=== PATIENT | male | born 1940 | race Caucasian/White ===

== ENCOUNTER 2021-01-23 11:41 | Inpatient (IN) | payer MEDICARE, SELFPAY ==
[2021-01-23] VITALS (13 sets, daily range): BP systolic 177–231; BP diastolic 77–121; PULSE 54–70; RESP 14–20; TEMP 36.6–37; O2SAT 95–98; BMI 26.2
--- NOTE | ~2021-01-23 | XR_ITS ---
EXAMINATION: RIGHT ELBOW AND CHEST X-RAY CLINICAL INFORMATION: Pain and swelling. COMPARISON: None TECHNIQUE: 3 views right elbow and 2 views chest. FINDINGS: Right elbow: There is no visible acute fracture, dislocation or subluxation. There is degenerative periarticular spurring. No abnormal joint effusion noted. CHEST: The lungs are well-expanded and clear. The heart size and pulmonary vascularity is normal. No gross bony abnormality seen. XR/XR chest 2V IMPRESSION: Degenerative arthritic changes right elbow. No acute fracture or dislocation. There are no loose bodies. Unremarkable chest exam.
--- NOTE | ~2021-01-23 | XR_ITS ---
EXAMINATION: RIGHT ELBOW AND CHEST X-RAY CLINICAL INFORMATION: Pain and swelling. COMPARISON: None TECHNIQUE: 3 views right elbow and 2 views chest. FINDINGS: Right elbow: There is no visible acute fracture, dislocation or subluxation. There is degenerative periarticular spurring. No abnormal joint effusion noted. CHEST: The lungs are well-expanded and clear. The heart size and pulmonary vascularity is normal. No gross bony abnormality seen. XR/XR elbow RT 2V IMPRESSION: Degenerative arthritic changes right elbow. No acute fracture or dislocation. There are no loose bodies. Unremarkable chest exam.
--- NOTE | ~2021-01-23 | CT_ITS ---
EXAMINATION: CT HEAD WITHOUT CONTRAST CLINICAL INFORMATION: Dizziness. Expressive aphasia. COMPARISON: None TECHNIQUE: Contiguous axial imaging was performed from the skull base to vertex without intravenous administration of contrast. This CT examination was performed using dose optimization techniques as appropriate, variously including the following: *Automated exposure control *Adjustment of mA and/or kV according to patient size (this includes techniques or standardized protocols for targeted exams where dose is matched to indication/reason for exam; i.e. extremities or head) *Use of iterative reconstruction technique DLP: 689 mGy-cm FINDINGS: No acute findings. No intracranial hemorrhage, extra-axial fluid collection, focal mass effect or midline shift. The man-white matter differentiation is maintained. No evidence of an acute major vascular territory infarction. Patchy hypoattenuation within subcortical and periventricular white matter is compatible with sequela of chronic microangiopathy. Chronic cerebral volume loss is associated with commensurate prominence of ventricles and sulci; no hydrocephalus. The brainstem and cerebellum are intact. The cerebellar hemispheres are normal position. The calvarium is normal. The visualized paranasal sinuses, mastoid air cells and middle ear cavities are well aerated. Prior ocular lens replacements. Temporomandibular joints are normal. CT/CT head/brain wo con IMPRESSION: * No hemorrhage or other acute intracranial pathology. * There is mild-moderate cerebral volume loss with commensurate prominence of ventricles and sulci. No hydrocephalus. * Patchy hypoattenuation within supratentorial white matter is compatible with sequela of chronic microangiopathy.
--- NOTE | ~2021-01-23 | CT_ITS ---
EXAMINATION: CT ANGIOGRAM OF THE HEAD CT ANGIOGRAM OF THE NECK CLINICAL INFORMATION: Aphasia and dizziness. COMPARISON: CT scan of the head obtained earlier 01/23/2021. TECHNIQUE: Test bolus series followed by intravenous administration 70 mL of Omnipaque 350. Helical imaging was performed in the axial plane from the mediastinum to the skull vertex. A delayed post contrast CT scan of the head was obtained. The degree of stenosis is based off NASCET criteria. The data was processed at the computer engineering technologist workstation for generation of MIP images. Three-dimensional volume rendered reformatted images were also generated at an offline 3-D workstation. This CT examination was performed using dose optimization techniques as appropriate, variously including the following: *Automated exposure control *Adjustment of mA and/or kV according to patient size (this includes techniques or standardized protocols for targeted exams where dose is matched to indication/reason for exam; i.e. extremities or head) *Use of iterative reconstruction technique DLP: 1550 mGy-cm. FINDINGS: CT Head: There is no evidence of acute intracranial hemorrhage or territorial infarction. No abnormal mass-effect or midline shift is seen. Allison to white matter differentiation is well preserved. No extra-axial fluid collections are identified. There is no abnormal enhancement. The ventricles and sulci are commensurately prominent consistent with moderate diffuse volume loss. There are extensive areas of low-attenuation in the periventricular and subcortical white matter, most consistent with chronic microvascular ischemic changes. There have been bilateral lens extractions. The osseous structures and soft tissues are normal. The mastoid air cells and visualized portions of the paranasal sinuses are well-aerated. CTA Neck: There is moderate patient motion artifact at the level of the oral cavity, distorting evaluation of the structures. There is a classic configuration of the arch of the aorta. There are mild atheromatous calcifications of the aortic arch. There are moderate atherosclerotic calcifications at the origin of the left subclavian artery without significant stenosis. Mild atheromatous calcifications are noted at the origins of the other great vessels of the neck and the right subclavian artery. The common carotid arteries are patent bilaterally. There is atheromatous calcification of the distal left common carotid artery without significant stenosis; the left common carotid artery is tortuous and extends almost to the midline in the mid cervical region. Mild atheromatous calcifications are seen on the right. There are atherosclerotic changes at the left carotid bifurcation with less than 50% stenosis. There are mild atheromatous calcifications at the right carotid bifurcation without significant stenosis. The cervical internal carotid arteries are patent bilaterally; the left common carotid artery is tortuous and extends almost in the midline at the level of C3-C3. There are atheromatous calcifications at the origins of the vertebral arteries. The right vertebral artery is moderately thinner compared to the left, but the vertebral arteries are patent with uniform caliber throughout their cervical course extending intradurally. Nonvascular: The visualized upper lung mesa are well-aerated. There are small lymph nodes in the right paratracheal region and in the superior mediastinum. The thyroid gland is normal in size. There is no cervical lymphadenopathy. 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 There is multilevel narrowing of intervertebral disc height and there are facet arthropathic changes particularly on the left. There are no acute fractures. The patient is edentulous in the mandible and the maxilla. CTA Head: Evaluation intracranially is limited by patient motion artifact at the level of the orbits. There are atheromatous calcifications of the cavernous internal carotid arteries bilaterally. The internal carotid arteries are difficult to assess due to the motion artifact, but appear to be patent. The supraclinoid internal carotid arteries are patent bilaterally. The A1 segment of the left anterior cerebral artery has thinner but uniform caliber compared to the right. The A2 segment is azygous. The middle cerebral arteries bilaterally demonstrate normal caliber with no evidence of focal stenosis, aneurysm or vascular malformation. There is normal arborization of the middle cerebral artery branches. In the posterior circulation the left vertebral artery is dominant. There are coarse calcifications at the proximal left intradural vertebral artery approximately 50% stenosis. The nondominant right vertebral artery ends primarily in the PICA. The basilar artery is patent. The posterior cerebral arteries appear normal bilaterally. The venous sinuses opacify normally. CT/CT angio head neck IMPRESSION: CT head and neck: 1. There are no acute bleeds or territorial infarcts. There are no masses or areas of abnormal enhancement. 2. There is diffuse volume loss and there are chronic microvascular ischemic changes. 3. 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 CTA head and neck: Evaluation is degraded by patient motion artifact as described above. 1. There are relatively extensive atheromatous calcifications of the aortic arch, at the origins of the great vessels of the neck and at the carotid bifurcations. There are no flow-limiting stenoses. 2. The left vertebral artery is dominant. The right vertebral artery is thinner but has uniform caliber. There are atheromatous calcifications with moderate stenosis in the proximal intradural left vertebral artery, but the vessel is patent. 3. Intracranially there are no focal stenoses or aneurysms. 4. There is an azygous A2 segment of anterior cerebral arteries which is a normal variant.
--- NOTE | 2021-01-23 11:51 | PC.NURSE ---
This RN to triage for assessment per and pt, pt feeling confused x 2 weeks worsening confusion, no blood thinners. Oriented x4, neuros are intact on exam, no unilateral weakness. with pt in WR.
--- NOTE | 2021-01-23 12:27 | ECG_ITS ---
Test Reason : DIZZINESS Blood Pressure : / mmHG Vent. Rate : 067 BPM Atrial Rate : 067 BPM P-R Int : 236 ms QRS Dur : 088 ms QT Int : 412 ms P-R-T Axes : 093 037 001 degrees QTc Int : 435 ms Sinus rhythm with 1st degree A-V block with Premature atrial complexes Otherwise normal ECG No previous ECGs available Referred By: Florence Quintero Electronically Signed By:ALEXANDRA LAYTON
--- NOTE | 2021-01-23 12:29 | ED_ITS ---
HPI - Altered Mental Status General Chief Complaint: Altered Mental Status Stated Complaint: ?stroke, HBP, confused Time Seen by Provider: 01/23/21 12:13 Source: patient and family Mode of arrival: wheelchair Limitations: no limitations History of Present Illness HPI narrative: 80-year-old male with a past medical history of hypertension, hyperlipidemia, gout here with complaints of confusion, unsteady gait, speech problem. Patient tells me that he had been taking medications for his medical diagnosis is but discontinued them about 1.5 years ago. He has not seen a primary care doctor since then. He tells me for the last few weeks he has been feeling confused. He tells me he has been having dizziness which is worsened with position changes and he has had several instances where he has fallen outside w/ +LOC. Since Monday he has had difficulty expressing certain words. Refused to come to the emergency department then. He is here with his who convinced him to come in today. He denies any vision changes, nausea, vomiting, weakness, chest pain, shortness of breath, abdominal pain. He drinks alcohol daily. 4-5 beers. Last drink yesterday. Denies history of withdrawal. No additional substance use. Also complaining some right elbow pain. No injury or trauma. History of gout and feels similar Related Data Home Medications Medication Instructions Recorded Confirmed No Known Home Meds 01/23/21 01/23/21 Allergies Allergy/AdvReac Type Severity Reaction Status Date / Time No Known Allergies Allergy Verified 01/23/21 12:12 Review of Systems Review of Systems: Yes all other systems are reviewed and are negative Constitutional: Constitutional: Reports no additional constitutional complaints, Denies body ache(s), Denies chills, Denies fever(s), Reports headache(s) and Denies weakness Eyes: Eyes: Reports no additional eye complaints and Denies change in vision ENT: Reports system reviewed and no additional complaints, except as documented, Reports dizziness, Reports headache(s), Denies nasal congestion, Denies nasal discharge and Denies neck pain Cardiovascular: Cardiovascular: Reports no additional cardiovascular complaints, Denies chest pain, Denies leg edema and Denies dyspnea Respiratory: Respiratory: Reports no additional respiratory complaints, Denies cough and Denies dyspnea Gastrointestinal: Gastrointestinal: Reports no additional gastrointestinal complaints, Denies abdominal pain, Denies diarrhea, Denies nausea and Denies vomiting Genitourinary: Genitourinary: Denies urinary incontinence Musculoskeletal: Musculoskeletal: Reports no additional musculoskeletal complaints, Reports abnormal gait, Denies back pain, Denies arthralgias, Denies joint swelling, Denies neck pain, Denies numbness and Denies tingling Integumentary/Breasts: Skin/Breast: Reports system reviewed and no additional complaints, except as docu and Denies rash Neurologic: Reports system reviewed and no additional complaints, except as documented, Reports Abnormal speech present, Reports abnormal gait, Reports dizziness, Reports headache(s), Denies numbness, Denies tingling and Denies weakness [facility] Past Medical History Attestation statement: The following information was validated with the patient. Source: old records reviewed and nursing notes reviewed Medical History High cholesterol HTN (hypertension) Social History Social History Advance Directives: No Physical Exam Vital Signs: Vital Signs: Last Vital Signs Temp 98.2 F 01/23/21 18:19 Pulse 56 01/23/21 18:19 Resp 14 01/23/21 18:19 BP 205/87 H 01/23/21 18:19 Pulse Ox 95 01/23/21 18:19 Body Mass Index 26.2 Const: Orientation/consciousness: patient oriented x3 Limitations: no li mitations HENMT: Head: Yes normal to inspection Ears: hearing grossly normal bilaterally General nose exam: Normal external nose present Face and sinus: Yes normal facial exam Mouth: Normal oral and palatal mucosa present Throat: Yes posterior oropharynx normal Eyes: General: appearance normal, both eyes and all related structures Pupils: Equal, round and reactive pupils present Neck: Neck: Yes normal visual inspection Chest: Chest palpation & inspection: normal inspection of the chest Resp: Effort & Inspection: normal respiratory effort Auscultation: clear to auscultation bilaterally Cardio: Rate: regular rate Rhythm: regular rhythm Peripheral pulses: Peripheral pulses 2+ throughout GI: Inspection: Yes normal to inspection Palpation (GI): Soft to palpation and nontender Auscultation: normal bowel sounds Back/Spine/Pelvis: Thoracic/Lumbar Spine: thoracic and lumbar spine normal to inspection Skin: General skin exam: no rashes or lesions noted Neuro: General: patient oriented x3 and moves all extremities Cranial nerves: Yes CN's II-XII intact bilaterally, Yes Equal, round and reactive pupils present, Yes Bilaterally intact EOM present, Yes Nystagmus not present, Yes Normal facial strength present and Yes Midline tongue present Cognition (Neuro): normal cognition Speech: Abnormal speech present Gait exam (Neuro): Normal gait present Motor exam (neuro): 5/5 motor strength present throughout Sensory Exam: Normal double simultaneous stimulation for sensation Coordination: [id number] test normal and [id number] test normal Extrem: Other: Mild swelling tenderness noted to the lateral right elbow. No abnormality in full range of motion General: Yes normal to inspection NIH Stroke Scale Internal: Initial- Upon Arrival Level of Consciousness: Alert Level of Consciousness Questions: Answers both questions correctly Level of Consciousness Commands: Performs both tasks correctly Best Gaze: Normal Visual: No visual loss Facial Palsy: Normal Motor Arm (Right): No drift Motor Arm (Left): No drift Motor Leg (Right): No drift Motor Leg (Left): No drift Limb Ataxia: Absent Sensory: Normal Best Language: Mild to moderate aphasia Dysarthia: Mild to moderate dysarthria Extinction and Inattention: No abnormality Score: 2 Course Course Course Narrative: 80-year-old male with a history of high blood pressure and high cholesterol noncompliant for almost 2 years here with multiple complaints. Per patient he has had 2 weeks of unsteady gait with falls, confusion, now since Monday expressive aphasia. Feels like he can't get the right words out. On exam the patient does have some expressive aphasia and mild dysarthria noted. NIH is 2. The patient is not a tPA candidate due to the length of his symptoms. Will need labs, EKG, CT head. Will give p.o. antihypertensive. 1600-labs unremarkable with the exception of a mildly elevated troponin. Plan for repeat 3 hour troponin. Less likely ACS with no chest pain or EKG changes. All other imaging is unremarkable. Blood pressure now 199/90. Goal blood pressure is 180 systolic. Plan for 5 mg of Norvasc and rate assessed. Discussed with Medicine who will admit patient once blood pressure is more controlled 1750-blood pressure 177/77. Patient is a bathroom with steady gait. Feels like dizziness and headache is better. Still having some difficulty with word f inding. Medicine will admit 194-spoke to Dr. Renteria from medicine. Agreed to admit. Requesting CTA head and neck MDM - Altered Mental Status MDM Narrative Medical decision making narrative: CVA-less likely with symptoms greater than [address] days and a normal CT scan Less likely metabolic with normal labs Less likely ACS with note reports of chest pain. The patient did have a slight increase in his troponin but this is likely secondary to uncontrolled hypertension and not from ACS Hypertensive urgency Differential Diagnosis Differential diagnosis: Likely alcoholic intoxication, delirium, dementia, encephalopathy, hypoglycemia, hyponatremia, renal failure, subarachnoid hemorrhage and sepsis Medical Records Attestation: I reviewed the patient's medical records. Lab Data Attestation: I reviewed the patient's lab results. Result diagrams: 01/23/21 13:09 01/23/21 13:09 Labs: Lab Results 01/23/21 01/23/21 01/23/21 Range/Units 12:55 13:09 13:09 WBC (4.8-10.8) X10*3/uL RBC (4.60-5.80) X10*6/uL Hgb (14.0-18.0) g/dl Hct (42-52) % MCV (80-98) fL MCH (27.0-33.0) pg MCHC (31.0-36.0) g/dl RDW (11.0-16.0) % Plt Count (160-400) X10*3/uL MPV (9.4-12.4) fL Immature Gran % (Auto) (0.0-0.4) % Neut % (Auto) (45-73) % Lymph % (Auto) (20-40) % [place] % (Auto) (2-11) % Eos % (Auto) (0-4) % Baso % (Auto) (0-2) % Lymph # (Auto) (1.2-4.9) X10*3/uL [place] # (Auto) (0.1-1.2) X10*3/uL Eos # (Auto) (0.0-0.4) X10*3/uL Baso # (Auto) (0.0-0.2) X10*3/uL Abs Immat Gran (auto) (0.00-0.03) X10*3/uL Absolute Neuts (auto) (2.0-8.3) X10*3/uL Absolute Nucleated RBC (0.0-0.012) X10*3/uL Nucleated RBC % (auto) (0.0-0.2) /100WBC PT (9.9-13.0) SEC INR (0.9-1.1) APTT (24.1-38.0) SEC Sodium (135-145) mmol/L Potassium (3.3-5.1) mmol/L Chloride (96-108) mmol/L Carbon Dioxide (22-29) mmol/L Anion Gap (12-20) BUN (9-16) mg/dL Creatinine (0.5-1.4) mg/dL Estim Creat Clear Calc Estimated GFR POC Glucose 128 H (60-115) mg/dL Random Glucose (60-115) mg/dL Calcium 9.4 (8.4-10.2) mg/dL Phosphorus 2.4 L (2.7-4.5) mg/dL Magnesium 2.6 (1.6-2.6) mg/dL Total Bilirubin 0.7 (0.0-1.0) mg/dL Direct Bilirubin 0.4 (0.0-0.5) mg/dL AST 14 (5-37) U/L ALT 10 (0-40) U/L Alkaline Phosphatase 81 (39-117) U/L Total Creatine Kinase (38-174) U/L Troponin I High Sens (<3.5-35.0) ng/L Total Protein 6.3 L (6.5-8.0) g/dL Albumin 3.9 (3.5-5.0) g/dL Urine Color Urine Appearance Urine pH (5.0-8.0) Ur Specific [place] (1.005-1.025) Urine Protein (NEG-TRACE) MG/DL Urine Glucose (UA) (NEG) MG/DL Urine Ketones (NEG) MG/DL Urine Blood (NEG) Urine Nitrite (NEG) Ur Leukocyte Esterase (NEG) Ethyl Alcohol < 10 mg/dL COVID-19 (DORA) (Negative) COVID-19 Clin Com 01/23/21 01/23/21 01/23/21 Range/Units 13:09 13:09 13:09 WBC 6.2 (4.8-10.8) X10*3/uL RBC 5.06 (4.60-5.80) X10*6/uL Hgb 15.5 (14.0-18.0) g/dl Hct 42.9 (42-52) % MCV 84.8 (80-98) fL MCH 30.6 (27.0-33.0) pg MCHC 36.1 H (31.0-36.0) g/dl RDW 12.5 (11.0-16.0) % Plt Count 216 (160-400) X10*3/uL MPV 9.4 (9.4-12.4) fL Immature Gran % (Auto) 0.2 (0.0-0.4) % Neut % (Auto) 78.5 H (45-73) % Lymph % (Auto) 12.2 L (20-40) % [place] % (Auto) 8.0 (2-11) % Eos % (Auto) 0.8 (0-4) % Baso % (Auto) 0.3 (0-2) % Lymph # (Auto) 0.8 L (1.2-4.9) X10*3/uL [place] # (Auto) 0.5 (0.1-1.2) X10*3/uL Eos # (Auto) 0.1 (0.0-0.4) X10*3/uL Baso # (Auto) 0.0 (0.0-0.2) X10*3/uL Abs Immat Gran (auto) 0.01 (0.00-0.03) X10*3/uL Absolute Neuts (auto) 4.9 (2.0-8.3) X10*3/uL Absolute Nucleated RBC 0.000 (0.0-0.012) X10*3/uL Nucleated RBC % (auto) 0.0 (0.0-0.2) /100WBC PT 11.3 (9.9-13.0) SEC INR 1.0 (0.9-1.1) APTT 32.4 (24.1-38.0) SEC Sodium 140 (135-145) mmol/L Potassium 3.2 L (3.3-5.1) mmol/L Chloride 100 (96-108) mmol/L Carbon Dioxide 30 H (22-29) mmol/L Anion Gap 13 (12-20) BUN 12 (9-16) mg/dL Creatinine 1.26 (0.5-1.4) mg/dL Estim Creat Clear Calc 45.2 Estimated GFR 55 POC Glucose (60-115) mg/dL Random Glucose 113 (60-115) mg/dL Calcium 9.4 (8.4-10.2) mg/dL Phosphorus (2.7-4.5) mg/dL Magnesium (1.6-2.6) mg/dL Total Bilirubin (0.0-1.0) mg/dL Direct Bilirubin (0.0-0.5) mg/dL AST (5-37) U/L ALT (0-40) U/L Alkaline Phosphatase (39-117) U/L Total Creatine Kinase 58 (38-174) U/L Troponin I High Sens (<3.5-35.0) ng/L Total Protein (6.5-8.0) g/dL Albumin (3.5-5.0) g/dL Urine Color Urine Appearance Urine pH (5.0-8.0) Ur Specific [place] (1.005-1.025) Urine Protein (NEG-TRACE) MG/DL Urine Glucose (UA) (NEG) MG/DL Urine Ketones (NEG) MG/DL Urine Blood (NEG) Urine Nitrite (NEG) Ur Leukocyte Esterase (NEG) Ethyl Alcohol mg/dL COVID-19 (DORA) (Negative) COVID-19 Clin Com 01/23/21 01/23/21 01/23/21 Range/Units 13:09 13:09 13:09 WBC (4.8-10.8) X10*3/uL RBC (4.60-5.80) X10*6/uL Hgb (14.0-18.0) g/dl Hct (42-52) % MCV (80-98) fL MCH (27.0-33.0) pg MCHC (31.0-36.0) g/dl RDW (11.0-16.0) % Plt Count (160-400) X10*3/uL MPV (9.4-12.4) fL Immature Gran % (Auto) (0.0-0.4) % Neut % (Auto) (45-73) % Lymph % (Auto) (20-40) % [place] % (Auto) (2-11) % Eos % (Auto) (0-4) % Baso % (Auto) (0-2) % Lymph # (Auto) (1.2-4.9) X10*3/uL [place] # (Auto) (0.1-1.2) X10*3/uL Eos # (Auto) (0.0-0.4) X10*3/uL Baso # (Auto) (0.0-0.2) X10*3/uL Abs Immat Gran (auto) (0.00-0.03) X10*3/uL Absolute Neuts (auto) (2.0-8.3) X10*3/uL Absolute Nucleated RBC (0.0-0.012) X10*3/uL Nucleated RBC % (auto) (0.0-0.2) /100WBC PT (9.9-13.0) SEC INR (0.9-1.1) APTT (24.1-38.0) SEC Sodium (135-145) mmol/L Potassium (3.3-5.1) mmol/L Chloride (96-108) mmol/L Carbon Dioxide (22-29) mmol/L Anion Gap (12-20) BUN (9-16) mg/dL Creatinine (0.5-1.4) mg/dL Estim Creat Clear Calc Estimated GFR POC Glucose (60-115) mg/dL Random Glucose (60-115) mg/dL Calcium (8.4-10.2) mg/dL Phosphorus (2.7-4.5) mg/dL Magnesium (1.6-2.6) mg/dL Total Bilirubin (0.0-1.0) mg/dL Direct Bilirubin (0.0-0.5) mg/dL AST (5-37) U/L ALT (0-40) U/L Alkaline Phosphatase (39-117) U/L Total Creatine Kinase (38-174) U/L Troponin I High Sens 14.6 (<3.5-35.0) ng/L Total Protein (6.5-8.0) g/dL Albumin (3.5-5.0) g/dL Urine Color YELLOW Urine Appearance CLEAR Urine pH 6.0 (5.0-8.0) Ur Specific [place] 1.015 (1.005-1.025) Urine Protein TRACE (NEG-TRACE) MG/DL Urine Glucose (UA) NEG (NEG) MG/DL Urine Ketones NEG (NEG) MG/DL Urine Blood NEG (NEG) Urine Nitrite NEG (NEG) Ur Leukocyte Esterase NEG (NEG) Ethyl Alcohol mg/dL COVID-19 (DOAR) Negative (Negative) COVID-19 Clin Com See Note 01/23/21 Range/Units 18:26 WBC (4.8-10.8) X10*3/uL RBC (4.60-5.80) X10*6/uL Hgb (14.0-18.0) g/dl Hct (42-52) % MCV (80-98) fL MCH (27.0-33.0) pg MCHC (31.0-36.0) g/dl RDW (11.0-16.0) % Plt Count (160-400) X10*3/uL MPV (9.4-12.4) fL Immature Gran % (Auto) (0.0-0.4) % Neut % (Auto) (45-73) % Lymph % (Auto) (20-40) % [place] % (Auto) (2-11) % Eos % (Auto) (0-4) % Baso % (Auto) (0-2) % Lymph # (Auto) (1.2-4.9) X10*3/uL [place] # (Auto) (0.1-1.2) X10*3/uL Eos # (Auto) (0.0-0.4) X10*3/uL Baso # (Auto) (0.0-0.2) X10*3/uL Abs Immat Gran (auto) (0.00-0.03) X10*3/uL Absolute Neuts (auto) (2.0-8.3) X10*3/uL Absolute Nucleated RBC (0.0-0.012) X10*3/uL Nucleated RBC % (auto) (0.0-0.2) /100WBC PT (9.9-13.0) SEC INR (0.9-1.1) APTT (24.1-38.0) SEC Sodium (135-145) mmol/L Potassium (3.3-5.1) mmol/L Chloride (96-108) mmol/L Carbon Dioxide (22-29) mmol/L Anion Gap (12-20) BUN (9-16) mg/dL Creatinine (0.5-1.4) mg/dL Estim Creat Clear Calc Estimated GFR POC Glucose (60-115) mg/dL Random Glucose (60-115) mg/dL Calcium (8.4-10.2) mg/dL Phosphorus (2.7-4.5) mg/dL Magnesium (1.6-2.6) mg/dL Total Bilirubin (0.0-1.0) mg/dL Direct Bilirubin (0.0-0.5) mg/dL AST (5-37) U/L ALT (0-40) U/L Alkaline Phosphatase (39-117) U/L Total Creatine Kinase (38-174) U/L Troponin I High Sens 22.1 D (<3.5-35.0) ng/L Total Protein (6.5-8.0) g/dL Albumin (3.5-5.0) g/dL Urine Color Urine Appearance Urine pH (5.0-8.0) Ur Specific [place] (1.005-1.025) Urine Protein (NEG-TRACE) MG/DL Urine Glucose (UA) (NEG) MG/DL Urine Ketones (NEG) MG/DL Urine Blood (NEG) Urine Nitrite (NEG) Ur Leukocyte Esterase (NEG) Ethyl Alcohol mg/dL COVID-19 (DORA) (Negative) COVID-19 Clin Com Imaging Data Chest x-ray: Attestation: I personally reviewed and interpreted this imaging study as follows: Radiologist's impression: [address] [id number] XRay Report Signed Patient: Dutch De Souza MR#: [id number] : 1940 Acct:[id number] Age/Sex: 80 / M ADM Date: 01/23/21 Loc: .ED Attending Dr: Ordering Physician: Florence Quintero NP Date of Service: 01/23/21 Procedure(s): XR chest 2V Accession Number(s): [id number] cc: Florence Quintero NP~ EXAMINATION: RIGHT ELBOW AND CHEST X-RAY CLINICAL INFORMATION: Pain and swelling.? COMPARISON: None? TECHNIQUE: 3 views right elbow and 2 views chest.? FINDINGS: Right elbow: There is no visible acute fracture, dislocation or subluxation. There is degenerative periarticular spurring. No abnormal joint effusion noted. CHEST: The lungs are well-expanded and clear. The heart size and pulmonary vascularity is normal. No gross bony abnormality seen.? XR/XR chest 2V IMPRESSION: Degenerative arthritic changes right elbow. No acute fracture or dislocation. There are no loose bodies. ? Unremarkable chest exam. elbow xray right: Attestation: I personally reviewed and interpreted this imaging study as follows: Radiologist's impression: [address] [address] XRay Report Signed Patient: Dutch De Souza MR#: [id number] : 1940 Acct:[id number] Age/Sex: 80 / M ADM Date: 01/23/21 Loc: .ED Attending Dr: Ordering Physician: Florence Quintero NP Date of Service: 01/23/21 Procedure(s): XR elbow RT 2V Accession Number(s): [id number] cc: Florence Quintero NP~ EXAMINATION: RIGHT ELBOW AND CHEST X-RAY CLINICAL INFORMATION: Pain and swelling.? COMPARISON: None? TECHNIQUE: 3 views right elbow and 2 views chest.? FINDINGS: Right elbow: There is no visible acute fracture, dislocation or subluxation. There is degenerative periarticular spurring. No abnormal joint effusion noted. CHEST: The lungs are well-expanded and clear. The heart size and pulmonary vascularity is normal. No gross bony abnormality seen.? XR/XR elbow RT 2V IMPRESSION: Degenerative arthritic changes right elbow. No acute fracture or dislocation. There are no loose bodies. ? Unremarkable chest exam. CT scan - head: Attestation: I personally reviewed and interpreted this imaging study as follows: Radiologist's impression: [address] [address] [address] Scan Report Signed Patient: Dutch De Souza MR#: [id number] : 1940 Acct:[id number] Age/Sex: 80 / M ADM Date: 01/23/21 Loc: HO.ED Attending Dr: Ordering Physician: Florence Quintero NP Date of Service: 01/23/21 Procedure(s): CT head/brain wo con Accession Number(s): [id number] cc: Florence Quintero NP~ EXAMINATION: CT HEAD WITHOUT CONTRAST CLINICAL INFORMATION: Dizziness. Expressive aphasia.? COMPARISON: None TECHNIQUE: Contiguous axial imaging was performed from the skull base to vertex without intravenous administration of contrast. This CT examination was performed using dose optimization techniques as appropriate, variously including the following: *Automated exposure control *Adjustment of mA and/or kV according to patient size (this includes techniques or standardized protocols for targeted exams where dose is matched to indication/reason for exam; i.e. extremities or head) *Use of iterative reconstruction technique DLP: 689 mGy-cm FINDINGS: No acute findings. No intracranial hemorrhage, extra-axial fluid collection, focal mass effect or midline shift. The man-white matter differentiation is maintained. No evidence of an acute major vascular territory infarction. Patchy hypoattenuation within subcortical and periventricular white matter is compatible with sequela of chronic microangiopathy. Chronic cerebral volume loss is associated with commensurate prominence of ventricles and sulci; no hydrocephalus. The brainstem and cerebellum are intact. The cerebellar hemispheres are normal position. The calvarium is normal. The visualized paranasal sinuses, mastoid air cells and middle ear cavities are well aerated. Prior ocular lens replacements. Temporomandibular joints are normal. CT/CT head/brain wo con IMPRESSION: *? No hemorrhage or other acute intracranial pathology. *? There is mild-moderate cerebral volume loss with commensurate prominence of ventricles and sulci. No hydrocephalus. *? Patchy hypoattenuation within supratentorial white matter is compatible with sequela of chronic microangiopathy. ECG Data ECG #1: Attestation: I personally reviewed and interpreted this ECG as follows: ECG interpretation date: 01/23/21 ECG interpretation time: 12:47 Interpretation: Sinus rhythm with a first-degree AV block with a rate of 67, normal QRS, normal QT Discharge Plan Discharge Clinical Impression: Hypertensive urgency Patient Disposition: Admitted As Inpatient
[2021-01-23] MEDS: Labetalol HCL 100 MG TABLET PO ×2 (12:52→14:33)
[2021-01-23 13:01] LABS: Glucose, Whole Blood 128 mg/dL (60-115)
[2021-01-23 13:17] LABS: Basophils Percent Auto 0.3 % (0-2); Eosinophils Absolute Auto 0.1 X10*3/uL (0.0-0.4); Eosinophils Percent Auto 0.8 % (0-4); Hematocrit 42.9 % (42-52); Hemoglobin 15.5 g/dl (14.0-18.0); Imm Gran Abs Auto 0.01 X10*3/uL (0.00-0.03); Imm Gran Pct Auto 0.2 % (0.0-0.4); Lymphocytes Absolute Auto 0.8 X10*3/uL (1.2-4.9); Lymphocytes Percent Auto 12.2 % (20-40); MANUAL DIFF FLAG NO; Mean Corpuscular HGB Conc 36.1 g/dl (31.0-36.0); Mean Corpuscular Hemoglobin 30.6 pg (27.0-33.0); Mean Corpuscular Volume 84.8 fL (80-98); Mean Platelet Volume 9.4 fL (9.4-12.4); Monocytes Absolute Auto 0.5 X10*3/uL (0.1-1.2); Neutrophils Absolute Auto 4.9 X10*3/uL (2.0-8.3); Neutrophils Percent Auto 78.5 % (45-73); Platelet Count 216 X10*3/uL (160-400); Red Blood Count 5.06 X10*6/uL (4.60-5.80); Red Cell Distribution Width 12.5 % (11.0-16.0); White Blood Count 6.2 X10*3/uL (4.8-10.8)
[2021-01-23 13:19] LABS: Appearance Urine CLEAR; Color Urine YELLOW; Glucose Urine UA NEG (NEG); Leukocyte Esterase Urine NEG (NEG); Nitrite Urine NEG (NEG); Specific Gravity - Urine 1.015 (1.005-1.025); Urine Blood NEG (NEG); Urine Ketones NEG (NEG); Urine Protein TRACE MG/DL (NEG-TRACE)
[2021-01-23 13:23] LABS: Prothrombin Time 11.3 SEC (9.9-13.0)
[2021-01-23 13:26] LABS: Partial Thromboplastin Time 32.4 SEC (24.1-38.0)
[2021-01-23 13:31] LABS: COVID-19 Test Negative (Negative)
[2021-01-23 13:32] LABS: Ethanol < 10 mg/dL
[2021-01-23 13:37] LABS: Anion Gap 13 (12-20); Blood Urea Nitrogen 12 mg/dL (9-16); Calcium 9.4 mg/dL (8.4-10.2); Carbon Dioxide 30 mmol/L (22-29); Chloride 100 mmol/L (96-108); Creatinine Clr Calc Pharmacy 45.2; Estimated Glomerular Filt Rate 55; Glucose Random 113 mg/dL (60-115); Potassium 3.2 mmol/L (3.3-5.1); Sodium 140 mmol/L (135-145)
[2021-01-23 13:40] LABS: Troponin-I High Sensitivity 14.6 ng/L (<3.5-35.0)
[2021-01-23 13:58] LABS: Alanine Aminotransferase 10 U/L (0-40); Albumin Level 3.9 g/dL (3.5-5.0); Alkaline Phosphatase 81 U/L (39-117); Aspartate Amino Transferase 14 U/L (5-37); Bilirubin Direct 0.4 mg/dL (0.0-0.5); Bilirubin Total 0.7 mg/dL (0.0-1.0); Calcium 9.4 mg/dL (8.4-10.2); Magnesium 2.6 mg/dL (1.6-2.6); Phosphorus 2.4 mg/dL (2.7-4.5); Total Protein 6.3 g/dL (6.5-8.0)
[2021-01-23] MEDS: amLODIPine Besylate 5 MG TABLET PO ×2 (16:32→17:50)
[2021-01-23 18:58] LABS: Troponin-I High Sensitivity 22.1 ng/L (<3.5-35.0)
--- NOTE | 2021-01-23 22:04 | PC.NURSE ---
report given to JAKE Henriquez on IMC. IV #20 placed to [facility] for CT angio, after which patient will go upstairs to room
[2021-01-23] MEDS: iohexoL 350 MG/ML 100 ML INFUS..BTL IV (22:27)
[2021-01-23] MEDS: Labetalol HCL 100 MG/20 ML VIAL 10 MG IVPUSH (23:09)
[2021-01-24] VITALS (9 sets, daily range): BP systolic 131–202; BP diastolic 62–100; PULSE 59–80; RESP 17–20; TEMP 36.6–37.1; O2SAT 93–95; BMI 26.4
[2021-01-24] MEDS: Labetalol HCL 100 MG/20 ML VIAL 10 MG IVPUSH (04:25)
[2021-01-24] MEDS: amLODIPine Besylate 10 MG TABLET PO ×2 (04:25→07:58)
--- NOTE | 2021-01-24 06:04 | PC.NURSE ---
P: Pt up from ER at 23:00. BP found to be 202/110 manually. Pt denies headache, vision changes, or any other symptoms. I:MD notified. MD ordered a one time dose of 10mg PO Norvasc, second dose of Norvasc to be given at 9am this morning. MD also ordered a one time dose of 10mg IV push Labetalol. Administered medications at 04:25. E: BP rechecked at 05:40, found to be 200/92. MD notified again. Ordered one time dose of 5mg IV Hydralazine. Will administer and recheck BP in one hour.
[2021-01-24] MEDS: hydrALAZINE HCl 20 MG/ML VIAL 5 MG IVPUSH (06:27)
[2021-01-24 06:34] LABS: MANUAL DIFF FLAG NO
--- NOTE | 2021-01-24 06:37 | PM.IMHP ---
History of Present Illness Date of Service: 01/23/21 Chief Complaint: Dizziness This is an 80-year-old male with past medical history of hypertension, HLD who presents to the hospital with complaints dizziness, headache, unsteady gait, and multiple syncopal episodes while walking. Patient reports that for the past 1 year and a half he stop taking his antihypertensives because he just stopped following up with his primary care physician. He has over the past few weeks developed these symptoms including the syncopal episodes that have occurred about 7-8 times. He also reports that for the past 5 days he has had difficulty with speech where he can not find the right words, his speech appears to be slurred and difficult for him to verbalize what he means. He also tells me that he is finding difficulty with the task that he used to do like working on his computer. Has now become difficult because he does not understand what he is doing. In vision, no blurry vision, no double vision, no chest pain, no shortness of breath, no abdominal pain nausea or vomiting, no diarrhea constipation, no urinary symptoms, and no lower extremity edema. No numbness tingling or weakness in his arms or legs, All other review of system negative Patient does not remember his antihypertensive medications On arrival to the ED patient was found to have a blood pressure of 231/121, heart rate of 70, respiratory rate 15, satting 97% on room air Labs are significant for potassium 3.2 but otherwise unremarkable Patient received multiple p.o. doses of labetalol as well amlodipine p.o. with blood pressure improving to the 170s, blood pressure is now back up to the [address] angiogram showed no significant acute abnormality. Patient will be admitted for further management Review of Systems Review of Systems: Yes all other systems are reviewed and are negative [facility] Medical History High cholesterol HTN (hypertension) Family History (Updated 01/24/21 @ 06:50 by Micheal Renteria MD) Mother Hypertension Father Alcoholic Social History Patient Tobacco Use Status: Former Tobacco user Tobacco use type: Cigarette Advance Directives: No Meds Allergies Allergy/AdvReac Type Severity Reaction Status Date / Time No Known Allergies Allergy Verified 01/23/21 12:12 Active Medications: Current Medications Generic Name Dose Route Start Last Admin Trade Name Raegan PRN Reason Stop Dose Admin Acetaminophen 650 mg 01/23/21 22:15 Acetaminophen 325 Mg Tablet PO Q6H PRN Pain, Mild (Pain Scale 1-3) Amlodipine Besylate 10 mg 01/24/21 04:10 01/24/21 04:25 Amlodipine Besylate 10 Mg Tablet PO 10 mg DAILY [facility] Administration Protocol Docusate Sodium 100 mg 01/23/21 22:15 Docusate Sodium 100 Mg Capsule PO DAILY PRN Constipation Ondansetron HCl 4 mg 01/23/21 22:15 Ondansetron Hcl 4 Mg/2 Ml Vial IVPUSH Q8H PRN Nausea and Vomiting Sodium Chloride 3 ml 01/24/21 00:00 01/24/21 00:52 0.9 % Sodium Chloride Flush 3 Ml Syringe IVFLUSH Not Given QSHIFT [facility] Home Medications Medication Instructions Recorded Confirmed Last Taken Type No Known Home Meds 01/23/21 01/23/21 Unknown History Physical Exam Vital Signs and Narrative: Vital Signs: Last Vital Signs Temp 98.8 F 01/24/21 03:46 Pulse 62 01/24/21 06:27 Resp 20 01/24/21 03:46 BP 200/92 H 01/24/21 06:27 Pulse Ox 98 01/23/21 23:16 Body Mass Index 26.4 Const: General: cooperative and no acute distress Orientation/consciousness: patient oriented x3 Eyes: General: appearance normal, both eyes and all related structures Resp: Effort & Inspection: normal respiratory effort Auscultation: clear to auscultation bilaterally Cardio: Rate: regular rate Rhythm: regular rhythm GI: Palpation (GI): Soft to palpation Auscultation: normal bowel sounds Skin: General skin exam: no rashes or lesions noted Neuro: Other: No neurological deficits, cranial 2-12 intact General: patient oriented x3 Cognition (Neuro): normal cognition Extrem: General: Yes normal to inspection and Yes no pedal edema Results Labs CBC and Chem 7: 01/23/21 13:09 01/23/21 13:09 Labs: Laboratory Results - last 24 hr 01/23/21 01/23/21 01/23/21 12:55 13:09 13:09 MCV MCH MCHC RDW Plt Count MPV Immature Gran % (Auto) Neut % (Auto) Lymph % (Auto) [place]ven % (Auto) Eos % (Auto) Baso % (Auto) Lymph # (Auto) Craven # (Auto) Eos # (Auto) Baso # (Auto) Abs Immat Gran (auto) Absolute Neuts (auto) Absolute Nucleated RBC Nucleated RBC % (auto) PT INR APTT Anion Gap Estim Creat Clear Calc Estimated GFR POC Glucose 128 H Random Glucose Calcium 9.4 Phosphorus 2.4 L Magnesium 2.6 Total Bilirubin 0.7 Direct Bilirubin 0.4 AST 14 ALT 10 Alkaline Phosphatase 81 Total Creatine Kinase Troponin I High Sens Total Protein 6.3 L Albumin 3.9 Urine Color Urine Appearance Urine pH Ur Specific [place] Urine Protein Urine Glucose (UA) Urine Ketones Urine Blood Urine Nitrite Ur Leukocyte Esterase Ethyl Alcohol < 10 COVID-19 ([facility]) COVID-19 Analyze Re Com 01/23/21 01/23/21 01/23/21 13:09 13:09 13:09 MCV 84.8 MCH 30.6 MCHC 36.1 H RDW 12.5 Plt Count 216 MPV 9.4 Immature Gran % (Auto) 0.2 Neut % (Auto) 78.5 H Lymph % (Auto) 12.2 L [place]ven % (Auto) 8.0 Eos % (Auto) 0.8 Baso % (Auto) 0.3 Lymph # (Auto) 0.8 L [place] # (Auto) 0.5 Eos # (Auto) 0.1 Baso # (Auto) 0.0 Abs Immat Gran (auto) 0.01 Absolute Neuts (auto) 4.9 Absolute Nucleated RBC 0.000 Nucleated RBC % (auto) 0.0 PT 11.3 INR 1.0 APTT 32.4 Anion Gap 13 Estim Creat Clear Calc 45.2 Estimated GFR 55 POC Glucose Random Glucose 113 Calcium 9.4 Phosphorus Magnesium Total Bilirubin Direct Bilirubin AST ALT Alkaline Phosphatase Total Creatine Kinase 58 Troponin I High Sens Total Protein Albumin Urine Color Urine Appearance Urine pH Ur Specific [place] Urine Protein Urine Glucose (UA) Urine Ketones Urine Blood Urine Nitrite Ur Leukocyte Esterase Ethyl Alcohol COVID-19 ([facility]) COVID-19 Analyze Re Com 01/23/21 01/23/21 01/23/21 13:09 13:09 13:09 MCV MCH MCHC RDW Plt Count MPV Immature Gran % (Auto) Neut % (Auto) Lymph % (Auto) [place] % (Auto) Eos % (Auto) Baso % (Auto) Lymph # (Auto) [place] # (Auto) Eos # (Auto) Baso # (Auto) Abs Immat Gran (auto) Absolute Neuts (auto) Absolute Nucleated RBC Nucleated RBC % (auto) PT INR APTT Anion Gap Estim Creat Clear Calc Estimated GFR POC Glucose Random Glucose Calcium Phosphorus Magnesium Total Bilirubin Direct Bilirubin AST ALT Alkaline Phosphatase Total Creatine Kinase Troponin I High Sens 14.6 Total Protein Albumin Urine Color YELLOW Urine Appearance CLEAR Urine pH 6.0 Ur Specific [place] 1.015 Urine Protein TRACE Urine Glucose (UA) NEG Urine Ketones NEG Urine Blood NEG Urine Nitrite NEG Ur Leukocyte Esterase NEG Ethyl Alcohol COVID-19 ([facility]) Negative COVID-19 Clin Com See Note 01/23/21 01/23/21 18:26 Unknown MCV MCH MCHC RDW Plt Count MPV Immature Gran % (Auto) Neut % (Auto) Lymph % (Auto) [place] % (Auto) Eos % (Auto) Baso % (Auto) Lymph # (Auto) [place] # (Auto) Eos # (Auto) Baso # (Auto) Abs Immat Gran (auto) Absolute Neuts (auto) Absolute Nucleated RBC Nucleated RBC % (auto) PT INR APTT Anion Gap Estim Creat Clear Calc Estimated GFR POC Glucose Random Glucose Calcium Phosphorus Magnesium Total Bilirubin Direct Bilirubin AST ALT Alkaline Phosphatase Total Creatine Kinase Troponin I High Sens 22.1 D Cancelled Total Protein Albumin Urine Color Urine Appearance Urine pH Ur Specific [place] Urine Protein Urine Glucose (UA) Urine Ketones Urine Blood Urine Nitrite Ur Leukocyte Esterase Ethyl Alcohol COVID-19 ([facility]) COVID-19 Clin Com ECG Interpretation: Stat EKG reviewed shows sinus rhythm with first-degree AV block no other abnormality Imaging Radiologist's Impressions: Impressions Chest X-Ray 01/23/21 12:26 IMPRESSION: Degenerative arthritic changes right elbow. No acute fracture or dislocation. There are no loose bodies. Unremarkable chest exam. Elbow X-Ray 01/23/21 12:26 IMPRESSION: Degenerative arthritic changes right elbow. No acute fracture or dislocation. There are no loose bodies. Unremarkable chest exam. Head CT 01/23/21 12:28 IMPRESSION: * No hemorrhage or other acute intracranial pathology. * There is mild-moderate cerebral volume loss with commensurate prominence of ventricles and sulci. No hydrocephalus. * Patchy hypoattenuation within supratentorial white matter is compatible with sequela of chronic microangiopathy. Head/Neck CTA 01/23/21 19:37 IMPRESSION: CT head and neck: 1. There are no acute bleeds or territorial infarcts. There are no masses or areas of abnormal enhancement. 2. There is diffuse volume loss and there are chronic microvascular ischemic changes. 3. 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 CTA head and neck: Evaluation is degraded by patient motion artifact as described above. 1. There are relatively extensive atheromatous calcifications of the aortic arch, at the origins of the great vessels of the neck and at the carotid bifurcations. There are no flow-limiting stenoses. 2. The left vertebral artery is dominant. The right vertebral artery is thinner but has uniform caliber. There are atheromatous calcifications with moderate stenosis in the proximal intradural left vertebral artery, but the vessel is patent. 3. Intracranially there are no focal stenoses or aneurysms. 4. There is an azygous A2 segment of anterior cerebral arteries which is a normal variant. Assessment and Plan (1) Hypertensive urgency: Status: Acute (2) Dysarthria: Status: Acute (3) Syncope: Status: Acute This is an 80-year-old male with past medical history of hypertension noncompliant with medications presents to the hospital with dizziness, headache, and syncopal episodes # hypertensive urgency - most likely secondary to noncompliance with his medication - received multiple doses of labetalol as well as p.o. amlodipine in the ED - at this time patient does not remember his medications therefore will start him on amlodipine 10 mg of lisinopril 40 mg - p.r.n. labetalol and hydralazine for any blood pressure above 200 systolic - admit to telemetry # syncope - possibly secondary to hypertensive encephalopathy - EKG shows sinus rhythm with first-degree AV block - no elevated troponin - will admit to telemetry and control blood pressure # dysarthria - most likely secondary to above - CT head and CT angiogram head and neck negative - will consult neurology and hold off ordering MRI until evaluated by Neurology team DVT prophylaxis: Lovenox Quality Stroke Does the patient have a stroke diagnosis?: No VTE Prior VTE?: No VTE Risk Level:: Medical - moderate - high VTE Device Contraindication: N/A - Device Ordered VTE Drug Contraindication: Treatment Not Indicated
[2021-01-24 06:51] LABS: Basophils Percent Auto 0.6 % (0-2); Eosinophils Absolute Auto 0.1 X10*3/uL (0.0-0.4); Eosinophils Percent Auto 1.8 % (0-4); Hematocrit 39.9 % (42-52); Hemoglobin 13.9 g/dl (14.0-18.0); Imm Gran Abs Auto 0.01 X10*3/uL (0.00-0.03); Imm Gran Pct Auto 0.2 % (0.0-0.4); Lymphocytes Absolute Auto 0.8 X10*3/uL (1.2-4.9); Lymphocytes Percent Auto 15.2 % (20-40); Mean Corpuscular HGB Conc 34.8 g/dl (31.0-36.0); Mean Corpuscular Hemoglobin 29.7 pg (27.0-33.0); Mean Corpuscular Volume 85.3 fL (80-98); Mean Platelet Volume 9.5 fL (9.4-12.4); Monocytes Absolute Auto 0.6 X10*3/uL (0.1-1.2); Monocytes Percent Auto 11.1 % (2-11); Neutrophils Absolute Auto 3.9 X10*3/uL (2.0-8.3); Neutrophils Percent Auto 71.1 % (45-73); Platelet Count 228 X10*3/uL (160-400); Red Blood Count 4.68 X10*6/uL (4.60-5.80); Red Cell Distribution Width 12.5 % (11.0-16.0); White Blood Count 5.4 X10*3/uL (4.8-10.8)
[2021-01-24 07:03] LABS: Anion Gap 12 (12-20); Blood Urea Nitrogen 11 mg/dL (9-16); Carbon Dioxide 31 mmol/L (22-29); Chloride 101 mmol/L (96-108); Creatinine Clr Calc Pharmacy 47.5; Estimated Glomerular Filt Rate 58; Glucose Random 113 mg/dL (60-115); Potassium 3.1 mmol/L (3.3-5.1); Sodium 141 mmol/L (135-145)
[2021-01-24] MEDS: Enoxaparin Sodium 40 MG/0.4 ML SYRINGE SUBCUT (07:54)
[2021-01-24] MEDS: lisinopriL 40 MG TABLET PO (07:54)
[2021-01-24] MEDS: Potassium Chloride Packet 20 MEQ PACKET 40 MEQ PO ×2 (07:54→11:23)
[2021-01-24] MEDS: 0.9 % Sodium Chloride Flush 3 ML SYRINGE IVFLUSH (07:54)
[2021-01-24 10:05] LABS: Glucose, Whole Blood 113 mg/dL (60-115)
--- NOTE | 2021-01-24 10:08 | P.PNIM_ITS ---
Subjective Subjective Date of Service: 01/24/21 Interval History: Patient being followed for confusion and hypertensive urgency He denies headache, no dizziness, awake alert to place and person, but admits that he is confused, symptoms going on for several months. Review of Systems General no headache, no dizziness, no fever chills. CVS no chest pain, no palpitation. Respiratory no cough, no sob. Gastrointestinal no nausea, no vomiting, no abdominal pain Review of Systems: Yes all other systems are reviewed and are negative Physical Exam Vital Signs: Vital Signs: Last Vital Signs Temp 97.8 F 01/24/21 08:00 Pulse 63 01/24/21 08:00 Resp 18 01/24/21 08:00 BP 135/64 01/24/21 08:00 Pulse Ox 93 01/24/21 08:00 Body Mass Index 26.4 General patient resting comfortably no acute distress. Neck supple no JVD. CVS regular rate rhythm, Respiratory lungs clear to auscultation, no respiratory distress, no wheeze, no rhonchi. Gastrointestinal abdomen soft, nontender, bowel sounds audible, no no guarding , no rigidity. Extremities no clubbing, cyanosis or edema. Neuro nonfocal, normal strength both upper and lower extremity, fluctuating slurred speech, alert to place and person, limited comprehension Skin no rash Objective Data Active Medications Acetaminophen (Acetaminophen 325 Mg Tablet) 650 mg PO Q6H PRN PRN Reason: Pain, Mild (Pain Scale 1-3) Amlodipine Besylate (Amlodipine Besylate 10 Mg Tablet) 10 mg PO DAILY [facility]; Protocol Last Admin: 01/24/21 07:58 Dose: 10 mg Documented by: MANUEL Docusate Sodium (Docusate Sodium 100 Mg Capsule) 100 mg PO DAILY PRN PRN Reason: Constipation Enoxaparin Sodium (Enoxaparin Sodium 40 Mg/0.4 Ml Syringe) 40 mg SUBCUT Q24H TOSHIA Last Admin: 01/24/21 07:54 Dose: 40 mg Documented by: MANUEL Lisinopril (Lisinopril 40 Mg Tablet) 40 mg PO DAILY [facility]; Protocol Last Admin: 01/24/21 07:54 Dose: 40 mg Documented by: MANUEL Ondansetron HCl (Ondansetron Hcl 4 Mg/2 Ml Vial) 4 mg IVPUSH Q8H PRN PRN Reason: Nausea and Vomiting Potassium Chloride (Potassium Chloride Packet 20 Meq Packet) 40 meq PO Q4H TOSHIA Stop: 01/24/21 11:01 Last Admin: 01/24/21 07:54 Dose: 40 meq Documented by: MANUEL Sodium Chloride (0.9 % Sodium Chloride Flush 3 Ml Syringe) 3 ml IVFLUSH QSHIFT TOSHIA Last Admin: 01/24/21 07:54 Dose: 3 ml Documented by: MANUEL Labs CBC & Chem 7: 01/24/21 06:07 01/24/21 06:07 Labs: Laboratory Results - last 24 hr 01/23/21 01/23/21 01/23/21 12:55 13:09 13:09 MCV MCH MCHC RDW Plt Count MPV Immature Gran % (Auto) Neut % (Auto) Lymph % (Auto) [place] % (Auto) Eos % (Auto) Baso % (Auto) Lymph # (Auto) [place] # (Auto) Eos # (Auto) Baso # (Auto) Abs Immat Gran (auto) Absolute Neuts (auto) Absolute Nucleated RBC Nucleated RBC % (auto) PT INR APTT Anion Gap Estim Creat Clear Calc Estimated GFR POC Glucose 128 H Random Glucose Calcium 9.4 Phosphorus 2.4 L Magnesium 2.6 Total Bilirubin 0.7 Direct Bilirubin 0.4 AST 14 ALT 10 Alkaline Phosphatase 81 Total Creatine Kinase Troponin I High Sens Total Protein 6.3 L Albumin 3.9 Urine Color Urine Appearance Urine pH Ur Specific [place] Urine Protein Urine Glucose (UA) Urine Ketones Urine Blood Urine Nitrite Ur Leukocyte Esterase Ethyl Alcohol < 10 COVID-19 ([facility]) COVID-19 Clin Com 01/23/21 01/23/21 01/23/21 13:09 13:09 13:09 MCV 84.8 MCH 30.6 MCHC 36.1 H RDW 12.5 Plt Count 216 MPV 9.4 Immature Gran % (Auto) 0.2 Neut % (Auto) 78.5 H Lymph % (Auto) 12.2 L [place] % (Auto) 8.0 Eos % (Auto) 0.8 Baso % (Auto) 0.3 Lymph # (Auto) 0.8 L [place] # (Auto) 0.5 Eos # (Auto) 0.1 Baso # (Auto) 0.0 Abs Immat Gran (auto) 0.01 Absolute Neuts (auto) 4.9 Absolute Nucleated RBC 0.000 Nucleated RBC % (auto) 0.0 PT 11.3 INR 1.0 APTT 32.4 Anion Gap 13 Estim Creat Clear Calc 45.2 Estimated GFR 55 POC Glucose Random Glucose 113 Calcium 9.4 Phosphorus Magnesium Total Bilirubin Direct Bilirubin AST ALT Alkaline Phosphatase Total Creatine Kinase 58 Troponin I High Sens Total Protein Albumin Urine Color Urine Appearance Urine pH Ur Specific [place] Urine Protein Urine Glucose (UA) Urine Ketones Urine Blood Urine Nitrite Ur Leukocyte Esterase Ethyl Alcohol COVID-19 ([facility]) COVID-19 Clin Com 01/23/21 01/23/21 01/23/21 13:09 13:09 13:09 MCV MCH MCHC RDW Plt Count MPV Immature Gran % (Auto) Neut % (Auto) Lymph % (Auto) [place] % (Auto) Eos % (Auto) Baso % (Auto) Lymph # (Auto) [place] # (Auto) Eos # (Auto) Baso # (Auto) Abs Immat Gran (auto) Absolute Neuts (auto) Absolute Nucleated RBC Nucleated RBC % (auto) PT INR APTT Anion Gap Estim Creat Clear Calc Estimated GFR POC Glucose Random Glucose Calcium Phosphorus Magnesium Total Bilirubin Direct Bilirubin AST ALT Alkaline Phosphatase Total Creatine Kinase Troponin I High Sens 14.6 Total Protein Albumin Urine Color YELLOW Urine Appearance CLEAR Urine pH 6.0 Ur Specific [place] 1.015 Urine Protein TRACE Urine Glucose (UA) NEG Urine Ketones NEG Urine Blood NEG Urine Nitrite NEG Ur Leukocyte Esterase NEG Ethyl Alcohol COVID-19 ([facility]) Negative COVID-19 Clin Com See Note 01/23/21 01/23/21 01/24/21 18:26 Unknown 06:07 MCV 85.3 MCH 29.7 MCHC 34.8 RDW 12.5 Plt Count 228 MPV 9.5 Immature Gran % (Auto) 0.2 Neut % (Auto) 71.1 Lymph % (Auto) 15.2 L [place] % (Auto) 11.1 H Eos % (Auto) 1.8 Baso % (Auto) 0.6 Lymph # (Auto) 0.8 L [place] # (Auto) 0.6 Eos # (Auto) 0.1 Baso # (Auto) 0.0 Abs Immat Gran (auto) 0.01 Absolute Neuts (auto) 3.9 Absolute Nucleated RBC 0.000 Nucleated RBC % (auto) 0.0 PT INR APTT Anion Gap Estim Creat Clear Calc Estimated GFR POC Glucose Random Glucose Calcium Phosphorus Magnesium Total Bilirubin Direct Bilirubin AST ALT Alkaline Phosphatase Total Creatine Kinase Troponin I High Sens 22.1 D Cancelled Total Protein Albumin Urine Color Urine Appearance Urine pH Ur Specific [place] Urine Protein Urine Glucose (UA) Urine Ketones Urine Blood Urine Nitrite Ur Leukocyte Esterase Ethyl Alcohol COVID-19 ([facility]) COVID-19 Clin Com 01/24/21 01/24/21 06:07 10:01 MCV MCH MCHC RDW Plt Count MPV Immature Gran % (Auto) Neut % (Auto) Lymph % (Auto) [place] % (Auto) Eos % (Auto) Baso % (Auto) Lymph # (Auto) [place] # (Auto) Eos # (Auto) Baso # (Auto) Abs Immat Gran (auto) Absolute Neuts (auto) Absolute Nucleated RBC Nucleated RBC % (auto) PT INR APTT Anion Gap 12 Estim Creat Clear Calc 47.5 Estimated GFR 58 POC Glucose 113 Random Glucose 113 Calcium 9.0 Phosphorus Magnesium Total Bilirubin Direct Bilirubin AST ALT Alkaline Phosphatase Total Creatine Kinase Troponin I High Sens Total Protein Albumin Urine Color Urine Appearance Urine pH Ur Specific [place] Urine Protein Urine Glucose (UA) Urine Ketones Urine Blood Urine Nitrite Ur Leukocyte Esterase Ethyl Alcohol COVID-19 ([facility]) COVID-19 Clin Com Assessment and Plan (1) Syncope: Status: Acute (2) Hypertensive urgency: Status: Acute (3) Dysarthria: Status: Acute Assessment and Plan: 80-year-old male with past medical history of hypertension noncompliant with medications presents to the hospital with dizziness, headache, and syncopal episodes # hypertensive urgency - most likely secondary to noncompliance with his medication - received multiple doses of labetalol , amlodipine and hydralazine in the ED - started on amlodipine 10 mg and lisinopril 40 mg, repeat blood pressure is stable # syncope - multiple episodes of syncope, possibly secondary to hypertension, intermittent dizziness, EKG shows sinus rhythm with first-degree AV block - no elevated troponin, normal orthostatic blood pressure - continue tele monitor, check echocardiogram # hypertensive encephalopathy Fluctuating slurred speech, CT head and CT angiogram head and neck consistent with moderate atrophy 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 # hypokalemia Question etiology will replace and follow labs DVT prophylaxis:? Lovenox Quality Stroke Does the patient have a stroke diagnosis?: No VTE Prior VTE?: No VTE Risk Level:: Medical - moderate - high VTE Device Contraindication: N/A - Device Ordered VTE Drug Contraindication: Treatment Not Indicated
--- NOTE | 2021-01-24 10:12 | P.CNNE_ITS ---
History of Present Illness Data of Consult Service Date: 01/24/21 Primary Care Provider: Flako Hernández MD HPI Reason for consult: Dysarthria 80 years old man with underlying history of hypertension who for some reason has stopped taking his medicines and stopped following his primary care physician, as per history documented, came to hospital with few days history of dizziness, ?syncopal episodes?, and difficulty speaking. He complained that he could not say or find the right words. There was no witnessing of any recent seizure or trauma. His blood pressure in emergency room was quite high and he was admitted for further management. This morning he had been walking around in the hallway when nursing brought him back to his room. He seemed confused. Review of Systems Review of Systems: As reported in HPI. No recent cold or fever or flu-like illness or trauma or seizure. No complaint of headache nausea or vomiting or any change in his vision. [facility] Past Medical History Medical History High cholesterol HTN (hypertension) Family History Family History (Updated 01/24/21 @ 06:50 by Micheal Renteria MD) Mother Hypertension Father Alcoholic Social History Social History Patient Tobacco Use Status: Former Tobacco user Tobacco use type: Cigarette Advance Directives: No Meds Allergies Allergy/AdvReac Type Severity Reaction Status Date / Time No Known Allergies Allergy Verified 01/23/21 12:12 Active Medications: Current Medications Generic Name Dose Route Start Last Admin Trade Name Freq PRN Reason Stop Dose Admin Acetaminophen 650 mg 01/23/21 22:15 Acetaminophen 325 Mg Tablet PO Q6H PRN Pain, Mild (Pain Scale 1-3) Amlodipine Besylate 10 mg 01/24/21 04:10 01/24/21 07:58 Amlodipine Besylate 10 Mg Tablet PO 10 mg DAILY TOSHIA Administration Protocol Docusate Sodium 100 mg 01/23/21 22:15 Docusate Sodium 100 Mg Capsule PO DAILY PRN Constipation Enoxaparin Sodium 40 mg 01/24/21 07:00 01/24/21 07:54 Enoxaparin Sodium 40 Mg/0.4 Ml Syringe SUBCUT 40 mg Q24H TOSHIA Administration Lisinopril 40 mg 01/24/21 09:00 01/24/21 07:54 Lisinopril 40 Mg Tablet PO 40 mg DAILY TOSHIA Administration Protocol Ondansetron HCl 4 mg 01/23/21 22:15 Ondansetron Hcl 4 Mg/2 Ml Vial IVPUSH Q8H PRN Nausea and Vomiting Potassium Chloride 40 meq 01/24/21 07:00 01/24/21 07:54 Potassium Chloride Packet 20 Meq Packet PO 01/24/21 11:01 40 meq Q4H TOSHIA Administration Sodium Chloride 3 ml 01/24/21 00:00 01/24/21 07:54 0.9 % Sodium Chloride Flush 3 Ml Syringe IVFLUSH 3 ml QSHIFT TOSHIA Administration Home Medications Medication Instructions Recorded Confirmed Last Taken Type No Known Home Meds 01/23/21 01/23/21 Unknown History Physical Exam Vital Signs: Vital Signs: Last Vital Signs Temp 97.8 F 01/24/21 08:00 Pulse 63 01/24/21 08:00 Resp 18 01/24/21 08:00 BP 135/64 01/24/21 08:00 Pulse Ox 93 01/24/21 08:00 Body Mass Index 26.4 Neuro: Other: He was alert and awake with decreased spontaneity and fluency of speech. He has difficulty repeating and naming. Comprehension was also limited. He was anxious. There was no obvious facial asymmetry. Visual mesa seem to be full. There was no obvious focal arm or leg weakness. Deep tendon reflexes were 1+ with equivocal plantars. Results Labs CBC & Chem 7: 01/24/21 06:07 01/24/21 06:07 Labs: Short CBC 01/23/21 01/24/21 Range/Units 13:09 06:07 WBC 6.2 5.4 (4.8-10.8) X10*3/uL Hgb 15.5 13.9 L (14.0-18.0) g/dl Hct 42.9 39.9 L (42-52) % Plt Count 216 228 (160-400) X10*3/uL BMP 01/23/21 01/23/21 01/24/21 13:09 13:09 06:07 Sodium 140 141 Potassium 3.2 L 3.1 L Chloride 100 101 Carbon Dioxide 30 H 31 H BUN 12 11 Creatinine 1.26 1.20 Calcium 9.4 9.4 9.0 Cardiac Enzymes 01/23/21 Range/Units 13:09 Total Creatine Kinase 58 (38-174) U/L Liver Function 01/23/21 Range/Units 13:09 Total Bilirubin 0.7 (0.0-1.0) mg/dL Direct Bilirubin 0.4 (0.0-0.5) mg/dL AST 14 (5-37) U/L ALT 10 (0-40) U/L Alkaline Phosphatase 81 (39-117) U/L Albumin 3.9 (3.5-5.0) g/dL Urine 01/23/21 Range/Units 13:09 Urine Color YELLOW Urine Appearance CLEAR Urine pH 6.0 (5.0-8.0) Ur Specific [place] 1.015 (1.005-1.025) Urine Protein TRACE (NEG-TRACE) MG/DL Urine Glucose (UA) NEG (NEG) MG/DL His noncontrast head CT did not reveal any acute abnormality. Moderate diffuse central and cortical cerebral and cerebellar atrophy was noted. Moderate chronic microvascular ischemic changes were noted. CTA of brain and neck similarly did not reveal any acute pathology. Atherosclerotic changes were noted in vasculature but no significant stenosis. Assessment and Plan (1) Aphasia: Status: Acute 80 years old man with underlying history of uncontrolled hypertension who probably has stopped taking his blood pressure medicines came to hospital with mainly difficulty speaking and was noted to have severe hypertension. At this time he was moderately aphasic with findings of mixed motor and sensory aphasia. Likely etiology ischemia of brain either from hypertensive encephalopathy or per minute infarction. He also had significant cerebral atrophy suggesting and underlying degenerative dementing process. At this time following is recommended: 1. Blood pressure control but avoid hypotension. 2. Baby aspirin daily 3. MRI brain without contrast 4. Echocardiogram 5. Speech and swallowing eval 6. Fasting lipid profile and likely treatment with statin 7. 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 No driving. Procedures Date of Service Date of Service: 01/24/21
[2021-01-24 11:47] LABS: Thyroid Stimulating Hormone 2.02 uIU/mL (0.32-4.0)
--- NOTE | 2021-01-24 14:16 | MHC.CM.PN ---
CM MET WITH PT WHO REPORTS HE LIVES AT HOME WITH HIS AND IS INDEPENDENT WITH ALL CARE AT BASELINE. PT DENIES USING DME OR HAVING HOME SERVICES. PT REPORTS HE DOES NOT HAVE A HCP AND IS NOT INTERESTED IN COMPLETING ONE. PT CONFIRMS HIS PCP IS FELISHA MONSON. IMM DELIVERED CURRENT DC PLAN IS HOME PT HOPING TO GO TODAY TO TRANSPORT
[2021-01-24] MEDS: Aspirin Enteric Coated 81 MG TABLET.DR PO (15:13)
--- NOTE | 2021-01-24 15:58 | PM.DS ---
DS: Providers Provider Date of Service: 01/24/21 Date of admission: 01/23/21 19:58 Primary care physician: Flako Hernández MD Consults: 01/23/21 22:15 Consult to Neurology Routine Consulting Provider: [facility] Reason for consultation: dysarthria Has provider been notified: No DS: Diagnosis Discharge Diagnosis (1) Syncope: Status: Acute (2) Hypertensive urgency: Status: Acute (3) Dysarthria: Status: Acute DS: Summary Hospital Course Hospital Course: Chief Complaint: Dizziness This is an 80-year-old male with past medical history of hypertension, HLD who presents to the hospital with complaints dizziness, headache, unsteady gait, and multiple syncopal episodes while walking.? Patient reports that for the past 1 year and a half he stop taking his antihypertensives because he just stopped following up with his primary care physician.? He has over the past few weeks developed these symptoms including the syncopal episodes that have occurred about 7-8 times.? He also reports that for the past 5 days he has had difficulty with speech where he can not find the right words, his speech appears to be slurred and difficult for him to verbalize what he means.? He also tells me that he is finding difficulty with the task that he used to do like working on his computer.? Has now become difficult because he does not understand what he is doing. In vision, no blurry vision, no double vision, no chest pain, no shortness of breath, no abdominal pain nausea or vomiting, no diarrhea constipation, no urinary symptoms, and no lower extremity edema.? No numbness tingling or weakness in his arms or legs, All other review of system negative Patient does not remember his antihypertensive medications On arrival to the ED patient was found to have a blood pressure of 231/121, heart rate of 70, respiratory rate 15, satting 97% on room air Labs are significant for potassium 3.2 but otherwise unremarkable Patient received multiple p.o. doses of labetalol as well amlodipine p.o. with blood pressure improving to the 170s, blood pressure is now back up to the [address] CT angiogram showed no significant acute abnormality. Hospital course 80-year-old male with past medical history of hypertension noncompliant with medications presents to the hospital with dizziness, headache, and syncopal episodes, patient noted to have elevated bp 231/121 on arrival Was treated aggressively in the emergency room with labetalol, amlodipine and hydralazine blood pressure improved patient subsequently admitted to intermediate care unit, his blood pressure improved patient continued to be vague and confused, case discussed with patient's who informed that patient has been noticed to be confused for a while, mostly work outside in the yard,and sit long hours in the garage,climb ladders she has never seen syncopal episode but patient told her that he has been falling, he has been having slurred speech for last 1 week, he refuses to be seen by physician, CT head is concerning for mild to moderate atrophy, patient seen by neurologist Dr. Harrell he feels patient has likely hypertensive encephalopathy or brain ischemia,he recommended good blood pressure control, check echocardiogram, MRI study, and not to drive, patient was placed on aspirin amlodipine and hydralazine, all labs were ordered however later in the afternoon patient decided to leave the hospital, took off his monitor IV line, informed the patient drinks 8-10 beers on a daily basis, offered phenobarb protocol or Ativan but patient adamant to leave Hospitals Case discussed with patient at bedside and discussed to obtain competency eval and if not competent will keep him in-house against his will if is willing to do so But did not agree, and wants to take him home as per his wishes therefore strongly recommend outpatient follow-up with Dr. Hernández, for alcohol of counseling, and further workup including MRI echo, lipid profile Strongly recommend not to allow him to drive when to take aspirin and antihypertensive medications. # hypertensive urgency recommended amlodipine 10 mg and Zestril 20 mg daily # syncope unwitnessed syncope, a normal orthostatic blood pressures tele monitor showed no arrhythmia need outpatient workup including echocardiogram and good blood pressure control likely false related to alcohol use # hypertensive encephalopathy /brain ischemia/dementia ?? 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 B12, folate,and TSH pending recommend outpatient MRI study and close neurological follow ?? # hypokalemia potassium replaced needs follow-up labs ?? Time Spent with Patient Time attestation: Total time spent providing and/or coordinating discharge services: Discharge coordination time: Greater than 30 minutes Quality: Stroke Does the patient have a stroke diagnosis?: No Physical Exam Vital Signs: Vital Signs: Last Vital Signs Temp 97.8 F 01/24/21 15:06 Pulse 80 01/24/21 15:06 Resp 20 01/24/21 15:06 BP 144/72 H 01/24/21 15:06 Pulse Ox 93 01/24/21 15:06 Body Mass Index 26.4 General patient resting comfortably no acute distress.? Neck supple no JVD. CVS? regular rate rhythm, Respiratory lungs clear to auscultation, no respiratory distress, no wheeze, no rhonchi. Gastrointestinal abdomen soft, nontender, bowel sounds audible, no no guarding , no rigidity. Extremities no clubbing, cyanosis or edema. Neuro nonfocal, normal strength both upper and lower extremity, fluctuating slurred speech, alert to place and person, limited comprehension Skin no rash DS: Data Data Completed and Pending Labs on day of discharge: Laboratory Results - last 24 hr 01/23/21 01/23/21 01/24/21 18:26 Unknown 06:07 WBC 5.4 RBC 4.68 Hgb 13.9 L Hct 39.9 L MCV 85.3 MCH 29.7 MCHC 34.8 RDW 12.5 Plt Count 228 MPV 9.5 Immature Gran % (Auto) 0.2 Neut % (Auto) 71.1 Lymph % (Auto) 15.2 L [place] % (Auto) 11.1 H Eos % (Auto) 1.8 Baso % (Auto) 0.6 Lymph # (Auto) 0.8 L [place] # (Auto) 0.6 Eos # (Auto) 0.1 Baso # (Auto) 0.0 Abs Immat Gran (auto) 0.01 Absolute Neuts (auto) 3.9 Absolute Nucleated RBC 0.000 Nucleated RBC % (auto) 0.0 Sodium Potassium Chloride Carbon Dioxide Anion Gap BUN Creatinine Estim Creat Clear Calc Estimated GFR POC Glucose Random Glucose Calcium Troponin I High Sens 22.1 D Cancelled TSH 01/24/21 01/24/21 06:07 10:01 WBC RBC Hgb Hct MCV MCH MCHC RDW Plt Count MPV Immature Gran % (Auto) Neut % (Auto) Lymph % (Auto) [place] % (Auto) Eos % (Auto) Baso % (Auto) Lymph # (Auto) [place] # (Auto) Eos # (Auto) Baso # (Auto) Abs Immat Gran (auto) Absolute Neuts (auto) Absolute Nucleated RBC Nucleated RBC % (auto) Sodium 141 Potassium 3.1 L Chloride 101 Carbon Dioxide 31 H Anion Gap 12 BUN 11 Creatinine 1.20 Estim Creat Clear Calc 47.5 Estimated GFR 58 POC Glucose 113 Random Glucose 113 Calcium 9.0 Troponin I High Sens TSH 2.02 Discharge Plan Discharge Patient Disposition: Left Against Medical Advice Discharge Diagnosis: Hypertensive urgency Dysarthria Syncope Alcohol use disorder Hypertensive Encephalopathy Referrals: Flako Hernández MD [Primary Care Provider] - 1 Week Discharge Medications: New amlodipine 10 mg Tablet 10 mg PO DAILY Qty: 30 RF: 0 aspirin 81 mg Tablet,Delayed Release (Dr/Ec) 81 mg PO DAILY Qty: 30 RF: 0 lisinopril 20 mg tablet 20 mg PO DAILY Qty: 30 RF: 0 No Action No Known Home Meds RF: 0 Discharge Orders: Discharge Order (Routine); Ordered 01/24/21 Ordered By: Conner Garland Diet: low fat, low cholesterol Care Plan Goals: Confusion likely underlying dementia/due to alcoholism/hypertensive encephalopathy strongly recommended to abstain from alcohol and not to drive a car patient is going to drive him home also recommended to take medications as prescribed Health Concerns: Hypertensive urgency/confusion/aphasia need MRI study, lipid profile, echocardiogram need close outpatient follow-up with Neurology and PCP. Plan of Treatment: Outpatient follow-up with primary care physician Dr. HERNÁNDEZ next week Assessment: As above
--- NOTE | 2021-01-24 17:10 | PC.NURSE ---
Pt saying he wants to leave, had neuro status change earlier in day- disoriented that MD and Neurology was aware of. Pt ripped out IV and monitor, several attempts at redirection were made, pt began to get agitated and agressive towards this RN and other RN, MD aware. Pt continues to say he wanted to leave, Nursing repair supervisor in room, pt continues saying he wanted to leave. MD to bedside to talk with pt and . Wif decided to sign pt out AMA. Nursing repair supervisor and this RN witnessed, signed AMA form for pt.
[2021-01-25 09:48] LABS: Folate 10.4 ng/mL (> or = 4.0); Vitamin B12 331 pg/mL (200-900)
== END 2021-01-24 15:50 | disposition left against medical advice (07) | DRG 305 ==
LOC: HO.ED 12:14 → HO.EDOVER 20:30 → HO.IMC 20:56
PROVIDERS: Nurse Practitioner Family; Admitting Provider Internal Medicine; Emergency Provider Emergency Medicine; PCP Internal Medicine; Visit Provider Hospitalist
DX: I16.0 Hypertensive urgency (principal); I67.4 Hypertensive encephalopathy; I10 Essential (primary) hypertension; E78.5 Hyperlipidemia, unspecified; F10.97 Alcohol use, unspecified with alcohol-induced persisting dementia; E87.6 Hypokalemia; M10.9 Gout, unspecified; R55 Syncope and collapse; R47.1 Dysarthria and anarthria; R29.6 Repeated falls; Z91.81 History of falling; Z87.891 Personal history of nicotine dependence; Z91.14 Patient's other noncompliance with medication regimen; Z79.82 Long term (current) use of aspirin; Z79.899 Other long term (current) drug therapy
CPT/HCPCS: 36415; 70450; 70496; 70498; 71046; 73070; 80048; 80076; 81003; 82077; 82310; 82550; 82607; 82746; 82947; 83735; 84100; 84443; 84484; 85025; 85610; 85730; 87635; 93005; 99285; J1650; Q9967

== ENCOUNTER 2021-02-04 07:55 | Outpatient (REF) | payer MEDICARE, SELFPAY ==
--- NOTE | ~2021-02-04 | MR_ITS ---
EXAMINATION: MRI BRAIN WITHOUT CONTRAST. CLINICAL INFORMATION: Altered mental status, severe confusion with falls COMPARISON: CTA head and neck and CT brain 01/23/2021. TECHNIQUE: Routine MRI imaging of brain was performed without contrast. FINDINGS: There are small foci of restricted diffusion and the hypoechoic intensity on ADC map in left frontal lobe and left posterior parietal lobe deep white matter suggestive of small areas of acute ischemic changes. There are bilateral periventricular T2 hyperintense signal changes in the deep white matter of both cerebral hemispheres on FLAIR and T2 sequences consistent with chronic small vessel disease. There is no acute edema, acute intra-axial or extra-axial hemorrhage or mass visualized. The lateral ventricles are symmetrical in size and configuration with moderate enlargement enlargement. There is normal flow void signal seen in the major cerebral cyst vasculature. There is normal aeration of bilateral paranasal sinuses and mastoid air cells. MR/MR head/brain wo con IMPRESSION: Small focal areas of restricted diffusion in the left frontal and parietal lobe suggestive of acute ischemic changes. There is no associated edema or mass effect. No acute intracranial flow void signal seen to suspect any acute hemorrhage. Moderate cerebral volume loss with diffuse periventricular hyperintensities suggestive of chronic small vessel ischemic changes. Immediate results were called to Dr. Hernández by phone at 9:19 AM.
== END 2021-02-04 07:56 | disposition home or self-care (01) ==
LOC: HO.MRI 07:55
PROVIDERS: Visit Provider Internal Medicine
DX: R41.0 Disorientation, unspecified (principal); Z91.81 History of falling
CPT/HCPCS: 70551

== ENCOUNTER 2021-02-17 07:49 | Outpatient (REF) | payer MEDICARE, SELFPAY ==
[2021-02-17 09:07] LABS: Cholesterol 240 mg/dL; HDL Cholesterol 48 mg/dL; LDL Cholesterol Calculated 154 mg/dl; Triglycerides 190 mg/dL
== END 2021-02-17 07:50 | disposition home or self-care (01) ==
LOC: HO.LAB 07:49
PROVIDERS: PCP Internal Medicine; Visit Provider Psychiatry & Neurology Neurology
DX: I63.50 Cerebral infarction due to unspecified occlusion or stenosis of unspecified cerebral artery (principal)
CPT/HCPCS: 36415; 80061

== ENCOUNTER → 2021-04-27 11:34 | Outpatient (BNVA) | payer MEDICARE, SELFPAY | PROVIDERS: PCP Internal Medicine; Visit Provider Urology | DX: Z13.89 Encounter for screening for other disorder (principal) | CPT/HCPCS: Q3014 ==

== ENCOUNTER 2021-06-01 11:47 | Outpatient (REF) | payer MEDICARE, OTHER, SELFPAY ==
[2021-06-01 12:07] VITALS: BMI 27.3
[2021-06-01 12:08] VITALS: BP 186/55; PULSE 64; RESP 16; TEMP 36.2; O2SAT 96
--- NOTE | 2021-06-01 12:44 | W.PM.OPN ---
Operative Note Operative Note Date of Service: 06/01/21 Narrative: Preoperative diagnosis: Elevated PSA Postoperative diagnosis: Elevated PSA Procedure: 1. transrectal ultrasound measurement of prostate 2. transrectal ultrasound-guided pudendal nerve block 3. transrectal ultrasound-guided prostate biopsy 12 core Surgeon: Dr. Sergey Roberts Anesthetic: Local Indications for procedure: Elevated PSA Procedure: After informed consent was verified, the patient was brought into the procedure area and lay left-hand side down on the table. Patient identity confirmed. Perioperative antibiotics confirmed. Iodine 10cc with Gel was placed per rectum Ultrasound probe was placed per rectum The prostate was measured in 3 dimensions Total volume equals 160 gm There were no cystic structures, and calcifications are noted in the posterior base region and the prostate was homogeneous in nature A ultrasound-guided pudendal nerve block was performed using 10 cc of 1% lidocaine. 8 cc was placed at the base and 2 cc of the apex. A 12 core biopsy was performed with 6 cores each side. Two cores were taken at the apex, mid and base. Cores were spaced between lateral and medial. He tolerated the procedure well. Was able to ambulate to bathroom after 5 minutes. Printed instructions regarding antibiotic use and common side effects such as low-grade temperature and bleeding were given Pathology: 12 core prostate biopsy.
[2021-06-01 12:47] VITALS: BP 136/52; PULSE 60; RESP 16; O2SAT 96
== END 2021-06-01 11:48 | disposition home or self-care (01) ==
LOC: HO.MS 11:47
PROVIDERS: PCP Internal Medicine; Visit Provider Urology
PROC: (CPT 55700; principal; 2021-06-01 12:30)
DX: R97.20 Elevated prostate specific antigen [PSA] (principal)
CPT/HCPCS: 55700; 76942; 88305; 88341; 88342; 88344

== ENCOUNTER → 2021-06-08 11:42 | Outpatient (BNVA) | payer MEDICARE, OTHER, SELFPAY | PROVIDERS: PCP Internal Medicine; Visit Provider Urology | DX: R97.20 Elevated prostate specific antigen [PSA] (principal) | CPT/HCPCS: Q3014 ==

== ENCOUNTER → 2021-07-16 08:41 | Outpatient (BNVA) | payer MEDICARE, OTHER, SELFPAY | PROVIDERS: PCP Internal Medicine; Visit Provider Urology | DX: Z13.89 Encounter for screening for other disorder (principal) | CPT/HCPCS: Q3014 ==

== ENCOUNTER 2021-08-04 11:51 | Outpatient (REF) | payer MEDICARE, OTHER, SELFPAY ==
--- NOTE | ~2021-08-04 | XR_ITS ---
EXAMINATION: XR HIPS, BILATERAL XR KNEE, RIGHT XR KNEE, LEFT CLINICAL INFORMATION: Bilateral hip pain. Right and left knee pain. COMPARISON: Multiple priors, most recent pelvic MRI dated 06/17/2021 and left hip MRI dated 04/12/2018. TECHNIQUE: AP and frog-leg lateral views of the right and left hip. AP and lateral views of the right and left knee. FINDINGS: Right Hip: Mild right hip joint space narrowing with small marginal osteophytes. Mild lateral acetabular subchondral cystic change. No acute fracture or dislocation. Redemonstration of probable bladder stones. Atherosclerotic calcifications. Left Hip: No acute fracture or dislocation. Mild joint space narrowing with small marginal osteophytes. No osseous erosion. No fracture or dislocation. Redemonstration of bladder stones. Right Knee: No acute fracture or dislocation. Tiny tricompartmental marginal osteophytes. No osseous erosion. Superior patellar enthesophytes. Prominent atherosclerotic calcifications. Left Knee: Mild medial compartment joint space narrowing. Tiny tricompartmental marginal osteophytes. No osseous erosion. Superior patellar enthesophytes. Atherosclerotic calcifications. XR/XR knee RT 2V IMPRESSION: RIGHT HIP: Mild osteoarthritis, unchanged. Redemonstration of probable urinary bladder stones. LEFT HIP: Mild osteoarthritis, unchanged. RIGHT KNEE: Mild tricompartmental osteoarthritis. LEFT KNEE: Mild tricompartmental osteoarthritis.
--- NOTE | ~2021-08-04 | XR_ITS ---
EXAMINATION: XR HIPS, BILATERAL XR KNEE, RIGHT XR KNEE, LEFT CLINICAL INFORMATION: Bilateral hip pain. Right and left knee pain. COMPARISON: Multiple priors, most recent pelvic MRI dated 06/17/2021 and left hip MRI dated 04/12/2018. TECHNIQUE: AP and frog-leg lateral views of the right and left hip. AP and lateral views of the right and left knee. FINDINGS: Right Hip: Mild right hip joint space narrowing with small marginal osteophytes. Mild lateral acetabular subchondral cystic change. No acute fracture or dislocation. Redemonstration of probable bladder stones. Atherosclerotic calcifications. Left Hip: No acute fracture or dislocation. Mild joint space narrowing with small marginal osteophytes. No osseous erosion. No fracture or dislocation. Redemonstration of bladder stones. Right Knee: No acute fracture or dislocation. Tiny tricompartmental marginal osteophytes. No osseous erosion. Superior patellar enthesophytes. Prominent atherosclerotic calcifications. Left Knee: Mild medial compartment joint space narrowing. Tiny tricompartmental marginal osteophytes. No osseous erosion. Superior patellar enthesophytes. Atherosclerotic calcifications. XR/XR knee LT 2V IMPRESSION: RIGHT HIP: Mild osteoarthritis, unchanged. Redemonstration of probable urinary bladder stones. LEFT HIP: Mild osteoarthritis, unchanged. RIGHT KNEE: Mild tricompartmental osteoarthritis. LEFT KNEE: Mild tricompartmental osteoarthritis.
--- NOTE | ~2021-08-04 | XR_ITS ---
EXAMINATION: XR HIPS, BILATERAL XR KNEE, RIGHT XR KNEE, LEFT CLINICAL INFORMATION: Bilateral hip pain. Right and left knee pain. COMPARISON: Multiple priors, most recent pelvic MRI dated 06/17/2021 and left hip MRI dated 04/12/2018. TECHNIQUE: AP and frog-leg lateral views of the right and left hip. AP and lateral views of the right and left knee. FINDINGS: Right Hip: Mild right hip joint space narrowing with small marginal osteophytes. Mild lateral acetabular subchondral cystic change. No acute fracture or dislocation. Redemonstration of probable bladder stones. Atherosclerotic calcifications. Left Hip: No acute fracture or dislocation. Mild joint space narrowing with small marginal osteophytes. No osseous erosion. No fracture or dislocation. Redemonstration of bladder stones. Right Knee: No acute fracture or dislocation. Tiny tricompartmental marginal osteophytes. No osseous erosion. Superior patellar enthesophytes. Prominent atherosclerotic calcifications. Left Knee: Mild medial compartment joint space narrowing. Tiny tricompartmental marginal osteophytes. No osseous erosion. Superior patellar enthesophytes. Atherosclerotic calcifications. XR/XR hips DICK min 3V IMPRESSION: RIGHT HIP: Mild osteoarthritis, unchanged. Redemonstration of probable urinary bladder stones. LEFT HIP: Mild osteoarthritis, unchanged. RIGHT KNEE: Mild tricompartmental osteoarthritis. LEFT KNEE: Mild tricompartmental osteoarthritis.
== END 2021-08-04 11:52 | disposition home or self-care (01) ==
LOC: HO.HMGCX 11:51
PROVIDERS: PCP Internal Medicine; Visit Provider Internal Medicine
DX: M25.552 Pain in left hip (principal); M25.551 Pain in right hip; M25.562 Pain in left knee; M25.561 Pain in right knee
CPT/HCPCS: 73522; 73560

== ENCOUNTER 2022-01-14 09:22 | Outpatient (REF) | payer MEDICARE, OTHER, SELFPAY ==
[2022-01-14 11:14] LABS: Blood Urea Nitrogen 15 mg/dL (9-16); Estimated Glomerular Filt Rate 35
[2022-01-14 11:33] LABS: PSA,Total (Free>4and<10) 14.67 ng/mL (0.00-4.00)
== END 2022-01-14 09:23 | disposition home or self-care (01) ==
LOC: HO.LAB 09:22
PROVIDERS: PCP Internal Medicine; Visit Provider Urology
DX: Z12.5 Encounter for screening for malignant neoplasm of prostate (principal); R97.20 Elevated prostate specific antigen [PSA]; N13.8 Other obstructive and reflux uropathy; N40.1 Benign prostatic hyperplasia with lower urinary tract symptoms; R39.15 Urgency of urination
CPT/HCPCS: 36415; 82565; 84153; 84520

== ENCOUNTER → 2022-01-21 10:45 | Outpatient (BNVA) | payer MEDICARE, OTHER, SELFPAY | PROVIDERS: PCP Internal Medicine; Visit Provider Urology | DX: N40.1 Benign prostatic hyperplasia with lower urinary tract symptoms (principal); N13.8 Other obstructive and reflux uropathy; R97.20 Elevated prostate specific antigen [PSA] | CPT/HCPCS: Q3014 ==

== ENCOUNTER → 2022-01-26 14:15 | Outpatient (BNVA) | payer MEDICARE, OTHER, SELFPAY | PROVIDERS: PCP Internal Medicine; Referring Provider Internal Medicine; Visit Provider Surgery | DX: C44.529 Squamous cell carcinoma of skin of other part of trunk (principal) | CPT/HCPCS: 99202 ==

== ENCOUNTER 2022-03-01 09:34 | Outpatient (REF) | payer MEDICARE, OTHER, SELFPAY ==
[2022-03-01 09:57] VITALS: BP 195/82; PULSE 54; RESP 18; TEMP 36.4; O2SAT 98; BMI 27.3
--- NOTE | 2022-03-01 10:38 | P.OP_ITS ---
Operative Note Operative Note Date of Service: 03/01/22 Narrative: Preoperative diagnosis: Skin neoplasm upper mid back Postoperative diagnosis: Same Procedure: Excision of skin neoplasm upper mid back Surgeon: Damian Ward MD Delivery Clerk: No physician Anesthesia: Local lidocaine 2% with epinephrine Indications for procedure: 82-year-old male patient presenting with a 2 cm raised crusty lesion in the upper mid back suggestive of a squamous cell carcinoma Operative findings: 2 cm raised crusty lesion in the upper mid back Specimen: Skin neoplasm upper mid back Estimated blood loss: 10 mL Complications: None Procedure details: Patient was brought to the minor surgery suite and placed in a left lateral decubitus position. The site of surgery was confirmed by the patient in the upper mid back. After assuring informed consent the skin was prepped with Betadine and draped in a sterile fashion. Local anesthesia was then infiltrated around the lesion. A longitudinal elliptical incision was then created with margins of approximately 5 mm. This was carried out through subcutaneous tissue and around the lesion. Hemostasis was assured using 3-0 Polysorb sutures. Dermis was then reapproximated using interrupted 3-0 Polysorb sutures. Skin was closed using interrupted 3-0 nylon sutures. Sterile dressings consisting of 2 x 2 gauze and Tegaderm were then applied. The patient tolerated the procedure well. He was discharged to home in stable condition.
== END 2022-03-01 09:35 | disposition home or self-care (01) ==
LOC: HO.MS 09:34
PROVIDERS: PCP Internal Medicine; Visit Provider Surgery
PROC: (CPT 11602; principal; 2022-03-01 10:10)
DX: C44.519 Basal cell carcinoma of skin of other part of trunk (principal)
CPT/HCPCS: 11602; 12031; 88304; 88305

== ENCOUNTER → 2022-03-10 09:17 | Outpatient (BNVA) | payer MEDICARE, OTHER, SELFPAY | PROVIDERS: PCP Internal Medicine; Referring Provider Internal Medicine; Visit Provider Surgery | DX: C44.519 Basal cell carcinoma of skin of other part of trunk (principal) | CPT/HCPCS: 99212 ==

== ENCOUNTER 2022-07-18 09:49 | Outpatient (REF) | payer MEDICARE, OTHER, SELFPAY ==
[2022-07-19 09:48] LABS: Free Prostate Spec Ag 2.1 ng/mL; Percent Free Prostate Spec Ag 25 % (calc) (>25); Prostate Specific Ag Total 8.4 ng/mL (< OR = 4.0)
== END 2022-07-18 09:50 | disposition home or self-care (01) ==
LOC: HO.LAB 09:49
PROVIDERS: PCP Internal Medicine; Visit Provider Urology
DX: Z12.5 Encounter for screening for malignant neoplasm of prostate (principal); N13.8 Other obstructive and reflux uropathy; N40.1 Benign prostatic hyperplasia with lower urinary tract symptoms
CPT/HCPCS: 36415; 84153; 84154

== ENCOUNTER → 2022-07-27 13:16 | Outpatient (BNVA) | payer MEDICARE, OTHER, SELFPAY | PROVIDERS: PCP Internal Medicine; Visit Provider Urology | DX: N40.1 Benign prostatic hyperplasia with lower urinary tract symptoms (principal); N13.8 Other obstructive and reflux uropathy; R97.20 Elevated prostate specific antigen [PSA]; Z79.82 Long term (current) use of aspirin; Z76.0 Encounter for issue of repeat prescription | CPT/HCPCS: 51798; 99212 ==

== ENCOUNTER 2022-08-01 10:10 | Outpatient (REF) | payer MEDICARE, OTHER, SELFPAY ==
[2022-08-01 12:41] LABS: Alanine Aminotransferase 10 U/L (0-40); Albumin Level 4.1 g/dL (3.5-5.0); Alkaline Phosphatase 94 U/L (39-117); Anion Gap 13 (12-20); Aspartate Amino Transferase 12 U/L (5-37); Bilirubin Direct 0.2 mg/dL (0.0-0.5); Bilirubin Total 0.6 mg/dL (0.0-1.0); Blood Urea Nitrogen 15 mg/dL (9-16); Carbon Dioxide 25 mmol/L (22-29); Chloride 107 mmol/L (96-108); Cholesterol 167 mg/dL; Estimated Glomerular Filt Rate 36; Glucose Fasting 100 mg/dL (60-99); HDL Cholesterol 42 mg/dL; LDL Cholesterol Calculated 91 mg/dl; Sodium 140 mmol/L (135-145); Total Protein 6.5 g/dL (6.5-8.0); Triglycerides 171 mg/dL
== END 2022-08-01 10:11 | disposition home or self-care (01) ==
LOC: HO.HMGCLDS 10:10
PROVIDERS: PCP Internal Medicine; Visit Provider Internal Medicine
DX: R53.83 Other fatigue (principal); E78.00 Pure hypercholesterolemia, unspecified
CPT/HCPCS: 36415; 80051; 80061; 80076; 82565; 82947; 84520

== ENCOUNTER 2022-08-03 08:57 | Outpatient (REF) | payer MEDICARE, OTHER, SELFPAY ==
[2022-08-03 12:07] LABS: Basophils Percent Auto 0.7 % (0-2); Eosinophils Absolute Auto 0.1 X10*3/uL (0.0-0.4); Eosinophils Percent Auto 2.3 % (0-4); Hematocrit 48.8 % (42.0-52.0); Hemoglobin 15.8 g/dl (14.0-18.0); Imm Gran Abs Auto 0.02 X10*3/uL (0.00-0.03); Imm Gran Pct Auto 0.3 % (0.0-0.4); Lymphocytes Absolute Auto 1.2 X10*3/uL (1.2-4.9); Lymphocytes Percent Auto 19.9 % (20-40); MANUAL DIFF FLAG SCAN; Mean Corpuscular HGB Conc 32.4 g/dl (31.0-36.0); Mean Corpuscular Hemoglobin 27.6 pg (27.0-33.0); Mean Corpuscular Volume 85.2 fL (80.0-98.0); Monocytes Absolute Auto 0.4 X10*3/uL (0.1-1.2); Neutrophils Absolute Auto 4.2 x10*3/uL (2.0-8.3); Neutrophils Percent Auto 69.8 % (45-73); PLT CLUMP 1; Red Blood Count 5.73 X10*6/uL (4.60-5.80); Red Cell Distribution Width 13.5 % (11.0-16.0); SCAN SMEAR FLAG 1
[2022-08-03 12:53] LABS: Platelet Count 236 X10*3/uL (160-400); SLIDE REVIEW VERIFIED
== END 2022-08-03 08:58 | disposition home or self-care (01) ==
LOC: HO.HMGCLDS 08:57
PROVIDERS: PCP Internal Medicine; Visit Provider Internal Medicine
DX: R53.83 Other fatigue (principal)
CPT/HCPCS: 36415; 85025

== ENCOUNTER 2022-12-08 08:21 | Outpatient (REF) | payer MEDICARE, OTHER, SELFPAY ==
[2022-12-08 08:50] LABS: Hematocrit 42.4 % (42.0-52.0); Hemoglobin 13.7 g/dl (14.0-18.0); Mean Corpuscular HGB Conc 32.3 g/dl (31.0-36.0); Mean Corpuscular Hemoglobin 27.7 pg (27.0-33.0); Mean Corpuscular Volume 85.8 fL (80.0-98.0); Mean Platelet Volume 9.4 fL (9.4-12.4); Platelet Count 191 X10*3/uL (160-400); Red Blood Count 4.94 X10*6/uL (4.60-5.80); Red Cell Distribution Width 13.4 % (11.0-16.0); White Blood Count 5.6 X10*3/uL (4.8-10.8)
[2022-12-08 09:18] LABS: Anion Gap 14 (12-20); Blood Urea Nitrogen 16 mg/dL (9-16); Calcium 8.9 mg/dL (8.4-10.2); Carbon Dioxide 20 mmol/L (22-29); Chloride 110 mmol/L (96-108); Estimated Glomerular Filt Rate 36; Glucose Random 132 mg/dL (60-115); Potassium 4.3 mmol/L (3.3-5.1); Sodium 140 mmol/L (135-145)
[2022-12-08 11:31] LABS: Creatinine Urine 87.53 mg/dL; Protein/Creatinine Ratio, Ur 0.09 (<0.2); Total Protein Urine Random 8 mg/dL (<12)
[2022-12-12 13:22] LABS: Calcium (PTHI) 8.9 mg/dL (8.6-10.3); PTHI 77 pg/mL (16-77)
== END 2022-12-08 08:22 | disposition home or self-care (01) ==
LOC: HO.LAB 08:21
PROVIDERS: PCP Internal Medicine; Visit Provider Internal Medicine Hypertension Specialist
DX: N18.32 Chronic kidney disease, stage 3b (principal)
CPT/HCPCS: 36415; 80048; 83970; 84156; 85027

== ENCOUNTER 2023-01-23 09:14 | Outpatient (REF) | payer MEDICARE, OTHER, SELFPAY ==
[2023-01-23 10:53] LABS: Prostate Specific Antigen 6.67 ng/mL (<0.05-4.0)
== END 2023-01-23 09:15 | disposition home or self-care (01) ==
LOC: HO.LAB 09:14
PROVIDERS: PCP Internal Medicine; Visit Provider Urology
DX: Z12.5 Encounter for screening for malignant neoplasm of prostate (principal); R97.20 Elevated prostate specific antigen [PSA]
CPT/HCPCS: 36415; 84153

== ENCOUNTER 2023-02-03 09:11 | Outpatient (AMB) | payer MEDICARE, OTHER, SELFPAY ==
--- NOTE | 2023-02-03 09:11 | A.OFFVIS_ITS ---
Intake Intake Visit Reasons: 6m/PSA(set) Intake Note: Call Home Economics Expert Required: No Allergies No Known Allergies Allergy (Verified 02/03/23 09:12) Medication List - Last Reconciled 02/03/23 by Sergey Roberts MD amlodipine 10 mg See Protocol PO DAILY aspirin 81 mg PO DAILY atorvastatin 20 mg PO DAILY finasteride 5 mg PO DAILY 90 days lisinopril 20 mg PO DAILY losartan 50 mg PO DAILY metoprolol tartrate 50 mg PO BID omeprazole 20 mg PO DAILY sulfamethoxazole-trimethoprim 800-160 mg (Bactrim DS) 1 tab PO BID 3 days HPI HPI Comments History of Present Illness Details Dutch is a pleasant male. He is a patient of Dr. Hernández. 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 Prostate biopsy - 06/05 negative Imaging - 07/06 prostate MRI 150 g prostate equiv ocal for low risk prostate cancer Continue follow PSA [facility] Medical History High cholesterol HTN (hypertension) Surgical History H/O removal of cyst (03/01/22) Family History Mother Hypertension Breast cancer Father Alcoholic Lung cancer Sister Breast cancer Sister Breast cancer Sister Breast cancer Sister Breast cancer Social History Patient Tobacco Use Status: Former Tobacco user Tobacco use type: Cigarette Current occupational status: retired Assessment & Plan Assessment & Plan (1) Elevated PSA: Code(s): R97.20 - Elevated prostate specific antigen [PSA] (2) BPH w urinary obs/LUTS: Code(s): N40.1 - Benign prostatic hyperplasia with lower urinary tract symptoms; N13.8 - Other obstructive and reflux uropathy Plan Six month follow-up PSA Medications: Refilled finasteride 5 mg PO DAILY 90 days 90 tabs 1RF N13.8 - Other obstructive and reflux uropathy, N40.1 - Benign prostatic hyperplasia with lower urinary tract symptoms, R33.9 - Retention of urine, unspecified Patient Instructions: Imaging studies, laboratory and physical exam results were discussed and reviewed in detail. No major barriers to patient understanding were identified. An opportunity to ask questions regarding the treatment plan was provided. All questions were answered. The patient expressed understanding and agreement with the above treatment plan. The patient is aware they should contact our office by phone for worsening of their current condition or the appearance of new urologic symptoms. Compliance is encouraged with any medications and followup testing that is ordered. It is a privilege to participate in the urologic care of your patient. If you have any questions or concerns regarding treatment for the above conditions, or other urologic issues, please do not hesitate to contact me. The office telephone contact is [phone]. This note is constructed using voice recognition software. While every effort has been made to ensure accuracy associate store leader errors may have been included. Yours sincerely, Dr Sergey Roberts MD, [facility] - Urology Providers of Expert, Compassionate Care for the Genitourinary System Telehealth Telehealth Location of provider rendering services: practice address Location of patient: address on file Patient Identification confirmed using: Name, : Yes Telehealth method: video Patient verbally consented to treatment: Yes Patient verbally consented to billing insurance company: Yes Patient informed of any privacy concerns related to visit: Yes Coding Level of Care Code Est Pt Level 3 (03417) Diagnoses Elevated PSA R97.20 BPH w urinary obs/LUTS N40.1; N13.8
== END 2023-02-03 09:23 | disposition home or self-care (01) ==
LOC: HO.HUSH 09:11
PROVIDERS: PCP Internal Medicine; Visit Provider Urology
DX: R97.20 Elevated prostate specific antigen [PSA] (principal); N40.1 Benign prostatic hyperplasia with lower urinary tract symptoms; N13.8 Other obstructive and reflux uropathy
CPT/HCPCS: 99213

== ENCOUNTER → 2023-02-03 09:11 | Outpatient (BNVA) | payer MEDICARE, OTHER, SELFPAY | PROVIDERS: PCP Internal Medicine; Visit Provider Urology | DX: R97.20 Elevated prostate specific antigen [PSA] (principal); N40.1 Benign prostatic hyperplasia with lower urinary tract symptoms; N13.8 Other obstructive and reflux uropathy | CPT/HCPCS: 99212 ==

== ENCOUNTER 2023-06-12 10:46 | Outpatient (AMB) | payer MEDICARE, OTHER, SELFPAY ==
[2023-06-12 10:48] VITALS: BP 162/90; PULSE 87; O2SAT 98; BMI 29.8
--- NOTE | 2023-06-12 10:48 | HO.NEPHOV ---
HPI HPI Comments History of Present Illness Details Elderly man with long standing HTN with CKD Here for follow up No new issues PFSH Medical History (Updated 06/12/23 @ 11:00 by Dillon Olivo MD) High cholesterol HTN (hypertension) Surgical History H/O removal of cyst (03/01/22) Family History Mother Hypertension Breast cancer Father Alcoholic Lung cancer Sister Breast cancer Sister Breast cancer Sister Breast cancer Sister Breast cancer Social History Patient Tobacco Use Status: Former Tobacco user Tobacco use type: Cigarette Current occupational status: retired Vital Signs 06/12/23 10:48 Height 5 ft 7 in Weight 190 lb 6 oz BMI 29.8 BP 162/90 H Blood Pressure Location Lt brachial Position Sitting Pulse 87 Pulse Source Pulse Oximeter Pulse Oximetry (%) 98 Oxygen Delivery Method Room Air Physical Exam Vital Signs: Last Vital Signs Pulse 87 06/12/23 10:48 BP 162/90 H 06/12/23 10:48 Pulse Ox 98 06/12/23 10:48 Oxygen Delivery Method Room Air 06/12/23 10:48 BMI result Body Mass Index 29.8 Const General: comfortable Nutritional Appearance: well nourished Orientation/consciousness: patient oriented x3 HEENT Head: No normal to inspection Mouth: moist mucous membranes Neck Neck: Yes supple and Yes no JVD Resp Auscultation: clear to auscultation bilaterally, no rales and rub present Cardio Jugular venous distension: no JVD Palpation: no palpable S3 and no palpable S4 Heart sounds: no rubs GI Palpation (GI): Soft to palpation and nontender Percussion: No Fluid wave present General: Yes no CVA tenderness Back/Spine/Pelvis Back: no CVA tenderness Skin General skin exam: no rashes or lesions noted Neuro General: patient oriented x3 Extrem General: Yes no pedal edema and No clubbing Assessment & Plan Assessment & Plan (1) CKD (chronic kidney disease) stage 3, GFR 30-59 ml/min: Code(s): N18.30 - Chronic kidney disease, stage 3 unspecified Plan: Due to hypertensinve nephrosclerosis Cr has been stable Will recheck today Avoid nephrotoxins including NSAIDS (2) HTN (hypertension): Code(s): I10 - Essential (primary) hypertension Plan: Low salt diet Add Amlodipine 2.5 mg QD (3) BPH w urinary obs/LUTS: Code(s): N40.1 - Benign prostatic hyperplasia with lower urinary tract symptoms; N13.8 - Other obstructive and reflux uropathy Plan: Continue follow up with Urology Orders: Orders Comprehensive Met. Panel Today N18.30 - Chronic kidney disease, stage 3 unspecified Parathyroid Hormone Intact Today N18.30 - Chronic kidney disease, stage 3 unspecified Complete Blood Count no Diff Today N18.30 - Chronic kidney disease, stage 3 unspecified Medications: New amlodipine 2.5 mg PO DAILY 30 tabs 3RF Coding Level of Care Code Est Pt Level 4 (88145) Diagnoses CKD (chronic kidney disease) stage 3, GFR 30-59 ml/min N18.30 HTN (hypertension) I10 BPH w urinary obs/LUTS N40.1; N13.8 Results Reviewed Nephrology Results: Hgb 13.7 g/dl (14.0-18.0) L 12/08/22 WBC 5.6 X10*3/uL (4.8-10.8) 12/08/22 Plt Count 191 X10*3/uL (160-400) 12/08/22 Sodium 140 mmol/L (135-145) 12/08/22 Potassium 4.3 mmol/L (3.3-5.1) 12/08/22 Chloride 110 mmol/L (96-108) H 12/08/22 Carbon Dioxide 20 mmol/L (22-29) L 12/08/22 BUN 16 mg/dL (9-16) 12/08/22 Creatinine 1.82 mg/dL (0.5-1.4) H 12/08/22 Calcium 8.9 mg/dL (8.4-10.2) 12/08/22 PTH Intact 77 pg/mL (16-77) 12/08/22 Urine Creatinine 87.53 mg/dL 12/08/22 Protein/Creatinin Ratio 0.09 (<0.2) 12/08/22
== END 2023-06-12 11:09 | disposition home or self-care (01) ==
PROVIDERS: PCP Internal Medicine; Visit Provider Internal Medicine Hypertension Specialist
DX: N18.30 Chronic kidney disease, stage 3 unspecified (principal); I10 Essential (primary) hypertension; N40.1 Benign prostatic hyperplasia with lower urinary tract symptoms; N13.8 Other obstructive and reflux uropathy
CPT/HCPCS: 99214

== ENCOUNTER → 2023-06-12 10:46 | Outpatient (BNVA) | payer MEDICARE, SELFPAY | PROVIDERS: PCP Internal Medicine; Visit Provider Internal Medicine Hypertension Specialist | DX: I12.9 Hypertensive chronic kidney disease with stage 1 through stage 4 chronic kidney disease, or unspecified chronic kidney disease (principal); N18.30 Chronic kidney disease, stage 3 unspecified; N40.1 Benign prostatic hyperplasia with lower urinary tract symptoms; N13.8 Other obstructive and reflux uropathy | CPT/HCPCS: 99212 ==

== ENCOUNTER 2023-06-12 11:19 | Outpatient (REF) | payer MEDICARE, OTHER, SELFPAY ==
[2023-06-12 13:19] LABS: Hematocrit 41.8 % (42.0-52.0); Hemoglobin 13.9 g/dl (14.0-18.0); Mean Corpuscular HGB Conc 33.3 g/dl (31.0-36.0); Mean Corpuscular Hemoglobin 27.5 pg (27.0-33.0); Mean Corpuscular Volume 82.8 fL (80.0-98.0); Mean Platelet Volume 9.8 fL (9.4-12.4); Platelet Count 239 X10*3/uL (160-400); Red Blood Count 5.05 X10*6/uL (4.60-5.80); White Blood Count 6.6 X10*3/uL (4.8-10.8)
[2023-06-12 14:01] LABS: Alanine Aminotransferase 9 U/L (0-40); Albumin Level 4.1 g/dL (3.5-5.0); Alkaline Phosphatase 80 U/L (39-117); Anion Gap 13 (12-20); Aspartate Amino Transferase 13 U/L (5-37); Bilirubin Total 0.5 mg/dL (0.0-1.0); Blood Urea Nitrogen 20 mg/dL (9-16); Carbon Dioxide 20 mmol/L (22-29); Chloride 109 mmol/L (96-108); Estimated Glomerular Filt Rate 41; Glucose Random 97 mg/dL (60-115); Parathyroid Hormone Intact 135.4 pg/mL (8.7-77.1); Potassium 4.1 mmol/L (3.3-5.1); Sodium 138 mmol/L (135-145)
== END 2023-06-12 11:20 | disposition home or self-care (01) ==
LOC: HO.10HDL 11:19
PROVIDERS: Visit Provider Internal Medicine Hypertension Specialist
DX: N18.30 Chronic kidney disease, stage 3 unspecified (principal)
CPT/HCPCS: 36415; 80053; 83970; 85027

== ENCOUNTER 2023-08-02 12:33 | Outpatient (REF) | payer MEDICARE, OTHER, SELFPAY ==
[2023-08-02 13:53] LABS: Prostate Specific Antigen 6.35 ng/mL (<0.05-4.0)
== END 2023-08-02 12:34 | disposition home or self-care (01) ==
LOC: HO.LAB 12:33
PROVIDERS: PCP Internal Medicine; Visit Provider Urology
DX: Z12.5 Encounter for screening for malignant neoplasm of prostate (principal); R97.20 Elevated prostate specific antigen [PSA]
CPT/HCPCS: 36415; 84153

== ENCOUNTER 2023-08-08 11:40 | Outpatient (AMB) | payer MEDICARE, OTHER, SELFPAY ==
[2023-08-08 11:43] VITALS: BP 156/58; PULSE 72; O2SAT 97; BMI 29.9
--- NOTE | 2023-08-08 11:43 | HO.NEPHOV ---
HPI HPI Comments History of Present Illness Details Elderly man with long standing HTN with CKD Here for follow up No new issues BP was elevated last visit Amlodipine 2.5 mg was added HOme BP has been good SBP 125- 135 Today he forgot to take his meds!! ON LICENSE OF [facility] Medical History (Updated 06/12/23 @ 11:00 by Dillon Olivo MD) High cholesterol HTN (hypertension) Surgical History H/O removal of cyst (03/01/22) Family History Mother Hypertension Breast cancer Father Alcoholic Lung cancer Sister Breast cancer Sister Breast cancer Sister Breast cancer Sister Breast cancer Social History Patient Tobacco Use Status: Former Tobacco user Tobacco use type: Cigarette Current occupational status: retired Vital Signs 08/08/23 11:43 Height 5 ft 7 in Weight 191 lb BMI 29.9 BP 156/58 H Blood Pressure Location Rt brachial Position Sitting Pulse 72 Pulse Source Pulse Oximeter Pulse Oximetry (%) 97 Oxygen Delivery Method Room Air Physical Exam Vital Signs: Last Vital Signs Pulse 72 08/08/23 11:43 BP 156/58 H 08/08/23 11:43 Pulse Ox 97 08/08/23 11:43 Oxygen Delivery Method Room Air 08/08/23 11:43 BMI result Body Mass Index 29.9 Const General: comfortable Nutritional Appearance: well nourished Orientation/consciousness: patient oriented x3 HEENT Head: No normal to inspection Mouth: moist mucous membranes Neck Neck: Yes supple and Yes no JVD Resp Auscultation: clear to auscultation bilaterally, no rales and rub present Cardio Jugular venous distension: no JVD Palpation: no palpable S3 and no palpable S4 Heart sounds: no rubs GI Palpation (GI): Soft to palpation and nontender Percussion: No Fluid wave present General: Yes no CVA tenderness Back/Spine/Pelvis Back: no CVA tenderness Skin General skin exam: no rashes or lesions noted Neuro General: patient oriented x3 Extrem General: Yes no pedal edema and No clubbing Assessment & Plan Assessment & Plan (1) CKD (chronic kidney disease) stage 3, GFR 30-59 ml/min: Code(s): N18.30 - Chronic kidney disease, stage 3 unspecified Plan: Due to hypertensinve nephrosclerosis Cr has been stable Avoid nephrotoxins including NSAIDS (2) HTN (hypertension): Code(s): I10 - Essential (primary) hypertension Plan: Low salt diet Keep Amlodipine 2.5 mg QD Can increase to 5 mg QD if needed Did not change today since he forgot to take his meds (3) BPH w urinary obs/LUTS: Code(s): N40.1 - Benign prostatic hyperplasia with lower urinary tract symptoms; N13.8 - Other obstructive and reflux uropathy Plan: Continue follow up with Urology Coding Level of Care Code Est Pt Level 4 (18908) Diagnoses CKD (chronic kidney disease) stage 3, GFR 30-59 ml/min N18.30 HTN (hypertension) I10 BPH w urinary obs/LUTS N40.1; N13.8 Results Reviewed Nephrology Results: Hgb 13.9 g/dl (14.0-18.0) L 06/12/23 WBC 6.6 X10*3/uL (4.8-10.8) 06/12/23 Plt Count 239 X10*3/uL (160-400) 06/12/23 Sodium 138 mmol/L (135-145) 06/12/23 Potassium 4.1 mmol/L (3.3-5.1) 06/12/23 Chloride 109 mmol/L (96-108) H 06/12/23 Carbon Dioxide 20 mmol/L (22-29) L 06/12/23 BUN 20 mg/dL (9-16) H 06/12/23 Creatinine 1.63 mg/dL (0.5-1.4) H 06/12/23 Calcium 9.0 mg/dL (8.4-10.2) 06/12/23 PTH Intact 135.4 pg/mL (8.7-77.1) H 06/12/23 Urine Creatinine 87.53 mg/dL 12/08/22 Protein/Creatinin Ratio 0.09 (<0.2) 12/08/22
== END 2023-08-08 11:55 | disposition home or self-care (01) ==
PROVIDERS: PCP Internal Medicine; Visit Provider Internal Medicine Hypertension Specialist
DX: N18.30 Chronic kidney disease, stage 3 unspecified (principal); I10 Essential (primary) hypertension; N40.1 Benign prostatic hyperplasia with lower urinary tract symptoms; N13.8 Other obstructive and reflux uropathy
CPT/HCPCS: 99214

== ENCOUNTER → 2023-08-08 11:40 | Outpatient (BNVA) | payer MEDICARE, OTHER, SELFPAY | PROVIDERS: PCP Internal Medicine; Visit Provider Internal Medicine Hypertension Specialist | DX: R97.20 Elevated prostate specific antigen [PSA] (principal); N40.1 Benign prostatic hyperplasia with lower urinary tract symptoms; N13.8 Other obstructive and reflux uropathy; R35.1 Nocturia; R39.12 Poor urinary stream; I12.9 Hypertensive chronic kidney disease with stage 1 through stage 4 chronic kidney disease, or unspecified chronic kidney disease; N18.30 Chronic kidney disease, stage 3 unspecified; Z79.899 Other long term (current) drug therapy | CPT/HCPCS: 51798; 99212 ==

== ENCOUNTER 2023-08-08 13:08 | Outpatient (AMB) | payer MEDICARE, OTHER, SELFPAY ==
--- NOTE | 2023-08-08 13:15 | A.OFFVIS_ITS ---
Intake Intake Visit Reasons: 6M PSA/PVR(set)Confirmed Intake Note: Patient is Present for Follow Up Urology Medication: Finasteride Antibiotic Allergies: None Blood Thinners: Aspirin Confirmed Pharmacy:[facility] PVR: 14 Allergies No Known Allergies Allergy (Verified 08/08/23 13:18) HPI HPI Comments History of Present Illness Details Dutch is a pleasant male. He is a patient of Dr. Hernández. He seen for following urologic conditions - elevated PSA - lower urinary tract symptoms Continue good response to finasteride PSA remains stable at 6.4 PVR 0 cc Continue six-month follow-up Discussed family history of elevated prostate and elevated PSA Recommend he discuss with sons his history of prostate issues Lower urinary tract symptoms Slow stream, nocturia Good response to finasteride Elevated PSA PSA 02/02 150, 02/03 15, 08/04 7.6/8.4 25%, 02/04 6.7, 08/05 6.4 - Discussed risk prostate cancer Prior biopsy performed a number of years ago x2 Reported as high-grade PIN Prostate biopsy - 06/05 negative Imaging - 07/06 prostate MRI 150 g prostate equiv ocal for low risk prostate cancer Continue follow PSA PFSH Medical History High cholesterol HTN (hypertension) Surgical History H/O removal of cyst (03/01/22) Family History Mother Hypertension Breast cancer Father Alcoholic Lung cancer Sister Breast cancer Sister Breast cancer Sister Breast cancer Sister Breast cancer Social History Patient Tobacco Use Status: Former Tobacco user Tobacco use type: Cigarette Current occupational status: retired Review of Systems Const Denies chills and Denies fever(s) Card Reports no additional complaints and Denies syncope Resp Denies cough GI Denies abdominal pain and Denies heartburn Reports as per HPI and Denies change in libido Neuro Denies syncope Psych Denies change in libido Endo Denies change in libido Physical Exam Const General: cooperative, healthy appearing, comfortable and no acute distress Orientation/consciousness: patient oriented x3 HEENT Face and sinus: Yes normal facial exam Mouth: moist mucous membranes Neck Neck: Yes normal visual inspection, Yes full ROM and Yes trachea midline Chest Chest palpation & inspection: normal inspection of the chest Resp Effort & Inspection: normal respiratory effort, able to speak in complete sentences and no respiratory distress GI Inspection: Yes normal to inspection Back/Spine/Pelvis Cervical Spine: normal cervical lordosis Thoracic/Lumbar Spine: thoracic and lumbar spine normal to inspection Skin General skin exam: no rashes or lesions noted Neuro General: patient oriented x3, gait normal, tone normal and moves all extremities Extrem General: Yes normal to inspection and Yes capillary refill normal Office Procedures Post Void Residual Post Residual Void Post Void Residual (PVR): 14 16389-Heil Void Residual by ultrasound Assessment & Plan Assessment & Plan (1) Elevated PSA: Code(s): R97.20 - Elevated prostate specific antigen [PSA] (2) BPH w urinary obs/LUTS: Code(s): N40.1 - Benign prostatic hyperplasia with lower urinary tract symptoms; N13.8 - Other obstructive and reflux uropathy Plan Six-month follow-up PSA Orders: Orders AMB Post Void Residual by ultrasound Today N13.8 - Other obstructive and reflux uropathy, N40.1 - Benign prostatic hyperplasia with lower urinary tract symptoms PSA,Total (Free>4and<10) 6 Months R97.20 - Elevated prostate specific antigen [PSA] Patient Instructions: Imaging studies, laboratory and physical exam results were discussed and reviewed in detail. No major barriers to patient understanding were identified. An opportunity to ask questions regarding the treatment plan was provided. All questions were answered. The patient expressed understanding and agreement with the above treatment plan. The patient is aware they should contact our office by phone for worsening of their current condition or the appearance of new urologic symptoms. Compliance is encouraged with any medications and followup testing that is ordered. It is a privilege to participate in the urologic care of your patient. If you have any questions or concerns regarding treatment for the above conditions, or other urologic issues, please do not hesitate to contact me. The office telephone contact is [phone]. This note is constructed using voice recognition software. While every effort h as been made to ensure accuracy sports book writer errors may have been included. Yours sincerely, Dr Sergey Roberts MD, [facility] - Urology Providers of Expert, Compassionate Care for the Genitourinary System Coding Level of Care Code Est Pt Level 3 (97512) Diagnoses Elevated PSA R97.20 BPH w urinary obs/LUTS N40.1; N13.8 CPT Codes Post Residual Void - PVR CPT Code: 33067-Cntp Void Residual by ultrasound ([id number])
== END 2023-08-08 13:40 | disposition home or self-care (01) ==
PROVIDERS: PCP Internal Medicine; Visit Provider Urology
DX: R97.20 Elevated prostate specific antigen [PSA] (principal); N40.1 Benign prostatic hyperplasia with lower urinary tract symptoms; N13.8 Other obstructive and reflux uropathy
CPT/HCPCS: 99213

== ENCOUNTER 2024-01-08 09:25 | Outpatient (AMB) | payer MEDICARE, OTHER, SELFPAY ==
[2024-01-08 09:27] VITALS: BP 114/64; PULSE 77; O2SAT 97; BMI 29.3
--- NOTE | 2024-01-08 09:27 | HO.NEPHOV ---
Vital Signs 01/08/24 09:27 Height 5 ft 7 in Weight 187 lb BMI 29.3 BP 114/64 Blood Pressure Location Lt brachial Position Sitting Pulse 77 Pulse Source Pulse Oximeter Pulse Oximetry (%) 97 Oxygen Delivery Method Room Air Intake Visit Reasons: / December/ Conf Underwriting Intern Required: No Accompanied by: Self / Same As Patient Allergies No Known Allergies Allergy (Verified 01/08/24 09:28) Medication List - Last Reconciled 01/08/24 by Dillon Olivo MD amlodipine 2.5 mg PO DAILY aspirin 81 mg PO DAILY atorvastatin 20 mg PO DAILY finasteride 5 mg PO DAILY 90 days losartan 50 mg PO DAILY metoprolol tartrate 50 mg PO BID omeprazole 20 mg PO DAILY HPI Comments Details: Elderly man with long standing HTN with CKD Here for follow up BP was elevated last visit Amlodipine 2.5 mg was added HOme BP has been good [facility] Medical History High cholesterol HTN (hypertension) Surgical History H/O removal of cyst (03/01/22) Family History Mother Hypertension Breast cancer Father Alcoholic Lung cancer Sister Breast cancer Sister Breast cancer Sister Breast cancer Sister Breast cancer Social History Patient Tobacco Use Status: Former Tobacco user Tobacco use type: Cigarette Current occupational status: retired Physical Exam Vital Signs: Last Vital Signs Pulse 77 01/08/24 09:27 BP 114/64 01/08/24 09:27 Pulse Ox 97 01/08/24 09:27 Oxygen Delivery Method Room Air 01/08/24 09:27 BMI result Body Mass Index 29.3 Results Reviewed Nephrology Results: Hgb 13.9 g/dl (14.0-18.0) L 06/12/23 WBC 6.6 X10*3/uL (4.8-10.8) 06/12/23 Plt Count 239 X10*3/uL (160-400) 06/12/23 Sodium 138 mmol/L (135-145) 06/12/23 Potassium 4.1 mmol/L (3.3-5.1) 06/12/23 Chloride 109 mmol/L (96-108) H 06/12/23 Carbon Dioxide 20 mmol/L (22-29) L 06/12/23 BUN 20 mg/dL (9-16) H 06/12/23 Creatinine 1.63 mg/dL (0.5-1.4) H 06/12/23 Calcium 9.0 mg/dL (8.4-10.2) 06/12/23 PTH Intact 135.4 pg/mL (8.7-77.1) H 06/12/23 Urine Creatinine 87.53 mg/dL 12/08/22 Protein/Creatinin Ratio 0.09 (<0.2) 12/08/22 Assessment & Plan Assessment & Plan (1) CKD (chronic kidney disease) stage 3, GFR 30-59 ml/min: Code(s): N18.30 - Chronic kidney disease, stage 3 unspecified Category: Medical Plan: Due to hypertensinve nephrosclerosis Cr has been stable Avoid nephrotoxins including NSAIDS (2) HTN (hypertension): Code(s): I10 - Essential (primary) hypertension Category: Medical Plan: Low salt diet Keep Amlodipine 2.5 mg QD Can increase to 5 mg QD if needed (3) BPH w urinary obs/LUTS: Code(s): N40.1 - Benign prostatic hyperplasia with lower urinary tract symptoms; N13.8 - Other obstructive and reflux uropathy Category: Medical Plan: Continue follow up with Urology Orders: Orders Basic Metabolic Panel Today N18.30 - Chronic kidney disease, stage 3 unspecified Complete Blood Count Auto Diff Today N18.30 - Chronic kidney disease, stage 3 unspecified Coding Level of Care Code Est Pt Level 4 (93657) Diagnoses CKD (chronic kidney disease) stage 3, GFR 30-59 ml/min N18.30 HTN (hypertension) I10 BPH w urinary obs/LUTS N40.1; N13.8
== END 2024-01-08 09:39 | disposition home or self-care (01) ==
PROVIDERS: PCP Internal Medicine; Visit Provider Internal Medicine Hypertension Specialist
DX: N18.30 Chronic kidney disease, stage 3 unspecified (principal); I10 Essential (primary) hypertension; N40.1 Benign prostatic hyperplasia with lower urinary tract symptoms; N13.8 Other obstructive and reflux uropathy
CPT/HCPCS: 99214

== ENCOUNTER → 2024-01-08 09:25 | Outpatient (BNVA) | payer MEDICARE, OTHER, SELFPAY | PROVIDERS: PCP Internal Medicine; Visit Provider Internal Medicine Hypertension Specialist | DX: I12.9 Hypertensive chronic kidney disease with stage 1 through stage 4 chronic kidney disease, or unspecified chronic kidney disease (principal); N18.30 Chronic kidney disease, stage 3 unspecified; N40.1 Benign prostatic hyperplasia with lower urinary tract symptoms; N13.8 Other obstructive and reflux uropathy | CPT/HCPCS: 99212 ==

== ENCOUNTER 2024-02-09 09:15 | Outpatient (REF) | payer MEDICARE, OTHER, SELFPAY ==
[2024-02-09 09:49] LABS: MANUAL DIFF FLAG NO
[2024-02-09 10:20] LABS: Basophils Percent Auto 0.7 % (0-2); Eosinophils Absolute Auto 0.2 X10*3/uL (0.0-0.4); Hematocrit 39.7 % (42.0-52.0); Hemoglobin 13.1 g/dl (14.0-18.0); Imm Gran Abs Auto 0.02 X10*3/uL (0.00-0.03); Imm Gran Pct Auto 0.4 % (0.0-0.4); Lymphocytes Absolute Auto 1.1 X10*3/uL (1.2-4.9); Lymphocytes Percent Auto 19.4 % (20-40); Mean Corpuscular Hemoglobin 27.9 pg (27.0-33.0); Mean Corpuscular Volume 84.5 fL (80.0-98.0); Mean Platelet Volume 9.5 fL (9.4-12.4); Monocytes Absolute Auto 0.5 X10*3/uL (0.1-1.2); Monocytes Percent Auto 8.4 % (2-11); Neutrophils Absolute Auto 3.8 x10*3/uL (2.0-8.3); Neutrophils Percent Auto 68.1 % (45-73); Platelet Count 231 X10*3/uL (160-400); Red Cell Distribution Width 13.8 % (11.0-16.0); White Blood Count 5.6 X10*3/uL (4.8-10.8)
[2024-02-09 11:24] LABS: Anion Gap 11 (12-20); Blood Urea Nitrogen 16 mg/dL (9-16); Calcium 9.2 mg/dL (8.4-10.2); Carbon Dioxide 26 mmol/L (22-29); Chloride 107 mmol/L (96-108); Estimated Glomerular Filt Rate 37; Glucose Random 100 mg/dL (60-115); Potassium 4.6 mmol/L (3.3-5.1); Sodium 139 mmol/L (135-145)
[2024-02-09 11:46] LABS: PSA,Total (Free>4and<10) 5.29 ng/mL (0.00-4.00)
[2024-02-12 12:19] LABS: Free Prostate Spec Ag 1.6 ng/mL; Percent Free Prostate Spec Ag 31 % (calc) (>25); Prostate Specific Ag Total 5.1 ng/mL (< OR = 4.0)
== END 2024-02-09 09:16 | disposition home or self-care (01) ==
LOC: HO.LAB 09:15
PROVIDERS: Internal Medicine Hypertension Specialist; PCP Internal Medicine; Visit Provider Urology
DX: N18.30 Chronic kidney disease, stage 3 unspecified (principal); R97.20 Elevated prostate specific antigen [PSA]; Z12.5 Encounter for screening for malignant neoplasm of prostate
CPT/HCPCS: 36415; 80048; 84153; 84154; 85025

== ENCOUNTER 2024-03-19 09:34 | Outpatient (AMB) | payer MEDICARE, OTHER, SELFPAY ==
--- NOTE | 2024-03-19 09:35 | A.OFFVIS_ITS ---
Intake Visit Reasons: 8M PSA Free/Total(set) Intake Note: Patient is present for Telephone PSA Follow up Urology Med: Finasteride Antibiotic Allergy: None Blood Thinner: Aspirin 02/09/2024- TOTAL PSA: 5.1 %FREE PSA: 31 FREE PSA: 1.6 Hydro Plant Site Manager Required: No Accompanied by: Self / Same As Patient Allergies No Known Allergies Allergy (Verified 01/08/24 09:28) HPI Comments Details: Dutch is a pleasant male. He is a patient of Dr. Hernández. He seen for following urologic conditions - elevated PSA - lower urinary tract symptoms Telemedicine Evaluation 15 min Consultation MLW Squared Lilibeth Video Continue good response to finasteride PSA 5.1 which is slight decrease Continue six-month follow-up Discussed family history of elevated prostate and elevated PSA Recommend he discuss with sons his history of prostate issues Lower urinary tract symptoms Slow stream, nocturia Good response to finasteride Elevated PSA PSA 02/02 150, 02/03 15, 08/04 7.6/8.4 25%, 02/04 6.7, 08/05 6.4, 02/05 5.1 31% - Discussed risk prostate cancer Prior biopsy performed a number of years ago x2 Reported as high-grade PIN Prostate biopsy - 06/05 negative Imaging - 07/06 prostate MRI 150 g prostate equivocal for low risk prostate cancer Continue follow PSA PFSH Medical History High cholesterol HTN (hypertension) Surgical History H/O removal of cyst (03/01/22) Family History Mother Hypertension Breast cancer Father Alcoholic Lung cancer Sister Breast cancer Sister Breast cancer Sister Breast cancer Sister Breast cancer Social History Patient Tobacco Use Status: Former Tobacco user Tobacco use type: Cigarette Current occupational status: retired Review of Systems Const All systems reviewed & are unremarkable except as noted in HPI and below Reports no additional complaints Resp Reports no additional complaints GI Reports no additional complaints Reports as per HPI Musc Reports no additional complaints Physical Exam Telemedicine evaluation Appropriate responses Regular breathing rate and rhythm HEENT Head: Yes normal to inspection Ears: hearing grossly normal bilaterally Eyes General: appearance normal, both eyes and all related structures Neck Neck: Yes normal visual inspection Chest Chest palpation & inspection: normal inspection of the chest Resp Effort & Inspection: normal respiratory effort and able to speak in complete sentences Telehealth Telehealth Telehealth Platform: [employer] Location of provider rendering services: practice address Location of patient: address on file Patient Identification confirmed using: Name, : Yes Telehealth method: video Patient verbally consented to treatment: Yes Patient verbally consented to billing insurance company: Yes Patient informed of any privacy concerns related to visit: Yes Minutes spent on Phone/Video with Pt.: 15 Assessment & Plan Assessment & Plan (1) Elevated PSA: Code(s): R97.20 - Elevated prostate specific antigen [PSA] Category: Medical Plan Six-month follow-up PSA Patient Instructions: Imaging studies, laboratory and physical exam results were discussed and reviewed in detail. No major barriers to patient understanding were identified. An opportunity to ask questions regarding the treatment plan was provided. All questions were answered. The patient expressed understanding and agreement with the above treatment plan. The patient is aware they should contact our office by phone for worsening of their current condition or the appearance of new urologic symptoms. Compliance is encouraged with any medications and followup testing that is ordered. It is a privilege to participate in the urologic care of your patient. If you have any questions or concerns regarding treatment for the above conditions, or other urologic issues, please do not hesitate to contact me. The office telephone contact is [phone]. This note is constructed using voice recognition software. While every effort has been made to ensure accuracy algebra tutor errors may have been included. Yours sincerely, Dr Sergey Roberts MD, [facility] - Urology Providers of Expert, Compassionate Care for the Genitourinary System Coding Level of Care Code Tele Est Pt Level 3 (86191) Diagnoses Elevated PSA R97.20
== END 2024-03-19 10:45 | disposition home or self-care (01) ==
LOC: HO.HUSH 09:34
PROVIDERS: PCP Internal Medicine; Visit Provider Urology
DX: R97.20 Elevated prostate specific antigen [PSA] (principal)
CPT/HCPCS: 99213

== ENCOUNTER 2024-07-08 09:37 | Outpatient (REF) | payer MEDICARE, OTHER, SELFPAY ==
--- OUTSIDE RECORDS SUMMARY | 2024-07-08 10:30 | XMS_ITS | Clinical Summary ---
Author Organization [facility] Facility Address [address] [place] [address] Care Team Providers Care Briquetting Machine Operator Name Role Phone Flako Hernández MD Primary Care Provider [phone] Allergies No known active allergies Medications atorvastatin (LIPITOR) 20 MG tablet Take 20 mg by mouth 1 (one) time each day 04/18/2022 Active finasteride (PROSCAR) 5 MG tablet Take 1 tablet by mouth 1 (one) time each day Active losartan (COZAAR) 50 MG tablet Take 1 tablet by mouth 1 (one) time each day Active metoprolol tartrate (LOPRESSOR) 50 MG tablet Take 1 tablet by mouth in the morning and 1 tablet in the evening. Active omeprazole (PriLOSEC) [address] capsule Take by mouth 1 (one) time each day 04/18/2022 Active Active Problems Problem Noted Date Diagnosed Date Essential hypertension 12/15/2022 3 Chronic kidney disease stage 2 12/15/2022 0 12/15/2022 Family History Medical History Relation Comments Cancer Father Hypertension Father Cancer Mother Hypertension Mother Cancer Sibling Relation Status Comments Father Unknown Mother Unknown Sibling Social History Tobacco Use Types Packs/Day Years Used Date Smoking Tobacco: Former Cigarettes Smokeless Tobacco: Never Tobacco Cessation:Counseling Given: Not Answered Comments:Smoking History Info:Every day Alcohol Use Standard Drinks/Week Comments Yes 0 (1 standard drink = 0.6 oz pure alcohol) Alcoholic Drinks/day: 3 or more drinks per day Sex and Gender Information Value Date Recorded Sex Assigned at Not on file Legal Sex Male 5:09 PM EST Gender Identity Not on file Sexual Orientation Not on file Last Filed Vital Signs Vital Sign Reading Time Taken Comments Blood Pressure 139/66 12/15/2022 3:38 PM EDT Pulse 61 12/15/2022 3:38 PM EDT Temperature - - Respiratory Rate - - Oxygen Saturation 97% 12/15/2022 3:38 PM EDT Inhaled Oxygen Concentration - - Weight 85.4 kg (188 lb 3.2 oz) 12/15/2022 3:38 P M EDT Height 172.7 cm (5' 8 ) 04/19/2019 12:00 PM EST Body Mass Index 28.62 04/19/2019 12:00 PM EST Plan of Treatment Health Maintenance Due Date Last Done Comments Pneumococcal Vaccine: 65+ Ye ars (1 of 2 - PCV) 01/30/1946 Influenza Vaccine (#1) 2024 Hepatitis B Vaccine Aged Out No longe r eligible based on patient's age to complete this topic Insurance MEDICARE [facility] MEDICARE [facility] Care Teams Briquetting Machine Operator Relationship Specialty Start Date End Date Flako Hernández MD [address] [place] [address] PCP - General 05/25/20
[2024-07-08 11:00] LABS: Anion Gap 12 (12-20); Blood Urea Nitrogen 17 mg/dL (9-16); Calcium 8.9 mg/dL (8.4-10.2); Carbon Dioxide 24 mmol/L (22-29); Chloride 111 mmol/L (96-108); Estimated Glomerular Filt Rate 39; Glucose Random 92 mg/dL (60-115); Potassium 3.9 mmol/L (3.3-5.1); Sodium 143 mmol/L (135-145)
== END 2024-07-08 09:38 | disposition home or self-care (01) ==
LOC: HO.LAB 09:37
PROVIDERS: PCP Internal Medicine; Visit Provider Internal Medicine Hypertension Specialist
DX: N18.30 Chronic kidney disease, stage 3 unspecified (principal)
CPT/HCPCS: 36415; 80048

== ENCOUNTER 2024-07-11 09:32 | Outpatient (AMB) | payer MEDICARE, OTHER, SELFPAY ==
[2024-07-11 09:33] VITALS: BP 128/60; PULSE 62; O2SAT 97; BMI 27.2
--- NOTE | 2024-07-11 09:33 | HO.NEPHOV_ITS ---
Vital Signs 07/11/24 09:33 Height 5 ft 7 in Weight 174 lb BMI 27.2 BP 128/60 Blood Pressure Location Rt brachial Position Sitting Pulse 62 Pulse Source Pulse Oximeter Pulse Oximetry (%) 97 Oxygen Delivery Method Room Air Intake Visit Reasons: CKD/ LVM Supervisor Prop Making Required: No Accompanied by: Self / Same As Patient Allergies No Known Allergies Allergy (Verified 07/11/24 09:36) Medication List - Last Reconciled 07/11/24 by Dillon Olivo MD amlodipine 2.5 mg PO DAILY aspirin 81 mg PO DAILY atorvastatin 20 mg PO DAILY finasteride 5 mg PO DAILY 90 days losartan 50 mg PO DAILY metoprolol tartrate 50 mg PO BID omeprazole 20 mg PO DAILY tizanidine 4 mg PO BEDTIME HPI Comments Details: Elderly man with long standing HTN with CKD Here for follow up BP was elevated last visit Amlodipine 2.5 mg was added Home BP has been good No new issues today PFSH Medical History High cholesterol HTN (hypertension) Surgical History H/O removal of cyst (03/01/22) Family History Mother Hypertension Breast cancer Father Alcoholic Lung cancer Sister Breast cancer Sister Breast cancer Sister Breast cancer Sister Breast cancer Social History Patient Tobacco Use Status: Former Tobacco user Tobacco use type: Cigarette Current occupational status: retired Physical Exam Vital Signs: Last Vital Signs Pulse 62 07/11/24 09:33 BP 128/60 07/11/24 09:33 Pulse Ox 97 07/11/24 09:33 Oxygen Delivery Method Room Air 07/11/24 09:33 BMI result Body Mass Index 27.2 Const General: comfortable Nutritional Appearance: well nourished Orientation/consciousness: patient oriented x3 HEENT Head: No normal to inspection Mouth: moist mucous membranes Neck Neck: Yes supple and Yes no JVD Resp Auscultation: clear to auscultation bilaterally, no rales and rub present Cardio Jugular venous distension: no JVD Palpation: no palpable S3 and no palpable S4 Heart sounds: no rubs GI Palpation (GI): Soft to palpation and nontender Percussion: No Fluid wave present General: Yes no CVA tenderness Back/Spine/Pelvis Back: no CVA tenderness Skin General skin exam: no rashes or lesions noted Neuro General: patient oriented x3 Extrem General: Yes no pedal edema and No clubbing Results Reviewed Nephrology Results: Hgb 13.1 g/dl (14.0-18.0) L 02/09/24 WBC 5.6 X10*3/uL (4.8-10.8) 02/09/24 Plt Count 231 X10*3/uL (160-400) 02/09/24 Sodium 143 mmol/L (135-145) 07/08/24 Potassium 3.9 mmol/L (3.3-5.1) 07/08/24 Chloride 111 mmol/L (96-108) H 07/08/24 Carbon Dioxide 24 mmol/L (22-29) 07/08/24 BUN 17 mg/dL (9-16) H 07/08/24 Creatinine 1.68 mg/dL (0.5-1.4) H 07/08/24 Calcium 8.9 mg/dL (8.4-10.2) 07/08/24 PTH Intact 135.4 pg/mL (8.7-77.1) H 06/12/23 Assessment & Plan Assessment & Plan (1) CKD (chronic kidney disease) stage 3, GFR 30-59 ml/min: Code(s): N18.30 - Chronic kidney disease, stage 3 unspecified Category: Medical Plan: Due to hypertensive nephrosclerosis Cr has been stable Avoid nephrotoxins including NSAIDS (2) HTN (hypertension): Code(s): I10 - Essential (primary) hypertension Category: Medical Plan: Bp well controlled Low salt diet Keep Amlodipine 2.5 mg QD (3) BPH w urinary obs/LUTS: Code(s): N40.1 - Benign prostatic hyperplasia with lower urinary tract symptoms; N13.8 - Other obstructive and reflux uropathy Category: Medical Plan: Continue follow up with Urology Orders: Orders Basic Metabolic Panel 6 Months I10 - Essential (primary) hypertension, N18.30 - Chronic kidney disease, stage 3 unspecified Complete Blood Count no Diff 6 Months I10 - Essential (primary) hypertension, N18.30 - Chronic kidney disease, stage 3 unspecified Parathyroid Hormone Intact 6 Months I10 - Essential (primary) hypertension, N18.30 - Chronic kidney disease, stage 3 unspecified Coding Level of Care Code Est Pt Level 4 (30162) Diagnoses CKD (chronic kidney disease) stage 3, GFR 30-59 ml/min N18.30 HTN (hypertension) I10 BPH w urinary obs/LUTS N40.1; N13.8
--- OUTSIDE RECORDS SUMMARY | 2024-07-11 10:46 | XMS_ITS | Clinical Summary ---
Author Organization [facility] Facility Address [address] [address] Care Team Providers Care Professional Housing Consultant Name Role Phone Flako Hernández MD Primary Care Provider [phone] Allergies No known active allergies Medications atorvastatin [...] age to complete this topic Insurance MEDICARE [facility] MEDICARE [facility] Care Teams Professional Housing Consultant Relationship Specialty Start Date End Date Flako Hernández MD [address] [place] [address] PCP - General 05/25/20
== END 2024-07-11 09:46 | disposition home or self-care (01) ==
PROVIDERS: PCP Internal Medicine; Visit Provider Internal Medicine Hypertension Specialist
DX: N18.30 Chronic kidney disease, stage 3 unspecified (principal); I10 Essential (primary) hypertension; N40.1 Benign prostatic hyperplasia with lower urinary tract symptoms; N13.8 Other obstructive and reflux uropathy
CPT/HCPCS: 99214

== ENCOUNTER → 2024-07-11 09:32 | Outpatient (BNVA) | payer MEDICARE, OTHER, SELFPAY | PROVIDERS: PCP Internal Medicine; Visit Provider Internal Medicine Hypertension Specialist | DX: N18.30 Chronic kidney disease, stage 3 unspecified (principal); I10 Essential (primary) hypertension; N40.1 Benign prostatic hyperplasia with lower urinary tract symptoms; N13.8 Other obstructive and reflux uropathy | CPT/HCPCS: 99212 ==

== ENCOUNTER 2024-09-16 08:52 | Outpatient (REF) | payer MEDICARE, OTHER, SELFPAY ==
--- OUTSIDE RECORDS SUMMARY | 2024-09-16 09:21 | XMS_ITS | Clinical Summary ---
Author Organization [facility] Facility Address [address] [address] Care Team Providers Care Quality Assurance Associate Name Role Phone Flako Hernández MD Primary Care Provider [phone] Allergies No known active allergies Medications atorvastatin [...] Due Date Last Done Comments Pneumococcal Vaccine: 50+ Ye ars (1 of 2 - PCV) 01/30/1959 Influenza Vaccine (Season Ended) 2025 Hepatitis B Vaccine Aged Out No longe r eligible based on patient's age to complete this topic Insurance Medicare [facility] Medicare [facility] Care Teams Quality Assurance Associate Relationship Specialty Start Date End Date Flako Hernández MD [address] [place] [address] PCP - General 05/25/20
[2024-09-16 11:16] LABS: Prostate Specific Antigen 6.81 ng/mL (<0.05-4.0)
== END 2024-09-16 08:53 | disposition home or self-care (01) ==
LOC: HO.LAB 08:52
PROVIDERS: PCP Internal Medicine; Visit Provider Urology
DX: R97.20 Elevated prostate specific antigen [PSA] (principal); Z12.5 Encounter for screening for malignant neoplasm of prostate
CPT/HCPCS: 36415; 84153

== ENCOUNTER 2024-09-17 11:36 | Outpatient (AMB) | payer MEDICARE, OTHER, SELFPAY ==
--- NOTE | 2024-09-17 11:39 | A.OFFVIS_ITS ---
Intake Visit Reasons: 6m/PSA(PSA?) Intake Note: Patient is present for 6M/PSA Urology Medication:FINASTERIDE Antibiotic Allergy:NONE Blood Thinner:ASPIRIN Commercial Food Instructor Required: No Allergies No Known Allergies Allergy (Verified 09/17/24 11:40) HPI Comments Details: Dutch is a pleasant male. He is a patient of Dr. Hernández. He seen for following urologic conditions - elevated PSA - lower urinary tract symptoms Continue good response to finasteride symptomatically PSA bouncing around Continue six-month follow-up Discussed family history of elevated prostate and elevated PSA Recommend he discuss with sons his history of prostate issues Consistent numbers for past 18 months. Plan on repeat PSA in 12 months Lower urinary tract symptoms Slow stream, nocturia Good response to finasteride Elevated PSA PSA 02/02 15, 02/03 15, 08/04 7.6/8.4 25%, 02/04 6.7, 08/05 6.4, 02/05 5.1 31%, 10/06 6.8 - Discussed risk prostate cancer Prior biopsy performed a number of years ago x2 Reported as high-grade PIN Prostate biopsy - 06/05 negative Imaging - 07/06 prostate MRI 150 g prostate equivocal for low risk prostate cancer Continue follow PSA PFSH Medical History High cholesterol HTN (hypertension) Surgical History H/O removal of cyst (03/01/22) Family History Mother Hypertension Breast cancer Father Alcoholic Lung cancer Sister Breast cancer Sister Breast cancer Sister Breast cancer Sister Breast cancer Social History Patient Tobacco Use Status: Former Tobacco user Tobacco use type: Cigarette Current occupational status: retired Assessment & Plan Assessment & Plan (1) Elevated PSA: Code(s): R97.20 - Elevated prostate specific antigen [PSA] Category: Medical (2) BPH w urinary obs/LUTS: Code(s): N40.1 - Benign prostatic hyperplasia with lower urinary tract symptoms; N13.8 - Other obstructive and reflux uropathy Category: Medical Plan Twelve month follow-up PSA Orders: Orders PSA,Total (Free>4and<10) 12 Months N13.8 - Other obstructive and reflux uropathy, N40.1 - Benign prostatic hyperplasia with lower urinary tract symptoms Prostate Specific Antigen 09/16/24 R97.20 - Elevated prostate specific antigen [PSA] Patient Instructions: This note is constructed using voice recognition software. While every effort has been made to ensure accuracy dental appliance repairer errors may have been included. Imaging studies, laboratory and physical exam results were discussed and reviewed in detail. No major barriers to patient understanding were identified. An opportunity to ask questions regarding the treatment plan was provided. All questions were answered. The patient expressed understanding and agreement with the above treatment plan. The patient is aware they should contact our office by phone for worsening of their current condition or the appearance of new urologic symptoms. Compliance i s encouraged with any medications and followup testing that is ordered. It is a privilege to participate in the urologic care of your patient. If you have any questions or concerns regarding treatment for the above conditions, or other urologic issues, please do not hesitate to contact me. The office telephone contact is [phone]. Sincerely, Dr Sergey Roberts MD, [facility] - Urology Compassionate Specialist Care for the Genitourinary System Coding Level of Care Code Est Pt Level 3 (54883) Complex EM visit Add On G2211 Diagnoses Elevated PSA R97.20 BPH w urinary obs/LUTS N40.1; N13.8
--- OUTSIDE RECORDS SUMMARY | 2024-09-17 13:18 | XMS_ITS | Clinical Summary ---
Author Organization [facility] Facility Address [address] [address] Care Team Providers Care Certified Surgical Technician Name Role Phone Flako Hernández MD Primary Care Provider [phone] Allergies No known active allergies Medications atorvastatin [...] age to complete this topic Insurance Medicare [facility] Medicare [facility] Care Teams Certified Surgical Technician Relationship Specialty Start Date End Date Flako Hernández MD [address] [place] [address] PCP - General 05/25/20
== END 2024-09-17 11:57 | disposition home or self-care (01) ==
LOC: HO.HUSH 11:37
PROVIDERS: PCP Internal Medicine; Visit Provider Urology
DX: R97.20 Elevated prostate specific antigen [PSA] (principal); N40.1 Benign prostatic hyperplasia with lower urinary tract symptoms; N13.8 Other obstructive and reflux uropathy
CPT/HCPCS: 99213; G2211

== ENCOUNTER → 2024-09-17 11:36 | Outpatient (BNVA) | payer MEDICARE, OTHER, SELFPAY | PROVIDERS: PCP Internal Medicine; Visit Provider Urology | DX: R97.20 Elevated prostate specific antigen [PSA] (principal); N40.1 Benign prostatic hyperplasia with lower urinary tract symptoms; N13.8 Other obstructive and reflux uropathy | CPT/HCPCS: 99212 ==

== ENCOUNTER 2024-10-01 07:16 | Day surgery (SDC) | payer MEDICARE, OTHER, SELFPAY ==
--- OUTSIDE RECORDS SUMMARY | 2024-09-19 14:50 | XMS_ITS | Clinical Summary ---
Author Organization [facility] Facility Address [address] [address] Care Team Providers Care Regrind Mill Operator Name Role Phone Flako Hernández MD Primary Care Provider [phone] Allergies No known active allergies Medications atorvastatin [...] age to complete this topic Insurance Medicare [facility] Medicare [facility] Care Teams Regrind Mill Operator Relationship Specialty Start Date End Date Flako Hernández MD [address] [place] [address] PCP - General 05/25/20
[2024-09-27 13:38] VITALS: BMI 25.7
[2024-10-01 07:53] VITALS: BMI 25.3
[2024-10-01 08:07] VITALS: BP 140/89; PULSE 146; RESP 16; TEMP 36.2; O2SAT 98
--- NOTE | 2024-10-01 08:14 | ECG_ITS ---
Test Reason : rapid afib Blood Pressure : */* mmHG Vent. Rate : 137 BPM Atrial Rate : * BPM P-R Int : * ms QRS Dur : 76 ms QT Int : 274 ms P-R-T Axes : * 38 -30 degrees QTcB Int : 413 ms Atrial fibrillation with rapid ventricular response Nonspecific ST abnormality Abnormal QRS-T angle, consider primary T wave abnormality Abnormal ECG When compared with ECG of 23-Jan-2021 12:47, Atrial fibrillation has replaced Sinus rhythm Vent. rate has increased by [address] now depressed in Anterior leads Referred By: Marta Simons Electronically Signed By: Adolfo Buckner
--- NOTE | 2024-10-01 08:16 | PC.NURSE ---
patient stated once he started his oral prep he started to have dizziness. no cp. ekg ordered.
[2024-10-01] MEDS: Lactated Ringers 1,000 ML 100 ML IVCONT (08:35)
--- NOTE | 2024-10-01 08:40 | PC.NURSE ---
md sim and md trinidad by bedside evaluating patient. patient to be transferred to er. aware of plan of care.
--- NOTE | 2024-10-01 08:43 | PC.NURSE ---
applied 2l n/c .
--- NOTE | 2024-10-01 09:18 | PC.NURSE ---
patient transferred to ed and bedside report given. no changes.
--- NOTE | 2024-10-01 12:40 | PC.NURSE ---
patient back from emergency department. no complaints. remained npo and was told her was in PAF.
[2024-10-01 12:48] VITALS: BP 162/69; PULSE 88; RESP 16; TEMP 36.5; O2SAT 97
--- NOTE | 2024-10-01 12:56 | PC.NURSE ---
called patients and aware of plan of care.
[2024-10-01] MEDS: Lactated Ringers 1,000 ML 80 ML IVCONT (13:02)
--- NOTE | 2024-10-01 13:23 | HO.ANESPROP2 ---
Documented by User: Yael Adams NP 09/30/24 12:10 HPI - Anesthesia Eval Consult details Narrative: 84yo M for Colonoscopy PMFSH Active Problems Active Problems: All Active Problems CKD (chronic kidney disease) stage 3, GFR 30-59 ml/min (Acute) Basal cell carcinoma of skin of trunk (Acute) BPH w urinary obs/LUTS (Acute) Elevated PSA (Acute) Aphasia (Acute) Syncope (Acute) Dysarthria (Acute) Hypertensive urgency (Acute) HTN (hypertension) (Acute) Past Medical History Medical History (Updated 10/01/24 @ 13:18 by Adolfo Buckner MD) Atrial fibrillation Chronic kidney disease GERD (gastroesophageal reflux disease) High cholesterol HTN (hypertension) Family History Family History Mother Hypertension Breast cancer Father Alcoholic Lung cancer Sister Breast cancer Sister Breast cancer Sister Breast cancer Sister Breast cancer Surgical History Surgical History Hx of cataract extraction History of dental surgery H/O removal of cyst (03/01/22) Social History Social History Patient Tobacco Use Status: Former Tobacco user Tobacco use type: Cigarette Smoked in Last 30 Days: No Use of substances other than those prescribed or required for medical reasons: No Advance Directives: Yes Advance Directives Information Provided: Yes Advance Directives on File: No Do you have a plan to hurt others: No Plan Current occupational status: retired Meds Allergies Allergy/AdvReac Type Severity Reaction Status Date / Time No Known Allergies Allergy Verified 10/01/24 09:36 Home Medications ?Medication ?Instructions ?Recorded ?Confirmed ?Last Taken ?Type losartan 50 mg tablet 50 mg PO DAILY 04/27/21 09/27/24 Unknown History metoprolol tartrate 50 mg tablet 50 mg PO BID 04/27/21 09/27/24 Unknown History omeprazole 20 mg capsule,delayed 20 mg PO DAILY 04/27/21 09/27/24 Unknown History release atorvastatin 20 mg tablet 20 mg PO DAILY 06/08/21 09/27/24 Unknown History tizanidine 4 mg tablet 4 mg PO BEDTIME PRN Muscle Spasm 07/11/24 09/27/24 Unknown History Exam Height,Weight and Vital Signs: Height 5 ft 8 in Weight 76.657 kg Pertinent Lab Results Pertinent Lab Results: Laboratory Tests 07/08/24 09:50 Sodium 143 Potassium 3.9 Chloride 111 H Carbon Dioxide 24 BUN 17 H Creatinine 1.68 H Assessment and Plan Assessment Anesthesia Assessment: Chart Reviewed Documented by User: Ashley Kirk DO 10/01/24 13:28 HPI - Anesthesia Eval Consult details Narrative: 84yo M for Colonoscopy. This morning in pre-op, he was found to be in rapid afib and was sent to the ED. He was given metoprolol 2.5 mg and 1 liter of LR then converted to NSR. Cardiology was consulted and diagnosed him with paroxysmal afib. FORMERLY [facility] Past Medical History Medical History (Updated 10/01/24 @ 13:18 by Adolfo Buckner MD) Atrial fibrillation Chronic kidney disease GERD (gastroesophageal reflux disease) High cholesterol HTN (hypertension) Family History Family History Mother Hypertension Breast cancer Father Alcoholic Lung cancer Sister Breast cancer Sister Breast cancer Sister Breast cancer Sister Breast cancer Family history of problems with anesthesia: No Surgical History Surgical History Hx of cataract extraction History of dental surgery H/O removal of cyst (03/01/22) History of Problems with Anesthesia: No Social History Social History Patient Tobacco Use Status: Former Tobacco user Tobacco use type: Cigarette Smoked in Last 30 Days: No Use of substances other than those prescribed or required for medical reasons: No Advance Directives: Yes Advance Directives Information Provided: Yes Advance Directives on File: No Do you have a plan to hurt others: No Plan Current occupational status: retired Meds Allergies Allergy/AdvReac Type Severity Reaction Status Date / Time No Known Allergies Allergy Verified 10/01/24 09:36 Home Medications ?Medication ?Instructions ?Recorded ?Confirmed ?Last Taken ?Type losartan 50 mg tablet 50 mg PO DAILY 04/27/21 09/27/24 Unknown History metoprolol tartrate 50 mg tablet 50 mg PO BID 04/27/21 09/27/24 Unknown History omeprazole 20 mg capsule,delayed 20 mg PO DAILY 04/27/21 09/27/24 Unknown History release atorvastatin 20 mg tablet 20 mg PO DAILY 06/08/21 09/27/24 Unknown History tizanidine 4 mg tablet 4 mg PO BEDTIME PRN Muscle Spasm 07/11/24 09/27/24 Unknown History Exam Exam Date and Time: 10/01/24 1310 Airway Mallampati Class: II TM Dist: >3cm Neck ROM: Full Denture: Upper and Lower Heart: S1S2 Lungs: CTAB Assessment and Plan Assessment Anesthesia Assessment: Anesthesia Plan Discussed and Chart Reviewed Final Anesthetic Review Family History of Problems with Anesthesia: No History of Problems with Anesthesia: No NPO: Yes ASA Class: III Final Preanesthetic Review: No Changes in Pt Med Stat, Meds/Allgs Chart Reviewed, Consent Obtained/Reviewed and Anes Risks/Benef Reviewed Patient Risk: Low Procedure Risk: Low Anesthetic Plan Anesthetic Plan: MAC: and Agree w/ Assess. and Plan Disposition: Standard PACU
--- NOTE | 2024-10-01 13:49 | MHC.SHP ---
Pre-Procedural Eval Section A - 24 Hr Update-Section A only Date of Service: 10/01/24 The patient is an INPATIENT: No Changes since office visit: No Cold of Flu in the past 2 weeks, No New Medical Problems, No Changes in Medication and No Patient answered all questions The patient has been examined within 24 hours of the surgical procedure. The History & Physical has been completed within 30 days and I have reviewed it.: Yes Section B - Complete if H&P > 30 days Chief Complaint: Other fecal abnormalities Allergies: Allergies Allergy/AdvReac Type Severity Reaction Status Date / Time No Known Allergies Allergy Verified 10/01/24 09:36 Plan I have reviewed the history and physical and performed a pertinent physical examination on my patient. No changes have occurred unless specified. Time Spent With Patient Time: Total time managing care of this patient today ____ minutes.
[2024-10-01 14:55] VITALS: BP 168/82; PULSE 96; RESP 18; TEMP 36.1; O2SAT 97
[2024-10-01 15:11] VITALS: BP 140/57; PULSE 80; RESP 18; TEMP 36.8; O2SAT 96
--- NOTE | 2024-10-01 15:19 | PM.OP ---
Brief Operative Note Date of Service: 10/01/24 Pre-op diagnosis: positive stool DNA test Post-op diagnosis: same Procedure: colonoscopy Surgeon: Ishaan Beck MD Anesthesia: MAC Was an Spinning Room Worker used for this Procedure?: No Estimated blood loss (mL): 10 Pathology: other Condition: stable Disposition: PACU
--- NOTE | 2024-10-02 01:59 | OP_ITS ---
DATE OF SERVICE: 10/01/2024 SURGEON: Ishaan Beck MD INDICATIONS: Positive Cologuard test. PREOPERATIVE DIAGNOSIS: POSTOPERATIVE DIAGNOSIS: PROCEDURE PERFORMED: Colonoscopy to the terminal ilium with snare polypectomy, biopsy, and Soraya ink marking. ESTIMATED BLOOD LOSS: COMPLICATIONS: ANESTHESIA: Monitored anesthesia care. ASSISTANTS: SPECIMENS: DESCRIPTION OF PROCEDURE: A history and physical was performed. The risks and benefits of the procedure were explained to the patient. Informed consent was obtained. The patient was placed in the left lateral decubitus position. A digital rectal exam was performed and was found to be normal. The Olympus pediatric video colonoscope was introduced into the rectum and advanced to the cecum. The cecum was identified by transillumination, palpation, and identification of ileocecal valve. Examination was performed. The scope was removed. He tolerated the procedure well and was returned to recovery area in stable condition. FINDINGS: The terminal ileum was examined and appeared normal. The visualized colonic mucosa was normal without evidence of colitis. Multiple polyps and mass lesion were identified as follows. In the cecum were 2 cecal polyps measuring approximately 10 mm and 8 mm. These were removed with a hot snare. At the ileocecal valve was a serpiginous polyp measuring approximately 5 cm x 1 cm, which seemed to involve the very distal aspect of the ileocecal valve of the distal ileum. This was snared but resection seemed incomplete. There were multiple polyps in the right colon, which all had the same appearance as the ileocecal valve polyp. They were serpiginous, measuring approximately 4 to 5 cm, and difficult to completely resect. Multiple pieces were obtained from the 3 of these polyps for histopathology. At 70 cm were 2 less than 10 mm polyps which were removed with a snare. At 40 cm were 2 less than 10 mm polyps, which were also removed with a snare. At 45cm was a 5 cm polypoid mass with ulceration and rolled edges consistent with a carcinoma. Multiple biopsies were obtained from the lesion. This was not resectable. This appeared to be located at 45 cm on withdrawal of colonoscope and by palpation of the abdomen was likely in the descending colon. Next, four 1 mL injections of Soraya ink were used to jigar the area. There was mild sigmoid diverticulosis. Retroflexed examination showed moderate-sized internal hemorrhoids. IMPRESSION: 1. Multiple colonic polyps, which could not be completely endoscopically resected. 2. Mass at 45 cm, rule out carcinoma. 3. Diverticulosis. RECOMMENDATION: Follow up the biopsy results. MD CAS Townsend/ARNOL / [id number] MTDD
== END 2024-10-01 15:49 | disposition home or self-care (01) ==
PROVIDERS: PCP Internal Medicine; Visit Provider Internal Medicine Gastroenterology
PROC: 0DJD8ZZ Inspection of Lower Intestinal Tract, Via Natural or Artificial Opening Endoscopic (ICD-10-PCS; CPT 45378; principal; 2024-10-01 11:50)
DX: R19.5 Other fecal abnormalities (principal); D01.0 Carcinoma in situ of colon; D12.0 Benign neoplasm of cecum; D12.2 Benign neoplasm of ascending colon; D12.5 Benign neoplasm of sigmoid colon; D37.4 Neoplasm of uncertain behavior of colon; K57.30 Diverticulosis of large intestine without perforation or abscess without bleeding; K64.8 Other hemorrhoids; I44.0 Atrioventricular block, first degree; R00.2 Palpitations; I48.0 Paroxysmal atrial fibrillation; I12.9 Hypertensive chronic kidney disease with stage 1 through stage 4 chronic kidney disease, or unspecified chronic kidney disease; N18.30 Chronic kidney disease, stage 3 unspecified; E78.5 Hyperlipidemia, unspecified; K21.9 Gastro-esophageal reflux disease without esophagitis; Z79.82 Long term (current) use of aspirin; Z79.02 Long term (current) use of antithrombotics/antiplatelets; Z79.899 Other long term (current) drug therapy; Z03.818 Encounter for observation for suspected exposure to other biological agents ruled out
CPT/HCPCS: 45381; 45385; 0241U; 36415; 80053; 82550; 83735; 84484; 85025; 85610; 88305; 88341; 88342; 93005; 96374; 99285; J2003; J2704

== ENCOUNTER 2024-10-01 09:16 | Emergency (ER) | payer MEDICARE, OTHER, SELFPAY ==
[2024-10-01 09:35] VITALS: BP 104/72; PULSE 108; RESP 19; TEMP 36.8; O2SAT 97; BMI 25.1
--- NOTE | 2024-10-01 09:38 | ECG_ITS ---
Test Reason : afib Blood Pressure : */* mmHG Vent. Rate : 85 BPM Atrial Rate : 85 BPM P-R Int : 252 ms QRS Dur : 72 ms QT Int : 352 ms P-R-T Axes : 9 12 21 degrees QTcB Int : 418 ms Sinus rhythm with 1st degree A-V block Otherwise normal ECG When compared with ECG of 01-Oct-2024 08:21, Sinus rhythm has replaced Atrial fibrillation Vent. rate has decreased by [address] no longer depressed in Anterolateral leads Referred By: Denise Mora Electronically Signed By: Adolfo Buckner
--- NOTE | 2024-10-01 09:49 | ED_ITS ---
HPI - General Adult General Chief complaint: Arrhythmia/Palpitations Stated complaint: Nuance of Afib Time Seen by Provider: 10/01/24 09:38 Source: patient Mode of arrival: other (stretcher) Limitations: no limitations History of Present Illness ED Provider: Denise Mora PA-C HPI narrative: Patient is an 84 year old assigned male at with a history of CKD, basal cell carcinoma of the trunk, HTN, and aphasia presenting to the emergency department today after being in atrial fibrillation at short stay surgery. Patient states that he was here for a colonoscopy when they told him his heart rate was too high and his rhythm was irregular so they brought him down to the ER. Patient denies any history of atrial fibrillation, any anti-coagulation use, dizziness, lightheadedness, abdominal pain, nausea, vomiting, fever, chills, blurry vision, double vision, loss of vision, chest pain, difficulty breathing, shortness of breath, back pain, night sweats, pain with urination, increased urinary frequency, increased urinary urgency, blood in his urine or stool, syncope or a near syncopal episode, recent trauma or falls, bowel incontinence, bladder incontinence, or any other complaints at this time. Related Data Home Medications ?Medication ?Instructions ?Recorded ?Confirmed losartan 50 mg tablet 50 mg PO DAILY 04/27/21 09/27/24 metoprolol tartrate 50 mg tablet 50 mg PO BID 04/27/21 09/27/24 omeprazole 20 mg capsule,delayed 20 mg PO DAILY 04/27/21 09/27/24 release atorvastatin 20 mg tablet 20 mg PO DAILY 06/08/21 09/27/24 tizanidine 4 mg tablet 4 mg PO BEDTIME PRN Muscle Spasm 07/11/24 09/27/24 Previous Rx's ?Medication ?Instructions ?Recorded aspirin 81 mg tablet,delayed 81 mg PO DAILY #30 tabs 01/24/21 release finasteride 5 mg tablet 5 mg PO DAILY 90 days #90 tabs 09/17/24 Allergies Allergy/AdvReac Type Severity Reaction Status Date / Time No Known Allergies Allergy Verified 10/01/24 09:36 Review of Systems 2 Constitutional: Constitutional: Reports no additional constitutional complaints, Denies chills, Denies fever(s) and Denies night sweats Eyes: Eyes: Reports no additional eye complaints, Denies blurry vision, Denies change in vision, Denies diplopia, Denies eye discharge, Denies loss of vision and Denies eye pain ENT: Denies dizziness Cardiovascular: Cardiovascular: Reports no additional cardiovascular complaints, Denies chest pain, Denies lightheadedness, Denies Loss of Consciousness, Reports palpitations and Denies dyspnea Respiratory: Respiratory: Reports no additional respiratory complaints and Denies dyspnea Gastrointestinal: Gastrointestinal: Reports no additional gastrointestinal complaints, Denies abdominal pain, Denies melena, Denies hematochezia, Denies change in bowel habits and Denies change in stool character Genitourinary: Genitourinary: Reports no additional male genitourinary complaints, Denies hematuria, Denies oliguria, Denies difficulty urinating, Denies dysuria, Denies urinary frequency, Denies urinary hesitancy, Denies urinary incontinence and Denies urinary urgency Musculoskeletal: Musculoskeletal: Reports no additional musculoskeletal complaints, Denies numbness and Denies tingling Neurologic: Denies dizziness, Denies loss of vision, Denies numbness and Denies tingling Psychiatric: Psychiatric: Reports no additional psychiatric complaints Endocrine: Endocrine: Reports no additional endocrine complaints and Reports palpitations Hematologic/Lymphatic: Hematologic/Lymphatic: Reports no additional hematologic/lymphatic complaints Allergic/Immunologic: Allergic/Immunologic: Reports no additional allergic/immunologic complaints PMF Past Medical History Attestation statement: The following information was validated with the patient. Source: old records reviewed and nursing notes reviewed Medical History Chronic kidney disease GERD (gastroesophageal reflux disease) High cholesterol HTN (hypertension) Surgical History Hx of cataract extraction History of dental surgery H/O removal of cyst (03/01/22) Family History Family History Mother Hypertension Breast cancer Father Alcoholic Lung cancer Sister Breast cancer Sister Breast cancer Sister Breast cancer Sister Breast cancer Social History Social History Patient Tobacco Use Status: Former Tobacco user Tobacco use type: Cigarette Smoked in Last 30 Days: No Use of substances other than those prescribed or required for medical reasons: No Advance Directives: Yes Advance Directives Information Provided: Yes Advance Directives on File: No Do you have a plan to hurt others: No Plan Current occupational status: retired Physical Exam ED Vital Signs: Vital Signs - 24 hr 10/01/24 09:35 10/01/24 11:32 10/01/24 12:32 Temperature 98.3 F Pulse Rate 108 H 90 90 Respiratory Rate 19 18 18 Blood Pressure 104/72 119/66 148/72 H Pulse Oximetry 97 95 Oxygen Delivery Method Room Air Room Air BMI result Body Mass Index 25.1 Const General: cooperative, no acute distress, alert and awake Nutritional Appearance: well nourished Orientation/consciousness: patient oriented x3 HENMT Head: Yes normal to inspection and Yes atraumatic Ears: hearing grossly normal bilaterally and external ears normal General nose exam: Normal external nose present, no nasal discharge noted and no epistaxis Face and sinus: Yes normal facial exam, No abrasion and No laceration Mouth: Normal oral and palatal mucosa present, no drooling and no muffled voice Eyes General: appearance normal, both eyes and all related structures Periorbital: periorbital findings normal Eyelids: Yes eyelids normal Conjunctivae: conjunctivae normal Pupils: Equal, round and reactive pupils present EOM: EOMs intact bilaterally Neck Neck: Yes normal visual inspection, Yes full ROM and Yes no lymphadenopathy Resp Effort & Inspection: normal respiratory effort and able to speak in complete sentences Cardio Rate: tachycardic Rhythm: abnormal rhythm irregularly irregular Neuro General: patient oriented x3, moves all extremities and CN's II-XI intact bilaterally Cranial nerves: Yes Equal, round and reactive pupils present Cognition (Neuro): normal cognition Extrem General: Yes normal to inspection, Yes full ROM and Yes capillary refill normal Psych Appearance: grossly normal Mental Status: mental status grossly normal Affect: normal affect Attitude: cooperative Thought process: Normal thought process present Thought content: Normal thought content present Insight: Good insight present (Psych) Medications Administered Discontinued Medications Generic Name Dose Route Start Last Admin Trade Name Freq PRN Reason Stop Dose Admin Sodium Chloride 1,000 mls @ 999 mls/hr 10/01/24 11:00 10/01/24 11:29 Ns IV 10/01/24 12:00 999 mls/hr .Q1H1M TOSHIA Administration Metoprolol Tartrate 2.5 mg 10/01/24 12:03 10/01/24 12:33 Metoprolol Tartrate 5 Mg/5 Ml Vial IVPUSH 10/01/24 12:04 2.5 mg ONCE ONE Administration Protocol Medical Decision Making Medical Decision Making [facility] Narrative: Patient is an 84 year old assigned male at with a history of CKD, basal cell carcinoma of the trunk, HTN, and aphasia presenting to the emergency department today after being in atrial fibrillation at short stay surgery. Patient's physical exam initially showed atrial fibrillation with RVR. Patient's blood work was unremarkable and consistent with his CKD baseline. Patient's EKG showed rapid atrial fib. Patient self-converted to normal sinus rhythm while in the department. Patient likely went into atrial fib secondary to dehydration after colonoscopy prep. I spoke with the fryer operator, Dr. Buckner, who recommended the patient complete his colonoscopy and only be given 2.5mg of IV lopressor. Anesthesia agreed to proceeding with the patient's colonoscopy. I explained my physical exam findings as well as all test results to the patient. I answered all questions asked by the patient. Patient transferred back to short stay surgery for colonoscopy with Dr. Beck. Differential Diagnosis Differential Diagnoses: The differential diagnosis associated with the presentation includes Atrial fib Admission/Observation Consideration of admission/observation: Escalation of care including admission/observation considered Patient to OR with Dr. Beck for colonoscopy. Consult Healthcare Provider Management of the patient was discussed with: Integrated Marketing Specialist (spoke with the cardiology team as noted in the MDM Rationale portion) Lab Data [facility] Lab Attestation statement: I reviewed the patient's lab results. My interpretation of these results are in the MDM Rationale portion of this note. 10/01/24 10:08 10/01/24 10:07 Labs: Lab Results 10/01/24 10/01/24 Range/Units 10:07 10:08 WBC 6.2 (4.8-10.8) X10*3/uL RBC 4.78 (4.60-5.80) X10*6/uL Hgb 12.2 L (14.0-18.0) g/dl Hct 36.6 L (42.0-52.0) % MCV 76.6 L (80.0-98.0) fL MCH 25.5 L (27.0-33.0) pg MCHC 33.3 (31.0-36.0) g/dl RDW 13.2 (11.0-16.0) % Plt Count 249 (160-400) X10*3/uL MPV 9.4 (9.4-12.4) fL Immature Gran % (Auto) 0.3 (0.0-0.4) % Neut % (Auto) 77.6 H (45-73) % Lymph % (Auto) 13.3 L (20-40) % [place] % (Auto) 7.5 (2-11) % Eos % (Auto) 1.0 (0-4) % Baso % (Auto) 0.3 (0-2) % Lymph # (Auto) 0.8 L (1.2-4.9) X10*3/uL [place] # (Auto) 0.5 (0.1-1.2) X10*3/uL Eos # (Auto) 0.1 (0.0-0.4) X10*3/uL Baso # (Auto) 0.0 (0.0-0.2) X10*3/uL Abs Immat Gran (auto) 0.02 (0.00-0.03) X10*3/uL Absolute Neuts (auto) 4.8 (2.0-8.3) x10*3/uL Absolute Nucleated RBC 0.000 (0.0-0.012) X10*3/uL Nucleated RBC % (auto) 0.0 (0.0-0.2) /100WBC PT 12.0 (10.9-12.4) SEC INR 1.0 (0.9-1.1) Sodium 140 (135-145) mmol/L Potassium 4.1 (3.3-5.1) mmol/L Chloride 112 H (96-108) mmol/L Carbon Dioxide 21 L (22-29) mmol/L Anion Gap 11 L (12-20) BUN 16 (9-16) mg/dL Creatinine 1.57 H (0.5-1.4) mg/dL Estim Creat Clear Calc 33.8 Estimated GFR 42 Random Glucose 102 (60-115) mg/dL Calcium 8.9 (8.4-10.2) mg/dL Magnesium 2.1 (1.6-2.6) mg/dL Total Bilirubin 0.6 (0.0-1.0) mg/dL AST 20 (5-37) U/L ALT 6 (0-40) U/L Alkaline Phosphatase 111 (39-117) U/L Total Creatine Kinase 39 (38-174) U/L Troponin I High Sens < 2.7 (<3.5-35.0) ng/L Total Protein 6.4 L (6.5-8.0) g/dL Albumin 3.8 (3.5-5.0) g/dL Influenza Type A (PCR) NEGATIVE (Negative) Influenza Type B (PCR) NEGATIVE (Negative) RSV RNA Qual (PCR) NEGATIVE (Negative) SARS-CoV-2 RNA (RT-PCR) NEGATIVE (Negative) Independent Interpretation I performed an independent interpretation of an: EKG Interpretation: I independently interpreted this EKG and am in agreement with the below findings: Vent. Rate: 84 BPM Atrial Rate: 84 BPM P-R Int: 264 ms QRS Dur: 74 ms QT Int: 368 ms P-R-T Axes: 61 14 18 degrees QTcB Int: 434 ms Sinus rhythm with 1st degree A-V block When compared with ECG of 01-Oct-2024 09:48, No significant change was found DD/ [id number] I independently interpreted this EKG and am in agreement with the below findings: Vent. Rate: 137 BPM Atrial Rate: * BPM P-R Int: * ms QRS Dur: 76 ms QT Int: 274 ms P-R-T Axes: * 38 -30 degrees QTcB Int: 413 ms Atrial fibrillation with rapid ventricular response Nonspecific ST abnormality Abnormal QRS-T angle, consider primary T wave abnormality Abnormal ECG When compared with ECG of 23-Jan-2021 12:47, Atrial fibrillation has replaced Sinus rhythm Vent. rate has increased by [address] now depressed in Anterior leads DD/ [id number] Critical Care Time Critical Care Time Critical Care Time: Yes Total Critical Care Time: 36 Attestation: I spent 36 minutes of Critical Care Time with this patient. This does not include time spent on separately reported billable procedures. Discharge Plan Discharge Clinical Impression: First degree atrioventricular block by electrocardiogram, Paroxysmal A-fib Patient Disposition: Xfer Other Transfer Details: BACK TO THE OR WITH DR BECK FOR ORIGINALLY SCHEDULE PROCEDURE/COLONOSCOPY Prescriptions: No Action finasteride 5 mg tablet 5 mg PO DAILY 90 Days Qty: 90 3RF aspirin 81 mg Tablet,Delayed Release (Dr/Ec) 81 mg PO DAILY Qty: 30 0RF metoprolol tartrate 50 mg tablet 50 mg PO BID losartan 50 mg tablet 50 mg PO DAILY omeprazole 20 mg capsule,delayed release(DR/EC) 20 mg PO DAILY atorvastatin 20 mg tablet 20 mg PO DAILY tizanidine 4 mg tablet 4 mg PO BEDTIME PRN (Reason: Muscle Spasm) Print Language: Syrian
[2024-10-01 10:14] LABS: MANUAL DIFF FLAG NO
[2024-10-01 10:16] LABS: Basophils Percent Auto 0.3 % (0-2); Eosinophils Absolute Auto 0.1 X10*3/uL (0.0-0.4); Hematocrit 36.6 % (42.0-52.0); Hemoglobin 12.2 g/dl (14.0-18.0); Imm Gran Abs Auto 0.02 X10*3/uL (0.00-0.03); Imm Gran Pct Auto 0.3 % (0.0-0.4); Lymphocytes Absolute Auto 0.8 X10*3/uL (1.2-4.9); Lymphocytes Percent Auto 13.3 % (20-40); Mean Corpuscular HGB Conc 33.3 g/dl (31.0-36.0); Mean Corpuscular Hemoglobin 25.5 pg (27.0-33.0); Mean Corpuscular Volume 76.6 fL (80.0-98.0); Mean Platelet Volume 9.4 fL (9.4-12.4); Monocytes Absolute Auto 0.5 X10*3/uL (0.1-1.2); Monocytes Percent Auto 7.5 % (2-11); Neutrophils Absolute Auto 4.8 x10*3/uL (2.0-8.3); Neutrophils Percent Auto 77.6 % (45-73); Platelet Count 249 X10*3/uL (160-400); Red Blood Count 4.78 X10*6/uL (4.60-5.80); Red Cell Distribution Width 13.2 % (11.0-16.0); White Blood Count 6.2 X10*3/uL (4.8-10.8)
--- NOTE | 2024-10-01 10:25 | ECG_ITS ---
Test Reason : re-eaval Blood Pressure : */* mmHG Vent. Rate : 84 BPM Atrial Rate : 84 BPM P-R Int : 264 ms QRS Dur : 74 ms QT Int : 368 ms P-R-T Axes : 61 14 18 degrees QTcB Int : 434 ms Sinus rhythm with 1st degree A-V block Otherwise normal ECG When compared with ECG of 01-Oct-2024 09:48, No significant change was found Referred By: Denise Mora Electronically Signed By: Adolfo Buckner
[2024-10-01 10:31] LABS: Alanine Aminotransferase 6 U/L (0-40); Albumin Level 3.8 g/dL (3.5-5.0); Alkaline Phosphatase 111 U/L (39-117); Anion Gap 11 (12-20); Aspartate Amino Transferase 20 U/L (5-37); Bilirubin Total 0.6 mg/dL (0.0-1.0); Blood Urea Nitrogen 16 mg/dL (9-16); Calcium 8.9 mg/dL (8.4-10.2); Carbon Dioxide 21 mmol/L (22-29); Chloride 112 mmol/L (96-108); Creatinine Clr Calc Pharmacy 33.8; Estimated Glomerular Filt Rate 42; Glucose Random 102 mg/dL (60-115); Magnesium 2.1 mg/dL (1.6-2.6); Potassium 4.1 mmol/L (3.3-5.1); Sodium 140 mmol/L (135-145); Total Protein 6.4 g/dL (6.5-8.0)
[2024-10-01 10:41] LABS: Troponin-I High Sensitivity < 2.7 ng/L (<3.5-35.0)
--- OUTSIDE RECORDS SUMMARY | 2024-10-01 10:44 | XMS_ITS | Clinical Summary ---
Author Organization [facility] Facility Address [address] [address] Care Team Providers Care Educational/Development Assistant Name Role Phone Flako Hernández MD Primary Care Provider [phone] Allergies No known active allergies Medications atorvastatin [...] age to complete this topic Insurance Medicare [facility] Medicare [facility] Care Teams Educational/Development Assistant Relationship Specialty Start Date End Date Flako Hernández MD [address] [place] [address] PCP - General 05/25/20
[2024-10-01 10:53] LABS: Influenza A PCR NEGATIVE (Negative); Influenza B PCR NEGATIVE (Negative); Resp Syncy Virus RNA Qual PCR NEGATIVE (Negative); SARS COV2 PCR INHOUSE NEGATIVE (Negative)
--- NOTE | 2024-10-01 11:13 | PC.NURSE ---
Report received. Taken over care at this time.
--- NOTE | 2024-10-01 11:14 | PC.NURSE ---
Report received. Taken over care at this time.
[2024-10-01] MEDS: 0.9 % Sodium Chloride 1,000 ML 999 ML IV (11:29)
[2024-10-01 11:32] VITALS: BP 119/66; PULSE 90; RESP 18
[2024-10-01 12:32] VITALS: BP 148/72; PULSE 90; RESP 18; O2SAT 95
[2024-10-01] MEDS: Metoprolol Tartrate 5 MG/5 ML VIAL 2.5 MG IVPUSH (12:33)
--- NOTE | 2024-10-01 12:39 | PC.NURSE ---
Report given to JAKE Walter. at short stay. Transport at bedside.
--- NOTE | 2024-10-01 13:09 | PM.CNCAR ---
History of Present Illness History of Present Illness Date of Service: 10/01/24 Requesting physician: Denise Mora Chief complaint: New onset Afib Narrative: [age] year gentleman with background history of CKD, previous TIA, syncope, hypertension, BPH and positive Cologuard test for which he came for elective colonoscopy. In the PACU he was noticed to be in atrial fibrillation and sent to the emergency department. In the ER he has converted back to sinus rhythm. He is saying he had no symptoms whatsoever when he had atrial fibrillation. In particular no shortness of breath or palpitations. He is denying any chest discomfort. No bleeding previously. He is taking baby aspirin. No GI bleed or abdominal discomfort or weight loss. [facility] Past Medical History Medical History (Updated 10/01/24 @ 13:18 by Adolfo Buckner MD) Atrial fibrillation Chronic kidney disease GERD (gastroesophageal reflux disease) High cholesterol HTN (hypertension) Family History Family History Mother Hypertension Breast cancer Father Alcoholic Lung cancer Sister Breast cancer Sister Breast cancer Sister Breast cancer Sister Breast cancer Surgical History Surgical History Hx of cataract extraction History of dental surgery H/O removal of cyst (03/01/22) Social History Social History Patient Tobacco Use Status: Former Tobacco user Tobacco use type: Cigarette Smoked in Last 30 Days: No Use of substances other than those prescribed or required for medical reasons: No Advance Directives: Yes Advance Directives Information Provided: Yes Advance Directives on File: No Do you have a plan to hurt others: No Plan Current occupational status: retired [employer] Allergies Allergy/AdvReac Type Severity Reaction Status Date / Time No Known Allergies Allergy Verified 10/01/24 09:36 Home Medications ?Medication ?Instructions ?Recorded ?Confirmed ?Last Taken ?Type losartan 50 mg tablet 50 mg PO DAILY 04/27/21 09/27/24 Unknown History metoprolol tartrate 50 mg tablet 50 mg PO BID 04/27/21 09/27/24 Unknown History omeprazole 20 mg capsule,delayed 20 mg PO DAILY 04/27/21 09/27/24 Unknown History release atorvastatin 20 mg tablet 20 mg PO DAILY 06/08/21 09/27/24 Unknown History tizanidine 4 mg tablet 4 mg PO BEDTIME PRN Muscle Spasm 07/11/24 09/27/24 Unknown History Physical Exam Vital Signs: Vital Signs: Last Vital Signs Temp 98.3 F 10/01/24 09:35 Pulse 90 10/01/24 12:32 Resp 18 10/01/24 12:32 BP 148/72 H 10/01/24 12:32 Pulse Ox 95 10/01/24 12:32 O2 Del Method Room Air 10/01/24 12:32 BMI result Body Mass Index 25.1 GENERAL APPEARANCE: in no acute distress, pleasant. NECK: no carotid bruit, no jugular venous distention. SKIN: no suspicious lesions, warm and dry. HEART: no murmurs, regular rate and rhythm. LUNGS: clear to auscultation bilaterally. ABDOMEN: soft, nontender. EXTREMITIES: no edema. PERIPHERAL PULSES: equal. NEUROLOGIC: No gross deficits, AAO X 3 Objective Labs and Meds 10/01/24 10:08 10/01/24 10:07 Lab results: Laboratory Results - last 24 hr 10/01/24 10/01/24 10:07 10:08 WBC 6.2 RBC 4.78 Hgb 12.2 L Hct 36.6 L MCV 76.6 L MCH 25.5 L MCHC 33.3 RDW 13.2 Plt Count 249 MPV 9.4 Immature Gran % (Auto) 0.3 Neut % (Auto) 77.6 H Lymph % (Auto) 13.3 L [place] % (Auto) 7.5 Eos % (Auto) 1.0 Baso % (Auto) 0.3 Lymph # (Auto) 0.8 L [place] # (Auto) 0.5 Eos # (Auto) 0.1 Baso # (Auto) 0.0 Abs Immat Gran (auto) 0.02 Absolute Neuts (auto) 4.8 Absolute Nucleated RBC 0.000 Nucleated RBC % (auto) 0.0 PT 12.0 INR 1.0 Sodium 140 Potassium 4.1 Chloride 112 H Carbon Dioxide 21 L Anion Gap 11 L BUN 16 Creatinine 1.57 H Estim Creat Clear Calc 33.8 Estimated GFR 42 Random Glucose 102 Calcium 8.9 Magnesium 2.1 Total Bilirubin 0.6 AST 20 ALT 6 Alkaline Phosphatase 111 Total Creatine Kinase 39 Troponin I High Sens < 2.7 Total Protein 6.4 L Albumin 3.8 Influenza Type A (PCR) NEGATIVE Influenza Type B (PCR) NEGATIVE RSV RNA Qual (PCR) NEGATIVE SARS-CoV-2 RNA (RT-PCR) NEGATIVE Assessment and Plan (1) Paroxysmal A-fib: Status: Acute (2) Preop cardiovascular exam: Status: Acute Plan 84-year-old gentleman presenting for elective colonoscopy, he developed atrial fibrillation while he was in the PACU and was sent to the emergency department. He is back in sinus rhythm at this point. He has high CHADS-VASc score and will benefit from anticoagulation and given his age being more than 80 and creatinine more than 1.5 I think he will benefit from Eliquis 2.5 mg twice a day. He had a positive Cologuard test and we will need colonoscopy. I have discussed with anesthesia that he is back in sinus rhythm at this point and is clinically stable and can proceed with colonoscopy today with intermediate risk for perioperative complications. He has been NPO and has not eaten anything. Continue with gentle IV fluids. Give him 2.5 mg IV metoprolol. As he gets colonoscopy done then we can discuss about anticoagulation depending on findings. If he is found to have a friable mass with high bleeding risk I would favor not starting him on any anticoagulation. Otherwise we should consider starting him on Eliquis with his history of previous TIA, hypertension and age. Thank you for allowing me to participate in the care of your patient. Please feel free to contact me if you have any questions. Procedures Date of Service Date of Service: 10/01/24
== END 2024-10-01 12:49 | disposition still patient (30) ==
LOC: HO.ED 12:43 → HO.SSS 12:53 → HO.ED 10-02 15:01
PROVIDERS: Physician Assistant Medical; Emergency Provider Emergency Medicine; PCP Internal Medicine
DX: I44.0 Atrioventricular block, first degree (principal); I48.0 Paroxysmal atrial fibrillation; I49.9 Cardiac arrhythmia, unspecified; Z01.810 Encounter for preprocedural cardiovascular examination; Z79.899 Other long term (current) drug therapy; Z87.891 Personal history of nicotine dependence
CPT/HCPCS: 0241U; 36415; 80053; 82550; 83735; 84484; 85025; 85610; 93005

== ENCOUNTER → 2024-10-01 12:49 | Outpatient (BNV) | payer MEDICARE, OTHER, SELFPAY | PROVIDERS: Emergency Provider Emergency Medicine; PCP Internal Medicine; Visit Provider Internal Medicine Cardiovascular Disease | DX: I48.0 Paroxysmal atrial fibrillation (principal); Z01.810 Encounter for preprocedural cardiovascular examination | CPT/HCPCS: 93010; 99223 ==

== ENCOUNTER 2024-10-18 08:53 | Outpatient (AMB) | payer MEDICARE, OTHER, SELFPAY ==
--- OUTSIDE RECORDS SUMMARY | 2024-10-18 09:10 | XMS_ITS | Clinical Summary ---
Author Organization [facility] Facility Address [address] [place] [address] Care Team Providers Care Direct Marketing Coordinator Name Role Phone Flako Hernández MD Primary Care Provider [phone] Allergies No known active allergies Medications atorvastatin [...] age to complete this topic Insurance Medicare [facility] Medicare [facility] Care Teams Direct Marketing Coordinator Relationship Specialty Start Date End Date Flako Hernández MD [address] [place] [address] PCP - General 05/25/20
[2024-10-18 09:11] VITALS: BP 122/68; PULSE 48; BMI 26.2
--- NOTE | 2024-10-18 09:11 | A.OFFVIS_ITS ---
Vital Signs 10/18/24 09:11 Height 5 ft 7 in Weight 167 lb 8.821 oz BMI 26.2 BP 122/68 Blood Pressure Location Lt brachial Position Sitting Pulse 48 L Pulse Source Monitor Intake Visit Reasons: [facility] f/up-New onset Afib Allergies No Known Allergies Allergy (Verified 10/01/24 09:36) Medication List - Last Reconciled 10/18/24 by Dana Villeda, ESTHETICIAN SPA-C aspirin 81 mg PO DAILY atorvastatin 20 mg PO DAILY finasteride 5 mg PO DAILY 90 days losartan 50 mg PO DAILY metoprolol tartrate 50 mg PO BID omeprazole 20 mg PO DAILY tizanidine 4 mg PO BEDTIME PRN HPI HPI [facility] f/up-New onset Afib: Details: Dutch is an 84-year-old male with past medical history of hypertension, CKD, TIA, who recently underwent colonoscopy and was found to have atrial fibrillation. He was given IV Lopressor and converted to sinus rhythm. His colonoscopy was completed it does show evidence of colon mass. He was already on metoprolol which was continued for rate control. He was not started on anticoagulation due to concerns for friability of colon mass. He now presents for follow-up. Today he reports he has been doing well since his hospital discharge. He has not had any known recurrent atrial fibrillation. He does not recall feeling heart palpitations on that day. He has no chest discomfort at rest or with activity. No shortness of breath, PND, orthopnea or edema. No lightheadedness, presyncope, syncope. No signs of bleeding. Taking meds as directed. [facility] Medical History Atrial fibrillation Chronic kidney disease GERD (gastroesophageal reflux disease) High cholesterol HTN (hypertension) Surgical History H/O prostate biopsy Hx of cataract extraction History of dental surgery H/O removal of cyst (03/01/22) Family History Mother Hypertension Breast cancer Father Alcoholic Lung cancer Sister Breast cancer Sister Breast cancer Sister Breast cancer Sister Breast cancer Social History Patient Tobacco Use Status: Former Tobacco user Tobacco use type: Cigarette Current occupational status: retired Review of Systems Const Details: Mostly sedentary All systems reviewed & are unremarkable except as noted in HPI and below Denies weakness ENT Denies dizziness Card Denies chest pain, Denies chest pain with activity, Denies syncope, Denies rapid heart rate, Denies pedal edema, Denies edema, Denies leg edema, Denies lig htheadedness, Denies palpitations, Denies dyspnea, Denies dyspnea on exertion and Denies orthopnea Resp Denies cough, Denies dyspnea and Denies dyspnea on exertion GI Denies hematochezia and Denies change in stool character Musc Details: Neuropathy and lower extremity Denies abnormal gait, Denies muscle cramps, Denies muscle weakness and Denies tingling Neuro Denies abnormal gait, Denies dizziness, Denies syncope, Denies tingling and Denies weakness Endo Denies palpitations Physical Exam Vital Signs: Last Vital Signs Pulse 48 L 10/18/24 09:11 BP 122/68 10/18/24 09:11 BMI result Body Mass Index 26.2 Const General: cooperative, healthy appearing, comfortable and no acute distress Orientation/consciousness: patient oriented x3 Neck Neck: Yes normal visual inspection and Yes no JVD Resp Effort & Inspection: normal respiratory effort Auscultation: clear to auscultation bilaterally, no rales, no rhonchi and no wheezes Cardio Rate: bradycardic Rhythm: regular rhythm Heart sounds: S1 normal heart sound present, S2 normal heart sound present, no gallops, no murmurs and no rubs Neuro General: patient oriented x3 Extrem General: Yes normal to inspection and No no pedal edema Psych Appearance: grossly normal Mental Status: mental status grossly normal Speech and movement: Normal speech and movement present Office Procedures EKG Details: Today, read by me, sinus bradycardia, first-degree AV block, rate 48 [id number], Complete Assessment & Plan Assessment & Plan (1) Paroxysmal A-fib: Code(s): I48.0 - Paroxysmal atrial fibrillation Category: Medical Plan: New finding of atrial fibrillation at time of colonoscopy. He was treated with IV Lopressor and converted to sinus rhythm. No known reoccurrence since that time however patient does not recall feeling palpitations when he was told he had AFib. EKG done today is showing sinus bradycardia with first-degree AV block, rate 48, asymptomatic. He tells me he has been on metoprolol 50 mg b.i.d. long-term. I ambulated him in the summers with a sat monitor in his heart rate easily wilson to 60. Will check Holter monitor to assess for PAF and average rates. Will check echocardiogram to assess for structural heart disease. Continue aspirin. Will check with GI regarding plan for colon mass and eventual anticoagulation use. Chads Vasc score 3 (5 with reported history of TIA). Cardiology follow-up 2 months, sooner if needed (2) HTN (hypertension): Code(s): I10 - Essential (primary) hypertension Category: Medical Plan: Blood pressure goal less than 130/80, well controlled at this time. No med changes made. Continue metoprolol and losartan. (3) First degree atrioventricular block by electrocardiogram: Code(s): I44.0 - Atrioventricular block, first degree Category: Medical Plan: First-degree AV block noted on EKGs as far back as 2020. Not a new finding for him. (4) Hospital discharge follow-up: Code(s): Z09 - Encounter for follow-up examination after completed treatment for conditions other than malignant neoplasm Category: Medical Plan: Reviewed Plan I discussed the diagnosis of atrial fibrillation with the patient and the various strategies for managing the condition, includinghis pharmacological conversion to sinus rhythm with IV Lopressor. We evaluated the risks and bene fits of initiating Eliquis for stroke prevention, considering his prior TIA and chronic kidney disease, and recent findings of his colonoscopy. Will hold off on anticoagulation until clear by GI to start. I informed the patient of the possibility of reducing metoprolol dosage to manage bradycardia if holter shows that heart rate average is concerning. Follow-up care and emergent signs were reviewed in detail. Orders: Orders ECG 3 day holter monitor Today I48.0 - Paroxysmal atrial fibrillation CA echo transthoracic complete Today I48.0 - Paroxysmal atrial fibrillation Patient Instructions: - If blood thinner is started, monitor for signs of bleeding, like unusual bruising or black stools. - Monitor heart rate and report any palpitations, dizziness, or chest pain. - Attend follow-up appointments and tests as instructed: echocardiogram and holter. - Avoid activities that may result in injury or bruising. - Seek immediate care for symptoms like unusual bruising or signs of internal bleeding. Patient was informed and verbally consented to the use of an ambient scribe for clinic note documentation during this visit. Visit time spent on chart review, interview, assessment, orders, documentation. Coding Level of Care Code Est Pt Level 4 (10130) Complex EM visit Add On G2211 Diagnoses Paroxysmal A-fib I48.0 HTN (hypertension) I10 First degree atrioventricular block by electrocardiogram I44.0 Hospital discharge follow-up Z09 CPT Codes EKG - CPT: 68838-[id number], Complete ([id number]) Time Spent (min) 28
== END 2024-10-18 09:40 | disposition home or self-care (01) ==
LOC: HO.HCS 08:53
PROVIDERS: PCP Internal Medicine; Visit Provider Nurse Practitioner Family
DX: I48.0 Paroxysmal atrial fibrillation (principal); I10 Essential (primary) hypertension; I44.0 Atrioventricular block, first degree; Z09 Encounter for follow-up examination after completed treatment for conditions other than malignant neoplasm
CPT/HCPCS: 93010; 99214; G2211

== ENCOUNTER → 2024-10-18 08:53 | Outpatient (BNVA) | payer MEDICARE, OTHER, SELFPAY | PROVIDERS: PCP Internal Medicine; Visit Provider Nurse Practitioner Family | DX: Z09 Encounter for follow-up examination after completed treatment for conditions other than malignant neoplasm (principal); I48.0 Paroxysmal atrial fibrillation; I44.0 Atrioventricular block, first degree; I10 Essential (primary) hypertension | CPT/HCPCS: 93005; 99212 ==

== ENCOUNTER 2024-11-12 13:28 | Outpatient (AMB) | payer MEDICARE, OTHER, SELFPAY ==
--- NOTE | 2024-11-12 13:45 | A.OFFVIS_ITS ---
Vital Signs 11/12/24 13:51 Height 5 ft 7 in Weight 165 lb 12.602 oz BMI 26.0 BP 120/70 Blood Pressure Location Lt brachial Position Sitting Intake Visit Reasons: colon CA referred by vivi Intake Note: Patient is seen in office for colon cancer. Pt c/o: denies any symptoms, but was told he has colon cancer after having a colonoscopy done colonoscopy Dr Beck:03/10/25 Beam Sealer Required: No Accompanied by: Self / Same As Patient Allergies No Known Allergies Allergy (Verified 11/12/24 13:52) Medication List - Last Reconciled 11/12/24 by Damian Ward MD aspirin 81 mg PO DAILY atorvastatin 20 mg PO DAILY finasteride 5 mg PO DAILY 90 days losartan 50 mg PO DAILY metoprolol tartrate 50 mg PO BID omeprazole 20 mg PO DAILY tizanidine 4 mg PO BEDTIME PRN HPI Comments Details: 84-year-old male patient presenting for evaluation of a adenocarcinoma of the left colon. He reports no ongoing intestinal symptoms including abdominal pain, nausea, vomiting, bloody stools, constipation or diarrhea. He underwent a Cologuard test which was positive and subsequently underwent colonoscopy by Dr. Beck. Several polyps were identified bleeding cecal polyp, ileocecal valve polyp, right colon polyp all of which were tubulovillous adenoma with focal serrated features, negative for high-grade dysplasia or carcinoma. A larger mass located at 45 cm, proximally in the left colon was more ulcerated with rolled edges more consistent with a colon cancer. Subsequent biopsies revealed adenocarcinoma in-situ/high-grade dysplasia, at least, arising in a tubulovillous adenoma. No submucosal tissue was present for evaluation. Immunohistochemical studies were negative for mismatch repair defect/Rodrigues syndrome related tumor. He denies a previous history of abdominal surgeries and generally feels well. His family history is significant for breast cancer in his mother and sister, lung cancer in his father. There was no family history of colon cancer. [facility] Medical History Colon adenocarcinoma Atrial fibrillation Chronic kidney disease GERD (gastroesophageal reflux disease) High cholesterol HTN (hypertension) Surgical History H/O prostate biopsy Hx of cataract extraction History of dental surgery H/O removal of cyst (03/01/22) Family History Mother Hypertension Breast cancer Father Alcoholic Lung cancer Sister Breast cancer Sister Breast cancer Sister Breast cancer Sister Breast cancer Social History Patient Tobacco Use Status: Former Tobacco user Tobacco use type: Cigarette Current occupational status: retired Review of Systems Const All systems reviewed & are unremarkable except as noted in HPI and below Denies chills, Denies fever(s), Denies headache(s), Denies poor appetite and Denies weakness ENT Denies headache(s) Card Denies chest pain and Denies dyspnea Resp Denies cough, Denies excessive phlegm production and Denies dyspnea GI Denies abdominal pain, Denies bloating, Denies change in bowel habits, Denies constipation, Denies heartburn, Denies diarrhea, Denies nausea and Denies vomiting Denies difficulty urinating and Denies urinary frequency Musc Denies back pain, Denies muscle weakness and Denies numbness Skin/Breast Denies changing lesions and Denies unusual bruising Neuro Denies headache(s), Denies numbness, Denies paresthesias and Denies weakness Psych Denies anxiety and Denies depression Jaya/Lymph Denies lymphadenopathy Physical Exam Vital Signs: BMI result Body Mass Index 26.0 Const General: cooperative and no acute distress Nutritional Appearance: well nourished Orientation/consciousness: patient oriented x3 Limitations: no limitations HEENT Head: Yes normocephalic and Yes atraumatic Ears: hearing grossly normal bilaterally Resp Effort & Inspection: normal respiratory effort, no audible wheezes, no cough and no respiratory distress Cardio Jugular venous distension: no JVD GI Inspection: Yes normal to inspection Palpation (GI): Soft to palpation, nontender, no guarding, not rigid and No hepatosplenomegaly present Percussion: Yes normal to percussion Rectal Exam - Male: Yes deferred Skin Other: Warm, dry, no rash Neuro General: patient oriented x3 Extrem General: Yes no clubbing, cyanosis or edema Assessment & Plan Assessment & Plan (1) Colon adenocarcinoma: Code(s): C18.9 - Malignant neoplasm of colon, unspecified Category: Medical Plan 84-year-old male patient presenting with a recently diagnosed adenocarcinoma of the left colon. He denies any current abdominal symptoms and generally feels well. Family history is negative for colon cancer. We discussed surgical options in detail. I reviewed the procedure for hand assisted laparoscopic left colectomy and after discussion of the procedure, risks, and alternatives, gives his consent for the surgery. He will be scheduled as a short-stay admit and will require a bowel prep the day prior to surgery. The prescriptions for the bowel prep have been sent to his pharmacy. He is welcome to call for any new problems or questions. Medications: New erythromycin administer at 1 PM, 2 PM, and 11 PM the day prior to surgery 1 g (2 x 500 mg) PO TID 6 tabs 0RF Bowel preparation C18.9 - Malignant neoplasm of colon, unspecified polyethylene glycol 3350 (Miralax) Mixed entire bottle polyethylene glycol with 2 bottles of Gatorade (not red colored). Drink 1 cup every 15 minutes starting at 9:00 AM day prior to surgery until either completed or when bowels are clear. 17 grams PO DAILY 238 grams 0RF C18.9 - Malignant neoplasm of colon, unspecified neomycin administer at 1 PM, 2 PM, and 11 PM the day prior to surgery 1 g (2 x 500 mg) PO TID 6 tabs 0RF 3 doses C18.9 - Malignant neoplasm of colon, unspecified Coding Level of Care Code New Pt Level 4 (81591) Diagnoses Colon adenocarcinoma C18.9
[2024-11-12 13:51] VITALS: BP 120/70; BMI 26.0
--- OUTSIDE RECORDS SUMMARY | 2024-11-12 14:38 | XMS_ITS | Clinical Summary ---
Author Organization [facility] Facility Address [address] [place] [id number] Care Team Providers Care Slate Mixer Name Role Phone Flako Hernández MD Primary Care Provider Allergies No known active allergies Medications atorvastatin [...] age to complete this topic Insurance Medicare [facility] Medicare [facility] Care Teams Slate Mixer Relationship Specialty Start Date End Date Flako Hernández MD [address] [place] [address] PCP - General 05/25/20
== END 2024-11-12 14:43 | disposition home or self-care (01) ==
LOC: HO.HGS 13:28
PROVIDERS: PCP Internal Medicine; Visit Provider Surgery
DX: C18.9 Malignant neoplasm of colon, unspecified (principal)
CPT/HCPCS: 99214

== ENCOUNTER → 2024-11-12 13:28 | Outpatient (BNVA) | payer MEDICARE, OTHER, SELFPAY | PROVIDERS: PCP Internal Medicine; Visit Provider Surgery | DX: C18.6 Malignant neoplasm of descending colon (principal) | CPT/HCPCS: 99212 ==

== ENCOUNTER → 2024-11-19 07:50 | Outpatient (REF) | payer MEDICARE, OTHER, SELFPAY ==
--- NOTE | 2024-11-19 07:53 | CA_ITS ---
Transthoracic Echocardiogram Patient (Last, First, Middle): Dutch De Souza J Gender: Male Date of : 1940 Age: 84 Procedure Date: 11/19/2024 Procedure Type: Transthoracic Echocardiogram Location: OP Height: 170.18 cm Weight: 74.84 kg BSA: 1.86 m2 Heart Rate: bpm BP: 120 / 70 mmHg Fitness Floor Attendant: YUAN Referring MD: Dana Villeda TATTOOER-C Supervisor Toy Assembly: Crow Vázquez MD Symptoms: I48.0 - Paroxysmal atrial fibrillation Study Quality: Adequate with contrast ECG Rhythm: Sinus Conclusions: - 1. Hyperdynamic LV ejection fraction greater than 70% with pseudonormal filling pattern 2. Cardiac valvular Dopplers within normal limits 3. Normal RV systolic pressure 4. Mildly dilated ascending aorta 3.7 cm 5. No gross pericardial effusion Findings Procedure Information Contrast agent, definity, is being given per protocol without apparent complications. Left Ventricle Normal left ventricular cavity size. There is normal left ventricular wall thickness. The left ventricular systolic function is hyperdynamic. The visually estimated ejection fraction is >70%. Spectral Doppler is indicative of a pseudonormal filling pattern. E/E prime ratio is between 8 and 15 consistent with indeterminate filling pressures. Right Ventricle Normal right ventricular cavity size and systolic function. Atria The left atrium is likely dilated. There is no evidence of interatrial shunt. The right atrium is likely dilated. Aortic Valve Normal aortic valve structure and function. There is no aortic valve stenosis. There is no aortic valve regurgitation. Mitral Valve There is mild anterior and posterior mitral leaflet thickening. There is trace mitral valve regurgitation. There is no mitral valve stenosis. Pulmonic Valve The pulmonic valve is likely normal. There is trace pulmonic valve regurgitation. Tricuspid Valve Normal tricuspid valve structure. There is trace tricuspid valve regurgitation. The right ventricular systolic pressure is normal. The right ventricular systolic pressure is 16 mmHg. Normal right atrial pressure. There is no evidence of pulmonary hypertension. Great Vessels The pulmonary artery was not well visualized. There is mild dilatation of the ascending aorta measuring 3.70 cm. Venous The inferior vena cava is normal in size and collapses greater than 50% with inspiration. Pericardium/Pleural There is no evidence of pericardial effusion. Prior Study Comparison No prior study available for comparison. Measurements 2D Linear Measurements IVSd: 0.95 0.6-0.9/0.6-1.0 cm LVIDd: 4.23 3.9-5.3/4.2-5.9 cm LVIDd Index: 2.27 2.4-3.2/2.2-3.1 cm/m2 LVIDs: 2.76 2.0-3.6 cm LVPWd: 0.87 0.7-1.1 cm LA Diam: 3.50 2.7-3.8/3.0-4.0 cm LAIDs Index: 1.88 1.5-2.3 cm/m2 LV Mass: 151.47 67-162/88-224 g LV Mass Index: 81.44 43-95/49-115 g/m2 LVOT Diam: 1.90 3.0+(-)1.3 cm 2D Systolic Function EF 4C: 72.50 >55% EF 2C: 75.60 >55% EF BiP: 73.80 >55% Mitral Valve MV Pk E: 1.09 MV PK A: 0.94 MV Decel Time: 196.00 E/A: 1.20 E'Lateral: 9.03 E'Medial: 8.49 E/E' Med: 12.80 E/E' Lat: 12.10 PHT: 57.00 MVA PHT: 3.86 Decel [place]: 5.58 Aortic Valve AoV Pk Nehemiah: 1.50 AoV Mn Nehemiah: 1.05 AoV VTI: 0.38 AoV Pk Grad: 9.00 Aov Mn Grad: 5.00 DAMON Cont.VTI: 2.11 LVOT LVOT Pk Nehemiah: 1.27 LVOT Mn Nehemiah: 0.83 LVOT VTI: 0.28 LVOT Pk Grad: 6.00 LVOT Mn Grad: 3.00 LVOT Diam: 1.90 LVOT Area: 2.84 Diastolic Function MV Pk E: 1.09 MV Pk A: 0.94 E/A: 1.20 E'Medial: 8.49 E/E' Med: 12.80 E' Laterial: 9.03 E/E' Lat: 12.10 Right Ventricle TAPSE (mm): 22.30 TVS' Nehemiah: 12.00 Tricuspid Valve TR Pk Nehemiah: 1.79 TR Pk Grad: 13.00 RA Press: 3.00 RVSP: 16.00 Great Vessels Aorta Sinus of Valsalva: 3.35 2.0-3.[address] [place]: 2.85 1.7-3.4 cm Ao Asc: 3.70 2.1-3.4 cm Updated in Other Vendor System with Status of Final Crow Vázquez MD electronically signed on 11/19/2024 12:45:06 PM with status of Final
--- NOTE | 2024-11-19 07:53 | HM_ITS ---
* Total monitoring time 3 days. * Underlying rhythm is sinus with an average rate of 65/Min. * Atrial fibrillation rapid ventricular response noted. Overall burden 27%. Longest episode 19 hours. Fastest 153/Min. * Supraventricular ectopy noted with a burden of 1%. * Rare ventricular ectopy. * No significant pauses or high-grade AV blocks. * Patient marker used with sinus bradycardia and supraventricular ectopy. MTDD
--- OUTSIDE RECORDS SUMMARY | 2024-11-19 07:53 | XMS_ITS | Clinical Summary ---
Author Organization [facility] Facility Address [address] [address] Care Team Providers Care Readers' Advisory Service Librarian Name Role Phone Flako Hernández MD Primary [...] of 2 - PCV) 01/30/1959 Influenza Vaccine (#1) 2025 Hepatitis B Vaccine Aged Out No longe r eligible based on patient's age to complete this topic Insurance Medicare [facility] Medicare [facility] Care Teams Readers' Advisory Service Librarian Relationship Specialty Start Date End Date Flako Hernández MD [address] [place] [address] PCP - General 05/25/20
== END ==
LOC: HO.CARD 07:50
PROVIDERS: PCP Internal Medicine; Visit Provider Nurse Practitioner Family
DX: I48.0 Paroxysmal atrial fibrillation (principal)
CPT/HCPCS: 93242; 93306; Q9957

== ENCOUNTER → 2024-11-19 07:53 | Outpatient (BNV) | payer MEDICARE, OTHER, SELFPAY | PROVIDERS: PCP Internal Medicine; Visit Provider Internal Medicine Cardiovascular Disease | DX: I48.0 Paroxysmal atrial fibrillation (principal); I51.89 Other ill-defined heart diseases | CPT/HCPCS: 93306 ==

== ENCOUNTER 2024-11-29 | Outpatient (REF) | payer MEDICARE, OTHER, SELFPAY ==
[2024-11-29 10:03] VITALS: BP 158/72; PULSE 55; RESP 16; O2SAT 99; BMI 26.2
--- NOTE | 2024-11-29 10:35 | HO.ANESPROP2 ---
Documented by User: Nilsa Lipscomb NP 11/29/24 11:30 HPI - Anesthesia Eval Consult details Narrative: 84 yr old male for left Assist Laparoscopic Colectomy No recent illness; no CP/SOB with minimal activity. New onset Afib prior to colonoscopy 09/2024, thought to be 2/2 dehydration from prep;seen by cardiology, cleared for surgery 11/26/24. Asymptomatic. CKD stage 3: follows with renal, creat stable. Syncope in 2020 in setting of painting house in heat, had neuro consult in hospital, no neuro f/u since, no recurrent episodes. [facility] Active Problems Active Problems: All Active Problems Hospital discharge follow-up (Acute) Preop cardiovascular exam (Acute) Paroxysmal A-fib (Acute) First degree atrioventricular block by electrocardiogram (Acute) CKD (chronic kidney disease) stage 3, GFR 30-59 ml/min (Acute) Basal cell carcinoma of skin of trunk (Acute) BPH w urinary obs/LUTS (Acute) Elevated PSA (Acute) Aphasia (Acute) Syncope (Acute) Dysarthria (Acute) Hypertensive urgency (Acute) Colon adenocarcinoma (Acute) HTN (hypertension) (Acute) Past Medical History Medical History Arthritis BPH (benign prostatic hyperplasia) Numbness and tingling of both feet Dizziness Syncope (~2020) Colon adenocarcinoma Atrial fibrillation Chronic kidney disease GERD (gastroesophageal reflux disease) High cholesterol HTN (hypertension) Functional capacity: independent ambulation Family History Family History Mother Hypertension Breast cancer Father Alcoholic Lung cancer Sister Breast cancer Sister Breast cancer Sister Breast cancer Sister Breast cancer Family history of problems with anesthesia: No Surgical History Surgical History Hx of colonoscopy (10/01/24) H/O prostate biopsy Hx of cataract extraction History of dental surgery H/O removal of cyst (03/01/22) History of Problems with Anesthesia: No Social History Social History (Updated 11/29/24 @ 10:29 by Laure Lemons RN) Household Members: Spouse Housing: House Are you a primary special needs caregiver to a significant other at home: No Do you presently have visiting nurse or other home services: No Patient Tobacco Use Status: Former Tobacco user Tobacco use type: Cigarette Current occupational status: retired [employer] Allergies Allergy/AdvReac Type Severity Reaction Status Date / Time No Known Allergies Allergy Verified 12/09/24 16:34 Home Medications ?Medication ?Instructions ?Recorded ?Confirmed ?Last Taken ?Type losartan 50 mg tablet 50 mg PO DAILY 04/27/21 12/09/24 12/08/24 History omeprazole 20 mg capsule,delayed 20 mg PO DAILY@0630 04/27/21 12/09/24 12/09/24 History release atorvastatin 20 mg tablet 20 mg PO BEDTIME 06/08/21 12/09/24 12/08/24 History tizanidine 4 mg tablet 4 mg PO BEDTIME PRN Muscle Spasm 07/11/24 12/09/24 Unknown History amlodipine 2.5 mg tablet 2.5 mg PO DAILY 12/09/24 12/09/24 12/08/24 History finasteride 5 mg tablet 5 mg PO BEDTIME 12/09/24 12/09/24 12/08/24 History Exam Height,Weight and Vital Signs: Height 5 ft 7 in Weight 75.75 kg Last Vital Signs Pulse 55 11/29/24 10:03 Resp 16 11/29/24 10:03 BP 158/72 H 11/29/24 10:03 Pulse Ox 99 11/29/24 10:03 O2 Del Method Room Air 11/29/24 10:03 Narrative Narrative: EKG 10/2024: sinus henry, first degree AV block, rate 48; no ST-T wave changes. Echo 11/2024: Conclusions: - 1. Hyperdynamic LV ejection fraction greater than 70% with pseudonormal filling pattern 2. Cardiac valvular Dopplers within normal limits 3. Normal RV systolic pressure 4. Mildly dilated ascending aorta 3.7 cm 5. No gross pericardial effusion Holter: 3 day patch pending Airway Mallampati Class: III TM Dist: >3cm Neck ROM: Full Denture: Upper and Lower Loose/Missing/Broken Teeth: Yes (has dentures U/L) Heart: RRR Lungs: CTAB Assessment and Plan Final Anesthetic Review Family History of Problems with Anesthesia: No History of Problems with Anesthesia: No Documented by User: Yael Adams NP 12/09/24 13:18 HPI - Anesthesia Eval Consult details Narrative: 84 yr old male for left Assist Laparoscopic Colectomy [place] [facility] [place] repeat EKG in office 12/09/24 not available for review. Workload by Dana Villeda NP Cardiology Please tell him to stop Amiodarone and take Metoprolol 25 mg twice a day. - Have him check his Meteoprolol pills - may have 50mg tabs then will take 1/2 tab bid. If 25mg tabs - then take one twice a day today. Take one in am. Surgery planned. If heart still fast - then intermodal owner operator truck driver will see him in the am. No recent illness; no CP/SOB with minimal activity. New onset Afib prior to colonoscopy 09/2024, thought to be 2/2 dehydration from prep;seen by cardiology, cleared for surgery 11/26/24. Asymptomatic. CKD stage 3: follows with renal, creat stable. Syncope in 2020 in setting of painting house in heat, had neuro consult in hospital, no neuro f/u since, no recurrent episodes. [facility] Past Medical History Medical History Arthritis BPH (benign prostatic hyperplasia) Numbness and tingling of both feet Dizziness Syncope (~2020) Colon adenocarcinoma Atrial fibrillation Chronic kidney disease GERD (gastroesophageal reflux disease) High cholesterol HTN (hypertension) Family History Family History Mother Hypertension Breast cancer Father Alcoholic Lung cancer Sister Breast cancer Sister Breast cancer Sister Breast cancer Sister Breast cancer Surgical History Surgical History Hx of colonoscopy (10/01/24) H/O prostate biopsy Hx of cataract extraction History of dental surgery H/O removal of cyst (03/01/22) Social History Social History (Updated 11/29/24 @ 10:29 by Laure Lemons RN) Household Members: Spouse Housing: House Are you a primary special needs caregiver to a significant other at home: No Do you presently have visiting nurse or other home services: No Patient Tobacco Use Status: Former Tobacco user Tobacco use type: Cigarette Current occupational status: retired Meds Allergies Allergy/AdvReac Type Severity Reaction Status Date / Time No Known Allergies Allergy Verified 12/09/24 16:34 Home Medications ?Medication ?Instructions ?Recorded ?Confirmed ?Last Taken ?Type losartan 50 mg tablet 50 mg PO DAILY 04/27/21 12/09/24 12/08/24 History omeprazole 20 mg capsule,delayed 20 mg PO DAILY@0630 04/27/21 12/09/24 12/09/24 History release atorvastatin 20 mg tablet 20 mg PO BEDTIME 06/08/21 12/09/24 12/08/24 History tizanidine 4 mg tablet 4 mg PO BEDTIME PRN Muscle Spasm 07/11/24 12/09/24 Unknown History amlodipine 2.5 mg tablet 2.5 mg PO DAILY 12/09/24 12/09/24 12/08/24 History finasteride 5 mg tablet 5 mg PO BEDTIME 12/09/24 12/09/24 12/08/24 History Exam Pertinent Lab Results Pertinent Lab Results: Lab Results 11/29/24 11/29/24 Range/Units 11:15 11:25 WBC 7.4 (4.8-10.8) X10*3/uL RBC 4.90 (4.60-5.80) X10*6/uL Hgb 11.9 L (14.0-18.0) g/dl Hct 37.7 L (42.0-52.0) % MCV 76.9 L (80.0-98.0) fL MCH 24.3 L (27.0-33.0) pg MCHC 31.6 (31.0-36.0) g/dl RDW 14.2 (11.0-16.0) % Plt Count 296 (160-400) X10*3/uL MPV 9.2 L (9.4-12.4) fL Absolute Nucleated RBC 0.000 (0.0-0.012) X10*3/uL Nucleated RBC % (auto) 0.0 (0.0-0.2) /100WBC Sodium 143 (135-145) mmol/L Potassium 4.9 (3.3-5.1) mmol/L Chloride 111 H (96-108) mmol/L Carbon Dioxide 26 (22-29) mmol/L Anion Gap 11 L (12-20) BUN 15 (9-16) mg/dL Creatinine 1.72 H (0.5-1.4) mg/dL Estim Creat Clear Calc 29.8 Estimated GFR 38 Random Glucose 104 (60-115) mg/dL Calcium 9.0 (8.4-10.2) mg/dL Blood Type B Positive Antibody Screen NEGATIVE Narrative Narrative: EKG 10/2024: sinus henry, first degree AV block, rate 48; no ST-T wave changes. Echo 11/2024: Conclusions: - 1. Hyperdynamic LV ejection fraction greater than 70% with pseudonormal filling pattern 2. Cardiac valvular Dopplers within normal limits 3. Normal RV systolic pressure 4. Mildly dilated ascending aorta 3.7 cm 5. No gross pericardial effusion Holter: 3 day patch 11/2024 Total monitoring time 3 days. Underlying rhythm is sinus with an average rate of 65/Min. Atrial fibrillation rapid ventricular response noted. Overall burden 27%. Longest episode 19 hours. Fastest 153/Min. Supraventricular ectopy noted with a burden of 1%. Rare ventricular ectopy. No significant pauses or high-grade AV blocks. Patient marker used with sinus bradycardia and supraventricular ectopy. Documented by User: Shahriar Pan MD 12/10/24 07:46 [facility] Past Medical History Medical History Arthritis BPH (benign prostatic hyperplasia) Numbness and tingling of both feet Dizziness Syncope (~2020) Colon adenocarcinoma Atrial fibrillation Chronic kidney disease GERD (gastroesophageal reflux disease) High cholesterol HTN (hypertension) Family History Family History Mother Hypertension Breast cancer Father Alcoholic Lung cancer Sister Breast cancer Sister Breast cancer Sister Breast cancer Sister Breast cancer Surgical History Surgical History Hx of colonoscopy (10/01/24) H/O prostate biopsy Hx of cataract extraction History of dental surgery H/O removal of cyst (03/01/22) Social History Social History (Updated 11/29/24 @ 10:29 by Laure Lemons RN) Household Members: Spouse Housing: House Are you a primary special needs caregiver to a significant other at home: No Do you presently have visiting nurse or other home services: No Patient Tobacco Use Status: Former Tobacco user Tobacco use type: Cigarette Current occupational status: retired Meds Allergies Allergy/AdvReac Type Severity Reaction Status Date / Time No Known Allergies Allergy Verified 12/09/24 16:34 Home Medications ?Medication ?Instructions ?Recorded ?Confirmed ?Last Taken ?Type losartan 50 mg tablet 50 mg PO DAILY 04/27/21 12/09/24 12/08/24 History omeprazole 20 mg capsule,delayed 20 mg PO DAILY@0630 04/27/21 12/09/24 12/09/24 History release atorvastatin 20 mg tablet 20 mg PO BEDTIME 06/08/21 12/09/24 12/08/24 History tizanidine 4 mg tablet 4 mg PO BEDTIME PRN Muscle Spasm 07/11/24 12/09/24 Unknown History amlodipine 2.5 mg tablet 2.5 mg PO DAILY 12/09/24 12/09/24 12/08/24 History finasteride 5 mg tablet 5 mg PO BEDTIME 12/09/24 12/09/24 12/08/24 History Assessment and Plan Assessment Anesthesia Assessment: Anesthesia Plan Discussed and Chart Reviewed Final Anesthetic Review NPO: Yes ASA Class: III Final Preanesthetic Review: No Changes in Pt Med Stat, Meds/Allgs Chart Reviewed, Consent Obtained/Reviewed and Anes Risks/Benef Reviewed Patient Risk: Intermediate Procedure Risk: Low Assessment/Block/Sedation in SS: Assess/Block/Sedation-SS Anesthetic Plan Anesthetic Plan: GA and Regional Block Disposition: Standard PACU
[2024-11-29 11:38] LABS: Hematocrit 37.7 % (42.0-52.0); Hemoglobin 11.9 g/dl (14.0-18.0); Mean Corpuscular HGB Conc 31.6 g/dl (31.0-36.0); Mean Corpuscular Hemoglobin 24.3 pg (27.0-33.0); Mean Corpuscular Volume 76.9 fL (80.0-98.0); NRBC Abs Auto 0.000 X10*3/uL (0.0-0.012); NRBC Pct Auto 0.0 /100WBC (0.0-0.2); Platelet Count 296 X10*3/uL (160-400); Red Blood Count 4.90 X10*6/uL (4.60-5.80); White Blood Count 7.4 X10*3/uL (4.8-10.8)
[2024-11-29 12:27] LABS: Anion Gap 11 (12-20); Blood Urea Nitrogen 15 mg/dL (9-16); Calcium 9.0 mg/dL (8.4-10.2); Carbon Dioxide 26 mmol/L (22-29); Chloride 111 mmol/L (96-108); Creatinine Clr Calc Pharmacy 29.8; Estimated Glomerular Filt Rate 38; Potassium 4.9 mmol/L (3.3-5.1); Sodium 143 mmol/L (135-145)
[2024-12-10 07:30] VITALS: BP 159/66; PULSE 65; RESP 16; TEMP 37.2; O2SAT 97
[2024-12-10] MEDS: Lactated Ringers 1,000 ML 100 ML IVCONT (07:35)
--- OUTSIDE RECORDS SUMMARY | 2025-01-15 12:34 | XMS_ITS | Clinical Summary ---
Author Organization [facility] Facility Address [address] [place] [address] Care Team Providers Care Detail Drafter Name Role Phone Flako Hernández MD Primary Care Provider [phone] Allergies No known active allergies Medications atorvastatin [...] age to complete this topic Insurance Medicare [facility] Medicare [facility] Care Teams Detail Drafter Relationship Specialty Start Date End Date Flako Hernández MD [address] [place] [address] PCP - General 05/25/20
== END 2024-11-29 00:01 | disposition home or self-care (01) ==
LOC: HO.PAT
PROVIDERS: Nurse Practitioner; PCP Internal Medicine; Visit Provider Surgery
DX: Z01.812 Encounter for preprocedural laboratory examination (principal); C18.9 Malignant neoplasm of colon, unspecified
CPT/HCPCS: 36415; 80048; 85027; 86850; 86900; 86901

== ENCOUNTER 2024-12-09 08:12 | Outpatient (AMB) | payer MEDICARE, OTHER, SELFPAY ==
--- OUTSIDE RECORDS SUMMARY | 2024-12-09 08:20 | XMS_ITS | Clinical Summary ---
Author Organization [facility] Facility Address [address] [place] [id number] Care Team Providers Care Film Sound Engineer Name Role Phone Flako Hernández MD Primary Care Provider [phone] Allergies No known active allergies Medications atorvastatin [...] age to complete this topic Insurance Medicare [facility] Medicare [facility] Care Teams Film Sound Engineer Relationship Specialty Start Date End Date Flako Hernández MD [address] [place] [address] PCP - General 05/25/20
--- NOTE | 2024-12-09 08:26 | AM.OFFVISNUR ---
Intake Visit Reasons: EKG per DC Amio Allergies No Known Allergies Allergy (Verified 11/29/24 10:00) Nursing Note PT in today for EKG on Amiodarone 200mg daily, EKG show Sinus tachycardia, right axis deviation , nonspecific st abnormality 127 BPM ,abnormal ECG Per DC patient should stop amiodarone and take metoprolol 25mg BID. Coding
== END 2024-12-09 08:43 | disposition home or self-care (01) ==
LOC: HO.HCS 08:12
PROVIDERS: PCP Internal Medicine; Visit Provider Nurse Practitioner Family
DX: I44.0 Atrioventricular block, first degree (principal); R00.1 Bradycardia, unspecified
CPT/HCPCS: 93010

== ENCOUNTER 2024-12-09 15:56 | Inpatient (IN) | payer MEDICARE, OTHER, SELFPAY ==
[2024-12-09 16:29] VITALS: BP 160/67; PULSE 62; RESP 18; TEMP 36.5; O2SAT 99; BMI 24.8
--- NOTE | 2024-12-09 16:31 | ED.GENADULT ---
HPI - General Adult General Chief complaint: Arrhythmia/Palpitations Stated complaint: V+D abd surgery 12/10 Time Seen by Provider: 12/09/24 18:59 Source: patient Mode of arrival: ambulatory Limitations: no limitations History of Present Illness ED Provider: HPI narrative: 84-year-old male is scheduled to have rectal mass surgery tomorrow he has history of paroxysmal AFib currently off blood thinners, went to see a director of financial planning today was in atrial flutter he is on amiodarone and he was sent to the ER for admission with recommendations from Dr. Vázquez to start patient on Cardizem drip in few who was in rapid rate and discontinue amiodarone and he feels and sinus rhythm to start him on amiodarone drip. Patient is otherwise asymptomatic. Related Data Home Medications ?Medication ?Instructions ?Recorded ?Confirmed losartan 50 mg tablet 50 mg PO DAILY 04/27/21 11/29/24 omeprazole 20 mg capsule,delayed 20 mg PO DAILY 04/27/21 11/29/24 release atorvastatin 20 mg tablet 20 mg PO DAILY 06/08/21 11/29/24 tizanidine 4 mg tablet 4 mg PO BEDTIME PRN Muscle Spasm 07/11/24 11/29/24 Previous Rx's ?Medication ?Instructions ?Recorded aspirin 81 mg tablet,delayed 81 mg PO DAILY #30 tabs 01/24/21 release finasteride 5 mg tablet 5 mg PO DAILY 90 days #90 tabs 09/17/24 erythromycin 500 mg tablet 1 g (2 x 500 mg) PO TID Bowel 11/12/24 preparation #6 tabs neomycin 500 mg tablet 1 g (2 x 500 mg) PO TID 3 doses #6 11/12/24 tabs polyethylene glycol 3350 17 17 g PO DAILY #238 grams 11/12/24 gram/dose oral powder (Miralax) amiodarone 200 mg tablet 200 mg PO DAILY 30 days #45 tabs 12/03/24 Allergies Allergy/AdvReac Type Severity Reaction Status Date / Time No Known Allergies Allergy Verified 12/09/24 16:34 Review of Systems Constitutional: Constitutional: Reports as per [facility] Past Medical History Medical History Arthritis BPH (benign prostatic hyperplasia) Numbness and tingling of both feet Dizziness Syncope (~2020) Colon adenocarcinoma Atrial fibrillation Chronic kidney disease GERD (gastroesophageal reflux disease) High cholesterol HTN (hypertension) Surgical History Hx of colonoscopy (10/01/24) H/O prostate biopsy Hx of cataract extraction History of dental surgery H/O removal of cyst (03/01/22) Family History Family History Mother Hypertension Breast cancer Father Alcoholic Lung cancer Sister Breast cancer Sister Breast cancer Sister Breast cancer Sister Breast cancer Social History Social History (Updated 11/29/24 @ 10:29 by Laure Lemons RN) Household Members: Spouse Housing: House Are you a primary director day care center to a significant other at home: No Do you presently have visiting nurse or other home services: No Patient Tobacco Use Status: Former Tobacco user Tobacco use type: Cigarette Advance Directives: No Advance Directives Information Provided: No Current occupational status: retired Physical Exam ED Vital Signs: Vital Signs - 24 hr 12/09/24 16:29 Temperature 97.7 F Pulse Rate 62 Respiratory Rate 18 Blood Pressure 160/67 H Pulse Oximetry 99 Oxygen Delivery Method Room Air BMI result Body Mass Index 24.8 Course Course Course Narrative: This is a rapid medical exam performed by Vianney Cruz NP: Additional HPI, ROS, PE not included below will be deferred to primary provider. Patient is an 84-year-old male presenting to the ED with complaint of nausea, vomiting and diarrhea as well as irregular heartrate. Scheduled for surgery for colon CA tomorrow, was doing a bowel prep and also taking antibiotics. Plan: EKG, labs Medical Decision Making Medical Decision Making [facility] Narrative: 19:30 patient presenting as a referral from his director of financial planning Dr. Vázquez for admission, instructions where to start amiodarone drip if patient is in sinus rhythm and put him on Cardizem drip if he has an RVR, patient is in sinus rhythm, blood pressure is stable, I confirmed this with director of financial planning Dr. Vázquez and we will start him on amiodarone drip and admit. Recommends 1 mg/min for 6 hours and then 0.5 mg/hour Differential Diagnosis Differential Diagnoses: The differential diagnosis associated with the presentation includes (AFib, a flutter, electrolyte derangements) Consult Healthcare Provider Management of the patient was discussed with: Munitions Handler (Dr. Vázquez) Lab Data MDM Lab Attestation statement: I reviewed the patient's lab results. 12/09/24 16:53 12/09/24 16:53 Labs: Lab Results 12/09/24 Range/Units 16:53 WBC 10.2 (4.8-10.8) X10*3/uL RBC 5.24 (4.60-5.80) X10*6/uL Hgb 12.4 L (14.0-18.0) g/dl Hct 39.4 L (42.0-52.0) % MCV 75.2 L (80.0-98.0) fL MCH 23.7 L (27.0-33.0) pg MCHC 31.5 (31.0-36.0) g/dl RDW 14.6 (11.0-16.0) % Plt Count 356 (160-400) X10*3/uL MPV 9.5 (9.4-12.4) fL Immature Gran % (Auto) 0.3 (0.0-0.4) % Neut % (Auto) 89.0 H (45-73) % Lymph % (Auto) 6.3 L (20-40) % [place] % (Auto) 3.6 (2-11) % Eos % (Auto) 0.5 (0-4) % Baso % (Auto) 0.3 (0-2) % Lymph # (Auto) 0.6 L (1.2-4.9) X10*3/uL [place] # (Auto) 0.4 (0.1-1.2) X10*3/uL Eos # (Auto) 0.1 (0.0-0.4) X10*3/uL Baso # (Auto) 0.0 (0.0-0.2) X10*3/uL Abs Immat Gran (auto) 0.03 (0.00-0.03) X10*3/uL Absolute Neuts (auto) 9.1 H (2.0-8.3) x10*3/uL Absolute Nucleated RBC 0.000 (0.0-0.012) X10*3/uL Nucleated RBC % (auto) 0.0 (0.0-0.2) /100WBC PT 10.4 L (10.9-12.4) SEC INR 0.9 (0.9-1.1) Sodium 142 (135-145) mmol/L Potassium 4.1 (3.3-5.1) mmol/L Chloride 109 H (96-108) mmol/L Carbon Dioxide 23 (22-29) mmol/L Anion Gap 14 (12-20) BUN 16 (9-16) mg/dL Creatinine 1.94 H (0.5-1.4) mg/dL Estim Creat Clear Calc 27.4 Estimated GFR 33 Random Glucose 108 (60-115) mg/dL Calcium 9.1 (8.4-10.2) mg/dL Magnesium 2.3 (1.6-2.6) mg/dL Total Bilirubin 0.7 (0.0-1.0) mg/dL AST 17 (5-37) U/L ALT 9 (0-40) U/L Alkaline Phosphatase 102 (39-117) U/L Troponin I High Sens 5.6 D (<3.5-35.0) ng/L Total Protein 6.9 (6.5-8.0) g/dL Albumin 4.4 (3.5-5.0) g/dL Independent Interpretation I performed an independent interpretation of an: EKG (58 beats per minute otherwise normal ECG without dysrhythmia, AV ankur blocks or ST-T changes to suspect underlying ACS, my independent interpretation) Discharge Plan Discharge Clinical Impression: Paroxysmal A-fib Patient Disposition: Admitted As Inpatient Print Language: Greenlandic
--- NOTE | 2024-12-09 16:34 | ECG_ITS ---
Test Reason : ABD PAIN Blood Pressure : */* mmHG Vent. Rate : 58 BPM Atrial Rate : 58 BPM P-R Int : 292 ms QRS Dur : 78 ms QT Int : 458 ms P-R-T Axes : 37 31 28 degrees QTcB Int : 449 ms Sinus bradycardia with 1st degree A-V block Otherwise normal ECG When compared with ECG of 01-Oct-2024 11:22, No significant change was found Referred By: Eliana Cruz Electronically Signed By: JULISSA GUERRERO MD
[2024-12-09 16:57] LABS: MANUAL DIFF FLAG NO
[2024-12-09 17:01] LABS: Hematocrit 39.4 % (42.0-52.0); Hemoglobin 12.4 g/dl (14.0-18.0); Imm Gran Abs Auto 0.03 X10*3/uL (0.00-0.03); Imm Gran Pct Auto 0.3 % (0.0-0.4); Lymphocytes Absolute Auto 0.6 X10*3/uL (1.2-4.9); Mean Corpuscular HGB Conc 31.5 g/dl (31.0-36.0); Mean Corpuscular Hemoglobin 23.7 pg (27.0-33.0); Mean Corpuscular Volume 75.2 fL (80.0-98.0); NRBC Abs Auto 0.000 X10*3/uL (0.0-0.012); NRBC Pct Auto 0.0 /100WBC (0.0-0.2); Platelet Count 356 X10*3/uL (160-400); Red Blood Count 5.24 X10*6/uL (4.60-5.80); White Blood Count 10.2 X10*3/uL (4.8-10.8)
[2024-12-09 17:05] LABS: INTERNATIONAL NORM RATIO 0.9 (0.9-1.1); Prothrombin Time 10.4 SEC (10.9-12.4)
[2024-12-09 17:16] LABS: Alanine Aminotransferase 9 U/L (0-40); Albumin Level 4.4 g/dL (3.5-5.0); Alkaline Phosphatase 102 U/L (39-117); Anion Gap 14 (12-20); Aspartate Amino Transferase 17 U/L (5-37); Blood Urea Nitrogen 16 mg/dL (9-16); Calcium 9.1 mg/dL (8.4-10.2); Carbon Dioxide 23 mmol/L (22-29); Chloride 109 mmol/L (96-108); Creatinine Clr Calc Pharmacy 27.4; Estimated Glomerular Filt Rate 33; Magnesium 2.3 mg/dL (1.6-2.6); Potassium 4.1 mmol/L (3.3-5.1); Sodium 142 mmol/L (135-145); Total Protein 6.9 g/dL (6.5-8.0)
[2024-12-09 17:21] LABS: Troponin-I High Sensitivity 5.6 ng/L (<3.5-35.0)
[2024-12-09 19:07] VITALS: BP 122/67; PULSE 63; RESP 14; TEMP 36.5; O2SAT 98
[2024-12-09 19:27] LABS: Appearance Urine Clear; Glucose Urine UA Negative (Negative); PH 5.5 (5.0-9.0); Specific Gravity - Urine 1.020 (1.005-1.025); UMIC TRIGGER UACC YES
[2024-12-09 20:16] VITALS: BP 103/67; PULSE 62; RESP 18; O2SAT 95
[2024-12-09 20:18] VITALS: BP 145/67; PULSE 59; RESP 19; TEMP 36.7; O2SAT 98
[2024-12-09 22:10] VITALS: BP 146/62; PULSE 59; RESP 14; TEMP 36.8; O2SAT 96
--- NOTE | 2024-12-09 22:20 | PHA.MEDREC ---
Addendum entered by Jeanette Ortiz [facility] ED 12/09/24 22:37: REVIEWED BY PHARMACIST Original Note: Pharmacy Consult ? Medication Reconciliation Pharmacy has completed the medication reconciliation. Spoke with pt and he confirmed his medications. Pt confirmed he started taking Amiodarone 5 days ago and was taking 2 tabs (400mg) BID, he confirmed that changed as of today to 1 tabs (200mg) daily; pt started that dose this morning. Pt states his Dr stopped the Metoprolol when the Amiodarone started. Pt confirmed his Tizanidine 4mg tab; confirming his Dr wrote it for 1 tab q6-8h as needed but pt states he is only taking 1 tab at bedtime and states he's been doing fine taking it that way .
[2024-12-09] MEDS: Lactated Ringers 1,000 ML 75 ML IVCONT (22:38)
--- NOTE | 2024-12-09 23:11 | PM.IMHP ---
History of Present Illness Date of Service: 12/09/24 Attending physician on admission: Rainer Mota Chief Complaint: a flutter with RVR Patient is an 84-year-old male with a past medical history significant for CKD 3, paroxysmal AFib, GERD, HLD, HTN and newly diagnosed colon cancer, who reported to the ED per recommendation of Dr. Vázquez as he was found to be in atrial flutter during his office visit today with RVR. The recommendation was amiodarone drip for stabilization prior to his surgery with Dr. Ward tomorrow. The patient has already started his prep and has been off of the anticoagulation for the past month. He has been nauseous since taking the prep in antibiotics as prescribed. He denies any chest pain, shortness of breath, abdominal pain or urinary symptoms. Review of Systems Constitutional: Constitutional: Denies body ache(s), Denies chills, Denies fatigue, Denies fever(s) and Denies headache(s) Eyes: Eyes: Denies change in vision ENT: Denies headache(s) Cardiovascular: Cardiovascular: Denies chest pain, Denies leg edema, Denies lightheadedness and Denies dyspnea Respiratory: Respiratory: Denies chest congestion, Denies cough, Denies dyspnea and Denies wheezing Gastrointestinal: Gastrointestinal: Denies abdominal pain, Reports nausea and Reports vomiting Genitourinary: Genitourinary: Denies hematuria, Denies dysuria and Denies urinary urgency Musculoskeletal: Musculoskeletal: Denies myalgias Integumentary/Breasts: Skin/Breast: Denies rash Neurologic: Denies confusion and Denies headache(s) Psychiatric: Psychiatric: Denies confusion Endocrine: Endocrine: Denies fatigue Hematologic/Lymphatic: Hematologic/Lymphatic: Denies easy bleeding and Denies easy bruising Allergic/Immunologic: Allergic/Immunologic: Denies wheezing PMF Medical History Arthritis BPH (benign prostatic hyperplasia) Numbness and tingling of both feet Dizziness Syncope (~2020) Colon adenocarcinoma Atrial fibrillation Chronic kidney disease GERD (gastroesophageal reflux disease) High cholesterol HTN (hypertension) Functional capacity: independent ambulation Family History Mother Hypertension Breast cancer Father Alcoholic Lung cancer Sister Breast cancer Sister Breast cancer Sister Breast cancer Sister Breast cancer Surgical History Hx of colonoscopy (10/01/24) H/O prostate biopsy Hx of cataract extraction History of dental surgery H/O removal of cyst (03/01/22) Social History (Updated 11/29/24 @ 10:29 by Laure Lemons RN) Household Members: Spouse Housing: House Are you a primary manager critical care to a significant other at home: No Do you presently have visiting nurse or other home services: No Patient Tobacco Use Status: Former Tobacco user Tobacco use type: Cigarette Advance Directives: No Advance Directives Information Provided: No Current occupational status: retired Narrative: No smoking, alcohol or drug use Meds Allergies Allergy/AdvReac Type Severity Reaction Status Date / Time No Known Allergies Allergy Verified 12/09/24 16:34 Active Medications: Current Medications Acetaminophen (Acetaminophen 325 Mg Tablet) 650 mg PO Q6H PRN PRN Reason: Pain, Mild 1-3,fever,headache Amlodipine Besylate (Amlodipine Besylate 2.5 Mg Tablet) 2.5 mg PO DAILY [facility]; Protocol Calcium Carbonate (Calcium Carbonate 750 Mg Tab.Chew) 750 mg PO Q4H PRN PRN Reason: Heartburn Amiodarone HCl 900 mg/ Sodium (Chloride) 518 mls @ 34.533 mls/hr IVCONT .[id number] [facility]; Protocol Stop: 12/10/24 02:00 Last Admin: 12/09/24 20:05 Dose: 1 mg/min, 34.53 mls/hr Lactated Ringer's (Lr) 1,000 mls @ 75 mls/hr IVCONT .[id number] [facility] Last Admin: 12/09/24 22:38 Dose: 75 mls/hr Magnesium Hydroxide (Milk Of Magnesia 30 Ml Oral.Susp) 30 ml PO DAILY PRN PRN Reason: Constipation Melatonin (Melatonin 3 Mg Tablet) 6 mg PO BEDTIME PRN PRN Reason: Insomnia Ondansetron HCl (Ondansetron Hcl 4 Mg/2 Ml Vial) 4 mg IVPUSH Q8H PRN PRN Reason: Nausea and Vomiting Prochlorperazine Edisylate (Prochlorperazine Edisylate 10 Mg/2 Ml Vial) 5 mg IVPUSH Q6H PRN PRN Reason: Nausea and Vomiting Sodium Chloride (0.9 % Sodium Chloride Flush 3 Ml Syringe) 3 ml IVFLUSH [facility] Sodium Chloride (0.9 % Sodium Chloride Flush 3 Ml Syringe) 3 ml IVFLUSH QSHIFT [facility] Home Medications ?Medication ?Instructions ?Recorded ?Confirmed ?Last Taken ?Type losartan 50 mg tablet 50 mg PO DAILY 04/27/21 12/09/24 12/08/24 History omeprazole 20 mg capsule,delayed 20 mg PO DAILY@0630 04/27/21 12/09/24 12/09/24 History release atorvastatin 20 mg tablet 20 mg PO BEDTIME 06/08/21 12/09/24 12/08/24 History tizanidine 4 mg tablet 4 mg PO BEDTIME PRN Muscle Spasm 07/11/24 12/09/24 Unknown History amlodipine 2.5 mg tablet 2.5 mg PO DAILY 12/09/24 12/09/24 12/08/24 History finasteride 5 mg tablet 5 mg PO BEDTIME 12/09/24 12/09/24 12/08/24 History Physical Exam Vital Signs and Narrative: Vital Signs: Last Vital Signs Temp 98.2 F 12/09/24 22:10 Pulse 59 12/09/24 22:10 Resp 14 12/09/24 22:10 BP 146/62 H 12/09/24 22:10 Pulse Ox 96 12/09/24 22:10 O2 Del Method Room Air 12/09/24 22:10 BMI result Body Mass Index 24.8 General: AOx3, no acute distress Resp: CTA bilaterally CVS: S1, S2, RRR GI: +BS, NT, no distention Skin: Warm, dry Neuro: Cranial nerves II-XII grossly intact bilaterally. Motor grossly intact bilaterally Extremities: No LE edema Psych: Appropriate affect Const: General: No confusion Orientation/consciousness: No confusion Neuro: General: No confusion Results Labs 12/09/24 16:53 12/09/24 16:53 Labs: Laboratory Results - last 24 hr 12/09/24 12/09/24 16:53 19:20 MCV 75.2 L MCH 23.7 L MCHC 31.5 RDW 14.6 Plt Count 356 MPV 9.5 Immature Gran % (Auto) 0.3 Neut % (Auto) 89.0 H Lymph % (Auto) 6.3 L [place] % (Auto) 3.6 Eos % (Auto) 0.5 Baso % (Auto) 0.3 Lymph # (Auto) 0.6 L [place] # (Auto) 0.4 Eos # (Auto) 0.1 Baso # (Auto) 0.0 Abs Immat Gran (auto) 0.03 Absolute Neuts (auto) 9.1 H Absolute Nucleated RBC 0.000 Nucleated RBC % (auto) 0.0 PT 10.4 L INR 0.9 Anion Gap 14 Estim Creat Clear Calc 27.4 Estimated GFR 33 Random Glucose 108 Calcium 9.1 Magnesium 2.3 Total Bilirubin 0.7 AST 17 ALT 9 Alkaline Phosphatase 102 Total Protein 6.9 Albumin 4.4 Urine Color Yellow Urine Appearance Clear Urine pH 5.5 Ur Specific [place] 1.020 Urine Protein 30 (1+) H Urine Glucose (UA) Negative Urine Ketones Negative Urine Blood Negative Urine Nitrite Negative Ur Leukocyte Esterase Negative Urine RBC 0-2 Urine WBC 0-5 Ur Squamous Epith Cells 3-5 Urine Bacteria None Seen Hyaline Casts 3-5 Assessment and Plan (1) Atrial flutter with rapid ventricular response: Status: Acute (2) Colon adenocarcinoma: Status: Acute (3) CKD (chronic kidney disease) stage 3, GFR 30-59 ml/min: Status: Acute Plan Patient is an 84-year-old male with a past medical history significant for CKD 3, paroxysmal AFib, GERD, HLD, HTN and newly diagnosed colon cancer, who reported to the ED per recommendation of Dr. Vázquez as he was found to be in atrial flutter during his office visit today with RVR. atrial flutter with RVR - EKG at cardiology appt today with a flutter with RVR, rate 127 - EKG upon arrival to ED with sinus bradycardia with 1st degree AV block - per Dr Vázquez recommendations amiodarone drio 1mg/min x6 hrs followed by 0.5mg/min - monitor on tele - cardiology consult colon adenocarcinoma - scheduled for surgery tomorrow with Dr Ward - clear liquid diet, NPO after midnight - patient completed bowel prep at home, reports clear liquids per rectum - erythromycin and neomycin 1 g at 23:00 per prep instructions not available in pharmacy, will need surgical recommendations in AM - surgery consult CKD3 - cr at baseline GERD - PPI when appropriate HLD - statin when appropriate HTN - continue amlodipine, losartan when appropriate full code VTE prophy: pneumoboots pending surgery Patient with atrial flutter with RVR, with surgery pending tomorrow for colon adenocarcinoma, requiring admission for at least 2 midnight stay for rate control and cardiology consultation. Quality Stroke Does the patient have a stroke diagnosis?: No VTE Prior VTE?: No VTE Risk Level:: Medical - moderate - high VTE Device Contraindication: N/A - Device Ordered VTE Drug Contraindication: Treatment Not Indicated
[2024-12-09 23:48] VITALS: PULSE 59
--- NOTE | 2024-12-09 23:54 | PC.NURSE ---
PO erythromycin and Neomycin not available on any floor & pharmacy not available at this time. RO Espitia made aware and states will notify surgical team in AM. pt is resting comfortably, denies pain, warm blankets given and helped to reposition. call quintero within reach.
[2024-12-10] VITALS (15 sets, daily range): BP systolic 131–171; BP diastolic 46–72; PULSE 47–78; RESP 14–20; TEMP 36.2–37.2; O2SAT 95–99; BMI 28.2
--- NOTE | 2024-12-10 | ECG_ITS ---
Test Reason : RECHECK RHYTHM Blood Pressure : */* mmHG Vent. Rate : 54 BPM Atrial Rate : 54 BPM P-R Int : 316 ms QRS Dur : 86 ms QT Int : 478 ms P-R-T Axes : 69 40 43 degrees QTcB Int : 453 ms Sinus bradycardia with 1st degree A-V block Otherwise normal ECG When compared with ECG of 09-Dec-2024 16:42, No significant change was found Referred By: Nupur Marie Electronically Signed By: JULISSA GUERRERO MD
[2024-12-10 03:23] LABS: MANUAL DIFF FLAG NO
[2024-12-10 03:27] LABS: Hematocrit 32.7 % (42.0-52.0); Hemoglobin 10.6 g/dl (14.0-18.0); Imm Gran Abs Auto 0.02 X10*3/uL (0.00-0.03); Imm Gran Pct Auto 0.2 % (0.0-0.4); Lymphocytes Absolute Auto 1.1 X10*3/uL (1.2-4.9); Mean Corpuscular HGB Conc 32.4 g/dl (31.0-36.0); Mean Corpuscular Hemoglobin 23.9 pg (27.0-33.0); Mean Corpuscular Volume 73.8 fL (80.0-98.0); NRBC Abs Auto 0.000 X10*3/uL (0.0-0.012); NRBC Pct Auto 0.0 /100WBC (0.0-0.2); Platelet Count 273 X10*3/uL (160-400); Red Blood Count 4.43 X10*6/uL (4.60-5.80); White Blood Count 8.6 X10*3/uL (4.8-10.8)
[2024-12-10 03:45] LABS: Alanine Aminotransferase 6 U/L (0-40); Albumin Level 3.7 g/dL (3.5-5.0); Alkaline Phosphatase 88 U/L (39-117); Anion Gap 11 (12-20); Aspartate Amino Transferase 19 U/L (5-37); Blood Urea Nitrogen 15 mg/dL (9-16); Calcium 8.3 mg/dL (8.4-10.2); Carbon Dioxide 23 mmol/L (22-29); Chloride 113 mmol/L (96-108); Creatinine Clr Calc Pharmacy 28.4; Estimated Glomerular Filt Rate 35; Potassium 4.4 mmol/L (3.3-5.1); Sodium 143 mmol/L (135-145); Total Protein 6.2 g/dL (6.5-8.0)
--- NOTE | 2024-12-10 04:50 | PC.NURSE ---
Addendum entered by Evin Sampson RN 12/10/24 05:35: 0516 Vel STARR reached back out stating consulted with Dr. Mota and will wait 1 hour then page cardio about BP/HR regarding amiodarone drip, and will also repeat ekg in 1 hour. pt states i feel better and denies any sx/discomfort at this time. Original Note: vel starr made aware of HR & BP.
--- NOTE | 2024-12-10 07:10 | PC.NURSE ---
Pt A&O X4 VSS Surgeon in to see pt. Pt in NSR No ectopy. HR in 50's. Pt has no complaints. IVF and Amiodarone infusing as ordered.
--- NOTE | 2024-12-10 07:14 | P.CONGS_ITS ---
History of Present Illness Consult details Consult date: 12/10/24 Requesting physician: Nupur Marie Narrative: 84-year-old male patient well known to me recently diagnosed with a left colon carcinoma developed a flutter yesterday with a heart rates of 120-130. He reports taking his bowel prep in the morning and starting the antibiotics in the afternoon. He became nauseous and vomited after the 2nd dose at 03:00. He was seen by Cardiology and the recommendation made to be sent to the emergency department for rate control. He was placed on amlodipine drip in his heart rate is now 57. Plan is for hand assisted laparoscopic left colectomy today for the left colon carcinoma. This morning he feels improved with no chest pain or shortness of breath. Review of Systems 2 Review of Systems: Yes all other systems are reviewed and are negative Cardiovascular: Cardiovascular: Denies chest pain, Denies Epigastric Pain, Denies rapid heart rate and Denies dyspnea Respiratory: Respiratory: Denies dyspnea Gastrointestinal: Gastrointestinal: Denies abdominal pain, Denies nausea and Denies vomiting PMFSH Past Medical History Medical History Arthritis BPH (benign prostatic hyperplasia) Numbness and tingling of both feet Dizziness Syncope (~2020) Colon adenocarcinoma Atrial fibrillation Chronic kidney disease GERD (gastroesophageal reflux disease) High cholesterol HTN (hypertension) Family History Family History Mother Hypertension Breast cancer Father Alcoholic Lung cancer Sister Breast cancer Sister Breast cancer Sister Breast cancer Sister Breast cancer Surgical History Surgical History Hx of colonoscopy (10/01/24) H/O prostate biopsy Hx of cataract extraction History of dental surgery H/O removal of cyst (03/01/22) Social History Social History (Updated 11/29/24 @ 10:29 by Laure Lemons RN) Household Members: Spouse Housing: House Are you a primary home visit field care manager to a significant other at home: No Do you presently have visiting nurse or other home services: No Patient Tobacco Use Status: Former Tobacco user Tobacco use type: Cigarette Smoked in Last 30 Days: No Use of substances other than those prescribed or required for medical reasons: No Advance Directives: No Advance Directives Information Provided: No Current occupational status: retired Meds Allergies Allergy/AdvReac Type Severity Reaction Status Date / Time No Known Allergies Allergy Verified 12/09/24 16:34 Active Medications: Current Medications Acetaminophen (Acetaminophen 325 Mg Tablet) 650 mg PO Q6H PRN PRN Reason: Pain, Mild 1-3,fever,headache Amlodipine Besylate (Amlodipine Besylate 2.5 Mg Tablet) 2.5 mg PO DAILY [facility]; Protocol Calcium Carbonate (Calcium Carbonate 750 Mg Tab.Chew) 750 mg PO Q4H PRN PRN Reason: Heartburn Lactated Ringer's (Lr) 1,000 mls @ 75 mls/hr IVCONT .[id number] [facility] Last Admin: 12/09/24 22:38 Dose: 75 mls/hr Magnesium Hydroxide (Milk Of Magnesia 30 Ml Oral.Susp) 30 ml PO DAILY PRN PRN Reason: Constipation Melatonin (Melatonin 3 Mg Tablet) 6 mg PO BEDTIME PRN PRN Reason: Insomnia Ondansetron HCl (Ondansetron Hcl 4 Mg/2 Ml Vial) 4 mg IVPUSH Q8H PRN PRN Reason: Nausea and Vomiting Prochlorperazine Edisylate (Prochlorperazine Edisylate 10 Mg/2 Ml Vial) 5 mg IVPUSH Q6H PRN PRN Reason: Nausea and Vomiting Sodium Chloride (0.9 % Sodium Chloride Flush 3 Ml Syringe) 3 ml IVFLUSH [facility] Last Admin: 12/09/24 23:57 Dose: Not Given Sodium Chloride (0.9 % Sodium Chloride Flush 3 Ml Syringe) 3 ml IVFLUSH [facility] Last Admin: 12/09/24 23:57 Dose: Not Given Home Medications ?Medication ?Instructions ?Recorded ?Confirmed ?Last Taken ?Type losartan 50 mg tablet 50 mg PO DAILY 04/27/2111/1312/08/24 History omeprazole 20 mg capsule,delayed 20 mg PO DAILY@0630 1 06/28/20 12/09/24 12/09/24 History release atorvastatin 20 mg tablet 20 mg PO BEDTIME 06/08/2112/08/24 History tizanidine 4 mg tablet 4 mg PO BEDTIME PRN Muscle S pasm 07/11/24 12/09/24 Unknown History amlodipine 2.5 mg tablet 2.5 mg PO DAILY 12/09/2412/08/24 History finasteride 5 mg tablet 5 mg PO BEDTIME 12/09/2412/08/24 History Physical Exam 2 Vital Signs: Vital Signs: Last Vital Signs Temp 98.3 F 12/10/24 06:20 Pulse 57 12/10/24 06:20 Resp 14 12/10/24 06:20 BP 151/69 H 12/10/24 06:20 Pulse Ox 98 12/10/24 06:20 O2 Del Method Room Air 12/10/24 06:20 BMI result Body Mass Index 24.8 Const: General: no acute distress Nutritional Appearance: well nourished Orientation/consciousness: patient oriented x3 Limitations: no limitations Resp: Effort & Inspection: normal respiratory effort Auscultation: clear to auscultation bilaterally Cardio: Jugular venous distension: no JVD Rate: not tachycardic GI: Palpation (GI): Soft to palpation, nontender, no guarding, not rigid and No hepatosplenomegaly present Percussion: Yes normal to percussion A uscultation: normal bowel sounds Skin: Other: Warm, dry, no rash Neuro: General: patient oriented x3 Extrem: General: No edema Results Labs 12/10/24 03:16 12/10/24 03:16 Labs: Abnormal lab results 12/09/24 12/09/24 12/10/24 Range/Units 16:53 19:20 03:16 RBC 4.43 L (4.60-5.80) X10*6/uL Hgb 12.4 L 10.6 L (14.0-18.0) g/dl Hct 39.4 L 32.7 L (42.0-52.0) % MCV 75.2 L 73.8 L (80.0-98.0) fL MCH 23.7 L 23.9 L (27.0-33.0) pg Neut % (Auto) 89.0 H 79.3 H (45-73) % Lymph % (Auto) 6.3 L 13.2 L (20-40) % Lymph # (Auto) 0.6 L 1.1 L (1.2-4.9) X10*3/uL Absolute Neuts (auto) 9.1 H (2.0-8.3) x10*3/uL PT 10.4 L (10.9-12.4) SEC Chloride 109 H 113 H (96-108) mmol/L Anion Gap 11 L (12-20) Creatinine 1.94 H 1.87 H (0.5-1.4) mg/dL Calcium 8.3 L D (8.4-10.2) mg/dL Total Protein 6.2 L (6.5-8.0) g/dL Urine Protein 30 (1+) H (Neg-Trace) mg/dL Short CBC 12/09/24 12/10/24 Range/Units 16:53 03:16 WBC 10.2 8.6 (4.8-10.8) X10*3/uL Hgb 12.4 L 10.6 L (14.0-18.0) g/dl Hct 39.4 L 32.7 L (42.0-52.0) % Plt Count 356 273 (160-400) X10*3/uL BMP 12/09/24 12/10/24 16:53 03:16 Sodium 142 143 Potassium 4.1 4.4 Chloride 109 H 113 H Carbon Dioxide 23 23 BUN 16 15 Creatinine 1.94 H 1.87 H Calcium 9.1 8.3 L D Liver Function 12/09/24 12/10/24 Range/Units 16:53 03:16 Total Bilirubin 0.7 0.7 (0.0-1.0) mg/dL AST 17 19 (5-37) U/L ALT 9 6 (0-40) U/L Alkaline Phosphatase 102 88 (39-117) U/L Albumin 4.4 3.7 (3.5-5.0) g/dL Urine 12/09/24 Range/Units 19:20 Urine Color Yellow Urine Appearance Clear Urine pH 5.5 (5.0-9.0) Ur Specific [place] 1.020 (1.005-1.025) Urine Protein 30 (1+) H (Neg-Trace) mg/dL Urine Glucose (UA) Negative (Negative) mg/dL All other labs normal. Assessment and Plan (1) Atrial flutter with rapid ventricular response: Status: Acute (2) Paroxysmal A-fib: Status: Acute (3) Colon adenocarcinoma: Status: Acute Plan 84-year-old male patient with known left colon cancer developed atrial flutter with rapid ventricular response yesterday possibly due to the bowel prep/antibiotic. He feels improved this morning in his heart rate has normalized. A once again reviewed the procedure, risks and alternatives and he wishes to proceed with the hand assisted laparoscopic left colectomy and gives his consent. Procedures Date of Service Date of Service: 12/10/24
[2024-12-10] MEDS: cefoTEtan disodium 2 GM VIAL IVPUSH (08:15)
--- NOTE | 2024-12-10 10:56 | PM.EVENT ---
Event Note Date of Service: 12/10/24 Event Note: I was consulted to see Dutch in cardiology consultation today for atrial flutter, currently on amiodarone drip although patient was in the operating room all morning. I have not been able to consult on him. Would see him tomorrow unless there are any urgent concerns. Time Spent With Patient Time: Total time managing care of this patient today ____ minutes.
--- NOTE | 2024-12-10 11:48 | W.PM.OPN ---
Operative Note Operative Note Date of Service: 12/10/24 Narrative: Preoperative diagnosis: Colon adenocarcinoma, left colon Postoperative diagnosis: Colon adenocarcinoma, transverse colon Procedure: Extended right hemicolectomy, with ileo transverse colonic anastomosis Surgeon: Damian Ward MD Software Sales Consultant: Bill Vickers PA-C, Miriam Garcia, MS-3 Anesthesia: General endotracheal plus tap block Indications for procedure: 84-year-old male patient found to have a positive Cologuard test and subsequently underwent colonoscopy. Patient was found to have several serrated adenomas but also a ulcerated mass at 45 cm initially thought to be in the left colon. Biopsy revealed adenocarcinoma Operative findings: No tumor noted in the left colon however obvious transverse colon cancer with Soraya ink markings in the transverse colon to the left of midline. Specimen: Extended right colectomy including distal transverse colon Estimated blood loss: 50 mL Complications: None Procedure details: Patient was brought to the OR and placed in a supine position. After administering general anesthesia the patient was placed in a lithotomy position. A tap block was applied by the anesthesia team. Gilbert catheter was inserted. The patient's perineum was prepped with Betadine and abdomen prepped with ChloraPrep. He was then draped in a sterile fashion. A surgical time-out was called and the consent confirmed. Patient received preoperative antibiotics and Venodyne boots were in place. A periumbilical midline incision was then made with a scalpel measuring approximately 8 cm. This was carried out through subcutaneous tissue, through linea alba into the peritoneum. A hand port was then inserted. 212 mm ports were then placed 1 in the lower midline and another in the upper midline. The patient was then placed in a Trendelenburg position and rotated to the right. The sigmoid colon and left colon were then mobilized along the white line of Toldt. No obvious ink marking could be identified and no palpable mass was appreciated. Dissection was continued up around the splenic flexure up into the transverse colon. Transverse colon was further mobilized at which point a palpable mass with any ink marking was identified at approximately the midpoint between the midline and hepatic flexure. No other palpable masses were identified. No palpable liver masses were appreciated. The decision was made to proceed with an extended right hemicolectomy. The cecum and terminal ileum were then mobilized along the abdominal sidewall. This was continued up along the sidewall to the hepatic flexure. In his similar fashion the transverse colon was mobilized along the gastric colic and hepatocolic ligaments. With this was fully mobilize the hand port was removed in the colon brought up through the incision. Terminal ileum was divided using a Endo-VLADIMIR stapler at approximately 20 cm proximal to the ileocecal valve. LigaSure was then used to divide the mesentery of the small bowel up to the ileocecal artery. This was ligated just below the duodenum with a silk ties and divided. Dissection was then continued around the hepatic flexure to the transverse colon. Both the right middle and left branches of the middle colic artery were ligated with silk ties and divided. Dissection was continued along the mesentery of the transverse colon to approximately 8 cm past the transverse colon lesion. At this point a VLADIMIR stapler was used to divide the distal transverse colon and the specimen was removed. Specimen was sent to pathology for further examination. A ileocolonic anastomosis was then performed using a stapled functional end-to-end anastomosis. The 2 ends of the bowel were brought together using silk 3-0 pop-off sutures. Proximal and distal colotomy were then created and a VLADIMIR stapler inserted to create a [id number]-ct-dbyy anastomosis. The colotomy were then closed using a TA 60 stapler. The staple line was reinforced using interrupted Lembert 3-0 silk sutures. The crotch was also reinforced using 3-0 silk sutures. The distal ileum was then approximated to the transverse mesocolon to close the mesenteric defect using interrupted 3-0 silk sutures. Abdomen was then thoroughly irrigated with saline solution and suctioned dry. Wounds were checked for hemostasis. Omentum was brought down to cover the small bowel. Fascia was then closed in the midline using a running looped 0 PDS suture. All incisions were closed using skin eloy. Sterile dressings were then applied. The patient tolerated the procedure well. Sponge, instrument, and needle counts reported as correct. The patient was transferred to PACU in stable condition. Colon Resection Tumor location: Right colon, Hepatic flexure and Transverse colon Extent of lymphovascular resection Right colon (cecum and ascending colon): Ileocecal artery Transverse colon: Middle colic artery Procedure performed with curative intent?: Yes General Surg. - Synoptic Notes Colon Resection Tumor location: Right colon, Hepatic flexure and Transverse colon Extent of Lymphovascular Resection: Right colon (cecum and ascending colon): Ileocecal artery Transverse colon: Middle colic artery Procedure performed with curative intent?: Yes
--- NOTE | 2024-12-10 13:44 | P.PNIM_ITS ---
Subjective Subjective Date of Service: 12/10/24 Interval History: mild pain Physical Exam 2 Exam: Exam: General: AO X 3, no acute distress Resp: CTA bilateral, no accessory muscles used CVS: S1,S2,RRR GI: soft, non tender, non distended Neuro: motor grossly intact, alert Psych: appropriate affect, appropriate insight Vital Signs: Vital Signs: Last Vital Signs Temp 97.2 F 12/10/24 13:32 Pulse 63 12/10/24 13:32 Resp 20 12/10/24 13:32 BP 171/72 H 12/10/24 13:32 Pulse Ox 97 12/10/24 13:32 O2 Del Method Nasal Cannula wit h Capnography 12/10/24 12:58 O2 Flow Rate 2 12/10/24 12:58 BMI result Body Mass Index 28.2 Objective Data Active Medications Amlodipine Besylate (Amlodipine Besylate 2.5 Mg Tablet) 2.5 mg PO DAILY [facility]; Protocol Calcium Carbonate (Calcium Carbonate 750 Mg Tab.Chew) 750 mg PO Q4H PRN PRN Reason: Heartburn Lactated Ringer's (Lr) 1,000 mls @ 75 mls/hr IVCONT .[id number] [facility] Last Admin: 12/09/24 22:38 Dose: 75 mls/hr Documented By: ANUPAMA Amiodarone HCl 900 mg/ Sodium (Chloride) 518 mls @ 17.267 mls/hr IVCONT .Q24H [facility]; Protocol Last Admin: 12/10/24 12:58 Dose: 0.5 mg/min, 17.27 mls/hr Documented By: OK Acetaminophen (Ofirmev) 1,000 mg in 100 mls @ 400 mls/hr IV Q6H [facility] Magnesium Hydroxide (Milk Of Magnesia 30 Ml Oral.Susp) 30 ml PO DAILY PRN PRN Reason: Constipation Melatonin (Melatonin 3 Mg Tablet) 6 mg PO BEDTIME PRN PRN Reason: Insomnia Morphine Sulfate (Morphine Sulfate 4 Mg/Ml Cartridge) 4 mg IVPUSH Q4H PRN; Protocol PRN Reason: Pain, Severe (Pain Scale 7-10) Ondansetron HCl (Ondansetron Hcl 4 Mg/2 Ml Vial) 4 mg IVPUSH Q8H PRN PRN Reason: Nausea and Vomiting Oxycodone HCl (Oxycodone Hcl Immed Release 5 Mg Tablet) 5 mg PO Q4H PRN PRN Reason: Pain, Moderate(Pain Scale 4-6) Prochlorperazine Edisylate (Prochlorperazine Edisylate 10 Mg/2 Ml Vial) 5 mg IVPUSH Q6H PRN PRN Reason: Nausea and Vomiting Sodium Chloride (0.9 % Sodium Chloride Flush 3 Ml Syringe) 3 ml IVFLUSH [facility] Last Admin: 12/09/24 23:57 Dose: Not Given Documented By: TIMO Non-Admin Reason: Duplicate Order Sodium Chloride (0.9 % Sodium Chloride Flush 3 Ml Syringe) 3 ml IVFLUSH [facility] Last Admin: 12/09/24 23:57 Dose: Not Given Documented By: TIMO Non-Admin Reason: IV Running Labs 12/10/24 03:16 12/10/24 03:16 Labs: Laboratory Results - last 24 hr 12/09/24 12/09/24 12/10/24 16:53 19:20 03:16 MCV 75.2 L 73.8 L MCH 23.7 L 23.9 L MCHC 31.5 32.4 RDW 14.6 14.6 Plt Count 356 273 MPV 9.5 9.4 Immature Gran % (Auto) 0.3 0.2 Neut % (Auto) 89.0 H 79.3 H Lymph % (Auto) 6.3 L 13.2 L [place] % (Auto) 3.6 6.2 Eos % (Auto) 0.5 0.7 Baso % (Auto) 0.3 0.4 Lymph # (Auto) 0.6 L 1.1 L [place] # (Auto) 0.4 0.5 Eos # (Auto) 0.1 0.1 Baso # (Auto) 0.0 0.0 Abs Immat Gran (auto) 0.03 0.02 Absolute Neuts (auto) 9.1 H 6.8 Absolute Nucleated RBC 0.000 0.000 Nucleated RBC % (auto) 0.0 0.0 PT 10.4 L INR 0.9 Anion Gap 14 11 L Estim Creat Clear Calc 27.4 28.4 Estimated GFR 33 35 Random Glucose 108 98 Calcium 9.1 8.3 L D Magnesium 2.3 Total Bilirubin 0.7 0.7 AST 17 19 ALT 9 6 Alkaline Phosphatase 102 88 Total Protein 6.9 6.2 L Albumin 4.4 3.7 Urine Color Yellow Urine Appearance Clear Urine pH 5.5 Ur Specific [place] 1.020 Urine Protein 30 (1+) H Urine Glucose (UA) Negative Urine Ketones Negative Urine Blood Negative Urine Nitrite Negative Ur Leukocyte Esterase Negative Urine RBC 0-2 Urine WBC 0-5 Ur Squamous Epith Cells 3-5 Urine Bacteria None Seen Hyaline Casts 3-5 Assessment and Plan (1) Paroxysmal A-fib: Status: Acute Plan 84M PMH ckd3, pafib, gerd, htn, hld, new diagnosis of colon cancer admitted for aflutter with rvr in preop for partial colectomy paflutter with rvr continue amio, follow up cardiology colon cancer s/p partial colectomy today surgery following advancing to clears ckd III stable, monitor htn amlodipine dvt prophylaxis - lovenox full code reason for continued hospitalization:postop Quality Stroke Does the patient have a stroke diagnosis?: No VTE Prior VTE?: No VTE Risk Level:: Medical - moderate - high VTE Device Contraindication: N/A - Device Ordered VTE Drug Contraindication: Treatment Not Indicated
[2024-12-10] MEDS: 0.9 % Sodium Chloride Flush 3 ML SYRINGE IVFLUSH (14:07)
[2024-12-10] MEDS: Lactated Ringers 1,000 ML 75 ML IVCONT (14:08)
--- NOTE | 2024-12-10 14:19 | PC.NURSE ---
recieved pt at 1320. pt has amiodarone gtt running at 0.5mg/ min per jul. per fashion journalist, the order got dropped off between ED and OR process. MD notified and new order entered by MD. per fashion journalist, med has been running nonstop. called pharmacist regarding difference in end time of this med as med was scanned but it was still the old bag but in jul it has appeared as a new nag was hung. will change this bag shortly when it is ended.
--- NOTE | 2024-12-10 14:41 | MHC.CM.PN ---
Jonathan FLETCHER 12/10. Pt self-care, lives at home with his /HCP Alma Delia Rizzo, she will transport him home at discharge. Copy of HCP requested. PCP: Dr. Flako Hernández (MD is retired, pt will call to set up a new PCP appointment).
[2024-12-11] VITALS (7 sets, daily range): BP systolic 136–167; BP diastolic 65–84; PULSE 72–114; RESP 16–20; TEMP 36.2–37.7; O2SAT 94–98
[2024-12-11] MEDS: Lactated Ringers 1,000 ML 75 ML IVCONT (04:42)
[2024-12-11 06:59] LABS: Hematocrit 30.6 % (42.0-52.0); Hemoglobin 9.7 g/dl (14.0-18.0); Mean Corpuscular HGB Conc 31.7 g/dl (31.0-36.0); Mean Corpuscular Hemoglobin 23.6 pg (27.0-33.0); Mean Corpuscular Volume 74.5 fL (80.0-98.0); NRBC Abs Auto 0.000 X10*3/uL (0.0-0.012); NRBC Pct Auto 0.0 /100WBC (0.0-0.2); Platelet Count 278 X10*3/uL (160-400); Red Blood Count 4.11 X10*6/uL (4.60-5.80); White Blood Count 9.8 X10*3/uL (4.8-10.8)
--- NOTE | 2024-12-11 07:01 | P.PNGS_ITS ---
Subjective Subjective Date of Service: 12/11/24 <Miriam Garcia - Last Filed: 12/11/24 07:28> 12/11/24 <Bill Vickers PA-C - Last Filed: 12/11/24 08:06> Interval history: 84 yo male post op day 1 s/p extended right hemicolectomy, with ileo transverse colonic anastomosis. Pt reports pain when belching and needed tylenol overnight for it. He describes the pain as a 2-3/10 now. He does not have pain at rest. Pt denies nausea and vomiting. He has not passed flatus but states his stomach is gurgling. He has not had a BM and urine output is 110mL. Incisions are dry, clean and intact. Pt is not ambulatory but would like to start walking. <Miriam Garcia - Last Filed: 12/11/24 07:28> Physical Exam 2 Vital Signs: Vital Signs: Last Vital Signs Temp 98.8 F 12/11/24 04:00 Pulse 72 12/11/24 04:00 Resp 16 12/11/24 04:00 BP 150/82 H 12/11/24 04:00 Pulse Ox 95 12/11/24 04:00 O2 Del Method Room Air 12/11/24 04:00 O2 Flow Rate 2 12/10/24 12:58 BMI result Body Mass Index 28.2 <Miriam Garcia - Last Filed: 12/11/24 07:28> Const: General: comfortable and no acute distress <YAZMIN Cramer Last Filed: 12/11/24 08:06> Orientation/consciousness: patient oriented x3 <YAZMIN Cramer Last Filed: 12/11/24 08:06> Resp: Effort & Inspection: normal respiratory effort and able to speak in complete sentences <YAZMIN Cramer Last Filed: 12/11/24 08:06> GI: Other: LBowel sounds present in all four quadrants. Pt reports pain on palpation in LUQ, LLQ, and RLQ. <Miriam Garcia - Last Filed: 12/11/24 07:28> Inspection: Yes incision <Miriam Pearce Last Filed: 12/11/24 07:28> Inspection: Yes incision (dressings in place, no strikethrough) <Bill Vickers PA-C - Last Filed: 12/11/24 08:06> Palpation (GI): Tenderness to palpation present (GI) <Miriam Garcia - Last Filed: 12/11/24 07:28> Palpation (GI): Soft to palpation, Tenderness to palpation present (GI) (tender throughout to light palpation) and Guarding due to palpation present (GI) (voluntary) <Bill Vickers PA-C - Last Filed: 12/11/24 08:06> Neuro: General: patient oriented x3 <Bill Vickers PA-C - Last Filed: 12/11/24 08:06> Objective Data Active Medications Amlodipine Besylate (Amlodipine Besylate 2.5 Mg Tablet) 2.5 mg PO DAILY [facility]; Protocol Last Admin: 12/10/24 14:07 Dose: 2.5 mg Documented By: SARABJIT Calcium Carbonate (Calcium Carbonate 750 Mg Tab.Chew) 750 mg PO Q4H PRN PRN Reason: Heartburn Enoxaparin Sodium (Enoxaparin Sodium 30 Mg/0.3 Ml Syringe) 30 mg SUBCUT Q24H [facility] Last Admin: 12/10/24 15:30 Dose: 30 mg Documented By: SARABJIT Lactated Ringer's (Lr) 1,000 mls @ 75 mls/hr IVCONT .[id number] [facility] Last Admin: 12/11/24 04:42 Dose: 75 mls/hr Documented By: ARIEL Acetaminophen (Ofirmev) 1,000 mg in 100 mls @ 400 mls/hr IV Q6H [facility] Last Infusion: 12/11/24 06:26 Dose: Infused Documented By: ARIEL Magnesium Hydroxide (Milk Of Magnesia 30 Ml Oral.Susp) 30 ml PO DAILY PRN PRN Reason: Constipation Melatonin (Melatonin 3 Mg Tablet) 6 mg PO BEDTIME PRN PRN Reason: Insomnia Morphine Sulfate (Morphine Sulfate 4 Mg/Ml Cartridge) 4 mg IVPUSH Q4H [facility]; Protocol PRN Reason: Pain, Severe (Pain Scale 7-10) Ondansetron HCl (Ondansetron Hcl 4 Mg/2 Ml Vial) 4 mg IVPUSH Q8H PRN PRN Reason: Nausea and Vomiting Oxycodone HCl (Oxycodone Hcl Immed Release 5 Mg Tablet) 5 mg PO Q4H PRN PRN Reason: Pain, Moderate(Pain Scale 4-6) Prochlorperazine Edisylate (Prochlorperazine Edisylate 10 Mg/2 Ml Vial) 5 mg IVPUSH Q6H PRN PRN Reason: Nausea and Vomiting Sodium Chloride (0.9 % Sodium Chloride Flush 3 Ml Syringe) 3 ml IVFLUSH [facility] Last Admin: 12/11/24 01:08 Dose: Not Given Documented By: ARIEL Non-Admin Reason: IV Running Sodium Chloride (0.9 % Sodium Chloride Flush 3 Ml Syringe) 3 ml IVFLUSH [facility] Last Admin: 12/11/24 01:23 Dose: Not Given Documented By: ARIEL Non-Admin Reason: IV Running <Miriam Garcia - Last Filed: 12/11/24 07:28> Labs CBC & Chem 7: 12/11/24 06:16 12/11/24 06:16 <Miriam Garcia - Last Filed: 12/11/24 07:28> Labs: Laboratory Results - last 24 hr 12/11/24 06:16 MCV 74.5 L MCH 23.6 L MCHC 31.7 RDW 14.9 Plt Count 278 MPV 9.7 Absolute Nucleated RBC 0.000 Nucleated RBC % (auto) 0.0 <Miriam Garcia - Last Filed: 12/11/24 07:28> Procedures Date of Service Date of Service: 12/11/24 <Miriam Garcia - Last Filed: 12/11/24 07:28> 12/11/24 <Bill Vickers PA-C - Last Filed: 12/11/24 08:06> Progress Note: A&P Assessment and plan (1) S/P right colectomy: Status: Acute <Miriam Garcia - Last Filed: 12/11/24 07:28> Assessment and Plan: Continue diet as is until BM. <Miriam Garcia - Last Filed: 12/11/24 07:28> Continue diet as is until BM. 84 yo male post op day 1 s/p extended right hemicolectomy, with ileo transverse colonic anastomosis. Overall patient is doing well. He has significant pain in the abdomen, localized around the incision sites. Tolerating clears, but has been takign it slow. Denies n.v with diet. NO return of bowel function at this time. Zaman remains in place. Abdomen is tender to palpation, nondistended. Incision dressings remain in place, intact, no strikethrough. Will d/c zaman Ambulation with assistance, spirometry as tolerated 10/hr continue clear liquid diet. <Bill Vickers PA-C - Last Filed: 12/11/24 08:06> Time Spent With Patient Time: Total time managing care of this patient today ____ minutes. <Miriam Garcia - Last Filed: 12/11/24 07:28> Quality Stroke Does the patient have a stroke diagnosis?: No <Miriam Garcia - Last Filed: 12/11/24 07:28> VTE Prior VTE?: No <Miriam Garcia - Last Filed: 12/11/24 07:28> VTE Risk Level:: Medical - moderate - high <Miriam Garcia - Last Filed: 12/11/24 07:28> VTE Device Contraindication: N/A - Device Ordered <Miriam Garcia - Last Filed: 12/11/24 07:28> VTE Drug Contraindication: Treatment Not Indicated <Miriam Garcia - Last Filed: 12/11/24 07:28>
[2024-12-11 07:12] LABS: Anion Gap 10 (12-20); Blood Urea Nitrogen 16 mg/dL (9-16); Calcium 8.0 mg/dL (8.4-10.2); Carbon Dioxide 23 mmol/L (22-29); Chloride 111 mmol/L (96-108); Creatinine Clr Calc Pharmacy 33.9; Estimated Glomerular Filt Rate 38; Magnesium 2.1 mg/dL (1.6-2.6); Potassium 4.1 mmol/L (3.3-5.1); Sodium 140 mmol/L (135-145)
--- NOTE | 2024-12-11 08:09 | PC.NURSE ---
per order, zaman cath removed at 0800. pt dt void at [id number]
--- NOTE | 2024-12-11 08:53 | HO.POSTANES ---
Post Anesthesia Evaluation Post Anesthesia Evaluation Date of Service: 12/11/24 Vital Signs: Vital Signs Temp Pulse Resp BP Pulse Ox O2 Del Method 12/11/24 07:06 98.7 F 73 20 167/69 H 94 Room Air 12/11/24 04:00 98.8 F 72 16 150/82 H 95 Room Air 12/11/24 00:00 99.9 F 74 16 140/65 H 95 Room Air Anesthesia: Nerve Block and General Mental Status: Awake Pain Control: Satisfactory Nausea/Vomiting: None Hydration: Adequate Anesthesia-Related Issues: No Anes. Related Issues
--- NOTE | 2024-12-11 09:53 | P.PNIM_ITS ---
Subjective Subjective Date of Service: 12/11/24 Interval History: mild pain Physical Exam 2 Vital Signs: Vital Signs: Last Vital Signs Temp 98.7 F 12/11/24 07:06 Pulse 73 12/11/24 07:06 Resp 20 12/11/24 07:06 BP 167/69 H 12/11/24 07:06 Pulse Ox 94 12/11/24 07:06 O2 Del Method Room Air 12/11/24 07:06 O2 Flow Rate 2 12/10/24 12:58 BMI result Body Mass Index 28.2 Const: General: comfortable and no acute distress O rientation/consciousness: patient oriented x3 Resp: Effort & Inspection: normal respiratory effort and able to speak in complete sentences GI: Other: LBowel sounds present in all four quadrants. Pt reports pain on palpation in LUQ, LLQ, and RLQ. Inspection: Yes incision (dressings in place, no strikethrough) P alpation (GI): Soft to palpation, Tenderness to palpation present (GI) (tender throughout to light palpation) and Guarding due to palpation present (GI) (voluntary) Neuro: General: patient oriented x3 Objective Data Active Medications Amiodarone HCl (Amiodarone Hcl 200 Mg Tablet) 400 mg PO BID [facility] Amlodipine Besylate (Amlodipine Besylate 2.5 Mg Tablet) 2.5 mg PO DAILY [facility]; Protocol Last Admin: 12/11/24 07:59 Dose: 2.5 mg Documented By: SARABJIT Calcium Carbonate (Calcium Carbonate 750 Mg Tab.Chew) 750 mg PO Q4H PRN PRN Reason: Heartburn Enoxaparin Sodium (Enoxaparin Sodium 40 Mg/0.4 Ml Syringe) 40 mg SUBCUT Q24H [facility] Lactated Ringer's (Lr) 1,000 mls @ 75 mls/hr IVCONT .[id number] [facility] Last Admin: 12/11/24 04:42 Dose: 75 mls/hr Documented By: ARIEL Acetaminophen (Ofirmev) 1,000 mg in 100 mls @ 400 mls/hr IV Q6H [facility] Last Infusion: 12/11/24 06:26 Dose: Infused Documented By: ARIEL Magnesium Hydroxide (Milk Of Magnesia 30 Ml Oral.Susp) 30 ml PO DAILY PRN PRN Reason: Constipation Melatonin (Melatonin 3 Mg Tablet) 6 mg PO BEDTIME PRN PRN Reason: Insomnia Morphine Sulfate (Morphine Sulfate 4 Mg/Ml Cartridge) 4 mg IVPUSH Q4H [facility]; Protocol PRN Reason: Pain, Severe (Pain Scale 7-10) Ondansetron HCl (Ondansetron Hcl 4 Mg/2 Ml Vial) 4 mg IVPUSH Q8H PRN PRN Reason: Nausea and Vomiting Oxycodone HCl (Oxycodone Hcl Immed Release 5 Mg Tablet) 5 mg PO Q4H PRN PRN Reason: Pain, Moderate(Pain Scale 4-6) Prochlorperazine Edisylate (Prochlorperazine Edisylate 10 Mg/2 Ml Vial) 5 mg IVPUSH Q6H PRN PRN Reason: Nausea and Vomiting Sodium Chloride (0.9 % Sodium Chloride Flush 3 Ml Syringe) 3 ml IVFLUSH [facility] Last Admin: 12/11/24 08:00 Dose: Not Given Documented By: SARABJIT Non-Admin Reason: IV Running Sodium Chloride (0.9 % Sodium Chloride Flush 3 Ml Syringe) 3 ml IVFLUSH [facility] Last Admin: 12/11/24 08:00 Dose: Not Given Documented By: SARABJIT Non-Admin Reason: Duplicate Order Labs 12/11/24 06:16 12/11/24 06:16 Labs: Laboratory Results - last 24 hr 12/11/24 06:16 MCV 74.5 L MCH 23.6 L MCHC 31.7 RDW 14.9 Plt Count 278 MPV 9.7 Absolute Nucleated RBC 0.000 Nucleated RBC % (auto) 0.0 Anion Gap 10 L Estim Creat Clear Calc 33.9 Estimated GFR 38 Random Glucose 120 H Calcium 8.0 L Magnesium 2.1 Assessment and Plan (1) Paroxysmal A-fib: Status: Acute Plan 84M PMH ckd3, pafib, gerd, htn, hld, new diagnosis of colon cancer admitted for aflutter with rvr in preop for right hemicolectomy paflutter with rvr now in sinus continue amio load, follow up cardiology anticoagulation when okay with surgery colon cancer s/p right hemicolectomy 12/10/24 surgery following clears ckd III stable, monitor htn amlodipine dvt prophylaxis - lovenox full code reason for continued hospitalization:postop Quality Stroke Does the patient have a stroke diagnosis?: No VTE Prior VTE?: No VTE Risk Level:: Medical - moderate - high VTE Device Contraindication: N/A - Device Ordered VTE Drug Contraindication: Treatment Not Indicated
--- NOTE | 2024-12-11 10:34 | PM.CNCAR ---
History of Present Illness History of Present Illness Date of Service: 12/11/24 Requesting physician: Lizandro Saxena Consult reason: atrial fibrillation Chief complaint: afib rvr Narrative: I was consulted to see Dutch in cardiology consultation today for atrial fibrillation. Patient is 84-year-old male with recent history of paroxysmal atrial fibrillation difficult control with recurrent episodes came to the office for preoperative evaluation on Monday and was noted to be in rapid atrial flutter at that time. A decision was made to admit him at that point time for rate control and lead him through major surgery for a rectal mass. This could be done in his controlled situation in that point of time. Patient then when he presented to the ED was in sinus rhythm was started on amiodarone drip. He was continued with the amiodarone drip through the surgery maintain sinus rhythm and underwent the major surgery yesterday which included extended right hemicolectomy with ileotransverse colon anastomosis. Patient is having some pain at the site otherwise denies any complaints. Has remained in sinus rhythm. Noted to be having elevated blood pressure. No chest pain, shortness of breath. Currently feeling well. Review of Systems Constitutional: Constitutional: Reports no additional constitutional complaints Eyes: Eyes: Reports no additional eye complaints Cardiovascular: Cardiovascular: Reports no additional cardiovascular complaints Respiratory: Respiratory: Reports no additional respiratory complaints Gastrointestinal: Gastrointestinal: Reports abdominal pain (Surgical site) Genitourinary: Genitourinary: Reports no additional male genitourinary complaints Musculoskeletal: Musculoskeletal: Reports no additional musculoskeletal complaints Integumentary/Breasts: Skin/Breast: Reports system reviewed and no additional complaints, except as docu Neurologic: Reports system reviewed and no additional complaints, except as documented Psychiatric: Psychiatric: Reports no additional psychiatric complaints Endocrine: Endocrine: Reports no additional endocrine complaints Hematologic/Lymphatic: Hematologic/Lymphatic: Reports no additional hematologic/lymphatic complaints [facility] Past Medical History Medical History Arthritis BPH (benign prostatic hyperplasia) Numbness and tingling of both feet Dizziness Syncope (~2020) Colon adenocarcinoma Atrial fibrillation Chronic kidney disease GERD (gastroesophageal reflux disease) High cholesterol HTN (hypertension) Family History Family History Mother Hypertension Breast cancer Father Alcoholic Lung cancer Sister Breast cancer Sister Breast cancer Sister Breast cancer Sister Breast cancer Surgical History Surgical History Hx of colonoscopy (10/01/24) H/O prostate biopsy Hx of cataract extraction History of dental surgery H/O removal of cyst (03/01/22) Social History Social History Household Members: Spouse Housing: House Are you a primary transitional care nurse to a significant other at home: No Do you presently have visiting nurse or other home services: No Comment: counts correct Patient Tobacco Use Status: Former Tobacco user Tobacco use type: Cigarette Use of substances other than those prescribed or required for medical reasons: No Have you been hit, kicked, punched, or otherwise hurt by someone within the past year? If so, by whom?: No Are you DNR?: No Advance Directives: No Advance Directives Information Provided: Yes Advance Directives on File: No service: Yes Current occupational status: retired Meds Allergies Allergy/AdvReac Type Severity Reaction Status Date / Time No Known Allergies Allergy Verified 12/09/24 16:34 Active Medications: Current Medications Amiodarone HCl (Amiodarone Hcl 200 Mg Tablet) 400 mg PO BID [facility] Amlodipine Besylate (Amlodipine Besylate 2.5 Mg Tablet) 2.5 mg PO DAILY [facility]; Protocol Last Admin: 12/11/24 07:59 Dose: 2.5 mg Calcium Carbonate (Calcium Carbonate 750 Mg Tab.Chew) 750 mg PO Q4H PRN PRN Reason: Heartburn Enoxaparin Sodium (Enoxaparin Sodium 40 Mg/0.4 Ml Syringe) 40 mg SUBCUT Q24H [facility] Lactated Ringer's (Lr) 1,000 mls @ 75 mls/hr IVCONT .[id number] [facility] Last Admin: 12/11/24 04:42 Dose: 75 mls/hr Acetaminophen (Ofirmev) 1,000 mg in 100 mls @ 400 mls/hr IV Q6H [facility] Last Infusion: 12/11/24 06:26 Dose: Infused Magnesium Hydroxide (Milk Of Magnesia 30 Ml Oral.Susp) 30 ml PO DAILY PRN PRN Reason: Constipation Melatonin (Melatonin 3 Mg Tablet) 6 mg PO BEDTIME PRN PRN Reason: Insomnia Morphine Sulfate (Morphine Sulfate 4 Mg/Ml Cartridge) 4 mg IVPUSH Q4H [facility]; Protocol PRN Reason: Pain, Severe (Pain Scale 7-10) Ondansetron HCl (Ondansetron Hcl 4 Mg/2 Ml Vial) 4 mg IVPUSH Q8H PRN PRN Reason: Nausea and Vomiting Oxycodone HCl (Oxycodone Hcl Immed Release 5 Mg Tablet) 5 mg PO Q4H PRN PRN Reason: Pain, Moderate(Pain Scale 4-6) Prochlorperazine Edisylate (Prochlorperazine Edisylate 10 Mg/2 Ml Vial) 5 mg IVPUSH Q6H PRN PRN Reason: Nausea and Vomiting Sodium Chloride (0.9 % Sodium Chloride Flush 3 Ml Syringe) 3 ml IVFLUSH [facility] Last Admin: 12/11/24 08:00 Dose: Not Given Sodium Chloride (0.9 % Sodium Chloride Flush 3 Ml Syringe) 3 ml IVFLUSH [facility] Last Admin: 12/11/24 08:00 Dose: Not Given Home Medications ?Medication ?Instructions ?Recorded ?Confirmed ?Last Taken ?Type losartan 50 mg tablet 50 mg PO DAILY 04/27/21 12/09/24 12/08/24 History omeprazole 20 mg capsule,delayed 20 mg PO DAILY@0630 04/27/21 12/09/24 12/09/24 History release atorvastatin 20 mg tablet 20 mg PO BEDTIME 06/08/21 12/09/24 12/08/24 History tizanidine 4 mg tablet 4 mg PO BEDTIME PRN Muscle Spasm 07/11/24 12/09/24 Unknown History amlodipine 2.5 mg tablet 2.5 mg PO DAILY 12/09/24 12/09/24 12/08/24 History finasteride 5 mg tablet 5 mg PO BEDTIME 12/09/24 12/09/24 12/08/24 History Physical Exam Vital Signs: Vital Signs: Last Vital Signs Temp 98.7 F 12/11/24 07:06 Pulse 73 12/11/24 07:06 Resp 20 12/11/24 07:06 BP 167/69 H 12/11/24 07:06 Pulse Ox 94 12/11/24 07:06 O2 Del Method Room Air 12/11/24 07:06 O2 Flow Rate 2 12/10/24 12:58 BMI result Body Mass Index 28.2 Const: General: cooperative, comfortable, no acute distress, alert, awake and Physically active Nutritional Appearance: average body habitus Orientation/consciousness: patient oriented x3 Limitations: no limitations HEENT: Head: Yes normocephalic and Yes atraumatic Neck: Neck: Yes trachea midline, Yes supple and Yes no JVD Resp: Effort & Inspection: normal respiratory effort Auscultation: clear to auscultation bilaterally Cardio: Jugular venous distension: no JVD Palpation: normal PMI Rate: regular rate Rhythm: regular rhythm Heart sounds: S1 normal heart sound present, S2 normal heart sound present, no click, no gallops, no murmurs and no rubs GI: Auscultation: normal bowel sounds Skin: General skin exam: no rashes or lesions noted Neuro: General: patient oriented x3 and no focal motor deficits Extrem: General: Yes no clubbing, cyanosis or edema Objective Labs and Meds 12/11/24 06:16 12/11/24 06:16 Lab results: Laboratory Results - last 24 hr 12/11/24 06:16 WBC 9.8 RBC 4.11 L Hgb 9.7 L Hct 30.6 L MCV 74.5 L MCH 23.6 L MCHC 31.7 RDW 14.9 Plt Count 278 MPV 9.7 Absolute Nucleated RBC 0.000 Nucleated RBC % (auto) 0.0 Sodium 140 Potassium 4.1 Chloride 111 H Carbon Dioxide 23 Anion Gap 10 L BUN 16 Creatinine 1.71 H Estim Creat Clear Calc 33.9 Estimated GFR 38 Random Glucose 120 H Calcium 8.0 L Magnesium 2.1 Assessment and Plan (1) Paroxysmal A-fib: Status: Acute Paroxysmal atrial fibrillation preoperatively which was difficult control admitted for rate control/rhythm control. Has been maintained on amiodarone drip through the surgery and since then has maintain normal sinus rhythm. Doing well with normal sinus rhythm will pursue rhythm control. Switch to p.o. amiodarone 400 mg b.i.d. to complete his loading for the rest of 8-9 days. If okay from surgical perspective also consider oral anticoagulation therapy with Eliquis. Continue blood pressure control. Will follow up as outpatient in 2-4 weeks. (2) HTN (hypertension): Status: Acute Hypertension which remains uncontrolled this morning probably not getting his medications yesterday has been given amlodipine 2.5 mg daily. Monitor. Continue pain control. Can uptitrate amlodipine as tolerated. Will sign of the case. Thank you for allowing me to partake in his care Procedures Date of Service Date of Service: 12/11/24
--- NOTE | 2024-12-11 14:27 | MHC.CM.PN ---
EMR RVIEWED, PT S/P RIGHT HEMICOLECTOMY, PER CARDIO NOTE PT CONT'S TO HAVE UNSTABLE BP, PER HOSPITALIST ANTIC POSSIBLE DC HOME TOMORROW 12/12, CM WILL CONT TO FOLLOW DC NEEDS.
[2024-12-12] VITALS (7 sets, daily range): BP systolic 125–153; BP diastolic 62–84; PULSE 70–118; RESP 16–18; TEMP 36.2–37.3; O2SAT 92–96
[2024-12-12] MEDS: oxyCODONE HCl Immed Release 5 MG TABLET PO ×2 (06:17→15:21)
[2024-12-12] MEDS: 0.9 % Sodium Chloride Flush 3 ML SYRINGE IVFLUSH ×3 (08:19→20:51)
--- NOTE | 2024-12-12 10:13 | P.PNIM_ITS ---
Subjective Subjective Date of Service: 12/12/24 Interval History: no bm Physical Exam 2 Vital Signs: Vital Signs: Last Vital Signs Temp 97.2 F 12/12/24 09:35 Pulse 78 12/12/24 09:35 Resp 16 12/12/24 09:35 BP 153/74 H 12/12/24 09:35 Pulse Ox 96 12/12/24 09:35 O2 Del Method Room Air 12/12/24 09:35 O2 Flow Rate 2 12/10/24 12:58 BMI result Body Mass Index 28.2 Const: General: cooperative, comfortable, no acute distress, alert, awake and Physically active Nutritional Appearance: average body habitus O rientation/consciousness: patient oriented x3 Limitations: no limitations HEENT: Head: Yes normocephalic and Yes atraumatic Neck: Neck: Yes trachea midline, Yes supple and Yes no JVD Resp: Effort & Inspection: normal respiratory effort Auscultation: clear to auscultation bilaterally Cardio: Jugular venous distension: no JVD Palpation: normal PMI Rate: r egular rate Rhythm: regular rhythm Heart sounds: S1 normal heart sound present, S2 normal heart sound present, no click, no gallops, no murmurs and no rubs GI: Auscultation: normal bowel sounds Skin: General skin exam: no rashes or lesions noted Neuro: General: patient oriented x3 and no focal motor deficits Extrem: General: Yes no clubbing, cyanosis or edema Objective Data Active Medications Amiodarone HCl (Amiodarone Hcl 200 Mg Tablet) 400 mg PO BID [facility] Last Admin: 12/12/24 08:18 Dose: 400 mg Documented By: SARABJIT Amlodipine Besylate (Amlodipine Besylate 2.5 Mg Tablet) 2.5 mg PO DAILY [facility]; Protocol Last Admin: 12/12/24 08:18 Dose: 2.5 mg Documented By: SARABJIT Calcium Carbonate (Calcium Carbonate 750 Mg Tab.Chew) 750 mg PO Q4H PRN PRN Reason: Heartburn Enoxaparin Sodium (Enoxaparin Sodium 40 Mg/0.4 Ml Syringe) 40 mg SUBCUT Q24H [facility] Last Admin: 12/11/24 15:01 Dose: 40 mg Documented By: SARABJIT Acetaminophen (Ofirmev) 1,000 mg in 100 mls @ 400 mls/hr IV Q6H [facility] Last Infusion: 12/12/24 06:15 Dose: Infused Documented By: ARIEL Magnesium Hydroxide (Milk Of Magnesia 30 Ml Oral.Susp) 30 ml PO DAILY PRN PRN Reason: Constipation Melatonin (Melatonin 3 Mg Tablet) 6 mg PO BEDTIME PRN PRN Reason: Insomnia Last Admin: 12/11/24 20:16 Dose: 6 mg Documented By: ARIEL Morphine Sulfate (Morphine Sulfate 4 Mg/Ml Cartridge) 4 mg IVPUSH Q4H PRN; Protocol PRN Reason: Pain, Severe (Pain Scale 7-10) Ondansetron HCl (Ondansetron Hcl 4 Mg/2 Ml Vial) 4 mg IVPUSH Q8H PRN PRN Reason: Nausea and Vomiting Oxycodone HCl (Oxycodone Hcl Immed Release 5 Mg Tablet) 5 mg PO Q4H PRN PRN Reason: Pain, Moderate(Pain Scale 4-6) Last Admin: 12/12/24 06:17 Dose: 5 mg Documented By: ARIEL Prochlorperazine Edisylate (Prochlorperazine Edisylate 10 Mg/2 Ml Vial) 5 mg IVPUSH Q6H PRN PRN Reason: Nausea and Vomiting Sodium Chloride (0.9 % Sodium Chloride Flush 3 Ml Syringe) 3 ml IVFLUSH [facility] Last Admin: 12/12/24 08:19 Dose: 3 ml Documented By: SARABJIT Sodium Chloride (0.9 % Sodium Chloride Flush 3 Ml Syringe) 3 ml IVFLUSH [facility] Last Admin: 12/12/24 08:20 Dose: Not Given Documented By: SARABJIT Non-Admin Reason: Duplicate Order Labs 12/11/24 06:16 12/11/24 06:16 Assessment and Plan (1) Paroxysmal A-fib: Status: Acute Plan 84M PMH ckd3, pafib, gerd, htn, hld, new diagnosis of colon cancer admitted for aflutter with rvr in preop for right hemicolectomy pafib with rvr going in and out continue amio load 400mg bid, cardiology following restarting low dose eliquis (age, creatinine) colon cancer s/p right hemicolectomy 12/10/24 surgery following clears ckd III stable, monitor htn amlodipine dvt prophylaxis - lovenox full code reason for continued hospitalization:postop Quality Stroke Does the patient have a stroke diagnosis?: No VTE Prior VTE?: No VTE Risk Level:: Medical - moderate - high VTE Device Contraindication: N/A - Device Ordered VTE Drug Contraindication: Treatment Not Indicated
--- NOTE | 2024-12-12 10:25 | P.PNGS_ITS ---
Subjective Subjective Date of Service: 12/12/24 <Bill Vickers PA-C - Last Filed: 12/12/24 10:39> 12/12/24 <Damian Ward MD - Last Filed: 12/12/24 14:57> Interval history: Doing well today. Pain improving, located around incision, was able to get some sleep last night. Gilbert was discontinued he has been ambulating to the bathroom. He wants to walk around the floor today, just needs some assistance. Tolerating clear diet without symptoms. Denies any fevers. Has been using spirometry. Has not passed gas or bowel movement, denies nausea or vomiting < Bill Vickers PA-C - Last Filed: 12/12/24 10:39> Physical Exam 2 Vital Signs: Vital Signs: Last Vital Signs Temp 97.2 F 12/12/24 09:35 Pulse 78 12/12/24 09:35 Resp 16 12/12/24 09:35 BP 153/74 H 12/12/24 09:35 Pulse Ox 96 12/12/24 09:35 O2 Del Method Room Air 12/12/24 09:35 O2 Flow Rate 2 12/10/24 12:58 BMI result Body Mass Index 28.2 <Bill Vickers PA-C - Last Filed: 12/12/24 10:39> Const: General: comfortable and no acute distress <Bill Vickers PA-C - Last Filed: 12/12/24 10:39> Orientation/consciousness: patient oriented x3 <Bill Vickers PA-C - Last Filed: 12/12/24 10:39> GI: Inspection: No distended <YAZMIN Cramer Last Filed: 12/12/24 10:39> Palpation (GI): Soft to palpation, not firm, Tenderness to palpation present (GI) (Incisional), Guarding due to palpation present (GI) (Voluntary) and not rigid <YAZMIN Cramer Last Filed: 12/12/24 10:39> Neuro: General: patient oriented x3 <YAZMIN Cramer Last Filed: 12/12/24 10:39> Objective Data Active Medications Amiodarone HCl (Amiodarone Hcl 200 Mg Tablet) 400 mg PO BID [facility] Last Admin: 12/12/24 08:18 Dose: 400 mg Documented By: SARABJIT Amlodipine Besylate (Amlodipine Besylate 2.5 Mg Tablet) 2.5 mg PO DAILY [facility]; Protocol Last Admin: 12/12/24 08:18 Dose: 2.5 mg Documented By: SARABJIT Apixaban (Apixaban 2.5 Mg Tablet) 2.5 mg PO BID [facility] Calcium Carbonate (Calcium Carbonate 750 Mg Tab.Chew) 750 mg PO Q4H PRN PRN Reason: Heartburn Enoxaparin Sodium (Enoxaparin Sodium 40 Mg/0.4 Ml Syringe) 40 mg SUBCUT Q24H [facility] Last Admin: 12/11/24 15:01 Dose: 40 mg Documented By: SARABJIT Acetaminophen (Ofirmev) 1,000 mg in 100 mls @ 400 mls/hr IV Q6H [facility] Last Infusion: 12/12/24 06:15 Dose: Infused Documented By: ARIEL Magnesium Hydroxide (Milk Of Magnesia 30 Ml Oral.Susp) 30 ml PO DAILY PRN PRN Reason: Constipation Melatonin (Melatonin 3 Mg Tablet) 6 mg PO BEDTIME PRN PRN Reason: Insomnia Last Admin: 12/11/24 20:16 Dose: 6 mg Documented By: ARIEL Morphine Sulfate (Morphine Sulfate 4 Mg/Ml Cartridge) 4 mg IVPUSH Q4H PRN; Protocol PRN Reason: Pain, Severe (Pain Scale 7-10) Ondansetron HCl (Ondansetron Hcl 4 Mg/2 Ml Vial) 4 mg IVPUSH Q8H PRN PRN Reason: Nausea and Vomiting Oxycodone HCl (Oxycodone Hcl Immed Release 5 Mg Tablet) 5 mg PO Q4H PRN PRN Reason: Pain, Moderate(Pain Scale 4-6) Last Admin: 12/12/24 06:17 Dose: 5 mg Documented By: ARIEL Prochlorperazine Edisylate (Prochlorperazine Edisylate 10 Mg/2 Ml Vial) 5 mg IVPUSH Q6H PRN PRN Reason: Nausea and Vomiting Sodium Chloride (0.9 % Sodium Chloride Flush 3 Ml Syringe) 3 ml IVFLUSH QSHIFT [facility] Last Admin: 12/12/24 08:19 Dose: 3 ml Documented By: HO.PHANLYM Sodium Chloride (0.9 % Sodium Chloride Flush 3 Ml Syringe) 3 ml IVFLUSH QSHIFT [facility] Last Admin: 12/12/24 08:20 Dose: Not Given Documented By: SARABJIT Non-Admin Reason: Duplicate Order <Bill Vickers PA-C - Last Filed: 12/12/24 10:39> Labs CBC & Chem 7: 12/11/24 06:16 12/11/24 06:16 <Bill Vickers PA-C - Last Filed: 12/12/24 10:39> Procedures Date of Service Date of Service: 12/12/24 <Bill Vickers PA-C - Last Filed: 12/12/24 10:39> 12/12/24 <Damian Ward MD - Last Filed: 12/12/24 14:57> Progress Note: A&P Assessment and plan (1) S/P right colectomy: Status: Acute <Bill Vickers PA-C - Last Filed: 12/12/24 10:39> Assessment and Plan: 84 yo male post op day 2 s/p extended right hemicolectomy, with ileo transverse colonic anastomosis. Overall patient is doing well. He pain has improved slightly, now, more comfortable at rest and able to sleep, localized around the incision sites. Tolerating clears, but has been taking it slow. Denies n.v with diet. NO return of bowel function at this time. Gilbert removed yesterday, patient has been urinating appropriately. Abdomen is tender to palpation, nondistended. Incision dressings removed, incisions are clean and dry, eloy remain in place. Ambulation with assistance, spirometry as tolerated 10/hr continue clear liquid diet, we will see patient on afternoon rounds possibly advance diet Okay to resume anticoagulation <Bill Vickers PA-C - Last Filed: 12/12/24 10:39> 84 yo male post op day 2 s/p extended right hemicolectomy, with ileo transverse colonic anastomosis. Overall patient is doing well. He pain has improved slightly, now, more comfortable at rest and able to sleep, localized around the incision sites. Tolerating clears, but has been taking it slow. Denies n.v with diet. NO return of bowel function at this time. Gilbert removed yesterday, patient has been urinating appropriately. Abdomen is tender to palpation, nondistended. Incision dressings removed, incisions are clean and dry, eloy remain in place. Ambulation with assistance, spirometry as tolerated 10/hr continue clear liquid diet, we will see patient on afternoon rounds possibly advance diet Okay to resume anticoagulation Patient remains reasonably comfortable this morning in his tolerating some clears although he is taking very little at this time. He denies any flatus or BM at this time. Agree with the above assessment and plan. 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 Two of 24 lymph nodes positive for metastatic disease (pT3 pN1b). <Damian Ward MD - Last Filed: 12/12/24 14:57> Time Spent With Patient Time: Total time managing care of this patient today ____ minutes. <Bill Vickers PA-C - Last Filed: 12/12/24 10:39> Quality Stroke Does the patient have a stroke diagnosis?: No <Bill Vickers PA-C - Last Filed: 12/12/24 10:39> VTE Prior VTE?: No <Bill Vickers PA-C - Last Filed: 12/12/24 10:39> VTE Risk Level:: Medical - moderate - high <Bill Vickers PA-C - Last Filed: 12/12/24 10:39> VTE Device Contraindication: N/A - Device Ordered <Bill Vickers PA-C - Last Filed: 12/12/24 10:39> VTE Drug Contraindication: Treatment Not Indicated <Bill Vickers PA-C - Last Filed: 12/12/24 10:39>
[2024-12-13] VITALS (8 sets, daily range): BP systolic 115–166; BP diastolic 59–77; PULSE 58–85; RESP 16–20; TEMP 36.2–36.7; O2SAT 94–97
[2024-12-13 07:34] LABS: Hematocrit 31.1 % (42.0-52.0); Hemoglobin 9.8 g/dl (14.0-18.0); Mean Corpuscular HGB Conc 31.5 g/dl (31.0-36.0); Mean Corpuscular Hemoglobin 23.6 pg (27.0-33.0); Mean Corpuscular Volume 74.8 fL (80.0-98.0); NRBC Abs Auto 0.000 X10*3/uL (0.0-0.012); NRBC Pct Auto 0.0 /100WBC (0.0-0.2); Platelet Count 290 X10*3/uL (160-400); Red Blood Count 4.16 X10*6/uL (4.60-5.80); White Blood Count 7.0 X10*3/uL (4.8-10.8)
[2024-12-13 07:41] LABS: Anion Gap 11 (12-20); Blood Urea Nitrogen 16 mg/dL (9-16); Calcium 8.4 mg/dL (8.4-10.2); Carbon Dioxide 24 mmol/L (22-29); Chloride 110 mmol/L (96-108); Creatinine Clr Calc Pharmacy 39.5; Estimated Glomerular Filt Rate 46; Potassium 3.7 mmol/L (3.3-5.1); Sodium 141 mmol/L (135-145)
[2024-12-13] MEDS: 0.9 % Sodium Chloride Flush 3 ML SYRINGE IVFLUSH ×4 (08:25→20:43)
[2024-12-13] MEDS: Milk of Magnesia 30 ML ORAL.SUSP PO (08:25)
--- NOTE | 2024-12-13 09:03 | P.PNGS_ITS ---
Subjective Subjective Date of Service: 12/13/24 <Bill Vickers PA-C - Last Filed: 12/13/24 09:14> 12/13/24 <Damian Ward MD - Last Filed: 12/13/24 11:30> Interval history: doing well today. no actue events overnight. Continued pain in the abdomen. No gas or BM. Tolerating regular diet, denies post prandial n/v, denies at rest. Denies fever or chills. Has been ambulating. <Bill Vickers PA-C - Last Filed: 12/13/24 09:14> Physical Exam 2 Vital Signs: Vital Signs: Last Vital Signs Temp 97.9 F 12/13/24 07:20 Pulse 65 12/13/24 07:20 Resp 18 12/13/24 07:20 BP 166/70 H 12/13/24 08:24 Pulse Ox 95 12/13/24 07:20 O2 Del Method Room Air 12/13/24 07:20 O2 Flow Rate 2 12/10/24 12:58 BMI result Body Mass Index 28.2 <Bill Vickers PA-C - Last Filed: 12/13/24 09:14> Const: General: comfortable and no acute distress <YAZMIN Cramer Last Filed: 12/13/24 09:14> Orientation/consciousness: patient oriented x3 <YAZMIN Cramer Last Filed: 12/13/24 09:14> Resp: Effort & Inspection: normal respiratory effort and able to speak in complete sentences <YAZMIN Cramer Last Filed: 12/13/24 09:14> GI: Other: eloy in place, incisions are clean and dry <Bill Vickers PA-C - Last Filed: 12/13/24 09:14> Inspection: Yes distended (mild) <YAZMIN Cramer Last Filed: 12/13/24 09:14> Palpation (GI): Soft to palpation, not firm, Tenderness to palpation present (GI) (incisional), no guarding and not rigid <YAZMIN Cramer Last Filed: 12/13/24 09:14> Neuro: General: patient oriented x3 <YAZMIN Cramer Last Filed: 12/13/24 09:14> Objective Data Active Medications Amiodarone HCl (Amiodarone Hcl 200 Mg Tablet) 400 mg PO BID [facility] Last Admin: 12/13/24 08:24 Dose: 400 mg Documented By: SCOTTY Amlodipine Besylate (Amlodipine Besylate 2.5 Mg Tablet) 2.5 mg PO DAILY [facility]; Protocol Last Admin: 12/13/24 08:24 Dose: 2.5 mg Documented By: SCOTTY Apixaban (Apixaban 2.5 Mg Tablet) 2.5 mg PO BID [facility] Last Admin: 12/13/24 08:24 Dose: 2.5 mg Documented By: SCOTTY Calcium Carbonate (Calcium Carbonate 750 Mg Tab.Chew) 750 mg PO Q4H PRN PRN Reason: Heartburn Enoxaparin Sodium (Enoxaparin Sodium 40 Mg/0.4 Ml Syringe) 40 mg SUBCUT Q24H [facility] Last Admin: 12/12/24 15:21 Dose: 40 mg Documented By: SARABJIT Acetaminophen (Ofirmev) 1,000 mg in 100 mls @ 400 mls/hr IV Q6H [facility] Last Admin: 12/13/24 04:44 Dose: Not Given Documented By: ELENI Non-Admin Reason: Patient Refused Magnesium Hydroxide (Milk Of Magnesia 30 Ml Oral.Susp) 30 ml PO DAILY PRN PRN Reason: Constipation Last Admin: 12/13/24 08:25 Dose: 30 ml Documented By: SCOTTY Melatonin (Melatonin 3 Mg Tablet) 6 mg PO BEDTIME PRN PRN Reason: Insomnia Last Admin: 12/11/24 20:16 Dose: 6 mg Documented By: ARIEL Morphine Sulfate (Morphine Sulfate 4 Mg/Ml Cartridge) 4 mg IVPUSH Q4H PRN; Protocol PRN Reason: Pain, Severe (Pain Scale 7-10) Ondansetron HCl (Ondansetron Hcl 4 Mg/2 Ml Vial) 4 mg IVPUSH Q8H PRN PRN Reason: Nausea and Vomiting Oxycodone HCl (Oxycodone Hcl Immed Release 5 Mg Tablet) 5 mg PO Q4H PRN PRN Reason: Pain, Moderate(Pain Scale 4-6) Last Admin: 12/12/24 15:21 Dose: 5 mg Documented By: HO.PHANLYM Prochlorperazine Edisylate (Prochlorperazine Edisylate 10 Mg/2 Ml Vial) 5 mg IVPUSH Q6H PRN PRN Reason: Nausea and Vomiting Sodium Chloride (0.9 % Sodium Chloride Flush 3 Ml Syringe) 3 ml IVFLUSH [facility] Last Admin: 12/13/24 08:25 Dose: 3 ml Documented By: SCOTTY Sodium Chloride (0.9 % Sodium Chloride Flush 3 Ml Syringe) 3 ml IVFLUSH [facility] Last Admin: 12/13/24 08:26 Dose: 3 ml Documented By: SCOTTY <Bill Vickers PA-C - Last Filed: 12/13/24 09:14> Labs CBC & Chem 7: 12/13/24 06:35 12/13/24 06:35 <Bill Vickers PA-C - Last Filed: 12/13/24 09:14> Labs: Laboratory Results - last 24 hr 12/13/24 06:35 MCV 74.8 L MCH 23.6 L MCHC 31.5 RDW 15.0 Plt Count 290 MPV 9.4 Absolute Nucleated RBC 0.000 Nucleated RBC % (auto) 0.0 Anion Gap 11 L Estim Creat Clear Calc 39.5 Estimated GFR 46 Random Glucose 92 Calcium 8.4 <Bill Vickers PA-C - Last Filed: 12/13/24 09:14> Procedures Date of Service Date of Service: 12/13/24 <Bill Vickers PA-C - Last Filed: 12/13/24 09:14> 12/13/24 <Damian Ward MD - Last Filed: 12/13/24 11:30> Progress Note: A&P Assessment and plan (1) S/P right colectomy: Status: Acute <Bill Vickers PA-C - Last Filed: 12/13/24 09:14> Assessment and Plan: 84 yo male post op day 3 s/p extended right hemicolectomy, with ileo transverse colonic anastomosis. Overall patient is doing well. He pain has improved slightly, now, more comfortable at rest and able to sleep, localized around the incision sites. Tolerating clears, but has been taking it slow. Denies n.v with diet. NO return of bowel function at this time. Abdomen is tender to palpation, nondistended. Incision dressings removed, incisions are clean and dry, eloy remain in place. 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 Two of 24 lymph nodes positive for metastatic disease (pT3 pN1b). will require oncology follow up as outpt. <Bill Vickers PA-C - Last Filed: 12/13/24 09:14> 84 yo male post op day 3 s/p extended right hemicolectomy, with ileo transverse colonic anastomosis. Overall patient is doing well. He pain has improved slightly, now, more comfortable at rest and able to sleep, localized around the incision sites. Tolerating clears, but has been taking it slow. Denies n.v with diet. NO return of bowel function at this time. Abdomen is tender to palpation, nondistended. Incision dressings removed, incisions are clean and dry, eloy remain in place. 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 Two of 24 lymph nodes positive for metastatic disease (pT3 pN1b). will require oncology follow up as outpt. As noted above, patient is doing well. Awaiting return of bowel function. Pathology results reviewed with the patient today. He expressed understanding. <Damian Ward MD - Last Filed: 12/13/24 11:30> Time Spent With Patient Time: Total time managing care of this patient today ____ minutes. <Bill Vickers PA-C - Last Filed: 12/13/24 09:14> Quality Stroke Does the patient have a stroke diagnosis?: No <Bill Vickers PA-C - Last Filed: 12/13/24 09:14> VTE Prior VTE?: No <Bill Vickers PA-C - Last Filed: 12/13/24 09:14> VTE Risk Level:: Medical - moderate - high <Bill Vickers PA-C - Last Filed: 12/13/24 09:14> VTE Device Contraindication: N/A - Device Ordered <Bill Vickers PA-C - Last Filed: 12/13/24 09:14> VTE Drug Contraindication: Treatment Not Indicated <Bill Vickers PA-C - Last Filed: 12/13/24 09:14>
--- NOTE | 2024-12-13 09:58 | P.PNIM_ITS ---
Subjective Subjective Date of Service: 12/13/24 Interval History: no bm Physical Exam 2 Vital Signs: Vital Signs: Last Vital Signs Temp 97.9 F 12/13/24 07:20 Pulse 65 12/13/24 07:20 Resp 18 12/13/24 07:20 BP 166/70 H 12/13/24 08:24 Pulse Ox 95 12/13/24 07:20 O2 Del Method Room Air 12/13/24 07:20 O2 Flow Rate 2 12/10/24 12:58 BMI result Body Mass Index 28.2 Const: General: comfortable and no acute distress O rientation/consciousness: patient oriented x3 Resp: Effort & Inspection: normal respiratory effort and able to speak in complete sentences GI: Other: eloy in place, incisions are clean and dry Inspection: Yes distended (mild) Palpation (GI): Soft to palpation, not firm, Tenderness to palpation present (GI) (incisional), no guarding and not rigid Neuro: General: patient oriented x3 Objective Data Active Medications Amiodarone HCl (Amiodarone Hcl 200 Mg Tablet) 400 mg PO BID [facility] Last Admin: 12/13/24 08:24 Dose: 400 mg Documented By: SCOTTY Amlodipine Besylate (Amlodipine Besylate 5 Mg Tablet) 5 mg PO DAILY [facility]; Protocol Apixaban (Apixaban 2.5 Mg Tablet) 2.5 mg PO BID [facility] Last Admin: 12/13/24 08:24 Dose: 2.5 mg Documented By: SCOTTY Calcium Carbonate (Calcium Carbonate 750 Mg Tab.Chew) 750 mg PO Q4H PRN PRN Reason: Heartburn Enoxaparin Sodium (Enoxaparin Sodium 40 Mg/0.4 Ml Syringe) 40 mg SUBCUT Q24H [facility] Last Admin: 12/12/24 15:21 Dose: 40 mg Documented By: PHANLOPAL Acetaminophen (Ofirmev) 1,000 mg in 100 mls @ 400 mls/hr IV Q6H [facility] Last Admin: 12/13/24 04:44 Dose: Not Given Documented By: FOGARTB Non-Admin Reason: Patient Refused Magnesium Hydroxide (Milk Of Magnesia 30 Ml Oral.Susp) 30 ml PO DAILY PRN PRN Reason: Constipation Last Admin: 12/13/24 08:25 Dose: 30 ml Documented By: SCOTTY Melatonin (Melatonin 3 Mg Tablet) 6 mg PO BEDTIME PRN PRN Reason: Insomnia Last Admin: 12/11/24 20:16 Dose: 6 mg Documented By: ARIEL Morphine Sulfate (Morphine Sulfate 4 Mg/Ml Cartridge) 4 mg IVPUSH Q4H PRN; Protocol PRN Reason: Pain, Severe (Pain Scale 7-10) Ondansetron HCl (Ondansetron Hcl 4 Mg/2 Ml Vial) 4 mg IVPUSH Q8H PRN PRN Reason: Nausea and Vomiting Oxycodone HCl (Oxycodone Hcl Immed Release 5 Mg Tablet) 5 mg PO Q4H PRN PRN Reason: Pain, Moderate(Pain Scale 4-6) Last Admin: 12/12/24 15:21 Dose: 5 mg Documented By: SARABJIT Prochlorperazine Edisylate (Prochlorperazine Edisylate 10 Mg/2 Ml Vial) 5 mg IVPUSH Q6H PRN PRN Reason: Nausea and Vomiting Sodium Chloride (0.9 % Sodium Chloride Flush 3 Ml Syringe) 3 ml IVFLUSH [facility] Last Admin: 12/13/24 08:25 Dose: 3 ml Documented By: SCOTTY Sodium Chloride (0.9 % Sodium Chloride Flush 3 Ml Syringe) 3 ml IVFLUSH [facility] Last Admin: 12/13/24 08:26 Dose: 3 ml Documented By: SCOTTY Labs 12/13/24 06:35 12/13/24 06:35 Labs: Laboratory Results - last 24 hr 12/13/24 06:35 MCV 74.8 L MCH 23.6 L MCHC 31.5 RDW 15.0 Plt Count 290 MPV 9.4 Absolute Nucleated RBC 0.000 Nucleated RBC % (auto) 0.0 Anion Gap 11 L Estim Creat Clear Calc 39.5 Estimated GFR 46 Random Glucose 92 Calcium 8.4 Assessment and Plan (1) Paroxysmal A-fib: Status: Acute Plan 84M PMH ckd3, pafib, gerd, htn, hld, new diagnosis of colon cancer admitted for aflutter with rvr in preop for right hemicolectomy pafib with rvr going in and out continue amio load 400mg bid, cardiology following restarted low dose eliquis (age, creatinine) colon cancer s/p right hemicolectomy 12/10/24 surgery following clears ckd III stable, monitor htn amlodipine increasing to 5mg daily dvt prophylaxis - lovenox full code reason for continued hospitalization:no bm, still in afib Quality Stroke Does the patient have a stroke diagnosis?: No VTE Prior VTE?: No VTE Risk Level:: Medical - moderate - high VTE Device Contraindication: N/A - Device Ordered VTE Drug Contraindication: Treatment Not Indicated
--- NOTE | 2024-12-13 10:26 | MHC.CM.PN ---
Per ROUNDS discussion, Patient is not yet medically cleared for dc (Afib and needs to have a BM); home is the goal and CM will continue to follow.
[2024-12-14] VITALS (7 sets, daily range): BP systolic 129–162; BP diastolic 63–91; PULSE 57–93; RESP 18–20; TEMP 36.1–37.4; O2SAT 94–97
[2024-12-14] MEDS: 0.9 % Sodium Chloride Flush 3 ML SYRINGE IVFLUSH ×5 (00:04→23:14)
--- NOTE | 2024-12-14 07:27 | P.PNGS_ITS ---
Subjective Subjective Date of Service: 12/14/24 Interval history: Patient reports having difficulty swallowing his pills yesterday and ended up inducing vomiting to remove. Reports not having much of an appetite yesterday. No bowel movement or flatus yet Physical Exam 2 Vital Signs: Vital Signs: Last Vital Signs Temp 97.0 F 12/14/24 04:15 Pulse 63 12/14/24 04:15 Resp 20 12/14/24 04:15 BP 162/74 H 12/14/24 04:15 Pulse Ox 96 12/14/24 04:15 O2 Del Method Room Air 12/14/24 04:15 O2 Flow Rate 2 12/10/24 12:58 BMI result Body Mass Index 28.2 Const: General: no acute distress Nutritional Appearance: well nourished Orientation/consciousness: patient oriented x3 Resp: Effort & Inspection: normal respiratory effort GI: Palpation (GI): Soft to palpation, nontender, no guarding and not rigid Percussion: Yes normal to percussion Auscultation: normal bowel sounds Neuro: General: patient oriented x3 Extrem: General: Yes no pedal edema Objective Data Active Medications Amiodarone HCl (Amiodarone Hcl 200 Mg Tablet) 400 mg PO BID [facility] Last Admin: 12/13/24 20:42 Dose: 400 mg Documented By: MIGDALIA Amlodipine Besylate (Amlodipine Besylate 5 Mg Tablet) 5 mg PO DAILY [facility]; Protocol Apixaban (Apixaban 2.5 Mg Tablet) 2.5 mg PO BID [facility] Last Admin: 12/13/24 20:42 Dose: 2.5 mg Documented By: MIGDALIA Calcium Carbonate (Calcium Carbonate 750 Mg Tab.Chew) 750 mg PO Q4H PRN PRN Reason: Heartburn Enoxaparin Sodium (Enoxaparin Sodium 40 Mg/0.4 Ml Syringe) 40 mg SUBCUT Q24H [facility] Last Admin: 12/13/24 14:43 Dose: 40 mg Documented By: SCOTTY Acetaminophen (Ofirmev) 1,000 mg in 100 mls @ 400 mls/hr IV Q6H [facility] Last Infusion: 12/14/24 06:17 Dose: Infused Documented By: MIGDALIA Magnesium Hydroxide (Milk Of Magnesia 30 Ml Oral.Susp) 30 ml PO DAILY PRN PRN Reason: Constipation Last Admin: 12/13/24 08:25 Dose: 30 ml Documented By: SCOTTY Melatonin (Melatonin 3 Mg Tablet) 6 mg PO BEDTIME PRN PRN Reason: Insomnia Last Admin: 12/11/24 20:16 Dose: 6 mg Documented By: ARIEL Metoprolol Tartrate (Metoprolol Tartrate 25 Mg Tablet) 25 mg PO BID [facility]; Protocol Last Admin: 12/13/24 22:51 Dose: Not Given Documented By: MIGDALIA Non-Admin Reason: Decreased Heart Rate Morphine Sulfate (Morphine Sulfate 4 Mg/Ml Cartridge) 4 mg IVPUSH Q4H PRN; Protocol PRN Reason: Pain, Severe (Pain Scale 7-10) Last Admin: 12/13/24 10:47 Dose: 4 mg Documented By: SCOTTY Ondansetron HCl (Ondansetron Hcl 4 Mg/2 Ml Vial) 4 mg IVPUSH Q8H PRN PRN Reason: Nausea and Vomiting Last Admin: 12/13/24 10:47 Dose: 4 mg Documented By: SCOTTY Oxycodone HCl (Oxycodone Hcl Immed Release 5 Mg Tablet) 5 mg PO Q4H PRN PRN Reason: Pain, Moderate(Pain Scale 4-6) Last Admin: 12/12/24 15:21 Dose: 5 mg Documented By: SARABJIT Prochlorperazine Edisylate (Prochlorperazine Edisylate 10 Mg/2 Ml Vial) 5 mg IVPUSH Q6H PRN PRN Reason: Nausea and Vomiting Sodium Chloride (0.9 % Sodium Chloride Flush 3 Ml Syringe) 3 ml IVFLUSH [facility] Last Admin: 12/14/24 00:04 Dose: 3 ml Documented By: MIGDALIA Sodium Chloride (0.9 % Sodium Chloride Flush 3 Ml Syringe) 3 ml IVFLUSH [facility] Last Admin: 12/14/24 00:04 Dose: 3 ml Documented By: MIGDALIA Labs 12/13/24 06:35 12/13/24 06:35 Labs: Laboratory Results - last 24 hr 12/13/24 06:35 MCV 74.8 L MCH 23.6 L MCHC 31.5 RDW 15.0 Plt Count 290 MPV 9.4 Absolute Nucleated RBC 0.000 Nucleated RBC % (auto) 0.0 Anion Gap 11 L Estim Creat Clear Calc 39.5 Estimated GFR 46 Random Glucose 92 Calcium 8.4 Procedures Date of Service Date of Service: 12/14/24 Progress Note: A&P Assessment and plan (1) S/P right colectomy: Status: Acute (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 Awaiting return of bowel function. Patient is reporting difficulty swallowing pills. We will request nursing swallow evaluation. Encouraged ambulation and incentive spirometry. Continue diet. Time Spent With Patient Time: Total time managing care of this patient today ____ minutes. Quality Stroke Does the patient have a stroke diagnosis?: No VTE Prior VTE?: No VTE Risk Level:: Medical - moderate - high VTE Device Contraindication: N/A - Device Ordered VTE Drug Contraindication: Treatment Not Indicated
[2024-12-14 07:29] LABS: Anion Gap 14 (12-20); Blood Urea Nitrogen 24 mg/dL (9-16); Calcium 8.6 mg/dL (8.4-10.2); Carbon Dioxide 22 mmol/L (22-29); Chloride 108 mmol/L (96-108); Creatinine Clr Calc Pharmacy 36.3; Estimated Glomerular Filt Rate 41; Potassium 4.0 mmol/L (3.3-5.1); Sodium 140 mmol/L (135-145)
[2024-12-14 07:33] LABS: Hematocrit 32.7 % (42.0-52.0); Hemoglobin 10.4 g/dl (14.0-18.0); Mean Corpuscular HGB Conc 31.8 g/dl (31.0-36.0); Mean Corpuscular Hemoglobin 23.7 pg (27.0-33.0); Mean Corpuscular Volume 74.5 fL (80.0-98.0); NRBC Abs Auto 0.000 X10*3/uL (0.0-0.012); NRBC Pct Auto 0.0 /100WBC (0.0-0.2); Platelet Count 322 X10*3/uL (160-400); Red Blood Count 4.39 X10*6/uL (4.60-5.80); White Blood Count 7.3 X10*3/uL (4.8-10.8)
--- NOTE | 2024-12-14 09:45 | HO.PM.IMPN ---
Subjective Subjective Date of Service: 12/14/24 Interval History: no bm Physical Exam Vital Signs: Vital Signs: Last Vital Signs Temp 97.1 F 12/14/24 08:00 Pulse 61 12/14/24 08:00 Resp 18 12/14/24 08:00 BP 136/91 H 12/14/24 08:00 Pulse Ox 96 12/14/24 08:00 O2 Del Method Room Air 12/14/24 08:00 O2 Flow Rate 2 12/10/24 12:58 BMI result Body Mass Index 28.2 Const: General: no acute distress Nutritional Appearance: well nourished Orientation/consciousness: patient oriented x3 Resp: Effort & Inspection: normal respiratory effort GI: Palpation (GI): Soft to palpation, nontender, no guarding and not rigid Percussion: Yes normal to percussion Auscultation: normal bowel sounds Neuro: General: patient oriented x3 Extrem: General: Yes no pedal edema Objective Data Active Medications Amiodarone HCl (Amiodarone Hcl 200 Mg Tablet) 400 mg PO BID [facility] Last Admin: 12/14/24 08:47 Dose: 400 mg Documented By: JACOBO Amlodipine Besylate (Amlodipine Besylate 5 Mg Tablet) 5 mg PO DAILY [facility]; Protocol Last Admin: 12/14/24 08:47 Dose: 5 mg Documented By: JACOBO Apixaban (Apixaban 2.5 Mg Tablet) 2.5 mg PO BID [facility] Last Admin: 12/14/24 08:48 Dose: 2.5 mg Documented By: JACOBO Calcium Carbonate (Calcium Carbonate 750 Mg Tab.Chew) 750 mg PO Q4H PRN PRN Reason: Heartburn Enoxaparin Sodium (Enoxaparin Sodium 40 Mg/0.4 Ml Syringe) 40 mg SUBCUT Q24H [facility] Last Admin: 12/13/24 14:43 Dose: 40 mg Documented By: SCOTTY Acetaminophen (Ofirmev) 1,000 mg in 100 mls @ 400 mls/hr IV Q6H [facility] Last Infusion: 12/14/24 06:17 Dose: Infused Documented By: MIGDALIA Magnesium Hydroxide (Milk Of Magnesia 30 Ml Oral.Susp) 30 ml PO DAILY PRN PRN Reason: Constipation Last Admin: 12/13/24 08:25 Dose: 30 ml Documented By: SCOTTY Melatonin (Melatonin 3 Mg Tablet) 6 mg PO BEDTIME PRN PRN Reason: Insomnia Last Admin: 12/11/24 20:16 Dose: 6 mg Documented By: ARIEL Metoprolol Tartrate (Metoprolol Tartrate 25 Mg Tablet) 25 mg PO BID [facility]; Protocol Last Admin: 12/14/24 08:48 Dose: 25 mg Documented By: JACOBO Morphine Sulfate (Morphine Sulfate 4 Mg/Ml Cartridge) 4 mg IVPUSH Q4H PRN; Protocol PRN Reason: Pain, Severe (Pain Scale 7-10) Last Admin: 12/13/24 10:47 Dose: 4 mg Documented By: SCOTTY Ondansetron HCl (Ondansetron Hcl 4 Mg/2 Ml Vial) 4 mg IVPUSH Q8H PRN PRN Reason: Nausea and Vomiting Last Admin: 12/13/24 10:47 Dose: 4 mg Documented By: SCOTTY Oxycodone HCl (Oxycodone Hcl Immed Release 5 Mg Tablet) 5 mg PO Q4H PRN PRN Reason: Pain, Moderate(Pain Scale 4-6) Last Admin: 12/12/24 15:21 Dose: 5 mg Documented By: SARABJIT Prochlorperazine Edisylate (Prochlorperazine Edisylate 10 Mg/2 Ml Vial) 5 mg IVPUSH Q6H PRN PRN Reason: Nausea and Vomiting Sodium Chloride (0.9 % Sodium Chloride Flush 3 Ml Syringe) 3 ml IVFLUSH [facility] Last Admin: 12/14/24 00:04 Dose: 3 ml Sodium Chloride (0.9 % Sodium Chloride Flush 3 Ml Syringe) 3 ml IVFLUSH [facility] Last Admin: 12/14/24 08:50 Dose: 3 ml Documented By: JACOBO Labs 12/14/24 06:55 12/14/24 06:55 Labs: Laboratory Results - last 24 hr 12/14/24 06:55 MCV 74.5 L MCH 23.7 L MCHC 31.8 RDW 15.0 Plt Count 322 MPV 9.5 Absolute Nucleated RBC 0.000 Nucleated RBC % (auto) 0.0 Anion Gap 14 Estim Creat Clear Calc 36.3 Estimated GFR 41 Random Glucose 93 Calcium 8.6 Assessment and Plan (1) Paroxysmal A-fib: Status: Acute Plan 84M PMH ckd3, pafib, gerd, htn, hld, new diagnosis of colon cancer admitted for aflutter with rvr in preop for right hemicolectomy pafib with rvr now in sinus continue amio load 400mg bid, lopressor 25mg bid restarted low dose eliquis (age, creatinine) colon cancer s/p right hemicolectomy 12/10/24 surgery following clears ckd III stable, monitor htn amlodipine increased to 5mg daily dvt prophylaxis - lovenox full code reason for continued hospitalization:no bm Quality Stroke Does the patient have a stroke diagnosis?: No VTE Prior VTE?: No VTE Risk Level:: Medical - moderate - high VTE Device Contraindication: N/A - Device Ordered VTE Drug Contraindication: Treatment Not Indicated
[2024-12-15 01:00] VITALS: PULSE 60
[2024-12-15] MEDS: 0.9 % Sodium Chloride Flush 3 ML SYRINGE IVFLUSH ×2 (01:27→08:41)
[2024-12-15 04:27] VITALS: BP 168/74; PULSE 59; RESP 20; TEMP 37.1; O2SAT 94
[2024-12-15 06:06] LABS: Hematocrit 31.0 % (42.0-52.0); Hemoglobin 10.1 g/dl (14.0-18.0); Mean Corpuscular HGB Conc 32.6 g/dl (31.0-36.0); Mean Corpuscular Hemoglobin 23.5 pg (27.0-33.0); Mean Corpuscular Volume 72.3 fL (80.0-98.0); NRBC Abs Auto 0.000 X10*3/uL (0.0-0.012); NRBC Pct Auto 0.0 /100WBC (0.0-0.2); Platelet Count 356 X10*3/uL (160-400); Red Blood Count 4.29 X10*6/uL (4.60-5.80); White Blood Count 8.7 X10*3/uL (4.8-10.8)
[2024-12-15 06:22] LABS: Anion Gap 15 (12-20); Blood Urea Nitrogen 30 mg/dL (9-16); Calcium 8.8 mg/dL (8.4-10.2); Carbon Dioxide 23 mmol/L (22-29); Chloride 107 mmol/L (96-108); Creatinine Clr Calc Pharmacy 33.7; Estimated Glomerular Filt Rate 38; Potassium 4.2 mmol/L (3.3-5.1); Sodium 141 mmol/L (135-145)
[2024-12-15 08:00] VITALS: BP 154/70; PULSE 73; RESP 18; TEMP 36.5; O2SAT 93
--- NOTE | 2024-12-15 08:07 | P.DS_ITS ---
DS: Providers Provider Date of Service: 12/15/24 Date of admission: 12/09/24 20:20 Date of discharge: 12/15/24 Primary care physician: Flako Hernández MD Consults: 12/09/24 20:20 Consult to Cardiology Routine Consulting Provider: [facility] [facility] Reason for consultation: aflutter Consult to General Surgery Routine Consulting Provider: [facility] [facility] Reason for consultation: rectal mass DS: Diagnosis Discharge Diagnosis (1) Paroxysmal A-fib: Status: Acute DS: Summary Hospital Course Hospital Course: from initial hpi: 84-year-old male with a past medical history significant for CKD 3, paroxysmal AFib, GERD, HLD, HTN and newly diagnosed colon cancer, who reported to the ED per recommendation of Dr. Vázquez as he was found to be in atrial flutter during his office visit today with RVR. The recommendation was amiodarone drip for stabilization prior to his surgery with Dr. Ward tomorrow. The patient has already started his prep and has been off of the anticoagulation for the past month. He has been nauseous since taking the prep in antibiotics as prescribed. He denies any chest pain, shortness of breath, abdominal pain or urinary sympt oms. hospital course: Patient was admitted for paroxysmal atrial fibrillation with rapid ventricular response. He was started on amiodarone loading of 400 mg b.i.d. he is now mostly in sinus. Is started on metoprolol tartrate 25 mg b.i.d. as well. He has also been restarted on low-dose Eliquis (due to age and elevated creatinine). On discharge we will continue amiodarone loading and follow up with Cardiology. For colon cancer he underwent right hemicolectomy on 12/10/2024. He will follow up with surgery and Oncology as outpatient. Patient's diet was advanced and he is having bowel movements. For CKD 3 creatinine remained stable. For hypertension amlodipine has been increased to 5 mg daily. Patient is feeling better and will be discharged home. Time Attestation Discharge Coordination Time (in mins): 35 Quality: Safe Use of Opioids Does Pt have an Active Cancer Diagnosis on the Problem List?: No Quality: Stroke Does the patient have a stroke diagnosis?: No Physical Exam Exam: Exam: General: AO X 3, no acute distress Resp: CTA bilateral, no accessory muscles used CVS: S1,S2,RRR GI: soft, non tender, non distended Neuro: motor grossly intact, alert Psych: appropriate affect, appropriate insight Vital Signs: Vital Signs: Last Vital Signs Temp 98.7 F 12/15/24 04:27 Pulse 59 12/15/24 04:27 Resp 20 12/15/24 04:27 BP 168/74 H 12/15/24 04:27 Pulse Ox 94 12/15/24 04:27 O2 Del Method Room Air 12/15/24 04:27 O2 Flow Rate 2 12/10/24 12:58 BMI result Body Mass Index 28.2 DS: Data Data Completed and Pending Completed studies during hospitalization [Text1]: Pending at discharge 12/10/24 11:42 Surgical [PTH] Routine Labs on day of discharge: Laboratory Results - last 24 hr 12/15/24 05:53 WBC 8.7 RBC 4.29 L Hgb 10.1 L Hct 31.0 L MCV 72.3 L MCH 23.5 L MCHC 32.6 RDW 15.2 Plt Count 356 MPV 8.9 L Absolute Nucleated RBC 0.000 Nucleated RBC % (auto) 0.0 Sodium 141 Potassium 4.2 Chloride 107 Carbon Dioxide 23 Anion Gap 15 BUN 30 H Creatinine 1.72 H Estim Creat Clear Calc 33.7 Estimated GFR 38 Random Glucose 110 Calcium 8.8 Discharge Plan Discharge Anticipated Discharge Date/Time: 12/15/24 08:01 Patient Disposition: Home Health Service Discharge Diagnosis: colon ca, afib Referrals: Bety Mahmood MD [Physician, Hematology & Oncology] - 1 Week Damian Ward MD [Physician, General Surgery] - 1 Week Flako Hernández MD [Primary Care Provider, Internal Medicine] - 1 Week Discharge Medications: New amiodarone 200 mg Tablet 400 mg PO BID Qty: 108 0RF Rx Instructions: 400mg twice daily for 10 more days, then decrease to 200mg daily Eliquis 2.5 mg Tablet 2.5 mg PO BID Qty: 180 0RF amlodipine 5 mg Tablet 5 mg PO DAILY Qty: 90 0RF Protocol: Hold for SBP< HOLD for SBP < : 90 oxycodone 5 mg Tablet 5 mg PO Q4H PRN (Reason: Pain, Moderate(Pain Scale 4-6)) Qty: 10 0RF Rx Instructions: Partial Fill upon patient request. metoprolol tartrate 25 mg Tablet 25 mg PO BID Qty: 180 0RF Protocol: Hold for SBP/HR < HOLD for SBP < : 90 HOLD for HR < : 60 Continued finasteride 5 mg tablet 5 mg PO BEDTIME losartan 50 mg tablet 50 mg PO DAILY omeprazole 20 mg capsule,delayed release(DR/EC) 20 mg PO DAILY@0630 atorvastatin 20 mg tablet 20 mg PO BEDTIME tizanidine 4 mg tablet 4 mg PO BEDTIME PRN (Reason: Muscle Spasm) Held amiodarone 200 mg tablet 200 mg PO DAILY 30 Days Qty: 45 1RF Hold Instructions: Resume on 12/25/24. restart after loading dose completed Rx Instructions: take 2 tablets ( 400mg) twice a day for 5 days then reduce dose to 1 tab ( 200mg) daily Discontinued amlodipine 2.5 mg tablet 2.5 mg PO DAILY Discharge Orders: Discharge Order (Routine); Ordered 12/15/24 Ordered By: Lizandro Saxena Diet: Advance to usual diet Activity on Discharge: As tolerated Stand Alone Forms: Patient Portal Discharge page Print Language: Japanese Care Plan Goals: recovery Health Concerns: colon cancer, afib Plan of Treatment: continue amiodarone 400mg bid loading for 10 more days, then decrease to 200mg daily, started on low dose eliquis, increased amlodipnie, started metoprolol tartate follow up with cardiology follow up with oncology regarding colon cancer follow up with surgery for post operative care Assessment: see above
--- NOTE | 2024-12-15 08:15 | PM.PNGS ---
Subjective Subjective Date of Service: 12/15/24 Interval history: Patient feels improved after 2 bowel movements yesterday and today. Feels comfortable to go home today. Physical Exam Vital Signs: Vital Signs: Last Vital Signs Temp 98.7 F 12/15/24 04:27 Pulse 59 12/15/24 04:27 Resp 20 12/15/24 04:27 BP 168/74 H 12/15/24 04:27 Pulse Ox 94 12/15/24 04:27 O2 Del Method Room Air 12/15/24 04:27 O2 Flow Rate 2 12/10/24 12:58 BMI result Body Mass Index 28.2 Const: General: no acute distress Nutritional Appearance: well nourished Orientation/consciousness: patient oriented x3 Limitations: ambulation with walker Resp: Effort & Inspection: normal respiratory effort, no audible wheezes, no cough and no respiratory distress GI: Other: Abdominal incisions are clean, dry and intact without erythema or discharge. Inspection: Yes normal to inspection Palpation (GI): Soft to palpation, nontender and no guarding Skin: Other: Warm and dry, no rash Neuro: General: patient oriented x3 Objective Data Active Medications Amiodarone HCl (Amiodarone Hcl 200 Mg Tablet) 400 mg PO BID [facility] Last Admin: 12/14/24 23:13 Dose: 400 mg Documented By: MIGDALIA Amlodipine Besylate (Amlodipine Besylate 5 Mg Tablet) 5 mg PO DAILY [facility]; Protocol Last Admin: 12/14/24 08:47 Dose: 5 mg Documented By: JACOBO Apixaban (Apixaban 2.5 Mg Tablet) 2.5 mg PO BID [facility] Last Admin: 12/14/24 23:13 Dose: 2.5 mg Documented By: MIGDALIA Calcium Carbonate (Calcium Carbonate 750 Mg Tab.Chew) 750 mg PO Q4H PRN PRN Reason: Heartburn Enoxaparin Sodium (Enoxaparin Sodium 40 Mg/0.4 Ml Syringe) 40 mg SUBCUT Q24H [facility] Last Admin: 12/14/24 13:39 Dose: 40 mg Documented By: JACOBO Acetaminophen (Ofirmev) 1,000 mg in 100 mls @ 400 mls/hr IV Q6H [facility] Last Infusion: 12/15/24 05:50 Dose: Infused Documented By: MIGDALIA Magnesium Hydroxide (Milk Of Magnesia 30 Ml Oral.Susp) 30 ml PO DAILY PRN PRN Reason: Constipation Last Admin: 12/13/24 08:25 Dose: 30 ml Documented By: SCOTTY Melatonin (Melatonin 3 Mg Tablet) 6 mg PO BEDTIME PRN PRN Reason: Insomnia Last Admin: 12/11/24 20:16 Dose: 6 mg Documented By: ARIEL Metoprolol Tartrate (Metoprolol Tartrate 25 Mg Tablet) 25 mg PO BID [facility]; Protocol Last Admin: 12/15/24 01:00 Dose: Not Given Documented By: MIGDALIA Non-Admin Reason: Decreased Heart Rate Morphine Sulfate (Morphine Sulfate 4 Mg/Ml Cartridge) 4 mg IVPUSH Q4H PRN; Protocol PRN Reason: Pain, Severe (Pain Scale 7-10) Last Admin: 12/13/24 10:47 Dose: 4 mg Documented By: SCOTTY Ondansetron HCl (Ondansetron Hcl 4 Mg/2 Ml Vial) 4 mg IVPUSH Q8H PRN PRN Reason: Nausea and Vomiting Last Admin: 12/13/24 10:47 Dose: 4 mg Documented By: SCOTTY Oxycodone HCl (Oxycodone Hcl Immed Release 5 Mg Tablet) 5 mg PO Q4H PRN PRN Reason: Pain, Moderate(Pain Scale 4-6) Last Admin: 12/12/24 15:21 Dose: 5 mg Documented By: SARABJIT Prochlorperazine Edisylate (Prochlorperazine Edisylate 10 Mg/2 Ml Vial) 5 mg IVPUSH Q6H PRN PRN Reason: Nausea and Vomiting Sodium Chloride (0.9 % Sodium Chloride Flush 3 Ml Syringe) 3 ml IVFLUSH [facility] Last Admin: 12/14/24 23:14 Dose: 3 ml Documented By: MIGDALIA Sodium Chloride (0.9 % Sodium Chloride Flush 3 Ml Syringe) [facility] Last Admin: 12/15/24 01:27 Dose: 3 ml Documented By: MIGDALIA Labs 12/15/24 05:53 12/15/24 05:53 Labs: Laboratory Results - last 24 hr 12/15/24 05:53 MCV 72.3 L MCH 23.5 L MCHC 32.6 RDW 15.2 Plt Count 356 MPV 8.9 L Absolute Nucleated RBC 0.000 Nucleated RBC % (auto) 0.0 Anion Gap 15 Estim Creat Clear Calc 33.7 Estimated GFR 38 Random Glucose 110 Calcium 8.8 Procedures Date of Service Date of Service: 12/15/24 Progress Note: A&P Assessment and plan (1) S/P right colectomy: Status: Acute (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 Patient reports several bowel movements since yesterday in the abdominal pain is much improved. His appetite is still low but improving. He feels comfortable for discharge today. Okay for discharge from my standpoint. I recommended he returned to the office in approximately 1 week. We will arrange oncology evaluation as an outpatient. He should call our office were fever, chills, nausea, vomiting, or increased abdominal pain. He expressed understanding and agrees with the plan. Time Spent With Patient Time: Total time managing care of this patient today ____ minutes. Quality Stroke Does the patient have a stroke diagnosis?: No VTE Prior VTE?: No VTE Risk Level:: Medical - moderate - high VTE Device Contraindication: N/A - Device Ordered VTE Drug Contraindication: Treatment Not Indicated
--- NOTE | 2024-12-15 08:28 | W.MHC.F2F ---
Service Date Service Date: 12/15/24 Encounter Date of encounter: 12/15/24 Reasons for Services Signs and symptoms assessed: weakness due to hopsital stay, postop Reason for assisted: medication management, medication treatment and teach disease management Homebound: Leaving the home is medically contraindicated at this time without the asist of a device and/or another person due th the listed conditions above and below. Reason homebound: weakness related to hospital stay Certification: Based on the above findings, I certify that this patient is confined to the home and needs intermittent assisted care, physical therapy and/or speech therapy, or continues to need occupational therapy. The patient is under my care, and I have initiated the establishment of the plan of care. The patient will be followed by a physician who will periodically review the plan of care. Time Spent With Patient Time: Total time managing care of this patient today ____ minutes.
[2024-12-15 08:42] VITALS: BP 154/70; PULSE 73
--- NOTE | 2024-12-15 10:03 | MHC.CM.PN ---
Per MD patient medically cleared for dc. recommending VNA for SN. However, patient does not currently have a PCP. He saw Dr. Hernández, who has retired and has not been assigned a new PCP. He does not feel he needs VNA at this time. Will call tomorrow to schedule appt w/ new PCP for hospital follow up. He is aware they can order VNA at that time, if he feels he needs it. to transport. [facility]MM delivered.
[2024-12-15 12:00] VITALS: BP 161/73; PULSE 96; RESP 18; TEMP 36.7; O2SAT 97
== END 2024-12-15 15:01 | disposition home or self-care (01) | DRG 330 ==
LOC: HO.ED 19:41 → HO.EDOVER 20:32 → HO.IMC 12-10 07:47
PROVIDERS: Registered Nurse Emergency; Surgery; Admitting Provider Hospitalist; Emergency Provider Emergency Medicine; PCP Internal Medicine; Visit Provider Internal Medicine
PROC: 0DTE0ZZ Resection of Large Intestine, Open Approach (ICD-10-PCS; principal; 2024-12-10 07:30)
DX: C18.4 Malignant neoplasm of transverse colon (principal); I48.92 Unspecified atrial flutter; N18.30 Chronic kidney disease, stage 3 unspecified; I12.9 Hypertensive chronic kidney disease with stage 1 through stage 4 chronic kidney disease, or unspecified chronic kidney disease; K21.9 Gastro-esophageal reflux disease without esophagitis; E78.5 Hyperlipidemia, unspecified; Z79.01 Long term (current) use of anticoagulants; Z79.899 Other long term (current) drug therapy
CPT/HCPCS: 36415; 80048; 80053; 81001; 83735; 84484; 85025; 85027; 85610; 88309; 88341; 88342; 93005; 99285; C9088; J0131; J0282; J1171; J1650; J2270; J2371; J2405; J2704; J2795; J3010; J7120

== ENCOUNTER 2024-12-09 20:20 | Outpatient (BNV) | payer MEDICARE, OTHER, SELFPAY | END 2024-12-10 06:13 | PROVIDERS: Admitting Provider Hospitalist; Emergency Provider Emergency Medicine; PCP Internal Medicine; Visit Provider Internal Medicine Cardiovascular Disease | DX: I44.0 Atrioventricular block, first degree (principal); R00.1 Bradycardia, unspecified | CPT/HCPCS: 93010 ==

== ENCOUNTER → 2024-12-09 20:20 | Outpatient (BNV) | payer MEDICARE, OTHER, SELFPAY | PROVIDERS: Admitting Provider Hospitalist; Emergency Provider Emergency Medicine; PCP Internal Medicine; Visit Provider Internal Medicine Cardiovascular Disease | DX: I48.0 Paroxysmal atrial fibrillation (principal); I10 Essential (primary) hypertension | CPT/HCPCS: 99222; 99499 ==

== ENCOUNTER → 2024-12-09 20:20 | Outpatient (BNV) | payer MEDICARE, OTHER, SELFPAY | PROVIDERS: Admitting Provider Hospitalist; Emergency Provider Emergency Medicine; PCP Internal Medicine; Visit Provider Internal Medicine | DX: I48.92 Unspecified atrial flutter (principal); C18.9 Malignant neoplasm of colon, unspecified; N18.30 Chronic kidney disease, stage 3 unspecified; I48.0 Paroxysmal atrial fibrillation | CPT/HCPCS: 99223; 99233 ==

== ENCOUNTER → 2024-12-09 20:20 | Outpatient (BNV) | payer MEDICARE, OTHER, SELFPAY | PROVIDERS: Admitting Provider Hospitalist; Emergency Provider Emergency Medicine; PCP Internal Medicine; Visit Provider Surgery | DX: Z90.49 Acquired absence of other specified parts of digestive tract (principal) | CPT/HCPCS: 44205; 99024; 99222 ==

== ENCOUNTER 2024-12-20 09:41 | Outpatient (AMB) | payer MEDICARE, OTHER, SELFPAY ==
--- NOTE | 2024-12-20 09:42 | MHC.OFFVIS ---
Vital Signs 12/20/24 09:50 Weight 157 lb BP 160/70 H Blood Pressure Location Rt brachial Position Sitting Pulse 61 Intake Visit Reasons: S/P laparoscopic colectomy Intake Note: Patient is seen in office for post op assessment post extended right hemicolectomy, with ileo transverse colonic anastomosis. Pt c/o: reports incisions healing well. No longer taking rx pain meds. 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 Pathology revealed a 2.2 x 2.2 cm adenocarcinoma, G2, invading pericolic soft tissue with 2 of 24 mesenteric lymph nodes with metastatic disease. All margins free of tumor (pT3 pN1b (AJCC 8th edition)). Results immunostains were negative for mismatch repair defect/Rodrigues syndrome related tumor. Patient feels well but does have some nausea related to his amiodarone. He is tolerating p.o. and having regular bowel movements which he feels are almost normal. He denies any significant abdominal pain. [facility] Medical History Arthritis BPH (benign prostatic hyperplasia) Numbness and tingling of both feet Dizziness Syncope (~2020) Colon adenocarcinoma Atrial fibrillation Chronic kidney disease GERD (gastroesophageal reflux disease) High cholesterol HTN (hypertension) Surgical History Hx of left hemicolectomy (12/10/24) Hx of colonoscopy (10/01/24) H/O prostate biopsy Hx of cataract extraction History of dental surgery H/O removal of cyst (03/01/22) Family History Mother Hypertension Breast cancer Father Alcoholic Lung cancer Sister Breast cancer Sister Breast cancer Sister Breast cancer Sister Breast cancer Social History Household Members: Spouse Housing: House Are you a primary healthcare consultant to a significant other at home: No Do you presently have visiting nurse or other home services: No Comment: pt refused bed alarm Patient Tobacco Use Status: Former Tobacco user Tobacco use type: Cigarette service: Yes Current occupational status: retired Review of Systems Const All systems reviewed & are unremarkable except as noted in HPI and below Physical Exam Vital Signs: Last Vital Signs Pulse 61 12/20/24 09:50 BP 160/70 H 12/20/24 09:50 Const General: comfortable Nutritional Appearance: well nourished Orientation/consciousness: patient oriented x3 Resp Effort & Inspection: normal respiratory effort, no audible wheezes, no cough and no respiratory distress GI Other: Abdominal wounds are clean, dry, and intact. [place] were removed and Steri-Strips applied. Slight ecchymosis noted in the lower abdomen with no evidence of abscess or hematoma. Abdomen is otherwise soft and nondistended. Neuro General: patient oriented x3 Extrem Other: No edema Assessment & Plan Assessment & Plan (1) Adenocarcinoma of transverse colon: Code(s): C18.4 - Malignant neoplasm of transverse colon Category: Medical Plan 84-year-old male patient returning 1 week after discharge from the hospital following hand assisted laparoscopic extended right colectomy for a distal right transverse colon adenocarcinoma with 2 of 24 mesenteric lymph nodes with metastatic disease. He tolerated the procedure well and wounds are healing nicely. I recommended oncology evaluation. He should avoid lifting greater than 10 lb for the next month and return at that time for follow-up wound examination. He is welcome to call sooner for any new concerns. Orders: Referrals Hematology & Oncology Referral C18.4 - Malignant neoplasm of transverse colon Coding Level of Care Code Global (15512) Diagnoses Adenocarcinoma of transverse colon C18.4
--- OUTSIDE RECORDS SUMMARY | 2024-12-20 09:44 | XMS_ITS | Clinical Summary ---
Author Organization [facility] Facility Address [address] [address] Care Team Providers Care Field Service Tech Name Role Phone Flako Hernández MD Primary Care Provider [phone] Allergies No known active allergies Medications atorvastatin [...] to complete this topic Insurance Medicare [facility] Medicare [facility] Care Teams Field Service Tech Relationship Specialty Start Date End Date Flako Hernández MD [address] [place] [address] PCP - General 05/25/20
[2024-12-20 09:50] VITALS: BP 160/70; PULSE 61
== END 2024-12-20 10:05 | disposition home or self-care (01) ==
LOC: HO.HGS 09:41
PROVIDERS: PCP Internal Medicine; Visit Provider Surgery
DX: C18.4 Malignant neoplasm of transverse colon (principal)
CPT/HCPCS: 99024

== ENCOUNTER → 2024-12-20 09:41 | Outpatient (BNVA) | payer MEDICARE, OTHER, SELFPAY | PROVIDERS: PCP Internal Medicine; Visit Provider Surgery | DX: Z48.815 Encounter for surgical aftercare following surgery on the digestive system (principal); C18.4 Malignant neoplasm of transverse colon; C77.2 Secondary and unspecified malignant neoplasm of intra-abdominal lymph nodes; Z90.49 Acquired absence of other specified parts of digestive tract; Z87.891 Personal history of nicotine dependence | CPT/HCPCS: 99212 ==

== ENCOUNTER 2024-12-23 08:39 | Outpatient (AMB) | payer MEDICARE, OTHER, SELFPAY ==
--- OUTSIDE RECORDS SUMMARY | 2024-12-23 08:59 | XMS_ITS | Clinical Summary ---
Author Organization [facility] Facility Address [address] [address] Care Team Providers Care Program Aide Group Work Name Role Phone Flako Hernández MD Primary Care Provider [phone] Allergies No known active allergies Medications atorvastatin [...] to complete this topic Insurance Medicare [facility] Medicare [facility] Care Teams Program Aide Group Work Relationship Specialty Start Date End Date Flako Hernández MD [address] [place] [address] PCP - General 05/25/20
[2024-12-23 09:08] VITALS: BP 114/62; PULSE 52; BMI 23.8
--- NOTE | 2024-12-23 09:08 | MHC.OFFVIS ---
Vital Signs 12/23/24 09:08 Height 5 ft 8 in Weight 156 lb 8.451 oz BMI 23.8 BP 114/62 Blood Pressure Location Lt brachial Position Sitting Pulse 52 Pulse Source Monitor Intake Visit Reasons: 2 month/ echo/ holter Automotive Software Engineer Required: No Allergies No Known Allergies Allergy (Verified 12/23/24 09:13) Medication List - Last Reconciled 12/23/24 by GEM Small amiodarone 200 mg PO DAILY 30 days Held on 12/15/24. Instructions: Resume on 12/25/24. restart after loading dose completed amlodipine 5 mg See Protocol PO DAILY apixaban (Eliquis) 2.5 mg PO BID atorvastatin 20 mg PO BEDTIME finasteride 5 mg PO BEDTIME losartan 50 mg PO DAILY metoprolol tartrate 25 mg See Protocol PO BID omeprazole 20 mg PO DAILY@0630 tizanidine 4 mg PO BEDTIME PRN HPI HPI 2 month/ echo/ holter: Details: Dutch is an 84-year-old male with past medical history of hypertension, CKD, TIA, who recently underwent colonoscopy and was found to have new paroxysmal atrial fibrillation. His colonoscopy was completed and showed evidence of colon mass. He was already on metoprolol which was continued for rate control. He was not started on anticoagulation due to concerns for friability of colon mass. A follow-up Holter monitor did show atrial fibrillation 27% of the time. He was confirmed to be in sinus rhythm then put on amiodarone however on follow-up he had EKG showing atrial flutter. Amiodarone was stopped and that day he was admitted for rate and rhythm control in preparation for planned colon mass resection 12/17/24. Once in sinus rhythm again he was again started on amiodarone for rhythm control. His rhythm remained stable in the perioperative period and he now presents for follow-up. He was started on Eliquis prior to his hospital discharge. Today he reports he has been doing well since his hospital discharge. He has not had any known recurrent atrial fibrillation. He he does not feel any heart palpitations even when told he has AFib. He has no chest discomfort at rest or with activity. No shortness of breath, PND, orthopnea or edema. No lightheadedness, presyncope, syncope. No signs of bleeding. He does have some fatigue. Taking meds as directed. [facility] Medical History Arthritis BPH (benign prostatic hyperplasia) Numbness and tingling of both feet Dizziness Syncope (~2020) Colon adenocarcinoma Atrial fibrillation Chronic kidney disease GERD (gastroesophageal reflux disease) High cholesterol HTN (hypertension) Surgical History Hx of left hemicolectomy (12/10/24) Hx of colonoscopy (10/01/24) H/O prostate biopsy Hx of cataract extraction History of dental surgery H/O removal of cyst (03/01/22) Family History Mother Hypertension Breast cancer Father Alcoholic Lung cancer Sister Breast cancer Sister Breast cancer Sister Breast cancer Sister Breast cancer Social History Household Members: Spouse Housing: House Are you a primary primary care nurse to a significant other at home: No Do you presently have visiting nurse or other home services: No Comment: pt refused bed alarm Patient Tobacco Use Status: Former Tobacco user Tobacco use type: Cigarette service: Yes Current occupational status: retired Review of Systems Const All systems reviewed & are unremarkable except as noted in HPI and below Reports fatigue Card Denies chest pain, Denies chest pain at rest, Denies chest pain with activity, Denies rapid heart rate, Denies leg edema, Denies palpitations, Denies dyspnea, Denies dyspnea on exertion and Denies orthopnea Resp Denies dyspnea and Denies dyspnea on exertion GI Details: recent abdominal surgery. steri strips intact Musc Denies no additional complaints Endo Reports fatigue and Denies palpitations Physical Exam Vital Signs: Last Vital Signs Pulse 52 12/23/24 09:08 BP 114/62 12/23/24 09:08 BMI result Body Mass Index 23.8 Const General: cooperative, healthy appearing, comfortable and no acute distress Orientation/consciousness: patient oriented x3 Neck Neck: Yes normal visual inspection and Yes no JVD Resp Effort & Inspection: normal respiratory effort Auscultation: clear to auscultation bilaterally, no rales, no rhonchi and no wheezes Cardio Rate: bradycardic Rhythm: regular rhythm Heart sounds: S1 normal heart sound present, S2 normal heart sound present, no gallops, no murmurs and no rubs Neuro General: patient oriented x3 Extrem General: Yes normal to inspection and No no pedal edema Psych Appearance: grossly normal Mental Status: mental status grossly normal Speech and movement: Normal speech and movement present Office Procedures EKG Details: Today, read by me sinus bradycardia with 1st degree avb, rate 52, Qtc 412ms [id number], Complete Results Reviewed Results Reviewed: Echo 11/19/24 Conclusions: - 1. Hyperdynamic LV ejection fraction greater than 70% with pseudonormal filling pattern 2. Cardiac valvular Dopplers within normal limits 3. Normal RV systolic pressure 4. Mildly dilated ascending aorta 3.7 cm 5. No gross pericardial effusion Holter monitor 11/19/24 Total monitoring time 3 days. Underlying rhythm is sinus with an average rate of 65/Min. Atrial fibrillation rapid ventricular response noted. Overall burden 27%. Longest episode 19 hours. Fastest 153/Min. Supraventricular ectopy noted with a burden of 1%. Rare ventricular ectopy. No significant pauses or high-grade AV blocks. Patient marker used with sinus bradycardia and supraventricular ectopy Assessment & Plan Assessment & Plan (1) Paroxysmal A-fib: Code(s): I48.0 - Paroxysmal atrial fibrillation Category: Medical Plan: Newer paroxysmal atrial fibrillation. Currently suppressed with use of amiodarone, now on maintenance dose 200 mg daily. EKG done today showing sinus bradycardia with first-degree AV block, rate 52, QTC 412 milliseconds. First-degree AV block is not new for him. Echocardiogram done 11/19/2024 showed EF greater than 70%, normal valves, normal RV, right and left atrium likely dilated. Continue amiodarone 200 mg daily, metoprolol 25 mg b.i.d.. If he does have significant or symptomatic bradycardia then reduce metoprolol dose. Chads Vasc score 3 (5 with reported history of TIA). Continue Eliquis 2.5 mg b.i.d.. (appropriate dose for age and creatinine). Will enter order for labs, liver profile and TSH. CBC order in place. Patient informed to obtain. Cardiology follow-up 3 months, sooner if needed (2) HTN (hypertension): Code(s): I10 - Essential (primary) hypertension Category: Medical Plan: Blood pressure goal less than 130/80, well controlled at this time. No med changes made. Continue metoprolol and losartan. (3) First degree atrioventricular block by electrocardiogram: Code(s): I44.0 - Atrioventricular block, first degree Category: Medical Plan: First-degree AV block noted on EKGs as far back as 2020. Not a new finding for him. (4) Hospital discharge follow-up: Code(s): Z09 - Encounter for follow-up examination after completed treatment for conditions other than malignant neoplasm Category: Medical Plan: Reviewed Plan I discussed with the patient the importance of continuing blood thinners to reduce stroke risk and continue amiodarone and metoprolol to help control atrial fibrillation. We reviewed the need for routine lab tests to monitor liver and thyroid function due to medication use. The patient will follow up with oncology for further cancer treatment planning. Orders: Orders Liver Panel Today I48.0 - Paroxysmal atrial fibrillation TSH reflex Free T4 Today I48.0 - Paroxysmal atrial fibrillation Patient Instructions: - Continue taking blood thinners as prescribed. - Take amiodarone with food to help reduce nausea. - Monitor heart rate and blood pressure at home regularly. - Follow up with oncology for further treatment planning. - Complete routine lab tests as ordered. Patient was informed and verbally consented to the use of an ambient scribe for clinic note documentation during this visit. Visit time spent on chart review, interview, assessment, orders, documentation. Coding Level of Care Code Est Pt Level 4 (44717) Complex EM visit Add On G2211 Diagnoses Paroxysmal A-fib I48.0 HTN (hypertension) I10 First degree atrioventricular block by electrocardiogram I44.0 Hospital discharge follow-up Z09 CPT Codes EKG - CPT: 26368-[id number], Complete ([id number]) Time Spent (min) 32
== END 2024-12-23 09:53 | disposition home or self-care (01) ==
LOC: HO.HCS 08:39
PROVIDERS: PCP Internal Medicine; Visit Provider Nurse Practitioner Family
DX: I48.0 Paroxysmal atrial fibrillation (principal); I10 Essential (primary) hypertension; I44.0 Atrioventricular block, first degree; Z09 Encounter for follow-up examination after completed treatment for conditions other than malignant neoplasm
CPT/HCPCS: 93010; 99214; G2211

== ENCOUNTER → 2024-12-23 08:39 | Outpatient (BNVA) | payer MEDICARE, OTHER, SELFPAY | PROVIDERS: PCP Internal Medicine; Visit Provider Nurse Practitioner Family | DX: I44.0 Atrioventricular block, first degree (principal); I48.0 Paroxysmal atrial fibrillation; I10 Essential (primary) hypertension | CPT/HCPCS: 93005; 99212 ==

== ENCOUNTER 2024-12-25 08:55 | Outpatient (REF) | payer MEDICARE, OTHER, SELFPAY ==
--- OUTSIDE RECORDS SUMMARY | 2024-12-25 09:18 | XMS_ITS | Clinical Summary ---
Author Organization [facility] Facility Address [address] [address] Care Team Providers Care Clinical Cytogeneticist Name Role Phone Flako Hernández MD Primary Care Provider [phone] Allergies No known active allergies Medications atorvastatin [...] age to complete this topic Insurance Medicare [facility] Medicare [facility] Care Teams Clinical Cytogeneticist Relationship Specialty Start Date End Date Flako Hernández MD [address] [place] [address] PCP - General 05/25/20
[2024-12-25 09:47] LABS: Hematocrit 32.7 % (42.0-52.0); Hemoglobin 10.2 g/dl (14.0-18.0); Mean Corpuscular HGB Conc 31.2 g/dl (31.0-36.0); Mean Corpuscular Hemoglobin 23.7 pg (27.0-33.0); Mean Corpuscular Volume 75.9 fL (80.0-98.0); NRBC Abs Auto 0.000 X10*3/uL (0.0-0.012); NRBC Pct Auto 0.0 /100WBC (0.0-0.2); Platelet Count 495 X10*3/uL (160-400); Red Blood Count 4.31 X10*6/uL (4.60-5.80); White Blood Count 6.3 X10*3/uL (4.8-10.8)
[2024-12-25 10:37] LABS: Anion Gap 11 (12-20); Blood Urea Nitrogen 21 mg/dL (9-16); Calcium 9.2 mg/dL (8.4-10.2); Carbon Dioxide 25 mmol/L (22-29); Chloride 111 mmol/L (96-108); Estimated Glomerular Filt Rate 33; Potassium 4.6 mmol/L (3.3-5.1); Sodium 142 mmol/L (135-145)
[2024-12-25 11:00] LABS: Parathyroid Hormone Intact 88.9 pg/mL (8.7-77.1)
== END 2024-12-25 08:56 | disposition home or self-care (01) ==
LOC: HO.LAB 08:55
PROVIDERS: Visit Provider Internal Medicine Hypertension Specialist
DX: I12.9 Hypertensive chronic kidney disease with stage 1 through stage 4 chronic kidney disease, or unspecified chronic kidney disease (principal); N18.30 Chronic kidney disease, stage 3 unspecified
CPT/HCPCS: 36415; 80048; 83970; 85027

== ENCOUNTER 2025-01-02 10:54 | Outpatient (AMB) | payer MEDICARE, OTHER, SELFPAY ==
--- NOTE | 2025-01-02 11:08 | HO.NEPHOV_ITS ---
Vital Signs 01/02/25 11:09 Height 5 ft 8 in Weight 156 lb BMI 23.7 BP 118/50 L Blood Pressure Location Rt brachial Position Sitting Pulse 73 Pulse Source Pulse Oximeter Pulse Oximetry (%) 99 Oxygen Delivery Method Room Air Intake Visit Reasons: 6 MO FU/ Conf Link Trainer Required: No Accompanied by: Self / Same As Patient Allergies No Known Allergies Allergy (Verified 01/02/25 11:11) Medication List - Last Reconciled 01/02/25 by Dillon Olivo MD amiodarone 200 mg PO DAILY 30 days Held on 12/15/24. Instructions: Resume on 12/25/24. restart after loading dose completed amlodipine 5 mg See Protocol PO DAILY apixaban (Eliquis) 2.5 mg PO BID atorvastatin 20 mg PO BEDTIME finasteride 5 mg PO BEDTIME losartan 50 mg PO DAILY metoprolol tartrate 25 mg See Protocol PO BID omeprazole 20 mg PO DAILY@0630 tizanidine 4 mg PO BEDTIME PRN HPI Comments Details: Elderly man with long standing HTN with CKD Here for follow up BP was elevated last visit Amlodipine 2.5 mg was added Home BP has been good No new issues today 01/02/25 The patient is an 84-year-old male presenting for follow-up of chronic kidney disease and hypertension management. Recently diagnosed with colon cancer, the patient underwent surgery after a colonoscopy revealed the tumor. Pathology -clear surgical margins, but 2 lymph nodes was affected. Oncology consultation is scheduled for January 14 to determine further treatment. Blood pressure remains stable with current medications: amiodarone, amlodipine, and losartan. Kidney function tests from December 25 are stable, consistent with past results. MEDICAL HISTORY: - Colon cancer - Hypertension - Chronic kidney disease SURGICAL HISTORY: - Colon cancer resection MEDICATIONS: - Amiodarone for heart condition - Amlodipine for hypertension - Losartan for hypertension DIAGNOSTIC RESULTS: - Labs: Kidney function tests stable, mid-30s, December 25 - Pathology: Tumor margins clear, one lymph node affected [facility] Medical History Arthritis BPH (benign prostatic hyperplasia) Numbness and tingling of both feet Dizziness Syncope (~2020) Colon adenocarcinoma Atrial fibrillation Chronic kidney disease GERD (gastroesophageal reflux disease) High cholesterol HTN (hypertension) Surgical History Hx of left hemicolectomy (12/10/24) Hx of colonoscopy (10/01/24) H/O prostate biopsy Hx of cataract extraction History of dental surgery H/O removal of cyst (03/01/22) Family History Mother Hypertension Breast cancer Father Alcoholic Lung cancer Sister Breast cancer Sister Breast cancer Sister Breast cancer Sister Breast cancer Social History Household Members: Spouse Housing: House Are you a primary anesthesiologist and critical care to a significant other at home: No Do you presently have visiting nurse or other home services: No Comment: pt refused bed alarm Patient Tobacco Use Status: Former Tobacco user Tobacco use type: Cigarette service: Yes Current occupational status: retired Physical Exam Vital Signs: Last Vital Signs Pulse 73 01/02/25 11:09 BP 118/50 L 01/02/25 11:09 Pulse Ox 99 01/02/25 11:09 Oxygen Delivery Method Room Air 01/02/25 11:09 BMI result Body Mass Index 23.7 Results Reviewed Nephrology Results: Hgb, (14.0-18.0) 10.2 g/dl L 12/25/24 WBC, (4.8-10.8) 6.3 X10*3/uL 12/25/24 Plt Count, (160-400) 495 X10*3/uL H Δ 12/25/24 Sodium, (135-145) 142 mmol/L 12/25/24 Potassium, (3.3-5.1) 4.6 mmol/L 12/25/24 Chloride, (96-108) 111 mmol/L H 12/25/24 Carbon Dioxide, (22-29) 25 mmol/L 12/25/24 BUN, (9-16) 21 mg/dL H 12/25/24 Creatinine, (0.5-1.4) 1.96 mg/dL H 12/25/24 Calcium, (8.4-10.2) 9.2 mg/dL 12/25/24 PTH Intact, (8.7-77.1) 88.9 pg/mL H 12/25/24 Urine Protein, (Neg-Trace) 30 (1+) mg/dL H 12/09/24 Assessment & Plan Assessment & Plan (1) HTN (hypertension): Code(s): I10 - Essential (primary) hypertension Category: Medical Plan: Bp well controlled Low salt diet Keep Amlodipine (2) CKD (chronic kidney disease) stage 3, GFR 30-59 ml/min: Code(s): N18.30 - Chronic kidney disease, stage 3 unspecified Category: Medical Plan: Due to hypertensive nephrosclerosis Cr has been stable Avoid nephrotoxins including NSAIDS (3) BPH w urinary obs/LUTS: Code(s): N40.1 - Benign prostatic hyperplasia with lower urinary tract symptoms; N13.8 - Other obstructive and reflux uropathy Category: Medical Plan: Continue follow up with Urology Orders: Orders Basic Metabolic Panel 3 Months I10 - Essential (primary) hypertension, N18.30 - Chronic kidney disease, stage 3 unspecified Coding Level of Care Code Est Pt Level 4 (54843) Diagnoses HTN (hypertension) I10 CKD (chronic kidney disease) stage 3, GFR 30-59 ml/min N18.30 BPH w urinary obs/LUTS N40.1; N13.8
[2025-01-02 11:09] VITALS: BP 118/50; PULSE 73; O2SAT 99; BMI 23.7
--- OUTSIDE RECORDS SUMMARY | 2025-01-02 12:27 | XMS_ITS | Clinical Summary ---
Author Organization [facility] Facility Address [address] [address] Care Team Providers Care District Associate Judge Name Role Phone Flako Hernández MD Primary Care Provider [phone] Allergies No known active allergies Medications atorvastatin [...] age to complete this topic Insurance Medicare [facility] Care Teams District Associate Judge Relationship Specialty Start Date End Date Flako Hernández MD [address] [place] [address] PCP - General 05/25/20
== END 2025-01-02 11:21 | disposition home or self-care (01) ==
LOC: HO.HKA 10:55
PROVIDERS: PCP Internal Medicine; Visit Provider Internal Medicine Hypertension Specialist
DX: I10 Essential (primary) hypertension (principal); N18.30 Chronic kidney disease, stage 3 unspecified; N40.1 Benign prostatic hyperplasia with lower urinary tract symptoms; N13.8 Other obstructive and reflux uropathy
CPT/HCPCS: 99214

== ENCOUNTER → 2025-01-02 10:54 | Outpatient (BNVA) | payer MEDICARE, OTHER, SELFPAY | PROVIDERS: PCP Internal Medicine; Visit Provider Internal Medicine Hypertension Specialist | DX: I12.9 Hypertensive chronic kidney disease with stage 1 through stage 4 chronic kidney disease, or unspecified chronic kidney disease (principal); N18.30 Chronic kidney disease, stage 3 unspecified; N40.1 Benign prostatic hyperplasia with lower urinary tract symptoms; N13.8 Other obstructive and reflux uropathy | CPT/HCPCS: 99212 ==

== ENCOUNTER → 2025-01-06 09:22 | Outpatient (REF) | payer MEDICARE, OTHER, SELFPAY ==
--- NOTE | 2025-01-06 09:24 | HM_ITS ---
* Total monitoring time 3 days. * Underlying rhythm is sinus with an average rate of 54/Min. About 76% of the time, rate < 60/Min. * Rare supraventricular ectopy. * Rare ventricular ectopy. * Junctional escape rhythm at 14:01 at a rate of 56/Min. * No patient markers or diary events. MTDD
--- OUTSIDE RECORDS SUMMARY | 2025-01-06 10:05 | XMS_ITS | Clinical Summary ---
Author Organization [facility] Facility Address [address] [place] [address] Care Team Providers Care Food Production Machine Operator Name Role Phone Flako Hernández MD Primary Care Provider [phone] Allergies No known active allergies Medications atorvastatin [...] age to complete this topic Insurance Medicare [facility] Medicare [facility] Care Teams Food Production Machine Operator Relationship Specialty Start Date End Date Flako Hernández MD [address] [place] [address] PCP - General 05/25/20
== END ==
LOC: HO.CARD 09:22
PROVIDERS: Visit Provider Internal Medicine Cardiovascular Disease
DX: I48.0 Paroxysmal atrial fibrillation (principal); I48.92 Unspecified atrial flutter
CPT/HCPCS: 93242

== ENCOUNTER → 2025-01-06 09:24 | Outpatient (BNV) | payer MEDICARE, OTHER, SELFPAY | PROVIDERS: Visit Provider Internal Medicine | DX: I47.10 Supraventricular tachycardia, unspecified (principal); I49.3 Ventricular premature depolarization | CPT/HCPCS: 93244 ==

== ENCOUNTER → 2025-01-14 15:46 | Outpatient (BNV) | payer MEDICARE, OTHER, SELFPAY | PROVIDERS: Visit Provider Internal Medicine | DX: C18.4 Malignant neoplasm of transverse colon (principal); D50.9 Iron deficiency anemia, unspecified | CPT/HCPCS: 99205; G2211 ==

== ENCOUNTER 2025-01-20 14:30 | Outpatient (AMB) | payer MEDICARE, OTHER, SELFPAY ==
--- NOTE | 2025-01-20 14:32 | A.OFFVIS_ITS ---
Vital Signs 01/20/25 14:41 Height 5 ft 8 in Weight 153 lb BMI 23.3 BP 94/56 L Blood Pressure Location Lt brachial Position Sitting Pulse 123 H Intake Visit Reasons: 1mth S/P laparoscopic colectomy Intake Note: Patient is seen in office for post op assessment post extended right hemicolectomy. Pt c/o:admits to healing as expected, states oncologist Rx Iron meds that are causing him uncontrollable shaking Marine Structural Welder Required: No Accompanied by: Self / Same As Patient Allergies No Known Allergies Allergy (Verified 01/20/25 14:40) Medication List - Last Reconciled 01/20/25 by Damian Ward MD amiodarone 200 mg PO DAILY 30 days Held on 12/15/24. Instructions: Resume on 12/25/24. restart after loading dose completed amlodipine 5 mg (2 x 2.5 mg) PO DAILY apixaban (Eliquis) 2.5 mg PO BID atorvastatin 20 mg PO BEDTIME ferrous sulfate 325 mg PO DAILY finasteride 5 mg PO BEDTIME losartan 50 mg PO DAILY metoprolol tartrate 25 mg See Protocol PO BID omeprazole 20 mg PO DAILY@0630 tizanidine 4 mg PO BEDTIME PRN HPI Comments Details: 84-year-old male patient returning one-month following discharge from hospital after hand assisted laparoscopic extended right colectomy for a transverse colon adenocarcinoma. Pathology revealed a 2.2 x 2.2 cm adenocarcinoma, G2, invading pericolic soft tissue with 2 of 24 mesenteric lymph nodes with metastatic disease. All margins free of tumor (pT3 pN1b (AJCC 8th edition)). Results immunostains were negative for mismatch repair defect/Rodrigues syndrome related tumor. He reports having seen oncology and was placed on iron supplements. He feels the iron supplements are making him shake and keeping him up at night. He is awaiting a PET scan. FOR[facility]LY [facility] Medical History Arthritis BPH (benign prostatic hyperplasia) Numbness and tingling of both feet Dizziness Syncope (~2020) Colon adenocarcinoma Atrial fibrillation Chronic kidney disease GERD (gastroesophageal reflux disease) High cholesterol HTN (hypertension) Surgical History Hx of left hemicolectomy (12/10/24) Hx of colonoscopy (10/01/24) H/O prostate biopsy Hx of cataract extraction History of dental surgery H/O removal of cyst (03/01/22) Family History Mother Hypertension Breast cancer Father Alcoholic Lung cancer Sister Breast cancer Sister Breast cancer Sister Breast cancer Sister Breast cancer Social History Household Members: Spouse Housing: House Are you a primary director of primary care to a significant other at home: No Do you presently have visiting nurse or other home services: No Comment: pt refused bed alarm Patient Tobacco Use Status: Former Tobacco user Tobacco use type: Cigarette service: Yes Current occupational status: retired Physical Exam Vital Signs: Last Vital Signs Pulse 123 H 01/20/25 14:41 BP 94/56 L 01/20/25 14:41 BMI result Body Mass Index 23.3 Const General: comfortable Nutritional Appearance: well nourished Orientation/consciousness: patient oriented x3 Resp Effort & Inspection: normal respiratory effort, no audible wheezes, no cough and no respiratory distress GI Other: Abdominal wounds are clean, dry, and intact. No redness or discharge. Skin Other: Warm, dry, no rash Neuro General: patient oriented x3 Extrem Other: No edema Assessment & Plan Assessment & Plan (1) Adenocarcinoma of transverse colon: Code(s): C18.4 - Malignant neoplasm of transverse colon Category: Medical Plan 84-year-old male patient status post extended right hemicolectomy hand assisted returning for one-month postop visit. He is still weak and not eating well. He denies nausea but does not have a great appetite. He feels the iron may be making him shaky. He is due for a PET scan to workup the colon cancer. I encouraged him to use dietary supplements such as ensure to improve his nutrition. He will follow up in 1 month. Coding Level of Care Code Global (51522) Diagnoses Adenocarcinoma of transverse colon C18.4
[2025-01-20 14:41] VITALS: BP 94/56; PULSE 123; BMI 23.3
--- OUTSIDE RECORDS SUMMARY | 2025-01-20 16:55 | XMS_ITS | Clinical Summary ---
Author Organization [facility] Facility Address [address] [address] Care Team Providers Care [employer] Gra[employer] Plant Operator Name Role Phone Flako Hernández MD Primary Care Provider [phone] Allergies No known active allergies Medications atorvastatin [...] age to complete this topic Insurance Medicare [facility] Medicare [facility] Care Teams [employer] Operator Relationship Specialty Start Date End Date Flako Hernández MD [address] [place] [address] PCP - General 05/25/20
== END 2025-01-20 14:52 | disposition home or self-care (01) ==
LOC: HO.HGS 14:31
PROVIDERS: PCP Internal Medicine; Visit Provider Surgery
DX: C18.4 Malignant neoplasm of transverse colon (principal)
CPT/HCPCS: 99024

== ENCOUNTER → 2025-01-20 14:30 | Outpatient (BNVA) | payer MEDICARE, OTHER, SELFPAY | PROVIDERS: PCP Internal Medicine; Visit Provider Surgery | DX: C18.4 Malignant neoplasm of transverse colon (principal) | CPT/HCPCS: 99212 ==

== ENCOUNTER 2025-01-20 14:58 | Outpatient (REF) | payer MEDICARE, OTHER, SELFPAY ==
[2025-01-20 16:13] LABS: Hematocrit 32.2 % (42.0-52.0); Hemoglobin 10.6 g/dl (14.0-18.0); Mean Corpuscular HGB Conc 32.9 g/dl (31.0-36.0); Mean Corpuscular Hemoglobin 23.6 pg (27.0-33.0); Mean Corpuscular Volume 71.7 fL (80.0-98.0); NRBC Abs Auto 0.000 X10*3/uL (0.0-0.012); NRBC Pct Auto 0.0 /100WBC (0.0-0.2); Platelet Count 233 X10*3/uL (160-400); Red Blood Count 4.49 X10*6/uL (4.60-5.80); White Blood Count 8.0 X10*3/uL (4.8-10.8)
[2025-01-20 16:50] LABS: Alanine Aminotransferase 25 U/L (0-40); Albumin Level 3.6 g/dL (3.5-5.0); Alkaline Phosphatase 106 U/L (39-117); Anion Gap 19 (12-20); Aspartate Amino Transferase 39 U/L (5-37); Blood Urea Nitrogen 88 mg/dL (9-16); Calcium 8.7 mg/dL (8.4-10.2); Carbon Dioxide 20 mmol/L (22-29); Chloride 104 mmol/L (96-108); Estimated Glomerular Filt Rate 11; Potassium 3.3 mmol/L (3.3-5.1); Sodium 140 mmol/L (135-145); Total Protein 6.5 g/dL (6.5-8.0)
[2025-01-20 17:07] LABS: Ferritin 282 ng/mL (20-250)
[2025-01-20 17:25] LABS: Carcinoembryonic Antigen 3.60 ng/mL
--- NOTE | 2025-01-20 18:02 | PM.EVENT ---
I was called with critical lab value of serum creatinine greater than 5. Multiple phone calls were made to reach the patient to no avail. He has no voicemail set up. His contact is says Jazz and her telephone number is the same.
== END 2025-01-20 14:59 | disposition home or self-care (01) ==
LOC: HO.LAB 14:58
PROVIDERS: Visit Provider Internal Medicine
DX: C18.4 Malignant neoplasm of transverse colon (principal)
CPT/HCPCS: 36415; 80053; 82378; 82728; 85027

== ENCOUNTER 2025-01-21 11:04 | Inpatient (IN) | payer MEDICARE, OTHER, SELFPAY ==
[2025-01-21] VITALS (10 sets, daily range): BP systolic 86–111; BP diastolic 43–68; PULSE 84–121; RESP 14–24; TEMP 36.3–37.2; O2SAT 95–98; BMI 22.8
--- NOTE | ~2025-01-21 | FL_ITS ---
EXAMINATION: FL GUIDANCE ONLY HISTORY: Right ureteral stone/Left ureteral stone COMPARISON: Correlation is made with a CT of the abdomen without contrast dated 01/21/2025. TECHNIQUE: Fluoroscopy time: 18.5 seconds. Cumulative Dose: 4.1482 mGy. DAP: 1.8044 mGym2 Images: 3. FINDINGS: Images demonstrate opacification of the distal right ureter, which is normal in caliber. A probable air bubble is noted. A nephroureteral stent is seen on the left. FL/FL guidance in OR IMPRESSION: Fluoroscopy during procedure. Please see procedure report for additional information. Electronically signed by: Ayo Miles MD 01/24/2025 07:05 AM EDT
--- NOTE | ~2025-01-21 | CT_ITS ---
CLINICAL HISTORY: New onset renal failure, rule out hydronephrosis, --- Additional Notes or Special Instructions: Obstruction, Mass, recent transverse colectomy for adenocarcinoma of the colon low bp, pt not rdy @1515 CT abdomen and pelvis without IV contrast. COMPARISON: None provided. FINDINGS: Minimal linear atelectasis along the posterior lower lobes. Mild bronchiectasis along the posterior lower lobes. Coronary artery calcifications present within the LAD, circumflex and RCA. Aortic annular calcifications. Prominent pericardial fat pad. Normal gallbladder. Noncontrast appearance of the spleen, pancreas and adrenal glands are unremarkable. No right-sided hydronephrosis. No right renal calculus. Large calculus of the right UVJ measuring 2.4 x 1.9 x 0.8 cm. Diminutive left kidney. Moderate left hydronephrosis. Of the left UPJ there is a 1.3 x 0.7 x 0.8 cm calculus. More distal left ureter is contracted. Status post partial colectomy. Mild distal colonic diverticulosis without evidence of diverticulitis. T no bowel obstruction. No mesenteric or retroperitoneal lymphadenopathy. Moderate aortoiliac atherosclerotic vascular calcifications. Mild diffuse thickening of the mucosa of the urinary bladder. Prostate is enlarged measuring up to 6.6 cm. Prostate calcifications present. No inguinal lymphadenopathy. Anterior abdominal wall hernia mesh repair. Moderate spondylosis. No acute fracture or suspicious bone lesion. IMPRESSION: 1. Left UPJ calculus measuring up to 1.3 cm causes moderate left hydronephrosis. 2. Nonobstructing calculus of the right UVJ measuring up to 2.4 cm. 3. Diffuse thickening of the mucosa of the urinary bladder can be seen with cystitis or chronic outlet obstruction. Of note there is marked prostatomegaly. 4. Coronary artery atherosclerosis. This document has been electronically signed by: Kenneth Mustafa MD on 01/21/2025 18:27:29
--- NOTE | ~2025-01-21 | US_ITS ---
EXAMINATION: US BLADDER HISTORY: suspected bladder mass COMPARISON: There are no prior studies available for comparison. FINDINGS: Sonographic examination of the urinary bladder was performed before and after voiding. Before voiding, the urinary bladder measured 9.9 x 6.9 x 8.1, for an estimated volume of 290 mL. There is a 2.6 cm bladder calculus. A right ureteral jet is identified. No left ureteral jet is seen. The prostate measures 5.5 x 5.7 x 6.0 cm, for an estimated volume of 99 mL. US/US bladder IMPRESSION: 1. 2.6 cm bladder calculus. 2. Prostate volume of 99 mL. Electronically signed by: Ayo Miles MD 01/22/2025 02:04 PM EDT
--- NOTE | 2025-01-21 11:27 | ECG_ITS ---
Test Reason : TACHYCARDIA Blood Pressure : */* mmHG Vent. Rate : 121 BPM Atrial Rate : * BPM P-R Int : * ms QRS Dur : 74 ms QT Int : 296 ms P-R-T Axes : * 49 247 degrees QTcB Int : 420 ms Atrial fibrillation with rapid ventricular response ST & T wave abnormality, consider inferior ischemia Abnormal ECG When compared with ECG of 10-Dec-2024 06:13, Atrial fibrillation has replaced Sinus rhythm Vent. rate has increased by [address] now depressed in Anterior leads Nonspecific T wave abnormality, worse in Inferior leads T wave inversion now evident in Anterior leads Referred By: Generic ED Physician Electronically Signed By: JULISSA GUERRERO MD
--- NOTE | 2025-01-21 11:40 | ED.GENADULT ---
HPI - General Adult General Chief complaint: Recheck/Abnormal Lab/Rx Stated complaint: Kidney failure, sent by Time Seen by Provider: 01/21/25 12:17 Source: patient and family (: Meggan, granddaughter: Cheyenne Luis-[employer] [facility] [employer] employee ) Mode of arrival: ambulatory Limitations: no limitations History of Present Illness ED Provider: Dr. 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 Mahmood for evaluation of new onset renal failure with a BUN and creatinine of 88 and 5.03 on 01/20/2025 compared to a BUN and creatinine of 21 and 1.96 on 12/25/2024. Patient states that he has lost 40 lb over the last 6 months. States he has had a very poor appetite and very poor fluid intake since his colon surgery. Patient states that last night he had to wake up at least 6 times to urinate but denied dysuria. He denied fever but he did have chills. He has had nausea with no vomiting. He states he has had on and off episodes of diarrhea which he describes as to mushy times a day alternating with hard pellet-like stools. He has not noticed any dark stools or bloody stools. He denied abdominal pain. Related Data Home Medications ?Medication ?Instructions ?Recorded ?Confirmed losartan 50 mg tablet 50 mg PO DAILY 04/27/21 01/21/25 omeprazole 20 mg capsule,delayed 20 mg PO DAILY@0630 04/27/21 01/21/25 release atorvastatin 20 mg tablet 20 mg PO BEDTIME 06/08/21 01/21/25 finasteride 5 mg tablet 5 mg PO BEDTIME 12/09/24 01/21/25 amlodipine 2.5 mg tablet 2.5 mg PO DAILY 01/21/25 01/21/25 Previous Rx's ?Medication ?Instructions ?Recorded amiodarone 200 mg tablet 200 mg PO DAILY 30 days #45 tabs 12/03/24 Held on 12/15/24. Instructions: Resume on 12/25/24. restart after loading dose completed apixaban 2.5 mg tablet (Eliquis) 2.5 mg PO BID #180 tabs 12/15/24 Allergies Allergy/AdvReac Type Severity Reaction Status Date / Time No Known Allergies Allergy Verified 01/21/25 11:23 Review of Systems Review of Systems: Yes all other systems are reviewed and are negative [facility] Past Medical History [facility] Narrative: Social history: He is here in the emergency department with a his and granddaughter. He denies tobacco, alcohol and drug use. Medical History Arthritis BPH (benign prostatic hyperplasia) Numbness and tingling of both feet Dizziness Syncope (~2020) Colon adenocarcinoma Atrial fibrillation Chronic kidney disease GERD (gastroesophageal reflux disease) High cholesterol HTN (hypertension) Surgical History Hx of left hemicolectomy (12/10/24) Hx of colonoscopy (10/01/24) H/O prostate biopsy Hx of cataract extraction History of dental surgery H/O removal of cyst (03/01/22) Family History Family History Mother Hypertension Breast cancer Father Alcoholic Lung cancer Sister Breast cancer Sister Breast cancer Sister Breast cancer Sister Breast cancer Social History Social History Household Members: Spouse Housing: House Are you a primary director of managed care to a significant other at home: No Do you presently have visiting nurse or other home services: No Comment: pt refused bed alarm Patient Tobacco Use Status: Former Tobacco user Tobacco use type: Cigarette Smoked in Last 30 Days: No Use of substances other than those prescribed or required for medical reasons: No Advance Directives: Yes Advance Directives Information Provided: Yes Advance Directives on File: No Nutrition Risks: No Nutritional Risk service: Yes Current occupational status: retired Physical Exam ED Vital Signs: Vital Signs - 24 hr 01/21/25 11:23 01/21/25 12:19 01/21/25 13:51 Temperature 97.4 F 97.7 F Pulse Rate 121 H 118 H 116 H Respiratory Rate 18 14 16 Blood Pressure 105/53 L 91/53 L 91/56 L Pulse Oximetry 98 95 95 Oxygen Delivery Method Room Air Room Air Room Air 01/21/25 14:11 01/21/25 14:21 01/21/25 16:41 Temperature 98.4 F 97.8 F Pulse Rate 116 H 105 H 88 Respiratory Rate 14 20 17 Blood Pressure 86/50 L 93/43 L 94/64 Pulse Oximetry 95 97 95 Oxygen Delivery Method Room Air Room Air Room Air 01/21/25 17:10 01/21/25 18:18 Temperature 97.7 F 98.6 F Pulse Rate 84 98 Respiratory Rate 15 18 Blood Pressure 111/68 111/64 Pulse Oximetry 95 95 Oxygen Delivery Method Room Air Room Air BMI result Body Mass Index 22.8 Vital signs revealed an elevated heart rate of 121 otherwise unremarkable. Exam: General: Awake, alert in no distress Head: Normocephalic, atraumatic EENT: PERRL, Lids normal, sclera normal, conjunctiva normal, nose normal , ears normal, throat without erythema or exudates Neck: Supple, no adenopathy Lung: breath sounds symmetric, no wheezing, rales or rhonchi Chest: symmetric movement, nontender Heart: Tachycardia with an irregular irregular rate, normal S1-S2, no murmurs rubs or gallops Abdomen: soft, non-tender, nondistended, normal bowel sounds Back: no vertebral tenderness, no CVAT Extremities: no deformities, moves all extremities symmetrically, no edema Neuro: Awake, alert, oriented, normal speech, cranial nerves intact, moves all extremities symmetrically Psych: Pleasant, cooperative Course Course Course Narrative: This is an RME: Additional HPI, ROS, PE not included below will be deferred to primary provider. RME assessment and note performed by: Molly Whitehead PA-C This is a 84-year-old male, with a past medical history of paroxysmal atrial fibrillation, chronic stage 3 kidney disease, HTN, HLD and GERD, after being told by Dr. Sutton all at a come in. It appears that Dr. Pace called patient as patient had a serum creatinine greater than 5. Patient reports that he is asymptomatic, feels well, no current concerns. Patient is tachycardic at 121, he is afebrile, asymptomatic. He does have a history of atrial fibrillation. Denies any chest pain or shortness of breath. Dr. Pace had called, reporting that 1 month ago he had surgery, turns out he has stage III colon cancer, and was sent to her practice for chemo considerations however basic labs reveal that he had a creatinine of 5, was around 1 prior to surgery. Sent in for further management. Plan: Labs, EKG, further ER eval needed Medications Administered Generic Name Dose Route Start Last Admin Trade Name Freq PRN Reason Stop Dose Admin Lactated Ringer's 1,000 mls @ 80 mls/hr 01/21/25 18:15 01/21/25 18:16 Lr IVCONT 80 mls/hr .[id number] TOSHIA Administration Discontinued Medications Generic Name Dose Route Start Last Admin Trade Name Freq PRN Reason Stop Dose Admin Ceftriaxone Sodium 1 gm 01/21/25 13:21 01/21/25 14:09 Ceftriaxone Sodium 1 Gm Vial IVPUSH 01/21/25 13:22 1 gm ONCE ONE Administration Lactated Ringer's 1,000 mls @ 999 mls/hr 01/21/25 13:21 01/21/25 15:10 Lr IV 01/21/25 14:21 Infused .Q1H1M STA Infusion Lactated Ringer's 1,000 mls @ 999 mls/hr 01/21/25 13:24 01/21/25 15:11 Lr IV 01/21/25 14:24 Infused .Q1H1M STA Infusion Procedures Procedure Narrative Procedure Narrative: EMERGENCY ULTRASOUND INTERPRETATION-Limited Retroperitoneal (Renal) [This study was ordered, performed, and interpreted by myself. The study reveals: Impression: Mild left-sided hydronephrosis. Incidental finding of irregular heterogeneous mass in the bladder wall with shadowing calcifications centrally. Recommended medical team to pursue with comprehensive renal/bladder ultrasound may or may not need additional imaging such as MRI or formal cystoscopy to better evaluate [Indication: FLANK PAIN Bladder: ANECHOIC URINE. Mass as described above. Right Kidney: NO HYDRONEPHROSIS Left Kidney: Mild hydronephrosis Performed by: Dr. 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 Mahmood for evaluation of new onset renal failure with a BUN and creatinine of 88 and 5.03 on 01/20/2025 compared to a BUN and creatinine of 21 and 1.96 on 12/25/2024. Patient states that he has lost 40 lb over the last 6 months. States he has had a very poor appetite and very poor fluid intake since his colon surgery. Patient states that last night he had to wake up at least 6 times to urinate but denied dysuria. He denied fever but he did have chills. He has had nausea with no vomiting. He states he has had on and off episodes of diarrhea which he describes as to mushy times a day alternating with hard pellet-like stools. He has not noticed any dark stools or bloody stools. He denied abdominal pain. Vital signs revealed elevated pulse of 121 and blood pressure of 105/53 otherwise unremarkable. Exam did reveal an irregularly irregular heart rate consistent with his atrial fibrillation. Exam is otherwise unremarkable. Differential diagnosis: ?Includes but is not limited to acute on chronic kidney disease, prerenal disease, intrinsic kidney disease, autoimmune kidney disease, obstructive kidney disease/abdominal mass, bladder obstruction secondary to mass, anemia, electrolyte abnormalities Course: 13:40 My independent interpretation patient's laboratory evaluation is as follows: Chronic microcytic anemia with an H&H of 10.3 and 32.1 with an MCV of 72. Normal potassium of 3.4. Elevated BUN and creatinine of 84 and 4.9 similar to yesterday's values. CK low 19. Troponin elevated 54.1 with a repeat due at 13:45 hours. Urinalysis was positive for blood, protein and leukocyte esterase. Microscopic revealed 3-5 RBCs, greater than 50 WBCs, 1+ bacteria with no squamous cells. At this time I am concerned that the patient may have prerenal kidney damage on top of the chronic kidney disease since he has had a very poor appetite and not drinking much fluid however an obstructive process and needs to be considered given his recent diagnosis of colon cancer. Patient may also have bladder obstruction secondary to bladder tumor. I did order a CT scan without IV contrast of the abdomen pelvis. Patient was ordered to get lactated Ringer's IV x2 L and ceftriaxone 1 g IV. I will discuss the patient's presentation with his forest management teacher, Dr. Olivo. 18:10 The patient was seen by our forest management teacher Dr. Flores. Dr. Flores did do an ultrasound and felt that the patient had may have left hydronephrosis and may be volume depleted suggesting that his acute kidney injury is caused by acute tubular necrosis. He agreed with the 2 L of LR and then LR at 75 cc/hour. The patient's CT scan of the abdomen and pelvis without IV contrast has been done however there has been difficulty in transferring the images to the radiologist in the reading is not available at this time. I did discuss the patient's presentation over tiger text with the covering hospitalist, Dr. Colin Flores and the patient will be admitted to the hospitalist service for further treatment. Differential Diagnosis Differential Diagnoses: The differential diagnosis associated with the presentation includes (See above) Admission/Observation Consideration of admission/observation: Escalation of care including admission/observation considered (Yes) Consult Healthcare Provider Management of the patient was discussed with: Hospitalist Lab Data MDM Lab Attestation statement: I reviewed the patient's lab results. 01/21/25 11:45 01/21/25 11:45 Labs: Lab Results 01/21/25 01/21/25 01/21/25 Range/Units 11:45 11:46 13:46 WBC 9.3 (4.8-10.8) X10*3/uL RBC 4.46 L (4.60-5.80) X10*6/uL Hgb 10.3 L (14.0-18.0) g/dl Hct 32.1 L (42.0-52.0) % MCV 72.0 L (80.0-98.0) fL MCH 23.1 L (27.0-33.0) pg MCHC 32.1 (31.0-36.0) g/dl RDW 17.1 H (11.0-16.0) % Plt Count 250 (160-400) X10*3/uL MPV 10.8 (9.4-12.4) fL Immature Gran % (Auto) 1.5 H (0.0-0.4) % Neut % (Auto) 86.5 H (45-73) % Lymph % (Auto) 5.3 L (20-40) % [place] % (Auto) 6.5 (2-11) % Eos % (Auto) 0.1 (0-4) % Baso % (Auto) 0.1 (0-2) % Lymph # (Auto) 0.5 L (1.2-4.9) X10*3/uL [place] # (Auto) 0.6 (0.1-1.2) X10*3/uL Eos # (Auto) 0.0 (0.0-0.4) X10*3/uL Baso # (Auto) 0.0 (0.0-0.2) X10*3/uL Abs Immat Gran (auto) 0.14 H (0.00-0.03) X10*3/uL Absolute Neuts (auto) 8.0 (2.0-8.3) x10*3/uL Absolute Nucleated RBC 0.000 (0.0-0.012) X10*3/uL Nucleated RBC % (auto) 0.0 (0.0-0.2) /100WBC Hold Blue Top SEE NOTE VBG pH (7.32-7.43) VBG pCO2 mmHg VBG pO2 mmHg VBG HCO3 (22-26) mmol/L VBG O2 Saturation % VBG Base Excess mmol/L Sodium 139 (135-145) mmol/L Potassium 3.4 (3.3-5.1) mmol/L Chloride 106 (96-108) mmol/L Carbon Dioxide 22 (22-29) mmol/L Anion Gap 14 (12-20) BUN 84 H (9-16) mg/dL Creatinine 4.94 H* (0.5-1.4) mg/dL Estim Creat Clear Calc 10.6 Estimated GFR 11 Random Glucose 122 H (60-115) mg/dL Lactic Acid 2.0 (0.5-2.0) mmol/L Calcium 8.4 (8.4-10.2) mg/dL Total Bilirubin 0.9 (0.0-1.0) mg/dL AST 28 (5-37) U/L ALT 20 (0-40) U/L Alkaline Phosphatase 91 (39-117) U/L Total Creatine Kinase 19 L (38-174) U/L Troponin I High Sens 54.1 H D 55.1 H (<3.5-35.0) ng/L Total Protein 6.2 L (6.5-8.0) g/dL Albumin 3.2 L (3.5-5.0) g/dL Urine Color Yellow Urine Appearance Cloudy Urine pH 5.0 (5.0-9.0) Ur Specific [place] 1.010 (1.005-1.025) Urine Protein 30 (1+) H (Neg-Trace) mg/dL Urine Glucose (UA) Negative (Negative) mg/dL Urine Ketones Negative (Negative) mg/dL Urine Blood Moderate (2+) H (Negative) Urine Nitrite Negative (Negative) Ur Leukocyte Esterase Large (3+) H (Negative) Urine RBC 3-5 H (0-2) /HPF Urine WBC >50 H (0-5) /HPF Ur Squamous Epith Cells 0-2 (0-2) /HPF Urine Bacteria 1+ (None Seen) Hyaline Casts 3-5 (0-2) /LPF 01/21/25 Range/Units 13:50 WBC (4.8-10.8) X10*3/uL RBC (4.60-5.80) X10*6/uL Hgb (14.0-18.0) g/dl Hct (42.0-52.0) % MCV (80.0-98.0) fL MCH (27.0-33.0) pg MCHC (31.0-36.0) g/dl RDW (11.0-16.0) % Plt Count (160-400) X10*3/uL MPV (9.4-12.4) fL Immature Gran % (Auto) (0.0-0.4) % Neut % (Auto) (45-73) % Lymph % (Auto) (20-40) % [place] % (Auto) (2-11) % Eos % (Auto) (0-4) % Baso % (Auto) (0-2) % Lymph # (Auto) (1.2-4.9) X10*3/uL [place] # (Auto) (0.1-1.2) X10*3/uL Eos # (Auto) (0.0-0.4) X10*3/uL Baso # (Auto) (0.0-0.2) X10*3/uL Abs Immat Gran (auto) (0.00-0.03) X10*3/uL Absolute Neuts (auto) (2.0-8.3) x10*3/uL Absolute Nucleated RBC (0.0-0.012) X10*3/uL Nucleated RBC % (auto) (0.0-0.2) /100WBC Hold Blue Top VBG pH 7.43 (7.32-7.43) VBG pCO2 32 mmHg VBG pO2 29 mmHg VBG HCO3 21 L (22-26) mmol/L VBG O2 Saturation 33.0 % VBG Base Excess -1.6 mmol/L Sodium (135-145) mmol/L Potassium (3.3-5.1) mmol/L Chloride (96-108) mmol/L Carbon Dioxide (22-29) mmol/L Anion Gap (12-20) BUN (9-16) mg/dL Creatinine (0.5-1.4) mg/dL Estim Creat Clear Calc Estimated GFR Random Glucose (60-115) mg/dL Lactic Acid (0.5-2.0) mmol/L Calcium (8.4-10.2) mg/dL Total Bilirubin (0.0-1.0) mg/dL AST (5-37) U/L ALT (0-40) U/L Alkaline Phosphatase (39-117) U/L Total Creatine Kinase (38-174) U/L Troponin I High Sens (<3.5-35.0) ng/L Total Protein (6.5-8.0) g/dL Albumin (3.5-5.0) g/dL Urine Color Urine Appearance Urine pH (5.0-9.0) Ur Specific [place] (1.005-1.025) Urine Protein (Neg-Trace) mg/dL Urine Glucose (UA) (Negative) mg/dL Urine Ketones (Negative) mg/dL Urine Blood (Negative) Urine Nitrite (Negative) Ur Leukocyte Esterase (Negative) Urine RBC (0-2) /HPF Urine WBC (0-5) /HPF Ur Squamous Epith Cells (0-2) /HPF Urine Bacteria (None Seen) Hyaline Casts (0-2) /LPF Independent Interpretation I performed an independent interpretation of an: EKG Interpretation: My interpretation patient's 12 EKG done on 01/21/2025 at 11:39 hours is as follows: Atrial fibrillation with a rapid ventricular rate of 121, no ST segment elevation, no ST segment depression, nonspecific T-wave abnormalities, no PACs Radiology Impression Radiologist Impression: CT abdomen and pelvis without IV contrast. IMPRESSION: 1. Left UPJ calculus measuring up to 1.3 cm causes moderate left hydronephrosis. 2. Nonobstructing calculus of the right UVJ measuring up to 2.4 cm. 3. Diffuse thickening of the mucosa of the urinary bladder can be seen with cystitis or chronic outlet obstruction. Of note there is marked prostatomegaly. 4. Coronary artery atherosclerosis. This document has been electronically signed by: Kenneth Mustafa MD on 01/21/2025 18:27:29 Independent Historian Clinical information obtained from an independent historian. History obtained from or confirmed by: Spouse and Other (Granddaughter) External Record Review External record reviewed: Office record Chronic Conditions Patient?s care impacted by: Hypertension and Other (Atrial fibrillation) Critical Care Time Critical Care Time Critical Care Time: Yes Total Critical Care Time: 60 Attestation: Critical Care: The patient was critically ill with a high probability of imminent or life threatening deterioration. I spent greater than 30 minutes of discontinuous time evaluating the patient,delivering critical care at the bedside, discussing and evaluating pertinent data with consultants. Critical care time does not include time spent performing separately billable procedures or teaching. Total time spent performing critical care was 60 minutes. Discharge Plan Discharge Clinical Impression: Acute kidney injury, Volume depletion, Anorexia, Abnormal weight loss, Obstruction of left ureteropelvic junction (UPJ) due to stone, Hydronephrosis of left kidney, Urinary tract infection Patient Disposition: Admitted As Inpatient
[2025-01-21 11:52] LABS: MANUAL DIFF FLAG NO
[2025-01-21 11:59] LABS: Appearance Urine Cloudy; Glucose Urine UA Negative (Negative); Hematocrit 32.1 % (42.0-52.0); Hemoglobin 10.3 g/dl (14.0-18.0); Imm Gran Abs Auto 0.14 X10*3/uL (0.00-0.03); Imm Gran Pct Auto 1.5 % (0.0-0.4); Lymphocytes Absolute Auto 0.5 X10*3/uL (1.2-4.9); Mean Corpuscular HGB Conc 32.1 g/dl (31.0-36.0); Mean Corpuscular Hemoglobin 23.1 pg (27.0-33.0); Mean Corpuscular Volume 72.0 fL (80.0-98.0); NRBC Abs Auto 0.000 X10*3/uL (0.0-0.012); NRBC Pct Auto 0.0 /100WBC (0.0-0.2); PH 5.0 (5.0-9.0); Platelet Count 250 X10*3/uL (160-400); Red Blood Count 4.46 X10*6/uL (4.60-5.80); Specific Gravity - Urine 1.010 (1.005-1.025); UMIC TRIGGER UACC YES; White Blood Count 9.3 X10*3/uL (4.8-10.8)
[2025-01-21 12:10] LABS: UACC Culture Trigger YES
[2025-01-21 12:18] LABS: Troponin-I High Sensitivity 54.1 ng/L (<3.5-35.0)
[2025-01-21 12:25] LABS: Alanine Aminotransferase 20 U/L (0-40); Albumin Level 3.2 g/dL (3.5-5.0); Alkaline Phosphatase 91 U/L (39-117); Anion Gap 14 (12-20); Aspartate Amino Transferase 28 U/L (5-37); Blood Urea Nitrogen 84 mg/dL (9-16); Calcium 8.4 mg/dL (8.4-10.2); Carbon Dioxide 22 mmol/L (22-29); Chloride 106 mmol/L (96-108); Creatinine Clr Calc Pharmacy 10.6; Estimated Glomerular Filt Rate 11; Potassium 3.4 mmol/L (3.3-5.1); Sodium 139 mmol/L (135-145); Total Protein 6.2 g/dL (6.5-8.0)
[2025-01-21 13:54] LABS: Venous Blood Gas Refer to POC result
[2025-01-21 13:55] LABS: VBG HCO3 21 mmol/L (22-26); VBG O2 % Saturation 33.0 %
[2025-01-21] MEDS: Lactated Ringers 1,000 ML 999 ML IV ×2 (14:09→14:10)
--- NOTE | 2025-01-21 14:12 | PC.NURSE ---
pt noted to be hypotensive. all other vss and up to date at this time aside from remaining afib on the alarm security or surveillance monitor - HR between 100-120 bpm. pt denies any chest pain/palpitations. provider notified/aware of BP. IVF/abx continues to infuse per provider order. effectiveness pending. plan of care ongoing. call quintero placed within reach.
[2025-01-21 14:22] LABS: Troponin-I High Sensitivity 55.1 ng/L (<3.5-35.0)
--- OUTSIDE RECORDS SUMMARY | 2025-01-21 14:24 | XMS_ITS | Clinical Summary ---
Author Organization [facility] Facility Address [address] [address] Care Team Providers Care Supervisor Stave Cutting Name Role Phone Flako Hernández MD Primary Care Provider [phone] Allergies No known active allergies Medications atorvastatin [...] age to complete this topic Insurance Medicare [facility] Medicare [facility] Care Teams Supervisor Stave Cutting Relationship Specialty Start Date End Date Flako Hernández MD [address] [place] [address] PCP - General 05/25/20
--- NOTE | 2025-01-21 14:45 | PM.CNNEP ---
History of Present Illness Reason for Consult Consult date: 01/21/25 Chief Complaint Chief complaint: Kidney failure, sent by History of Present Illness Narrative: 84 y/o male with afib on eliquis, iron deficiency anemia, CKD3, HTN, HLD, BPH, GERD, new diagnosis of stage III transverese invasive adenocarcinoma of colon status post hemicolectomy on 12/10/24. Presented today 01/21 at recommendation of his oncologist Dr Mahmood due to worsening renal function. Creatinine had increased from 1.96 on 12/25 to 5.03 on 01/20. Nephrology consulted for LOIS on CKD. patient reports very poor oral intake for some time now. States not really eating or drinking. He takes losartan daily at home. States he is making urine frequently, particularly at nighttime, but in smaller amounts. CT abdomen/pelvis ordered. He denies vomiting/diarrhea. He denies shortness of breath. He denies pain. Denies other new symptoms/concerns. UA with some RBCs, protein and lots of RBCs, some hyaline casts. he is receiving 2L LR Review of Systems Review of Systems Yes all other systems are reviewed and are negative PMFSH Past Medical History Medical History Arthritis BPH (benign prostatic hyperplasia) Numbness and tingling of both feet Dizziness Syncope (~2020) Colon adenocarcinoma Atrial fibrillation Chronic kidney disease GERD (gastroesophageal reflux disease) High cholesterol HTN (hypertension) Family History Family History Mother Hypertension Breast cancer Father Alcoholic Lung cancer Sister Breast cancer Sister Breast cancer Sister Breast cancer Sister Breast cancer Surgical History Surgical History Hx of left hemicolectomy (12/10/24) Hx of colonoscopy (10/01/24) H/O prostate biopsy Hx of cataract extraction History of dental surgery H/O removal of cyst (03/01/22) Social History Social History Household Members: Spouse Housing: House Are you a primary care information associate to a significant other at home: No Do you presently have visiting nurse or other home services: No Comment: pt refused bed alarm Patient Tobacco Use Status: Former Tobacco user Tobacco use type: Cigarette Smoked in Last 30 Days: No Use of substances other than those prescribed or required for medical reasons: No Advance Directives: Yes Advance Directives Information Provided: Yes Advance Directives on File: No service: Yes Current occupational status: retired Meds Allergies Allergy/AdvReac Type Severity Reaction Status Date / Time No Known Allergies Allergy Verified 01/21/25 11:23 Home Medications ?Medication ?Instructions ?Recorded ?Confirmed ?Last Taken ?Type losartan 50 mg tablet 50 mg PO DAILY 04/27/21 01/20/25 12/08/24 History omeprazole 20 mg capsule,delayed 20 mg PO DAILY@0630 04/27/21 01/20/25 12/09/24 History release atorvastatin 20 mg tablet 20 mg PO BEDTIME 06/08/21 01/20/25 12/08/24 History tizanidine 4 mg tablet 4 mg PO BEDTIME PRN Muscle Spasm 07/11/24 01/20/25 Unknown History finasteride 5 mg tablet 5 mg PO BEDTIME 12/09/24 01/20/25 12/08/24 History Physical Exam Vital Signs: Last Vital Signs Temp 98.4 F 01/21/25 14:21 Pulse 105 H 01/21/25 14:21 Resp 20 01/21/25 14:21 BP 93/43 L 01/21/25 14:21 Pulse Ox 97 01/21/25 14:21 O2 Del Method Room Air 01/21/25 14:21 BMI result Body Mass Index 22.8 Const General: no acute distress, alert and awake Resp Effort & Inspection: normal respiratory effort and able to speak in complete sentences Auscultation: clear to auscultation bilaterally Cardio Rate: regular rate Rhythm: abnormal rhythm Heart sounds: S1 normal heart sound present and S2 normal heart sound present GI Palpation (GI): Soft to palpation and nontender Skin Rashes: no rashes Neuro Other: no tremor Extrem General: No edema Results Lab Results 01/21/25 11:45 01/21/25 11:45 Lab results: Chemistry 01/21/25 11:45 Sodium 139 Potassium 3.4 Carbon Dioxide 22 BUN 84 H Creatinine 4.94 H* Calcium 8.4 Hematology 01/21/25 11:45 WBC 9.3 Hgb 10.3 L Plt Count 250 Urinalysis 01/21/25 11:45 Urine Color Yellow Urine Appearance Cloudy Urine pH 5.0 Ur Specific [place] 1.010 Urine Protein 30 (1+) H Urine Glucose (UA) Negative Urine Ketones Negative Urine Blood Moderate (2+) H Urine Nitrite Negative Ur Leukocyte Esterase Large (3+) H Urine RBC 3-5 H Urine WBC >50 H Ur Squamous Epith Cells 0-2 Hyaline Casts 3-5 Assessment and Plan (1) Acute kidney injury superimposed on CKD: Status: Acute Plan LOIS on CKD likely ATN from ARB use in setting of poor oral intake/hypovolemia. Recommend continuing to hold ARB. Recommend continue with fluid boluses as ordered, can start LR at 75ml/hr once completed Patient mentioned oral iron supplementation making him nauseous and more difficult to eat- recommend IV iron replacement to aid in improved hydration/nutrition Recommend avoiding nephrotoxins recommend daily electrolyte and renal function studies Close I&O monitoring Continue supportive care, will continue to follow discussed with Dr Flores Procedures Date of Service Date of Service: 01/21/25
--- NOTE | 2025-01-21 17:52 | PC.NURSE ---
pt's vital signs remain stable aside from slightly soft BP s/p IVF bolus x 2. nsr on the manager monitoring. pt otherwise has no complaints. denies pain. pending abd/pelvis CT results at this time. pt remains on RA w/o difficulty - no sob/wob noted. respirations even/unlabored. plan of care ongoing. call quintero placed within reach.
[2025-01-21] MEDS: Lactated Ringers 1,000 ML 80 ML IVCONT (18:16)
--- NOTE | 2025-01-21 19:20 | PHA.MEDREC ---
Addendum entered by Jeanette Ortiz jesus 01/21/25 19:24: REVIEWED BY PHARMACIST Original Note: Pharmacy Consult ? Medication Reconciliation Pharmacy has completed the medication reconciliation. patient was able to confirm all of his medications. Patient states he is no longer taking Ferrous sulfate 352 mg, Metoprolol tart 50 mg, and Tizanidine 4 mg. Patient confirmed Amlodipine 2.5 mg daily. Patient states he had all his morning medications today.
--- NOTE | 2025-01-21 21:52 | PM.IMHP ---
History of Present Illness Date of Service: 01/21/25 Attending physician on admission: Rainer Mota Chief Complaint: Abnormal labs Patient is an 84-year-old male with a past medical history significant for paroxysmal AFib on Eliquis, iron-deficiency anemia, CKD 3, hypertension, hyperlipidemia, BPH, GERD, new diagnosis stage III colon cancer s/p hemicolectomy 12/10/[address] Mahmood, who presented to the ED per Dr. Mahmood's recommendation due to abnormal labs. The patient's creatinine has been rising, was 5.03. On 12/25/2024 his creatinine was 1.96. The patient reports a 40 lb weight loss over the past 6 months with poor appetite and poor p.o. intake in general. He has had increased nocturia, 6 times last night. No urgency or dysuria. He denies any chest pain, shortness of breath, nausea or vomiting. Overall he is asymptomatic. Review of Systems Constitutional: Constitutional: Denies body ache(s), Denies chills, Denies fatigue, Denies fever(s) and Denies headache(s) Eyes: Eyes: Denies change in vision ENT: Denies headache(s), Denies nasal congestion, Denies nasal discharge and Denies sore throat Cardiovascular: Cardiovascular: Denies chest pain, Denies rapid heart rate, Denies leg edema, Denies lightheadedness and Denies dyspnea Respiratory: Respiratory: Denies chest congestion, Denies cough, Denies dyspnea and Denies wheezing Gastrointestinal: Gastrointestinal: Denies abdominal pain, Denies nausea and Denies vomiting Genitourinary: Genitourinary: Denies dysuria, Reports urinary frequency and Denies urinary urgency Musculoskeletal: Musculoskeletal: Denies myalgias Integumentary/Breasts: Skin/Breast: Denies rash Neurologic: Denies confusion and Denies headache(s) Psychiatric: Psychiatric: Denies confusion Endocrine: Endocrine: Denies fatigue Hematologic/Lymphatic: Hematologic/Lymphatic: Denies easy bleeding and Denies easy bruising Allergic/Immunologic: Allergic/Immunologic: Denies wheezing [facility] Medical History Arthritis BPH (benign prostatic hyperplasia) Numbness and tingling of both feet Dizziness Syncope (~2020) Colon adenocarcinoma Atrial fibrillation Chronic kidney disease GERD (gastroesophageal reflux disease) High cholesterol HTN (hypertension) Family History Mother Hypertension Breast cancer Father Alcoholic Lung cancer Sister Breast cancer Sister Breast cancer Sister Breast cancer Sister Breast cancer Surgical History Hx of left hemicolectomy (12/10/24) Hx of colonoscopy (10/01/24) H/O prostate biopsy Hx of cataract extraction History of dental surgery H/O removal of cyst (03/01/22) Social History Household Members: Spouse Housing: House Are you a primary health care specialist to a significant other at home: No Do you presently have visiting nurse or other home services: No Comment: pt refused bed alarm Patient Tobacco Use Status: Former Tobacco user Tobacco use type: Cigarette Smoked in Last 30 Days: No Use of substances other than those prescribed or required for medical reasons: No Advance Directives: Yes Advance Directives Information Provided: Yes Advance Directives on File: No Nutrition Risks: No Nutritional Risk service: Yes Current occupational status: retired [email or web address] Allergies Allergy/AdvReac Type Severity Reaction Status Date / Time No Known Allergies Allergy Verified 01/21/25 11:23 Active Medications: Current Medications Acetaminophen (Acetaminophen 325 Mg Tablet) 975 mg PO Q6H PRN PRN Reason: Pain, Mild 1-3,fever,headache Amiodarone HCl (Amiodarone Hcl 200 Mg Tablet) 200 mg PO DAILY [facility] Atorvastatin Calcium (Atorvastatin Calcium 20 Mg Tablet) 20 mg PO BEDTIME [place] Calcium Carbonate (Calcium Carbonate 750 Mg Tab.Chew) 750 mg PO Q4H PRN PRN Reason: Heartburn Ceftriaxone Sodium (Ceftriaxone Sodium 2 Gm Vial) 2 gm IVPUSH Q24H [place] Lactated Ringer's (Lr) 1,000 mls @ 80 mls/hr IVCONT .[id number] [place] Last Admin: 01/21/25 18:16 Dose: 80 mls/hr Magnesium Hydroxide (Milk Of Magnesia 30 Ml Oral.Susp) 30 ml PO DAILY PRN PRN Reason: Constipation Melatonin (Melatonin 3 Mg Tablet) 6 mg PO BEDTIME PRN PRN Reason: Insomnia Omeprazole (Omeprazole 20 Mg Capsule.Dr) 20 mg PO DAILY@0630 [facility] Ondansetron HCl (Ondansetron Hcl 4 Mg/2 Ml Vial) 4 mg IVPUSH Q8H PRN PRN Reason: Nausea and Vomiting Oxycodone HCl (Oxycodone Hcl Immed Release 5 Mg Tablet) 5 mg PO Q6H PRN PRN Reason: Pain, Severe (Pain Scale 7-10) Sodium Chloride (0.9 % Sodium Chloride Flush 3 Ml Syringe) 3 ml IVFLUSH QSHIFT [facility] Tramadol HCl (Tramadol Hcl 50 Mg Tablet) 50 mg PO Q6H PRN PRN Reason: Pain, Moderate(Pain Scale 4-6) Home Medications ?Medication ?Instructions ?Recorded ?Confirmed ?Last Taken ?Type losartan 50 mg tablet 50 mg PO DAILY 04/27/21 01/21/25 01/21/25 History omeprazole 20 mg capsule,delayed 20 mg PO DAILY@0630 04/27/21 01/21/25 01/21/25 History release atorvastatin 20 mg tablet 20 mg PO BEDTIME 06/08/21 01/21/25 01/21/25 History finasteride 5 mg tablet 5 mg PO BEDTIME 12/09/24 01/21/25 01/20/25 History amlodipine 2.5 mg tablet 2.5 mg PO DAILY 01/21/25 01/21/25 01/21/25 History Physical Exam Vital Signs and Narrative: Vital Signs: Last Vital Signs Temp 98.9 F 01/21/25 20:00 Pulse 95 01/21/25 20:00 Resp 24 H 01/21/25 20:00 BP 101/65 01/21/25 20:00 Pulse Ox 96 01/21/25 20:00 O2 Del Method Room Air 01/21/25 20:00 BMI result Body Mass Index 22.8 General: AOx3, no acute distress Resp: CTA bilaterally CVS: S1, S2, irregularly irregular, rate controlled GI: +BS, NT, no distention. No CVA tenderness Skin: Warm, dry Neuro: Cranial nerves II-XII grossly intact bilaterally. Motor grossly intact bilaterally Extremities: No pitting edema Psych: Appropriate affect Const: General: No confusion Orientation/consciousness: No confusion Neuro: General: No confusion Results Labs 01/21/25 11:45 01/21/25 11:45 Labs: Laboratory Results - last 24 hr 01/21/25 01/21/25 01/21/25 11:45 11:46 13:46 MCV 72.0 L MCH 23.1 L MCHC 32.1 RDW 17.1 H Plt Count 250 MPV 10.8 Immature Gran % (Auto) 1.5 H Neut % (Auto) 86.5 H Lymph % (Auto) 5.3 L [place] % (Auto) 6.5 Eos % (Auto) 0.1 Baso % (Auto) 0.1 Lymph # (Auto) 0.5 L [place] # (Auto) 0.6 Eos # (Auto) 0.0 Baso # (Auto) 0.0 Abs Immat Gran (auto) 0.14 H Absolute Neuts (auto) 8.0 Absolute Nucleated RBC 0.000 Nucleated RBC % (auto) 0.0 Hold Blue Top SEE NOTE VBG pH VBG pCO2 VBG pO2 VBG HCO3 VBG O2 Saturation VBG Base Excess Anion Gap 14 Estim Creat Clear Calc 10.6 Estimated GFR 11 Random Glucose 122 H Lactic Acid 2.0 Calcium 8.4 Total Bilirubin 0.9 AST 28 ALT 20 Alkaline Phosphatase 91 Total Creatine Kinase 19 L Total Protein 6.2 L Albumin 3.2 L Urine Color Yellow Urine Appearance Cloudy Urine pH 5.0 Ur Specific [place] 1.010 Urine Protein 30 (1+) H Urine Glucose (UA) Negative Urine Ketones Negative Urine Blood Moderate (2+) H Urine Nitrite Negative Ur Leukocyte Esterase Large (3+) H Urine RBC 3-5 H Urine WBC >50 H Ur Squamous Epith Cells 0-2 Urine Bacteria 1+ Hyaline Casts 3-5 01/21/25 13:50 MCV MCH MCHC RDW Plt Count MPV Immature Gran % (Auto) Neut % (Auto) Lymph % (Auto) [place] % (Auto) Eos % (Auto) Baso % (Auto) Lymph # (Auto) [place] # (Auto) Eos # (Auto) Baso # (Auto) Abs Immat Gran (auto) Absolute Neuts (auto) Absolute Nucleated RBC Nucleated RBC % (auto) Hold Blue Top VBG pH 7.43 VBG pCO2 32 VBG pO2 29 VBG HCO3 21 L VBG O2 Saturation 33.0 VBG Base Excess -1.6 Anion Gap Estim Creat Clear Calc Estimated GFR Random Glucose Lactic Acid Calcium Total Bilirubin AST ALT Alkaline Phosphatase Total Creatine Kinase Total Protein Albumin Urine Color Urine Appearance Urine pH Ur Specific [place] Urine Protein Urine Glucose (UA) Urine Ketones Urine Blood Urine Nitrite Ur Leukocyte Esterase Urine RBC Urine WBC Ur Squamous Epith Cells Urine Bacteria Hyaline Casts Assessment and Plan (1) Sepsis: Status: Acute (2) Urinary tract infection: Status: Acute (3) Acute kidney injury superimposed on CKD: Status: Acute (4) Hydronephrosis of left kidney: Status: Acute (5) Volume depletion: Status: Acute (6) Elevated troponin: Status: Acute Plan Patient is an 84-year-old male with a past medical history significant for paroxysmal AFib on Eliquis, iron-deficiency anemia, CKD 3, hypertension, hyperlipidemia, BPH, GERD, new diagnosis stage III colon cancer s/p hemicolectomy 12/10/[address] Mahmood, who presented to the ED per Dr. Mahmood's recommendation due to abnormal labs. Sepsis secondary to UTI - WBC 9.3, tachycardic and tachypneic, lactic acid normal, blood cultures x2 pending, not severe sepsis - UA positive, culture pending - abdominopelvic CT with Left UPJ calculus measuring up to 1.3 cm causes moderate left hydronephrosis. Nonobstructing calculus of the right UVJ measuring up to 2.4 cm. Diffuse thickening of the mucosa of the urinary bladder can be seen with cystitis or chronic outlet obstruction. Of note there is marked prostatomegaly. - bedside US in ED with concern for bladder mass - spoke with Dr Levy who suggested NPO after midnight, Dr Roberts to f/u in AM - started on ceftriaxone, continue - given 2 L LR in ED, continue 80 cc per HR per Dr. Flores - monitor CBC and BMP LOIS on CKD - patient seen been seen by Dr. Flores - bedside ultrasound with left-sided hydronephrosis, suggested to be secondary to dehydration - IV fluids per Dr. Flores's recommendation: 2 L LR followed by 80 mL/HR - monitor BMP Elevated troponin - troponin 54.1, 55.1 on repeat - EKG nonischemic - patient not having chest pain - monitor on telemetry Chronic anemia - hemoglobin 10.3, stable - no need for blood transfusion at this time - monitor CBC Paroxysmal AFib - EKG with sinus tachycardia, patient is in and out of AFib, rate controlled - continue rate control - hold Eliquis due to possible procedure tomorrow HTN - hold home meds, patient currently with low blood pressures HLD - continue home meds BPH - continue home meds GERD - continue home meds Colon cancer - followed by Dr. Mahmood Full code VTE prophylaxis: Pneumoboots Patient with sepsis secondary to UTI complicated by LOIS on CKD and elevated troponin, requiring admission for at least 2 midnight stay for IV antibiotics, monitoring and urology consultation. Quality Stroke Does the patient have a stroke diagnosis?: No VTE Prior VTE?: No VTE Risk Level:: Medical - moderate - high VTE Device Contraindication: N/A - Device Ordered VTE Drug Contraindication: Treatment Not Indicated
[2025-01-22] VITALS (8 sets, daily range): BP systolic 104–129; BP diastolic 58–70; PULSE 80–112; RESP 17–22; TEMP 36.2–37; O2SAT 94–97; BMI 23.3
[2025-01-22] MEDS: Lactated Ringers 1,000 ML 80 ML IVCONT ×2 (06:31→17:23)
[2025-01-22 06:56] LABS: Hematocrit 27.8 % (42.0-52.0); Hemoglobin 8.8 g/dl (14.0-18.0); Imm Gran Abs Auto 0.06 X10*3/uL (0.00-0.03); Imm Gran Pct Auto 1.1 % (0.0-0.4); Lymphocytes Absolute Auto 0.8 X10*3/uL (1.2-4.9); MANUAL DIFF FLAG SCAN; Mean Corpuscular HGB Conc 31.7 g/dl (31.0-36.0); Mean Corpuscular Hemoglobin 22.9 pg (27.0-33.0); Mean Corpuscular Volume 72.4 fL (80.0-98.0); NRBC Abs Auto 0.000 X10*3/uL (0.0-0.012); NRBC Pct Auto 0.0 /100WBC (0.0-0.2); Platelet Count 236 X10*3/uL (160-400); Red Blood Count 3.84 X10*6/uL (4.60-5.80); SCAN SMEAR FLAG 1; White Blood Count 5.6 X10*3/uL (4.8-10.8)
[2025-01-22 07:14] LABS: Anion Gap 14 (12-20); Blood Urea Nitrogen 71 mg/dL (9-16); Calcium 8.2 mg/dL (8.4-10.2); Carbon Dioxide 25 mmol/L (22-29); Chloride 109 mmol/L (96-108); Creatinine Clr Calc Pharmacy 13.6; Estimated Glomerular Filt Rate 15; Potassium 3.8 mmol/L (3.3-5.1); Sodium 144 mmol/L (135-145)
[2025-01-22] MEDS: 0.9 % Sodium Chloride Flush 3 ML SYRINGE IVFLUSH ×2 (07:58→20:56)
--- NOTE | 2025-01-22 08:43 | MHC.CM.PN ---
IMM was addressed with Patient at bedside and original was given to him and a copy has been placed on the chart. Patient lives in a house with his /HCP/Alma Delia Rizzo, who will transport to home at time of dc. Patient has not yet chosen a new PCP since Dr. Hernández retired. Home self care is Patient's goal and CM has initiated and will follow for dc planning.
--- NOTE | 2025-01-22 10:55 | PM.PNNEP ---
Subjective Subjective Date of Service: 01/22/25 Interval history: Here with LOIS. No events noted overnight. Creatinine improving with IVF. imaging showed large bilateral renal stones with moderate left-sided hydronephrosis. Patient denies new complaints/concerns. Says he's had some improvement in fatigue/malaise since starting IVF. He has a bit of an appetite this a.m. and hoping to eat. Physical Exam Vital Signs: Vital Signs: Last Vital Signs Temp 98.0 F 01/22/25 10:57 Pulse 101 H 01/22/25 10:57 Resp 18 01/22/25 10:57 BP 111/68 01/22/25 10:57 Pulse Ox 94 01/22/25 10:57 O2 Del Method Room Air 01/22/25 10:57 BMI result Body Mass Index 23.3 Const: General: no acute distress, alert and awake Resp: Effort & Inspection: normal respiratory effort and able to speak in complete sentences Auscultation: clear to auscultation bilaterally Cardio: Rate: regular rate Rhythm: abnormal rhythm Heart sounds: S1 normal heart sound present and S2 normal heart sound present GI: Palpation (GI): Soft to palpation and nontender Skin: Rashes: no rashes Neuro: Other: no tremor Extrem: General: No edema Objective Data Labs 01/22/25 06:22 01/22/25 06:22 Labs: Laboratory Results - last 24 hr 01/21/25 01/21/25 01/22/25 11:45 13:46 06:22 WBC 5.6 RBC 3.84 L Hgb 8.8 L Hct 27.8 L MCV 72.4 L MCH 22.9 L MCHC 31.7 RDW 17.2 H Plt Count 236 MPV 10.8 Immature Gran % (Auto) 1.1 H Neut % (Auto) 70.7 Lymph % (Auto) 14.5 L [place] % (Auto) 12.4 H Eos % (Auto) 0.9 Baso % (Auto) 0.4 Lymph # (Auto) 0.8 L [place] # (Auto) 0.7 Eos # (Auto) 0.1 Baso # (Auto) 0.0 Abs Immat Gran (auto) 0.06 H Absolute Neuts (auto) 3.9 Absolute Nucleated RBC 0.000 Nucleated RBC % (auto) 0.0 Smear Tech's Comments VERIFIED Sodium 144 Potassium 3.8 Chloride 109 H Carbon Dioxide 25 Anion Gap 14 BUN 71 H Creatinine 3.90 H Estim Creat Clear Calc 13.6 Estimated GFR 15 Random Glucose 98 Calcium 8.2 L Total Creatine Kinase 19 L Troponin I High Sens 55.1 H Microbiology Microbiology Results: Microbiology 01/21/25 Unknown Urine clean catch - Clean Catch Midstream Urine Culture - Preliminary Enterococcus/Streptococcus sp 01/21/25 14:03 Blood - Venous Blood Culture - Preliminary Prelim: GPC Gram Stain only 01/21/25 13:46 Blood - Venous Blood Culture - Preliminary Prelim: GPC Gram Stain only Procedures Date of Service Date of Service: 01/22/25 Assessment & Plan Assessment and plan (1) Acute kidney injury superimposed on CKD: Status: Acute Plan LOIS on CKD likely ATN from ARB use in setting of poor oral intake/hypovolemia. Renal function has started to gradually improve, anticipate continued gradual improvement with hydration. Recommend continuing to hold ARB. Recommend continue with IVF, patient continues to look slightly hypovolemic today Recommend urology consultation to address large stones and left-sided hydronephrosis Recommend avoiding nephrotoxins recommend daily electrolyte and renal function studies Close I&O monitoring Continue supportive care, will continue to follow discussed with Dr Flores Time Spent With Patient Time: Total time managing care of this patient today ____ minutes. Progress Note: Quality Stroke Does the patient have a stroke diagnosis?: No
--- NOTE | 2025-01-22 16:20 | P.CNUR_ITS ---
History of Present Illness Consult details Consult date: 01/22/25 Narrative: CC: Acute kidney injury with obstructing renal stones 84-year-old male Known to Urology who has been followed for BPH for many years Refer to emergency department after follow-up with Dr. Mahmood Underwent hemicolectomy 12/10/24 Had been seen with abnormal labs particularly creatinine 5.0. Baseline creatinine 1.6-1.7 Imaging performed - CT scan No right-sided hydronephrosis. No right renal calculus. Large calculus of the right UVJ measuring 2.4 x 1.9 x 0.8 cm. Diminutive left kidney. Moderate left hydronephrosis. Of the left UPJ there is a 1.3 x 0.7 x 0.8 cm calculus. More distal left ureter is contracted. Recommend cystoscopy, stone intervention on right side with ureteroscopy and laser lithotripsy. Retrograde and stent placement on left side. Review of Systems 2 Constitutional: Constitutional: Reports as per HPI and Reports no additional constitutional complaints Cardiovascular: Cardiovascular: Reports as per HPI and Reports no additional cardiovascular complaints Respiratory: Respiratory: Reports as per HPI and Reports no additional respiratory complaints Gastrointestinal: Gastrointestinal: Reports as per HPI and Reports no additional gastrointestinal complaints Genitourinary: Genitourinary: Reports as per HPI Musculoskeletal: Musculoskeletal: Reports no additional musculoskeletal complaints and Reports as per HPI Neurologic: Reports system reviewed and no additional complaints, except as documented and Reports as per HPI PENDING SALE TO [facility] Past Medical History Medical History Arthritis BPH (benign prostatic hyperplasia) Numbness and tingling of both feet Dizziness Syncope (~2020) Colon adenocarcinoma Atrial fibrillation Chronic kidney disease GERD (gastroesophageal reflux disease) High cholesterol HTN (hypertension) Family History Family History Mother Hypertension Breast cancer Father Alcoholic Lung cancer Sister Breast cancer Sister Breast cancer Sister Breast cancer Sister Breast cancer Surgical History Surgical History Hx of left hemicolectomy (12/10/24) Hx of colonoscopy (10/01/24) H/O prostate biopsy Hx of cataract extraction History of dental surgery H/O removal of cyst (03/01/22) Social History Social History Household Members: Spouse Housing: House Are you a primary healthcare educator to a significant other at home: No Do you presently have visiting nurse or other home services: No Comment: pt refused bed alarm Patient Tobacco Use Status: Former Tobacco user Tobacco use type: Cigarette Smoked in Last 30 Days: No Use of substances other than those prescribed or required for medical reasons: No Currently Displaying Signs/Symptoms of Drug Intoxication Withdrawal: No Have you been hit, kicked, punched, or otherwise hurt by someone within the past year? If so, by whom?: No Do you feel safe in your current relationship?: Yes Is there a partner from a previous relationship who is making you feel unsafe now?: No Are you made to feel afraid or neglected: No Advance Directives: Yes Advance Directives Information Provided: Yes Advance Directives on File: No Advance Directives Date on File: 01/22/25 Do you have a plan to hurt others: No Plan Recently lost weight without trying: Yes How much weight loss: 34pounds or more Eating poorly because of decreased appetite: Yes Nutrition screen score: 7 Nutrition Risks: No Nutritional Risk Poor oral hygiene: No service: Yes Current occupational status: retired [employer] Allergies Allergy/AdvReac Type Severity Reaction Status Date / Time No Known Allergies Allergy Verified 01/21/25 11:23 Active Medications: Current Medications Acetaminophen (Acetaminophen 325 Mg Tablet) 975 mg PO Q6H PRN PRN Reason: Pain, Mild 1-3,fever,headache Amiodarone HCl (Amiodarone Hcl 200 Mg Tablet) 200 mg PO DAILY [facility] Last Admin: 01/22/25 07:58 Dose: 200 mg Atorvastatin Calcium (Atorvastatin Calcium 20 Mg Tablet) 20 mg PO BEDTIME [facility] Calcium Carbonate (Calcium Carbonate 750 Mg Tab.Chew) 750 mg PO Q4H PRN PRN Reason: Heartburn Ceftriaxone Sodium (Ceftriaxone Sodium 2 Gm Vial) 2 gm IVPUSH Q24H [facility] Last Admin: 01/22/25 14:36 Dose: 2 gm Lactated Ringer's (Lr) 1,000 mls @ 80 mls/hr IVCONT .[id number] [facility] Last Admin: 01/22/25 06:31 Dose: 80 mls/hr Magnesium Hydroxide (Milk Of Magnesia 30 Ml Oral.Susp) 30 ml PO DAILY PRN PRN Reason: Constipation Melatonin (Melatonin 3 Mg Tablet) 6 mg PO BEDTIME PRN PRN Reason: Insomnia Omeprazole (Omeprazole 20 Mg Capsule.Dr) 20 mg PO DAILY@0630 [facility] Last Admin: 01/22/25 05:22 Dose: Not Given Ondansetron HCl (Ondansetron Hcl 4 Mg/2 Ml Vial) 4 mg IVPUSH Q8H PRN PRN Reason: Nausea and Vomiting Oxycodone HCl (Oxycodone Hcl Immed Release 5 Mg Tablet) 5 mg PO Q6H PRN PRN Reason: Pain, Severe (Pain Scale 7-10) Sodium Chloride (0.9 % Sodium Chloride Flush 3 Ml Syringe) 3 ml IVFLUSH QSHIFT [facility] Last Admin: 01/22/25 07:58 Dose: 3 ml Tramadol HCl (Tramadol Hcl 50 Mg Tablet) 50 mg PO Q6H PRN PRN Reason: Pain, Moderate(Pain Scale 4-6) Home Medications ?Medication ?Instructions ?Recorded ?Confirmed ?Last Taken ?Type losartan 50 mg tablet 50 mg PO DAILY 04/27/2102/0601/21/25 History omeprazole 20 mg capsule,delayed 20 mg PO DAILY@0630 1 06/28/20 01/21/25 01/21/25 History release atorvastatin 20 mg tablet 20 mg PO BEDTIME 06/08/2101/21/25 History finasteride 5 mg tablet 5 mg PO BEDTIME 12/09/2402/0601/20/25 History amlodipine 2.5 mg tablet 2.5 mg PO DAILY 01/21/2502/0601/21/25 History Physical Exam 2 Vital Signs: Vital Signs: Last Vital Signs Temp 98.2 F 01/22/25 15:20 Pulse 112 H 01/22/25 15:20 Resp 18 01/22/25 15:20 BP 105/59 L 01/22/25 15:20 Pulse Ox 97 01/22/25 15:20 O2 Del Method Room Air 01/22/25 15:20 BMI result Body Mass Index 23.3 Const: General: cooperative, healthy appearing, comfortable and no acute distress Orientation/consciousness: patient oriented x3 HEENT: Face and sinus: Yes normal facial exam Mouth: moist mucous membranes Neck: Neck: Yes normal visual inspection, Yes full ROM and Yes trachea midline Chest: Chest palpation & inspection: normal inspection of the chest Resp: Effort & Inspection: normal respiratory effort, able to speak in complete sentences and no respiratory distress GI: Inspection: Yes normal to inspection Back/Spine/Pelvis: Cervical Spine: normal cervical lordosis Thoracic/Lumbar Spine: thoracic and lumbar spine normal to inspection Skin: General skin exam: no rashes or lesions noted Neuro: General: patient oriented x3, tone normal and moves all extremities Extrem: General: Yes normal to inspection and Yes capillary refill normal Results Labs 01/22/25 06:22 01/22/25 06:22 Labs: Abnormal lab results 01/21/25 01/22/25 Range/Units 11:45 06:22 RBC 3.84 L (4.60-5.80) X10*6/uL Hgb 8.8 L (14.0-18.0) g/dl Hct 27.8 L (42.0-52.0) % MCV 72.4 L (80.0-98.0) fL MCH 22.9 L (27.0-33.0) pg RDW 17.2 H (11.0-16.0) % Immature Gran % (Auto) 1.1 H (0.0-0.4) % Lymph % (Auto) 14.5 L (20-40) % Christian % (Auto) 12.4 H (2-11) % Lymph # (Auto) 0.8 L (1.2-4.9) X10*3/uL Abs Immat Gran (auto) 0.06 H (0.00-0.03) X10*3/uL Chloride 109 H (96-108) mmol/L BUN 71 H (9-16) mg/dL Creatinine 3.90 H (0.5-1.4) mg/dL Calcium 8.2 L (8.4-10.2) mg/dL Total Creatine Kinase 19 L (38-174) U/L Short CBC 01/22/25 Range/Units 06:22 WBC 5.6 (4.8-10.8) X10*3/uL Hgb 8.8 L (14.0-18.0) g/dl Hct 27.8 L (42.0-52.0) % Plt Count 236 (160-400) X10*3/uL BMP 01/22/25 06:22 Sodium 144 Potassium 3.8 Chloride 109 H Carbon Dioxide 25 BUN 71 H Creatinine 3.90 H Calcium 8.2 L Cardiac Enzymes 01/21/25 Range/Units 11:45 Total Creatine Kinase 19 L (38-174) U/L Urine 01/21/25 Range/Units 11:45 Urine Color Yellow Urine Appearance Cloudy Urine pH 5.0 (5.0-9.0) Ur Specific [place] 1.010 (1.005-1.025) Urine Protein 30 (1+) H (Neg-Trace) mg/dL Urine Glucose (UA) Negative (Negative) mg/dL All other labs normal. Assessment and Plan (1) Obstruction of left ureteropelvic junction (UPJ) due to stone: Status: Acute (2) Acute kidney injury superimposed on CKD: Status: Acute (3) Nephrolithiasis: Status: Acute Plan Ureteroscopy We discussed the nature of the decision and reasonable alternatives for performing ureteroscopy. Options such as medical therapy were discussed. Interventions include chemical dissolution, ESWL, ureteroscopy with laser lithotripsy and stent placement, PCNL. The relative uncertainties and benefits related to each alternate procedure were adequately discussed. General surgical risks including, but not limited to - pain, bleeding, infection, myocardial infarction, pulmonary embolus, deep vein thrombosis and cerebrovascular accident which may result in further hospitalization were discussed. Full disclosure of the procedure as well as all major risks, benefits and complications were discussed including but not limited to damage to the urethra, bladder and kidney infection, damage to the ureter, stent migration or malposition, scarring to the renal pelvis, remnant stone fragments, subsequent stone passage with need for secondary procedures. The overall secondary procedure rate is approximately 10-15%. The overall clearance rate is approximately 90-95%. Success of the procedure in the short-term does not necessarily guarantee that long-term success will be maintained. Suitable follow up will need to be maintained. The patient showed understanding of discussion and wishes to proceed with - cystoscopy, retrograde, ureteroscopy, possible lithotripsy/stone basketing and stent on the bilateral side Procedures Date of Service Date of Service: 01/22/25
--- NOTE | 2025-01-22 16:28 | HO.PM.IMPN ---
Subjective Subjective Date of Service: 01/22/25 Interval History: f/u on sepsis due to infected kidney stone interval history: feels better, no hypotension Physical Exam Exam: Exam: General: AO X 3, no acute distress Resp: CTA bilateral CVS: S1,S2,RRR GI: +BS, NT, no distention Skin: No rash Neuro: motor grossly intact Psych: appropriate affect Vital Signs: Vital Signs: Last Vital Signs Temp 98.2 F 01/22/25 15:20 Pulse 112 H 01/22/25 15:20 Resp 18 01/22/25 15:20 BP 105/59 L 01/22/25 15:20 Pulse Ox 97 01/22/25 15:20 O2 Del Method Room Air 01/22/25 15:20 BMI result Body Mass Index 23.3 Const: Other: General: AO X 3, no acute distress Resp: CTA bilateral CVS: S1,S2,RRR GI: +BS, NT, no distention Skin: No rash Neuro: motor grossly intact Psych: appropriate affect Objective Data Active Medications Acetaminophen (Acetaminophen 325 Mg Tablet) 975 mg PO Q6H PRN PRN Reason: Pain, Mild 1-3,fever,headache Amiodarone HCl (Amiodarone Hcl 200 Mg Tablet) 200 mg PO DAILY [facility] Last Admin: 01/22/25 07:58 Dose: 200 mg Documented By: SCOTTY Atorvastatin Calcium (Atorvastatin Calcium 20 Mg Tablet) 20 mg PO BEDTIME [facility] Calcium Carbonate (Calcium Carbonate 750 Mg Tab.Chew) 750 mg PO Q4H PRN PRN Reason: Heartburn Ceftriaxone Sodium (Ceftriaxone Sodium 2 Gm Vial) 2 gm IVPUSH Q24H [facility] Last Admin: 01/22/25 14:36 Dose: 2 gm Documented By: SCOTTY Lactated Ringer's (Lr) 1,000 mls @ 80 mls/hr IVCONT .[id number] [facility] Last Admin: 01/22/25 06:31 Dose: 80 mls/hr Documented By: MANISH Magnesium Hydroxide (Milk Of Magnesia 30 Ml Oral.Susp) 30 ml PO DAILY PRN PRN Reason: Constipation Melatonin (Melatonin 3 Mg Tablet) 6 mg PO BEDTIME PRN PRN Reason: Insomnia Omeprazole (Omeprazole 20 Mg Capsule.Dr) 20 mg PO DAILY@0630 [facility] Last Admin: 01/22/25 05:22 Dose: Not Given Documented By: MANISH Non-Admin Reason: NPO Ondansetron HCl (Ondansetron Hcl 4 Mg/2 Ml Vial) 4 mg IVPUSH Q8H PRN PRN Reason: Nausea and Vomiting Oxycodone HCl (Oxycodone Hcl Immed Release 5 Mg Tablet) 5 mg PO Q6H PRN PRN Reason: Pain, Severe (Pain Scale 7-10) Sodium Chloride (0.9 % Sodium Chloride Flush 3 Ml Syringe) 3 ml IVFLUSH QSHIFT [facility] Last Admin: 01/22/25 16:27 Dose: Not Given Documented By: SCOTTY Non-Admin Reason: IV Running Tramadol HCl (Tramadol Hcl 50 Mg Tablet) 50 mg PO Q6H PRN PRN Reason: Pain, Moderate(Pain Scale 4-6) Labs 01/22/25 06:22 01/22/25 06:22 Labs: Laboratory Results - last 24 hr 01/21/25 01/22/25 11:45 06:22 MCV 72.4 L MCH 22.9 L MCHC 31.7 RDW 17.2 H Plt Count 236 MPV 10.8 Immature Gran % (Auto) 1.1 H Neut % (Auto) 70.7 Lymph % (Auto) 14.5 L [place] % (Auto) 12.4 H Eos % (Auto) 0.9 Baso % (Auto) 0.4 Lymph # (Auto) 0.8 L [place] # (Auto) 0.7 Eos # (Auto) 0.1 Baso # (Auto) 0.0 Abs Immat Gran (auto) 0.06 H Absolute Neuts (auto) 3.9 Absolute Nucleated RBC 0.000 Nucleated RBC % (auto) 0.0 Smear Tech's Comments VERIFIED Anion Gap 14 Estim Creat Clear Calc 13.6 Estimated GFR 15 Random Glucose 98 Calcium 8.2 L Total Creatine Kinase 19 L Microbiology Microbiology Results: Microbiology 01/21/25 Unknown Urine Culture - Preliminary Urine clean catch - Clean Catch Midstream Enterococcus/Streptococcus sp 01/21/25 14:03 Blood Culture - Preliminary Blood - Venous Prelim: GPC Gram Stain only 01/21/25 13:46 Blood Culture - Preliminary Blood - Venous Prelim: GPC Gram Stain only Assessment and Plan (1) Acute kidney injury superimposed on CKD: Status: Acute (2) Sepsis: Status: Acute Plan Patient is an 84-year-old male with a past medical history significant for paroxysmal AFib on Eliquis, iron-deficiency anemia, CKD 3, hypertension, hyperlipidemia, BPH, GERD, new diagnosis stage III colon cancer s/p hemicolectomy 12/10/[address] Mahmood, who presented to the ED per Dr. Mahmood's recommendation due to abnormal labs. Sepsis secondary to UTI - WBC 9.3, tachycardic and tachypneic, lactic acid normal, blood cultures x2 pending, not severe sepsis - Urine culture enterococcus/streptococcus, blood culture GPC - abdominopelvic CT with Left UPJ calculus measuring up to 1.3 cm causes moderate left hydronephrosis. Nonobstructing calculus of the right UVJ measuring up to 2.4 cm. Diffuse thickening of the mucosa of the urinary bladder can be seen with cystitis or chronic outlet obstruction. Of note there is marked prostatomegaly. - bedside US in ED with concern for bladder mass - change Abx to Vanco and Unasyn -For cysto tomorrow LOIS on CKD - patient seen been seen by Dr. Flores - bedside ultrasound with left-sided hydronephrosis, suggested to be secondary to dehydration - IV fluids per Dr. Flores's recommendation: 2 L LR followed by 80 mL/HR - monitor BMP Elevated troponin, likely from ckd - troponin 54.1, 55.1 on repeat - EKG nonischemic - patient not having chest pain - monitor on telemetry Chronic anemia - hemoglobin slightly low, no active bleeding - no need for blood transfusion at this time - monitor CBC Paroxysmal AFib - EKG with sinus tachycardia, patient is in and out of AFib, rate controlled - continue rate control - hold Eliquis due to possible procedure tomorrow HTN - hold home meds, patient currently with low blood pressures HLD - continue home meds BPH - continue home meds GERD - continue home meds Colon cancer - followed by Dr. Mahmood Full code VTE prophylaxis: Pneumoboots Quality Stroke Does the patient have a stroke diagnosis?: No VTE Prior VTE?: No VTE Risk Level:: Medical - moderate - high VTE Device Contraindication: N/A - Device Ordered VTE Drug Contraindication: Treatment Not Indicated
[2025-01-23] VITALS (10 sets, daily range): BP systolic 105–130; BP diastolic 54–80; PULSE 77–111; RESP 16–18; TEMP 36.2–36.8; O2SAT 95–98
[2025-01-23 05:42] LABS: Hematocrit 26.0 % (42.0-52.0); Hemoglobin 8.3 g/dl (14.0-18.0); Imm Gran Abs Auto 0.12 X10*3/uL (0.00-0.03); Imm Gran Pct Auto 1.9 % (0.0-0.4); Lymphocytes Absolute Auto 0.6 X10*3/uL (1.2-4.9); MANUAL DIFF FLAG SCAN; Mean Corpuscular HGB Conc 31.9 g/dl (31.0-36.0); Mean Corpuscular Hemoglobin 23.1 pg (27.0-33.0); Mean Corpuscular Volume 72.2 fL (80.0-98.0); NRBC Abs Auto 0.000 X10*3/uL (0.0-0.012); NRBC Pct Auto 0.0 /100WBC (0.0-0.2); Platelet Count 300 X10*3/uL (160-400); Red Blood Count 3.60 X10*6/uL (4.60-5.80); SCAN SMEAR FLAG 1; White Blood Count 6.5 X10*3/uL (4.8-10.8)
[2025-01-23] MEDS: Lactated Ringers 1,000 ML 80 ML IVCONT ×3 (05:52→16:53)
[2025-01-23 06:11] LABS: Anion Gap 12 (12-20); Blood Urea Nitrogen 50 mg/dL (9-16); Calcium 7.8 mg/dL (8.4-10.2); Carbon Dioxide 24 mmol/L (22-29); Chloride 112 mmol/L (96-108); Creatinine Clr Calc Pharmacy 17.8; Estimated Glomerular Filt Rate 20; Potassium 3.0 mmol/L (3.3-5.1); Sodium 145 mmol/L (135-145)
[2025-01-23] MEDS: Potassium Chloride Packet 20 MEQ PACKET 40 MEQ PO (07:38)
--- NOTE | 2025-01-23 11:43 | HO.PM.IMPN ---
Subjective Subjective Date of Service: 01/23/25 Interval History: f/u on sepsis due to infected kidney stone interval history: feels better, no hypotension Cr is better, no fever, no hypotension Physical Exam Vital Signs: Vital Signs: Last Vital Signs Temp 98.0 F 01/23/25 10:55 Pulse 88 01/23/25 10:55 Resp 18 01/23/25 10:55 BP 117/63 01/23/25 10:55 Pulse Ox 98 01/23/25 10:55 O2 Del Method Room Air 01/23/25 10:55 BMI result Body Mass Index 23.3 Objective Data Active Medications Acetaminophen (Acetaminophen 325 Mg Tablet) 975 mg PO Q6H PRN PRN Reason: Pain, Mild 1-3,fever,headache Amiodarone HCl (Amiodarone Hcl 200 Mg Tablet) 200 mg PO DAILY [facility] Last Admin: 01/23/25 07:21 Dose: 200 mg Documented By: SCOTTY Atorvastatin Calcium (Atorvastatin Calcium 20 Mg Tablet) 20 mg PO BEDTIME [facility] Last Admin: 01/22/25 20:58 Dose: 20 mg Documented By: CAMILLE Calcium Carbonate (Calcium Carbonate 750 Mg Tab.Chew) 750 mg PO Q4H PRN PRN Reason: Heartburn Ceftriaxone Sodium (Ceftriaxone Sodium 2 Gm Vial) 2 gm IVPUSH Q24H [facility] Last Admin: 01/22/25 14:36 Dose: 2 gm Documented By: SCOTTY Lactated Ringer's (Lr) 1,000 mls @ 80 mls/hr IVCONT .[id number] [facility] Last Admin: 01/23/25 05:52 Dose: 80 mls/hr Documented By: NIRAJ Ampicillin Sodium/Sulbactam (Sodium 3 gm/ Sodium Chloride) 100 mls @ 200 mls/hr IV Q24H [facility] Last Infusion: 01/22/25 17:30 Dose: Infused Documented By: SCOTTY Vancomycin HCl 500 mg/ Sodium (Chloride) 110 mls @ 110 mls/hr IV ONCE ONE Stop: 01/23/25 17:59 Magnesium Hydroxide (Milk Of Magnesia 30 Ml Oral.Susp) 30 ml PO DAILY PRN PRN Reason: Constipation Melatonin (Melatonin 3 Mg Tablet) 6 mg PO BEDTIME PRN PRN Reason: Insomnia Omeprazole (Omeprazole 20 Mg Capsule.Dr) 20 mg PO DAILY@0630 [facility] Last Admin: 01/23/25 05:50 Dose: 20 mg Documented By: NIRAJ Ondansetron HCl (Ondansetron Hcl 4 Mg/2 Ml Vial) 4 mg IVPUSH Q8H PRN PRN Reason: Nausea and Vomiting Oxycodone HCl (Oxycodone Hcl Immed Release 5 Mg Tablet) 5 mg PO Q6H PRN PRN Reason: Pain, Severe (Pain Scale 7-10) Pharmacy Consult (Consult Rx Vancomycin Dosing) 1 each MISCELLANE DAILY PRN PRN Reason: Consult order Sodium Chloride (0.9 % Sodium Chloride Flush 3 Ml Syringe) 3 ml IVFLUSH QSHIFT [facility] Last Admin: 01/23/25 07:23 Dose: Not Given Documented By: SCOTTY Non-Admin Reason: IV Running Tramadol HCl (Tramadol Hcl 50 Mg Tablet) 50 mg PO Q6H PRN PRN Reason: Pain, Moderate(Pain Scale 4-6) Labs 01/23/25 05:23 01/23/25 05:23 Labs: Laboratory Results - last 24 hr 01/23/25 05:23 MCV 72.2 L MCH 23.1 L MCHC 31.9 RDW 16.9 H Plt Count 300 D MPV 10.0 Immature Gran % (Auto) 1.9 H Neut % (Auto) 79.9 H Lymph % (Auto) 9.6 L [place] % (Auto) 7.0 Eos % (Auto) 1.4 Baso % (Auto) 0.2 Lymph # (Auto) 0.6 L [place] # (Auto) 0.5 Eos # (Auto) 0.1 Baso # (Auto) 0.0 Abs Immat Gran (auto) 0.12 H Absolute Neuts (auto) 5.2 Absolute Nucleated RBC 0.000 Nucleated RBC % (auto) 0.0 Smear Tech's Comments VERIFIED Anion Gap 12 Estim Creat Clear Calc 17.8 Estimated GFR 20 Random Glucose 108 Calcium 7.8 L Microbiology Microbiology Results: Microbiology 01/21/25 14:03 Blood Culture - Preliminary Blood - Venous Enterococcus/Streptococcus sp 01/21/25 13:46 Blood Culture - Preliminary Blood - Venous Enterococcus/Streptococcus sp 01/21/25 Unknown Urine Culture - Final Urine clean catch - Clean Catch Midstream Enterococcus faecalis Assessment and Plan (1) Acute kidney injury superimposed on CKD: Status: Acute (2) Sepsis: Status: Acute Plan Patient is an 84-year-old male with a past medical history significant for paroxysmal AFib on Eliquis, iron-deficiency anemia, CKD 3, hypertension, hyperlipidemia, BPH, GERD, new diagnosis stage III colon cancer s/p hemicolectomy 12/10/[address] Mahmood, who presented to the ED per Dr. Mahmood's recommendation due to abnormal labs. Sepsis secondary to UTI, Urine culture = enterococcus, blood culture x 2 Enteroccocus F. and Streptococcus sensitivity pending abdominopelvic CT with Left UPJ calculus measuring up to 1.3 cm causes moderate left hydronephrosis. Nonobstructing calculus of the right UVJ measuring up to 2.4 cm. Diffuse thickening of the mucosa of the urinary bladder can be seen with cystitis or chronic outlet obstruction. Seen Uro for cystoscopy today -Continue Vanco and Unasyn until sensitivity available. ID consult LOIS on CKD, likely obstrutive uropathy, improving, continue monitoring with IVF Elevated troponin, likely from ckd, no chest pain, no further testing indicated at this time Chronic anemia, H/H trending down, ? hemodilution, monitor Paroxysmal AFib, controlled on amio. Holding Eliquis until after procedure HTN-- no meds, BP normal HLD continue home meds BPH-- continue home meds GERD-continue home meds Colon cancer followed by Dr. Mahmood Full code VTE prophylaxis: Pneumoboots Quality Stroke Does the patient have a stroke diagnosis?: No VTE Prior VTE?: No VTE Risk Level:: Medical - moderate - high VTE Device Contraindication: N/A - Device Ordered VTE Drug Contraindication: Treatment Not Indicated
--- NOTE | 2025-01-23 12:03 | PM.PNNEP ---
Subjective Subjective Date of Service: 01/23/25 Interval history: Here with LOIS- uti/pyelonephritis, renal stone with hydro. No events noted overnight. Creatinine now 2.98, was 3.9 yesterday. Patient denies new complaints/concerns. Physical Exam Vital Signs: Vital Signs: Last Vital Signs Temp 98.0 F 01/23/25 10:55 Pulse 88 01/23/25 10:55 Resp 18 01/23/25 10:55 BP 117/63 01/23/25 10:55 Pulse Ox 98 01/23/25 10:55 O2 Del Method Room Air 01/23/25 10:55 BMI result Body Mass Index 23.3 Const: General: no acute distress, alert and awake Resp: Effort & Inspection: normal respiratory effort and able to speak in complete sentences Auscultation: clear to auscultation bilaterally Cardio: Rate: regular rate Rhythm: abnormal rhythm Heart sounds: S1 normal heart sound present and S2 normal heart sound present GI: Palpation (GI): Soft to palpation and nontender Skin: Rashes: no rashes Extrem: General: No edema Objective Data Labs 01/23/25 05:23 01/23/25 05:23 Labs: Laboratory Results - last 24 hr 01/23/25 05:23 WBC 6.5 RBC 3.60 L Hgb 8.3 L Hct 26.0 L MCV 72.2 L MCH 23.1 L MCHC 31.9 RDW 16.9 H Plt Count 300 D MPV 10.0 Immature Gran % (Auto) 1.9 H Neut % (Auto) 79.9 H Lymph % (Auto) 9.6 L [place] % (Auto) 7.0 Eos % (Auto) 1.4 Baso % (Auto) 0.2 Lymph # (Auto) 0.6 L [place] # (Auto) 0.5 Eos # (Auto) 0.1 Baso # (Auto) 0.0 Abs Immat Gran (auto) 0.12 H Absolute Neuts (auto) 5.2 Absolute Nucleated RBC 0.000 Nucleated RBC % (auto) 0.0 Smear Tech's Comments VERIFIED Sodium 145 Potassium 3.0 L D Chloride 112 H Carbon Dioxide 24 Anion Gap 12 BUN 50 H Creatinine 2.98 H Estim Creat Clear Calc 17.8 Estimated GFR 20 Random Glucose 108 Calcium 7.8 L Microbiology Microbiology Results: Microbiology 01/21/25 14:03 Blood - Venous Blood Culture - Preliminary Enterococcus/Streptococcus sp 01/21/25 13:46 Blood - Venous Blood Culture - Preliminary Enterococcus/Streptococcus sp 01/21/25 Unknown Urine clean catch - Clean Catch Midstream Urine Culture - Final Enterococcus faecalis Procedures Date of Service Date of Service: 01/23/25 Assessment & Plan Assessment and plan (1) Acute kidney injury superimposed on CKD: Status: Acute Plan LOIS on CKD likely ATN from ARB use in setting of poor oral intake/hypovolemia. Renal function has started to gradually improve, anticipate continued gradual improvement with hydration. Recommend continuing to hold ARB. Encourage oral hydration and nutritional intake. Urology consulted per hospital medicine, plan for ureteroscopy. Recommend avoiding nephrotoxins recommend daily electrolyte and renal function studies Close I&O monitoring Continue supportive care, will continue to follow discussed with Dr Flores Time Spent With Patient Time: Total time managing care of this patient today ____ minutes. Progress Note: Quality Stroke Does the patient have a stroke diagnosis?: No
--- NOTE | 2025-01-23 14:57 | HO.ANESPROP2 ---
HPI - Anesthesia Eval Consult details Narrative: 84 yo M presenting for RIGHT cystoscopy, ureteroscopy, retro, laser and LEFT retrograde with stent placement. [facility] Active Problems Active Problems: All Active Problems (Updated 01/22/25 @ 16:30 by Sergey Roberts MD) Nephrolithiasis (Acute) Elevated troponin (Acute) Sepsis (Acute) Urinary tract infection (Acute) Hydronephrosis of left kidney (Acute) Obstruction of left ureteropelvic junction (UPJ) due to stone (Acute) Abnormal weight loss (Acute) Anorexia (Acute) Volume depletion (Acute) Acute kidney injury (Acute) Acute kidney injury superimposed on CKD (Acute) Adenocarcinoma of transverse colon (Acute) S/P right colectomy (Acute) Atrial flutter with rapid ventricular response (Acute) Hospital discharge follow-up (Acute) Preop cardiovascular exam (Acute) Paroxysmal A-fib (Acute) First degree atrioventricular block by electrocardiogram (Acute) CKD (chronic kidney disease) stage 3, GFR 30-59 ml/min (Acute) Basal cell carcinoma of skin of trunk (Acute) BPH w urinary obs/LUTS (Acute) Elevated PSA (Acute) Aphasia (Acute) Syncope (Acute) Dysarthria (Acute) Hypertensive urgency (Acute) Colon adenocarcinoma (Acute) HTN (hypertension) (Acute) Past Medical History Medical History Arthritis BPH (benign prostatic hyperplasia) Numbness and tingling of both feet Dizziness Syncope (~2020) Colon adenocarcinoma Atrial fibrillation Chronic kidney disease GERD (gastroesophageal reflux disease) High cholesterol HTN (hypertension) Family History Family History Mother Hypertension Breast cancer Father Alcoholic Lung cancer Sister Breast cancer Sister Breast cancer Sister Breast cancer Sister Breast cancer Family history of problems with anesthesia: No Surgical History Surgical History Hx of left hemicolectomy (12/10/24) Hx of colonoscopy (10/01/24) H/O prostate biopsy Hx of cataract extraction History of dental surgery H/O removal of cyst (03/01/22) History of Problems with Anesthesia: No Social History Social History Household Members: Spouse Housing: House Are you a primary property caretaker to a significant other at home: No Do you presently have visiting nurse or other home services: No Comment: pt refused bed alarm Patient Tobacco Use Status: Former Tobacco user Tobacco use type: Cigarette Smoked in Last 30 Days: No Use of substances other than those prescribed or required for medical reasons: No Currently Displaying Signs/Symptoms of Drug Intoxication Withdrawal: No Have you been hit, kicked, punched, or otherwise hurt by someone within the past year? If so, by whom?: No Do you feel safe in your current relationship?: Yes Is there a partner from a previous relationship who is making you feel unsafe now?: No Are you made to feel afraid or neglected: No Advance Directives: Yes Advance Directives Information Provided: Yes Advance Directives on File: No Advance Directives Date on File: 01/22/25 Do you have a plan to hurt others: No Plan Recently lost weight without trying: Yes How much weight loss: 34pounds or more Eating poorly because of decreased appetite: Yes Nutrition screen score: 7 Nutrition Risks: No Nutritional Risk Poor oral hygiene: No service: Yes Current occupational status: retired [employer] Allergies Allergy/AdvReac Type Severity Reaction Status Date / Time No Known Allergies Allergy Verified 01/21/25 11:23 Active Medications: Current Medications Acetaminophen (Acetaminophen 325 Mg Tablet) 975 mg PO Q6H PRN PRN Reason: Pain, Mild 1-3,fever,headache Amiodarone HCl (Amiodarone Hcl 200 Mg Tablet) 200 mg PO DAILY [facility] Last Admin: 01/23/25 07:21 Dose: 200 mg Atorvastatin Calcium (Atorvastatin Calcium 20 Mg Tablet) 20 mg PO BEDTIME [facility] Last Admin: 01/22/25 20:58 Dose: 20 mg Calcium Carbonate (Calcium Carbonate 750 Mg Tab.Chew) 750 mg PO Q4H PRN PRN Reason: Heartburn Lactated Ringer's (Lr) 1,000 mls @ 80 mls/hr IVCONT .[id number] [facility] Last Admin: 01/23/25 05:52 Dose: 80 mls/hr Ampicillin Sodium/Sulbactam (Sodium 3 gm/ Sodium Chloride) 100 mls @ 200 mls/hr IV Q24H [facility] Last Infusion: 01/22/25 17:30 Dose: Infused Vancomycin HCl 500 mg/ Sodium (Chloride) 110 mls @ 110 mls/hr IV ONCE ONE Stop: 01/23/25 17:59 Magnesium Hydroxide (Milk Of Magnesia 30 Ml Oral.Susp) 30 ml PO DAILY PRN PRN Reason: Constipation Melatonin (Melatonin 3 Mg Tablet) 6 mg PO BEDTIME PRN PRN Reason: Insomnia Omeprazole (Omeprazole 20 Mg Capsule.Dr) 20 mg PO DAILY@0630 [facility] Last Admin: 01/23/25 05:50 Dose: 20 mg Ondansetron HCl (Ondansetron Hcl 4 Mg/2 Ml Vial) 4 mg IVPUSH Q8H PRN PRN Reason: Nausea and Vomiting Oxycodone HCl (Oxycodone Hcl Immed Release 5 Mg Tablet) 5 mg PO Q6H PRN PRN Reason: Pain, Severe (Pain Scale 7-10) Pharmacy Consult (Consult Rx Vancomycin Dosing) 1 each MISCELLANE DAILY PRN PRN Reason: Consult order Sodium Chloride (0.9 % Sodium Chloride Flush 3 Ml Syringe) 3 ml IVFLUSH [facility] Last Admin: 01/23/25 07:23 Dose: Not Given Tramadol HCl (Tramadol Hcl 50 Mg Tablet) 50 mg PO Q6H PRN PRN Reason: Pain, Moderate(Pain Scale 4-6) Home Medications ?Medication ?Instructions ?Recorded ?Confirmed ?Last Taken ?Type losartan 50 mg tablet 50 mg PO DAILY 04/27/21 01/21/25 01/21/25 History omeprazole 20 mg capsule,delayed 20 mg PO DAILY@0630 04/27/21 01/21/25 01/21/25 History release atorvastatin 20 mg tablet 20 mg PO BEDTIME 06/08/21 01/21/25 01/21/25 History finasteride 5 mg tablet 5 mg PO BEDTIME 12/09/24 01/21/25 01/20/25 History amlodipine 2.5 mg tablet 2.5 mg PO DAILY 01/21/25 01/21/25 01/21/25 History Exam Exam Date and Time: 01/23/25 1457 Height,Weight and Vital Signs: Height 5 ft 8 in Weight 69.5 kg Last Vital Signs Temp 98.0 F 01/23/25 10:55 Pulse 88 01/23/25 10:55 Resp 18 01/23/25 10:55 BP 117/63 01/23/25 10:55 Pulse Ox 98 01/23/25 10:55 O2 Del Method Room Air 01/23/25 10:55 Pertinent Lab Results Pertinent Lab Results: Laboratory Tests 01/21/25 01/21/25 01/21/25 11:45 11:46 13:46 WBC 9.3 RBC 4.46 L Hgb 10.3 L Hct 32.1 L MCV 72.0 L MCH 23.1 L MCHC 32.1 RDW 17.1 H Plt Count 250 MPV 10.8 Immature Gran % (Auto) 1.5 H Neut % (Auto) 86.5 H Lymph % (Auto) 5.3 L [place] % (Auto) 6.5 Eos % (Auto) 0.1 Baso % (Auto) 0.1 Lymph # (Auto) 0.5 L [place] # (Auto) 0.6 Eos # (Auto) 0.0 Baso # (Auto) 0.0 Abs Immat Gran (auto) 0.14 H Absolute Neuts (auto) 8.0 Absolute Nucleated RBC 0.000 Nucleated RBC % (auto) 0.0 Smear Tech's Comments Hold Blue Top SEE NOTE VBG pH VBG pCO2 VBG pO2 VBG HCO3 VBG O2 Saturation VBG Base Excess Sodium 139 Potassium 3.4 Chloride 106 Carbon Dioxide 22 Anion Gap 14 BUN 84 H Creatinine 4.94 H* Estim Creat Clear Calc 10.6 Estimated GFR 11 Random Glucose 122 H Lactic Acid 2.0 Calcium 8.4 Total Bilirubin 0.9 AST 28 ALT 20 Alkaline Phosphatase 91 Total Creatine Kinase 19 L Troponin I High Sens 54.1 H D 55.1 H Total Protein 6.2 L Albumin 3.2 L Urine Color Yellow Urine Appearance Cloudy Urine pH 5.0 Ur Specific Guin 1.010 Urine Protein 30 (1+) H Urine Glucose (UA) Negative Urine Ketones Negative Urine Blood Moderate (2+) H Urine Nitrite Negative Ur Leukocyte Esterase Large (3+) H Urine RBC 3-5 H Urine WBC >50 H Ur Squamous Epith Cells 0-2 Urine Bacteria 1+ Hyaline Casts 3-5 01/21/25 01/22/25 01/23/25 13:50 06:22 05:23 WBC 5.6 6.5 RBC 3.84 L 3.60 L Hgb 8.8 L 8.3 L Hct 27.8 L 26.0 L MCV 72.4 L 72.2 L MCH 22.9 L 23.1 L MCHC 31.7 31.9 RDW 17.2 H 16.9 H Plt Count 236 300 D MPV 10.8 10.0 Immature Gran % (Auto) 1.1 H 1.9 H Neut % (Auto) 70.7 79.9 H Lymph % (Auto) 14.5 L 9.6 L [place] % (Auto) 12.4 H 7.0 Eos % (Auto) 0.9 1.4 Baso % (Auto) 0.4 0.2 Lymph # (Auto) 0.8 L 0.6 L [place] # (Auto) 0.7 0.5 Eos # (Auto) 0.1 0.1 Baso # (Auto) 0.0 0.0 Abs Immat Gran (auto) 0.06 H 0.12 H Absolute Neuts (auto) 3.9 5.2 Absolute Nucleated RBC 0.000 0.000 Nucleated RBC % (auto) 0.0 0.0 Smear Tech's Comments VERIFIED VERIFIED Hold Blue Top VBG pH 7.43 VBG pCO2 32 VBG pO2 29 VBG HCO3 21 L VBG O2 Saturation 33.0 VBG Base Excess -1.6 Sodium 144 145 Potassium 3.8 3.0 L D Chloride 109 H 112 H Carbon Dioxide 25 24 Anion Gap 14 12 BUN 71 H 50 H Creatinine 3.90 H 2.98 H Estim Creat Clear Calc 13.6 17.8 Estimated GFR 15 20 Random Glucose 98 108 Lactic Acid Calcium 8.2 L 7.8 L Total Bilirubin AST ALT Alkaline Phosphatase Total Creatine Kinase Troponin I High Sens Total Protein Albumin Urine Color Urine Appearance Urine pH Ur Specific Guin Urine Protein Urine Glucose (UA) Urine Ketones Urine Blood Urine Nitrite Ur Leukocyte Esterase Urine RBC Urine WBC Ur Squamous Epith Cells Urine Bacteria Hyaline Casts Airway Mallampati Class: II TM Dist: >3cm Neck ROM: Full Denture: Upper Heart: S1S2 Lungs: CTAB Assessment and Plan Assessment Anesthesia Assessment: Anesthesia Plan Discussed and Chart Reviewed Final Anesthetic Review Family History of Problems with Anesthesia: No History of Problems with Anesthesia: No NPO: Yes ASA Class: III Final Preanesthetic Review: No Changes in Pt Med Stat, Meds/Allgs Chart Reviewed, Consent Obtained/Reviewed and Anes Risks/Benef Reviewed Patient Risk: Intermediate Procedure Risk: Low Anesthetic Plan Anesthetic Plan: GA and Agree w/ Assess. and Plan Disposition: Standard PACU
--- NOTE | 2025-01-23 15:20 | MHC.SHP ---
Pre-Procedural Eval Section A - 24 Hr Update-Section A only Date of Service: 01/23/25 The patient is an INPATIENT: Yes Changes since office visit: No Cold of Flu in the past 2 weeks, No New Medical Problems, No Changes in Medication and No Patient answered all questions The patient has been examined within 24 hours of the surgical procedure. The History & Physical has been completed within 30 days and I have reviewed it.: Yes Section B - Complete if H&P > 30 days Chief Complaint: LOIS, elevated troponin Details of Present Illness: Cystoscopy, right retrograde, right ureteroscopy with laser lithotripsy stent placement, left retrograde, left stent Allergies: Allergies Allergy/AdvReac Type Severity Reaction Status Date / Time No Known Allergies Allergy Verified 01/21/25 11:23 Plan I have reviewed the history and physical and performed a pertinent physical examination on my patient. No changes have occurred unless specified. Time Spent With Patient Time: Total time managing care of this patient today ____ minutes.
--- NOTE | 2025-01-23 16:14 | W.PM.OPN ---
Operative Note Operative Note Date of Service: 01/23/25 Narrative: PreOperative Diagnosis: Right distal ureteric stone, left mid ureteric stone with hydronephrosis Post Operative Diagnosis: Bladder Stone, left mid ureteric stone with hydronephrosis Procedure: 1) Cystoscopy 2) Right retrograde 3) Bladder Stone Laser 4) Left retrograde with stent placement Surgeon: Dr Sergey Roberts Anesthesia: LMA Indications for procedure: Elevated creatinine, hematuria. Imaging shows large right distal stone with left hydronephrosis. Procedure: After informed consent was verified the patient was brought to the operating room and placed in a supine position. Anesthesia was administered per protocol. The patient was placed in modified dorsal lithotomy position and prepped and draped in a sterile fashion. Safety pause time-out was performed. Antibiotics being given. Cystoscopy was performed. Meatus dilated. Bladder examined. Right retrograde. No stone seen. Large bladder stone 2.5 cm. Laser bridge resectoscope placed. No abnormality noted of anterior-posterior urethra. Small prostate. Using a 550nm holmium laser with bladder stones settings the stone was slowly broken into small pieces. The small pieces were irrigated from the bladder. This continued for approximately 15-20 minutes to break the stone. Upon completion the resectoscope was removed. Cystoscope placed. Left retrograde performed. Tortuosity of ureter seen. Guidewire placed. Six Icelandic by 26 cm double-J stent placed without difficulty. Good coil seen. The patient tolerated the procedure well. They were extubated in operating room and transferred in stable conditions recovery area. Pathology: Bladder Stones
--- NOTE | 2025-01-23 16:42 | HE.PHANOTE ---
RE: VANCO Trough returned @ 12.7. Renal function is improving. Will start 500 mg Q24H with a predicted AUC of 503 and trough of 18.2. Next trough due 01/25 @1500.
--- NOTE | 2025-01-23 23:08 | W.PM.IDCN ---
History of Present Illness Data of Consult Service Date: 01/22/25 Requesting physician: Noe Gilliam Primary Care Provider: None Physician HPI Reason for consult: enterococcus faecalis bacteremia He presents with fever and weakness. He has enterococcus faecalis bacteremia ,also urine. He is on Unasyn and Vancomycin. Review of Systems Review of Systems: Yes all other systems are reviewed and are negative PMFSH Past Medical History Medical History Arthritis BPH (benign prostatic hyperplasia) Numbness and tingling of both feet Dizziness Syncope (~2020) Colon adenocarcinoma Atrial fibrillation Chronic kidney disease GERD (gastroesophageal reflux disease) High cholesterol HTN (hypertension) Family History Family History Mother Hypertension Breast cancer Father Alcoholic Lung cancer Sister Breast cancer Sister Breast cancer Sister Breast cancer Sister Breast cancer Family history: reviewed and not pertinent Surgical History Surgical History Hx of left hemicolectomy (12/10/24) Hx of colonoscopy (10/01/24) H/O prostate biopsy Hx of cataract extraction History of dental surgery H/O removal of cyst (03/01/22) Social History Social History Household Members: Spouse Housing: House Are you a primary manager critical care to a significant other at home: No Do you presently have visiting nurse or other home services: No Comment: pt refused bed alarm Patient Tobacco Use Status: Former Tobacco user Tobacco use type: Cigarette Smoked in Last 30 Days: No Use of substances other than those prescribed or required for medical reasons: No Currently Displaying Signs/Symptoms of Drug Intoxication Withdrawal: No Have you been hit, kicked, punched, or otherwise hurt by someone within the past year? If so, by whom?: No Do you feel safe in your current relationship?: Yes Is there a partner from a previous relationship who is making you feel unsafe now?: No Are you made to feel afraid or neglected: No Are you DNR?: No Advance Directives: Yes Advance Directives Information Provided: Yes Advance Directives on File: No Advance Directives Date on File: 01/22/25 Do you have a plan to hurt others: No Plan Recently lost weight without trying: Yes How much weight loss: 34pounds or more Eating poorly because of decreased appetite: Yes Nutrition screen score: 7 Nutrition Risks: No Nutritional Risk Poor oral hygiene: No service: Yes Current occupational status: retired Meds Allergies Allergy/AdvReac Type Severity Reaction Status Date / Time No Known Allergies Allergy Verified 01/21/25 11:23 Active Medications: Current Medications Acetaminophen (Acetaminophen 325 Mg Tablet) 975 mg PO Q6H PRN PRN Reason: Pain, Mild 1-3,fever,headache Amiodarone HCl (Amiodarone Hcl 200 Mg Tablet) 200 mg PO DAILY [facility] Last Admin: 01/23/25 07:21 Dose: 200 mg Atorvastatin Calcium (Atorvastatin Calcium 20 Mg Tablet) 20 mg PO BEDTIME [facility] Last Admin: 01/23/25 19:41 Dose: 20 mg Calcium Carbonate (Calcium Carbonate 750 Mg Tab.Chew) 750 mg PO Q4H PRN PRN Reason: Heartburn Ampicillin Sodium/Sulbactam (Sodium 3 gm/ Sodium Chloride) 100 mls @ 200 mls/hr IV Q24H [facility] Last Infusion: 01/23/25 17:59 Dose: Infused Vancomycin HCl 500 mg/ Sodium (Chloride) 110 mls @ 110 mls/hr IV Q24H [facility] Last Infusion: 01/23/25 17:59 Dose: Infused Magnesium Hydroxide (Milk Of Magnesia 30 Ml Oral.Susp) 30 ml PO DAILY PRN PRN Reason: Constipation Melatonin (Melatonin 3 Mg Tablet) 6 mg PO BEDTIME PRN PRN Reason: Insomnia Naloxone HCl (Naloxone Hcl 0.4 Mg/Ml Vial) 0.04 mg IVPUSH Q5M PRN PRN Reason: Excessive sedation or RR < 8 Omeprazole (Omeprazole 20 Mg Capsule.Dr) 20 mg PO DAILY@0630 [facility] Last Admin: 01/23/25 05:50 Dose: 20 mg Ondansetron HCl (Ondansetron Hcl 4 Mg/2 Ml Vial) 4 mg IVPUSH Q8H PRN PRN Reason: Nausea and Vomiting Oxycodone HCl (Oxycodone Hcl Immed Release 5 Mg Tablet) 5 mg PO Q6H PRN PRN Reason: Pain, Severe (Pain Scale 7-10) Oxycodone HCl (Oxycodone Hcl Immed Release 5 Mg Tablet) 5 mg PO Q4H PRN PRN Reason: Pain, Mild (Pain Scale 1-3) Pharmacy Consult (Consult Rx Vancomycin Dosing) 1 each MISCELLANE DAILY PRN PRN Reason: Consult order Sodium Chloride (0.9 % Sodium Chloride Flush 3 Ml Syringe) 3 ml IVFLUSH QSHIFT [facility] Last Admin: 01/23/25 17:03 Dose: Not Given Tramadol HCl (Tramadol Hcl 50 Mg Tablet) 50 mg PO Q6H PRN PRN Reason: Pain, Moderate(Pain Scale 4-6) Home Medications ?Medication ?Instructions ?Recorded ?Confirmed ?Last Taken ?Type losartan 50 mg tablet 50 mg PO DAILY 04/27/21 01/21/25 01/21/25 History omeprazole 20 mg capsule,delayed 20 mg PO DAILY@0630 04/27/21 01/21/25 01/21/25 History release atorvastatin 20 mg tablet 20 mg PO BEDTIME 06/08/21 01/21/25 01/21/25 History finasteride 5 mg tablet 5 mg PO BEDTIME 12/09/24 01/21/25 01/20/25 History amlodipine 2.5 mg tablet 2.5 mg PO DAILY 01/21/25 01/21/25 01/21/25 History Physical Exam Vital Signs: Vital Signs: Last Vital Signs Temp 97.2 F 01/23/25 19:58 Pulse 111 H 01/23/25 19:58 Resp 16 01/23/25 19:58 BP 122/62 01/23/25 19:58 Pulse Ox 96 01/23/25 19:58 O2 Del Method Room Air 01/23/25 19:58 O2 Flow Rate 4 01/23/25 16:21 BMI result Body Mass Index 23.3 Const: General: cooperative HEENT: Head: Yes normal to inspection Face and sinus: Yes normal facial exam Mouth: Normal oral and palatal mucosa present Teeth and gingiva: dentition normal Eyes: General: appearance normal, both eyes and all related structures Pupils: Equal, round and reactive pupils present Resp: Effort & Inspection: normal respiratory effort Cardio: Rate: regular rate Rhythm: regular rhythm GI: Palpation (GI): Soft to palpation and nontender : General: Yes no CVA tenderness Back/Spine/Pelvis: Back: no CVA tenderness Skin: General skin exam: no rashes or lesions noted Neuro: General: moves all extremities Cranial nerves: Yes Equal, round and reactive pupils present Extrem: General: Yes normal to inspection Psych: Appearance: grossly normal Results Labs 01/23/25 05:23 01/23/25 05:23 Labs: Short CBC 01/23/25 Range/Units 05:23 WBC 6.5 (4.8-10.8) X10*3/uL Hgb 8.3 L (14.0-18.0) g/dl Hct 26.0 L (42.0-52.0) % Plt Count 300 D (160-400) X10*3/uL BMP 01/23/25 05:23 Sodium 145 Potassium 3.0 L D Chloride 112 H Carbon Dioxide 24 BUN 50 H Creatinine 2.98 H Calcium 7.8 L Microbiology Microbiology Results: Microbiology 01/21/25 14:03 Blood - Venous Blood Culture - Preliminary Enterococcus/Streptococcus sp 01/21/25 13:46 Blood - Venous Blood Culture - Preliminary Enterococcus/Streptococcus sp 01/21/25 Unknown Urine clean catch - Clean Catch Midstream Urine Culture - Final Enterococcus faecalis Assessment and Plan (1) CKD (chronic kidney disease) stage 3, GFR 30-59 ml/min: Status: Acute (2) Urinary tract infection: Status: Acute Plan Probable Vancomycin or Daptomycin for 14 days. Follow Urology.
[2025-01-24] VITALS (7 sets, daily range): BP systolic 112–142; BP diastolic 64–75; PULSE 71–103; RESP 18–20; TEMP 36–36.9; O2SAT 95–98
[2025-01-24 07:06] LABS: Hematocrit 26.9 % (42.0-52.0); Hemoglobin 8.5 g/dl (14.0-18.0); Imm Gran Abs Auto 0.12 X10*3/uL (0.00-0.03); Imm Gran Pct Auto 1.9 % (0.0-0.4); Lymphocytes Absolute Auto 0.3 X10*3/uL (1.2-4.9); MANUAL DIFF FLAG SCAN; Mean Corpuscular HGB Conc 31.6 g/dl (31.0-36.0); Mean Corpuscular Hemoglobin 23.0 pg (27.0-33.0); Mean Corpuscular Volume 72.7 fL (80.0-98.0); NRBC Abs Auto 0.000 X10*3/uL (0.0-0.012); NRBC Pct Auto 0.0 /100WBC (0.0-0.2); Platelet Count 314 X10*3/uL (160-400); Red Blood Count 3.70 X10*6/uL (4.60-5.80); SCAN SMEAR FLAG 1; White Blood Count 6.2 X10*3/uL (4.8-10.8)
[2025-01-24 07:29] LABS: Anion Gap 13 (12-20); Blood Urea Nitrogen 41 mg/dL (9-16); Calcium 7.8 mg/dL (8.4-10.2); Carbon Dioxide 23 mmol/L (22-29); Chloride 112 mmol/L (96-108); Creatinine Clr Calc Pharmacy 21.3; Estimated Glomerular Filt Rate 25; Potassium 3.9 mmol/L (3.3-5.1); Sodium 144 mmol/L (135-145)
[2025-01-24] MEDS: 0.9 % Sodium Chloride Flush 3 ML SYRINGE IVFLUSH ×2 (09:00→18:00)
--- NOTE | 2025-01-24 11:02 | HO.PM.IMPN ---
Subjective Subjective Date of Service: 01/24/25 Interval History: f/u on sepsis due to infected kidney stone interval history: feels better, no hypotension Cr is better, no fever, no hypotension s/p cystoscpy yesterday Physical Exam Vital Signs: Vital Signs: Last Vital Signs Temp 97.4 F 01/24/25 10:50 Pulse 103 H 01/24/25 10:50 Resp 18 01/24/25 10:50 BP 116/75 01/24/25 10:50 Pulse Ox 96 01/24/25 10:50 O2 Del Method Room Air 01/24/25 10:50 O2 Flow Rate 4 01/23/25 16:21 BMI result Body Mass Index 23.3 Objective Data Active Medications Acetaminophen (Acetaminophen 325 Mg Tablet) 975 mg PO Q6H PRN PRN Reason: Pain, Mild 1-3,fever,headache Amiodarone HCl (Amiodarone Hcl 200 Mg Tablet) 200 mg PO DAILY [facility] Last Admin: 01/24/25 08:58 Dose: 200 mg Documented By: ANJELICA Atorvastatin Calcium (Atorvastatin Calcium 20 Mg Tablet) 20 mg PO BEDTIME [facility] Last Admin: 01/23/25 19:41 Dose: 20 mg Documented By: RONN Calcium Carbonate (Calcium Carbonate 750 Mg Tab.Chew) 750 mg PO Q4H PRN PRN Reason: Heartburn Ampicillin Sodium/Sulbactam (Sodium 3 gm/ Sodium Chloride) 100 mls @ 200 mls/hr IV Q24H [facility] Last Infusion: 01/23/25 17:59 Dose: Infused Documented By: SCOTTY Vancomycin HCl 500 mg/ Sodium (Chloride) 110 mls @ 110 mls/hr IV Q24H [facility] Last Infusion: 01/23/25 17:59 Dose: Infused Documented By: SCOTTY Magnesium Hydroxide (Milk Of Magnesia 30 Ml Oral.Susp) 30 ml PO DAILY PRN PRN Reason: Constipation Melatonin (Melatonin 3 Mg Tablet) 6 mg PO BEDTIME PRN PRN Reason: Insomnia Naloxone HCl (Naloxone Hcl 0.4 Mg/Ml Vial) 0.04 mg IVPUSH Q5M PRN PRN Reason: Excessive sedation or RR < 8 Omeprazole (Omeprazole 20 Mg Capsule.) 20 mg PO DAILY@0630 [facility] Last Admin: 01/24/25 05:08 Dose: 20 mg Documented By: RONN Ondansetron HCl (Ondansetron Hcl 4 Mg/2 Ml Vial) 4 mg IVPUSH Q8H PRN PRN Reason: Nausea and Vomiting Oxycodone HCl (Oxycodone Hcl Immed Release 5 Mg Tablet) 5 mg PO Q6H PRN PRN Reason: Pain, Severe (Pain Scale 7-10) Oxycodone HCl (Oxycodone Hcl Immed Release 5 Mg Tablet) 5 mg PO Q4H PRN PRN Reason: Pain, Mild (Pain Scale 1-3) Pharmacy Consult (Consult Rx Vancomycin Dosing) 1 each MISCELLANE DAILY PRN PRN Reason: Consult order Sodium Chloride (0.9 % Sodium Chloride Flush 3 Ml Syringe) 3 ml IVFLUSH QSHIFT [facility] Last Admin: 01/24/25 09:00 Dose: 3 ml Documented By: ANJELICA Tramadol HCl (Tramadol Hcl 50 Mg Tablet) 50 mg PO Q6H PRN PRN Reason: Pain, Moderate(Pain Scale 4-6) Labs 01/24/25 06:27 01/24/25 06:27 Labs: Laboratory Results - last 24 hr 01/23/25 01/24/25 15:20 06:27 MCV 72.7 L MCH 23.0 L MCHC 31.6 RDW 16.9 H Plt Count 314 MPV 10.1 Immature Gran % (Auto) 1.9 H Neut % (Auto) 90.2 H Lymph % (Auto) 5.5 L Levy % (Auto) 2.4 Eos % (Auto) 0.0 Baso % (Auto) 0.0 Lymph # (Auto) 0.3 L Levy # (Auto) 0.2 Eos # (Auto) 0.0 Baso # (Auto) 0.0 Abs Immat Gran (auto) 0.12 H Absolute Neuts (auto) 5.6 Absolute Nucleated RBC 0.000 Nucleated RBC % (auto) 0.0 Smear Tech's Comments VERIFIED Anion Gap 13 Estim Creat Clear Calc 21.3 Estimated GFR 25 Random Glucose 138 H Calcium 7.8 L Random Vancomycin 12.7 L Microbiology Microbiology Results: Microbiology 01/21/25 14:03 Blood Culture - Final Blood - Venous Enterococcus faecalis 01/21/25 13:46 Blood Culture - Final Blood - Venous Enterococcus faecalis Assessment and Plan (1) Acute kidney injury superimposed on CKD: Status: Acute (2) Sepsis: Status: Acute Plan Patient is an 84-year-old male with a past medical history significant for paroxysmal AFib on Eliquis, iron-deficiency anemia, CKD 3, hypertension, hyperlipidemia, BPH, GERD, new diagnosis stage III colon cancer s/p hemicolectomy 12/10/[address] Mahmood, who presented to the ED per Dr. Mahmood's recommendation due to abnormal labs. Sepsis secondary to UTI, Urine culture and blood cultures= enterococcus F. abdominopelvic CT with Left UPJ calculus measuring up to 1.3 cm causes moderate left hydronephrosis. Nonobstructing calculus of the right UVJ measuring up to 2.4 cm. Diffuse thickening of the mucosa of the urinary bladder can be seen with cystitis or chronic outlet obstruction. Seen Uro for cystoscopy today [place] Vanco, continue Unasyn Probably PO Augmentin at [place] ID consultt pending on duration of therapy LOIS on CKD, likely obstrutive uropathy, improving, continue monitoring with [facility] nephrology following Elevated troponin, likely from ckd, no chest pain, no further testing indicated at this time Chronic anemia, H/H trending down, ? hemodilution, monitor Paroxysmal AFib, controlled on amio. Holding Eliquis until after procedure HTN-- no meds, BP normal HLD continue home meds BPH-- continue home meds GERD-continue home meds Colon cancer followed by Dr. Mahmood Full code VTE prophylaxis: Pneumoboots Quality Stroke Does the patient have a stroke diagnosis?: No VTE Prior VTE?: No VTE Risk Level:: Medical - moderate - high VTE Device Contraindication: N/A - Device Ordered VTE Drug Contraindication: Treatment Not Indicated
--- NOTE | 2025-01-24 11:59 | P.PNNP_ITS ---
Subjective Subjective Date of Service: 01/24/25 Interval history: Here with LOIS- uti/pyelonephritis, renal stone with hydro- s/p cystoccopy yesterday, stones removed. No events noted overnight. Creatinine now 2.98, was 3.9 yesterday. Patient denies new complaints/concerns. Physical Exam 2 Vital Signs: Vital Signs: Last Vital Signs Temp 97.4 F 01/24/25 10:50 Pulse 103 H 01/24/25 10:50 Resp 18 01/24/25 10:50 BP 116/75 01/24/25 10:50 Pulse Ox 96 01/24/25 10:50 O2 Del Method Room Air 01/24/25 10:50 O2 Flow Rate 4 01/23/25 16:21 BMI result Body Mass Index 23.3 Const: General: no acute distress, alert and awake Resp: Effort & Inspection: normal respiratory effort and able to speak in complete sentences Auscultation: clear to auscultation bilaterally Cardio: Rate: regular rate Rhythm: abnormal rhythm Heart sounds: S1 normal heart sound present and S2 normal heart sound present GI: Palpation (GI): Soft to palpation and nontender Skin: Rashes: no rashes Extrem: General: No edema Objective Data Labs 01/24/25 06:27 01/24/25 06:27 Labs: Laboratory Results - last 24 hr 01/23/25 01/24/25 15:20 06:27 WBC 6.2 RBC 3.70 L Hgb 8.5 L Hct 26.9 L MCV 72.7 L MCH 23.0 L MCHC 31.6 RDW 16.9 H Plt Count 314 MPV 10.1 Immature Gran % (Auto) 1.9 H Neut % (Auto) 90.2 H Lymph % (Auto) 5.5 L Caroline % (Auto) 2.4 Eos % (Auto) 0.0 Baso % (Auto) 0.0 Lymph # (Auto) 0.3 L Caroline # (Auto) 0.2 Eos # (Auto) 0.0 Baso # (Auto) 0.0 Abs Immat Gran (auto) 0.12 H Absolute Neuts (auto) 5.6 Absolute Nucleated RBC 0.000 Nucleated RBC % (auto) 0.0 Smear Tech's Comments VERIFIED Sodium 144 Potassium 3.9 D Chloride 112 H Carbon Dioxide 23 Anion Gap 13 BUN 41 H Creatinine 2.49 H Estim Creat Clear Calc 21.3 Estimated GFR 25 Random Glucose 138 H Calcium 7.8 L Random Vancomycin 12.7 L Microbiology Microbiology Results: Microbiology 01/21/25 14:03 Blood - Venous Blood Culture - Final Enterococcus faecalis 01/21/25 13:46 Blood - Venous Blood Culture - Final Enterococcus faecalis 01/21/25 Unknown Urine clean catch - Clean Catch Midstream Urine Culture - Final Enterococcus faecalis Procedures Date of Service Date of Service: 01/24/25 Assessment & Plan Assessment and plan (1) Acute kidney injury superimposed on CKD: Status: Acute Plan LOIS on CKD likely ATN from ARB use in setting of poor oral intake/hypovolemia. Renal function continues to gradually improve, anticipate continued improvement over time. Recommend continuing to hold ARB. Encourage oral hydration and nutritional intake. Urology consulted per hospital medicine, plan for ureteroscopy. Continue to avoid nephrotoxins Ok to discharge from a renal standpoint. Will sign off and arrange outpatient follow up upon discharge with nephrology clinic. discussed with Dr Flores Time Spent With Patient Time: Total time managing care of this patient today ____ minutes. Progress Note: Quality Stroke Does the patient have a stroke diagnosis?: No
--- NOTE | 2025-01-24 12:10 | MHC.CLN ---
F/U PT IS MODERATELY MALNOURISHED PT WITH 12% SIGNIFICANT WT LOSS X6 MONTHS WITH MILDLY DEPLETED SUBCUTANEOUS FAT AND MUSCLE MASS WITH CHRONIC POOR PO INTAKE DIET ADVANCED TO REGULAR RECOMMEND ADDING NUTRITION SUPPLEMENTS ENSURE TID TO PROVIDE 1050KCALS, 60G PROTEIN MONITOR PO INTAKE AND ENCOURAGE SUPPLEMENTS
--- NOTE | 2025-01-24 15:39 | MHC.CM.PN ---
EMR reviewed and per MD rounds, pt is not medically cleared for discharge due to management of sepsis/UTI.
[2025-01-24] MEDS: Milk of Magnesia 30 ML ORAL.SUSP PO (18:37)
[2025-01-25] MEDS: 0.9 % Sodium Chloride Flush 3 ML SYRINGE IVFLUSH (00:16)
--- NOTE | 2025-01-25 01:34 | PC.NURSE ---
Patient arrived to unit from [employer] tele. Pt is calm & cooperative, call quintero within reach, bed alarm on.
--- NOTE | 2025-01-25 01:41 | PC.NURSE ---
Patients IV stings when flushed & pt states its been like that even when he was upstairs, but he says he doesn't want another IV placed and to leave his current one in. I explained to him that he has IV abx ordered during the day and if his IV bothers him it's best to replace with a new one to avoid any further complications. Patient verbalized his understanding and stated he was able to tolerate his previous infusion and still doesn't want a new one.
[2025-01-25 03:28] VITALS: BP 134/61; PULSE 72; RESP 17; TEMP 36.1; O2SAT 98
[2025-01-25 06:24] LABS: Hematocrit 25.3 % (42.0-52.0); Hemoglobin 8.1 g/dl (14.0-18.0); Mean Corpuscular HGB Conc 32.0 g/dl (31.0-36.0); Mean Corpuscular Hemoglobin 23.3 pg (27.0-33.0); Mean Corpuscular Volume 72.7 fL (80.0-98.0); NRBC Abs Auto 0.000 X10*3/uL (0.0-0.012); NRBC Pct Auto 0.0 /100WBC (0.0-0.2); Platelet Count 370 X10*3/uL (160-400); Red Blood Count 3.48 X10*6/uL (4.60-5.80); White Blood Count 8.8 X10*3/uL (4.8-10.8)
[2025-01-25 06:52] LABS: Anion Gap 9 (12-20); Blood Urea Nitrogen 36 mg/dL (9-16); Calcium 7.5 mg/dL (8.4-10.2); Carbon Dioxide 25 mmol/L (22-29); Chloride 114 mmol/L (96-108); Creatinine Clr Calc Pharmacy 21.8; Estimated Glomerular Filt Rate 25; Potassium 3.4 mmol/L (3.3-5.1); Sodium 145 mmol/L (135-145)
[2025-01-25 07:35] VITALS: BP 147/67; PULSE 85; RESP 18; TEMP 36.6; O2SAT 97
--- NOTE | 2025-01-25 09:20 | PM.DS ---
DS: Providers Provider Date of Service: 01/25/25 Date of admission: 01/21/25 18:41 Date of discharge: 01/25/25 Primary care physician: None Physician Consults: 01/21/25 21:40 Consult to Urology Routine Consulting Provider: Sergey Roberts Reason for consultation: 1.3cm UPJ stone, hydronephrosis, sepsis UTI Has provider been notified: Yes 01/21/25 21:44 Consult to Nephrology Routine Consulting Provider: [facility] Reason for consultation: LOIS on CKD Has provider been notified: Yes 01/22/25 06:41 Consult to Infectious Diseases Routine Consulting Provider: [facility] Reason for consultation: blood cultures gram + cocci in chains Has provider been notified: No 01/23/25 07:28 Consult to Infectious Diseases Routine Consulting Provider: [facility] Reason for consultation: bacteremia DS: Diagnosis Discharge Diagnosis (1) Acute kidney injury superimposed on CKD: Status: Acute DS: Summary Hospital Course Hospital Course: Admission HPI Chief Complaint: Abnormal labs Patient is an 84-year-old male with a past medical history significant for paroxysmal AFib on Eliquis, iron-deficiency anemia, CKD 3, hypertension, hyperlipidemia, BPH, GERD, new diagnosis stage III colon cancer s/p hemicolectomy 12/10/[address] Mahmood, who presented to the ED per Dr. Mahmood's recommendation due to abnormal labs. The patient's creatinine has been rising, was 5.03. On 12/25/2024 his creatinine was 1.96. The patient reports a 40 lb weight loss over the past 6 months with poor appetite and poor p.o. intake in general. He has had increased nocturia, 6 times last night. No urgency or dysuria. He denies any chest pain, shortness of breath, nausea or vomiting. Overall he is asymptomatic. Hospital course: Patient is an 84-year-old male with a past medical history significant for paroxysmal AFib on Eliquis, iron-deficiency anemia, CKD 3, hypertension, hyperlipidemia, BPH, GERD, new diagnosis stage III colon cancer s/p hemicolectomy 12/10/[address] Mahmood, who presented to the ED per Dr. Mahmood's recommendation due to abnormal labs, sepecifically increased creatinine. He was found to have LOIS, Uti with Sepsis and obstructive uropathy. Urine culture and blood culture would eventally gorwn Enterococcus and would undergo cytoscopy/ Sepsis secondary to UTI, Urine culture and blood cultures= enterococcus F. abdomen and pelvc CT showed a Left UPJ calculus measuring up to 1.3 cm causes moderate left hydronephrosis. Nonobstructing calculus of the right UVJ measuring up to 2.4 cm. Diffuse thickening of the mucosa of the urinary bladder can be seen with cystitis or chronic outlet obstruction. He underwent Cystoscopyt on 01/[address] Roberts with the followin) Cystoscopy 2) Right retrograde 3) Bladder Stone Laser 4) Left retrograde with stent placement Patient initially treated with Ceftriaxone, then changed to Vancomycin and Unassyn until culture sensitivity became available then was kept on Unassyn alone for enteroccocus UTI and bacteremia. ID is recommending IV therapy, unfortunately patient is unwilling to stay in the hospital beyond today and I am unable to make arraignment for home infusion at this time, and additionally waiting on repeat blood culture, against that background. He has opted to go with patient directed discharge and will therefore prescribed Amoxicillin 1000 luís TID as next best option for treatment of enterococcus bacteremia with the understanding that there is a risk of relapse, patient understandig an still wants to go. The decision is supported by his who is taking him home, he is alert oriented to self, place and time and understand the implication of his decision including relapose, sepsis, and even . He is to follow up with his PCP and Dr. Roberts for the stent care. he is presently afebrile, WBC is normal. LOIS on CKD, likely obstrutive uropathy, improving, continue monitoring with IVF nephrology following, Cratine back to baseline Elevated troponin, likely from ckd, no chest pain, no further testing indicated at this time Chronic anemia, H/H trending down, ? hemodilution, monitor Paroxysmal AFib, controlled on amio. Holding Eliquis until after procedure HTN-- no meds, BP normal HLD continue home meds BPH-- continue home meds GERD-continue home meds Colon cancer followed by Dr. Mahmood Time Attestation Discharge Coordination Time (in mins): 40 Quality: Safe Use of Opioids Does Pt have an Active Cancer Diagnosis on the Problem List?: No Quality: Stroke Does the patient have a stroke diagnosis?: No Physical Exam Vital Signs: Vital Signs: Last Vital Signs Temp 97.9 F 01/25/25 07:35 Pulse 85 01/25/25 07:35 Resp 18 01/25/25 07:35 BP 147/67 H 01/25/25 07:35 Pulse Ox 97 01/25/25 07:35 O2 Del Method Room Air 01/25/25 07:35 O2 Flow Rate 4 01/23/25 16:21 BMI result Body Mass Index 23.3 DS: Data Data Completed and Pending Completed studies during hospitalization [Text1]: Procedures Resection of Right Large Intestine, Open Approach (12/09/24) Pending studies at discharge: Pending at discharge 01/23/25 16:18 Surgical [PTH] Routine Labs on day of discharge: Laboratory Results - last 24 hr 01/25/25 06:13 WBC 8.8 RBC 3.48 L Hgb 8.1 L Hct 25.3 L MCV 72.7 L MCH 23.3 L MCHC 32.0 RDW 17.0 H Plt Count 370 MPV 9.4 Absolute Nucleated RBC 0.000 Nucleated RBC % (auto) 0.0 Sodium 145 Potassium 3.4 Chloride 114 H Carbon Dioxide 25 Anion Gap 9 L BUN 36 H Creatinine 2.44 H Estim Creat Clear Calc 21.8 Estimated GFR 25 Random Glucose 112 Calcium 7.5 L Discharge Plan Discharge Anticipated Discharge Date/Time: 01/25/25 09:21 Patient Disposition: Left Against Medical Advice Discharge Diagnosis: LIOS, UTI, obstructive uropathy Referrals: Sergey Roberts MD [Physician, Urology] - 2 Weeks Physician,None [Primary Care Provider, Medical] - 1 Week Discharge Medications: New amoxicillin 500 mg Capsule 1,000 mg PO TID 10 Days Qty: 60 0RF Continued amiodarone 200 mg tablet 200 mg PO DAILY 30 Days Qty: 45 1RF Rx Instructions: take 2 tablets ( 400mg) twice a day for 5 days then reduce dose to 1 tab ( 200mg) daily finasteride 5 mg tablet 5 mg PO BEDTIME Eliquis 2.5 mg Tablet 2.5 mg PO BID Qty: 180 0RF amlodipine 2.5 mg tablet 2.5 mg PO DAILY losartan 50 mg tablet 50 mg PO DAILY omeprazole 20 mg capsule,delayed release(DR/EC) 20 mg PO DAILY@0630 atorvastatin 20 mg tablet 20 mg PO BEDTIME Discharge Orders: Discharge Order (Routine); Ordered 01/25/25 Ordered By: Noe Gilliam Diet: Advance to usual diet Activity on Discharge: As tolerated Print Language: Maltese Care Plan Goals: recovery from sepis, UTI, kindey stone Health Concerns: UTI LOIS kidney stone Plan of Treatment: Take amoxillin as recommended and follow up with your Doctor in a week Follow up with Dr. Roberts the urologist Assessment: see above
== END 2025-01-25 10:28 | disposition left against medical advice (07) | DRG 853 ==
LOC: HO.ED 18:19 → HO.EDOVER 19:09 → HO.IMC 23:49 → HO.S3 01-25 00:59
PROVIDERS: Physician Assistant; Urology; Admitting Provider Internal Medicine; Emergency Provider Emergency Medicine Emergency Medical Services; Visit Provider Internal Medicine
PROC: 0T778DZ Dilation of Left Ureter with Intraluminal Device, Via Natural or Artificial Opening Endoscopic (ICD-10-PCS; principal; 2025-01-23 15:30)
DX: A41.9 Sepsis, unspecified organism (principal); N17.0 Acute kidney failure with tubular necrosis; N13.6 Pyonephrosis; C18.9 Malignant neoplasm of colon, unspecified; N21.0 Calculus in bladder; E86.1 Hypovolemia; I12.9 Hypertensive chronic kidney disease with stage 1 through stage 4 chronic kidney disease, or unspecified chronic kidney disease; N18.30 Chronic kidney disease, stage 3 unspecified; D63.1 Anemia in chronic kidney disease; Z98.0 Intestinal bypass and anastomosis status; B95.2 Enterococcus as the cause of diseases classified elsewhere; D50.9 Iron deficiency anemia, unspecified; N40.0 Benign prostatic hyperplasia without lower urinary tract symptoms; I48.0 Paroxysmal atrial fibrillation; Z90.49 Acquired absence of other specified parts of digestive tract; Z87.891 Personal history of nicotine dependence; Z79.01 Long term (current) use of anticoagulants; Z79.899 Other long term (current) drug therapy
CPT/HCPCS: 36415; 74176; 76857; 80048; 80053; 80202; 81001; 81003; 82550; 82803; 83605; 84484; 85025; 85027; 87040; 87077; 87086; 87088; 87186; 87205; 88300; 93005; 99285; C1758; C1769; C2617; J0131; J0295; J0696; J1100; J2003; J2371; J2405; J2704; J3010; J3374; J7120; Q9967

== ENCOUNTER → 2025-01-21 11:27 | Outpatient (BNV) | payer MEDICARE, OTHER, SELFPAY | PROVIDERS: Emergency Provider Emergency Medicine Emergency Medical Services; Visit Provider Internal Medicine Cardiovascular Disease | DX: I48.91 Unspecified atrial fibrillation (principal) | CPT/HCPCS: 93010 ==

== ENCOUNTER → 2025-01-21 11:53 | Outpatient (BNV) | payer MEDICARE, OTHER, SELFPAY | PROVIDERS: Emergency Provider Emergency Medicine Emergency Medical Services; Visit Provider Nurse Practitioner Family | DX: N17.9 Acute kidney failure, unspecified (principal); N18.9 Chronic kidney disease, unspecified | CPT/HCPCS: 99231 ==

== ENCOUNTER → 2025-01-21 13:22 | Outpatient (BNV) | payer MEDICARE, OTHER, SELFPAY | PROVIDERS: Emergency Provider Emergency Medicine Emergency Medical Services; Visit Provider Radiology Diagnostic Radiology | DX: N13.0 Hydronephrosis with ureteropelvic junction obstruction (principal) | CPT/HCPCS: 74176 ==

== ENCOUNTER 2025-01-21 18:41 | Outpatient (BNV) | payer MEDICARE, OTHER, SELFPAY | END 2025-01-22 13:38 | PROVIDERS: Admitting Provider Internal Medicine; Emergency Provider Emergency Medicine Emergency Medical Services; Visit Provider Radiology Diagnostic Radiology | DX: N21.0 Calculus in bladder (principal) | CPT/HCPCS: 76857 ==

== ENCOUNTER → 2025-01-21 18:41 | Outpatient (BNV) | payer MEDICARE, OTHER, SELFPAY | PROVIDERS: Admitting Provider Internal Medicine; Emergency Provider Emergency Medicine Emergency Medical Services; Visit Provider Internal Medicine | DX: N18.30 Chronic kidney disease, stage 3 unspecified (principal); N39.0 Urinary tract infection, site not specified | CPT/HCPCS: 99222 ==

== ENCOUNTER → 2025-01-21 18:41 | Outpatient (BNV) | payer MEDICARE, OTHER, SELFPAY | PROVIDERS: Admitting Provider Internal Medicine; Emergency Provider Emergency Medicine Emergency Medical Services; Visit Provider Urology | DX: N13.2 Hydronephrosis with renal and ureteral calculous obstruction (principal) | CPT/HCPCS: 52356; 74420; 99223 ==

== ENCOUNTER → 2025-01-21 18:41 | Outpatient (BNV) | payer MEDICARE, OTHER, SELFPAY | PROVIDERS: Admitting Provider Internal Medicine; Emergency Provider Emergency Medicine Emergency Medical Services; Visit Provider Internal Medicine | DX: A41.9 Sepsis, unspecified organism (principal); N39.0 Urinary tract infection, site not specified; N17.9 Acute kidney failure, unspecified; N18.9 Chronic kidney disease, unspecified; N13.30 Unspecified hydronephrosis; E86.9 Volume depletion, unspecified; R79.89 Other specified abnormal findings of blood chemistry | CPT/HCPCS: 99223; 99232 ==

== ENCOUNTER 2025-01-29 13:41 | Outpatient (AMB) | payer MEDICARE, OTHER, SELFPAY ==
--- NOTE | 2025-01-29 13:47 | A.OFFVIS_ITS ---
Vital Signs 01/29/25 14:01 Height 5 ft 8 in Weight 153 lb BMI 23.3 BP 180/74 H Blood Pressure Location Lt brachial Position Sitting Pulse 82 Intake Visit Reasons: pain colectomy site Intake Note: Patient is seen in office for wound check post extended right hemicolectomy, with ileo transverse colonic anastomosis. Pt c/o: per pt unsure if pain is due to surgery, has constant pain all over the abdomen, last night was the worse was up every 15 min due to pain, has no taste or desire to eat, not hydrating as he should, denies n/v/d/c Pediatric Geneticist Required: No Accompanied by: Family/Other Allergies No Known Allergies Allergy (Verified 01/29/25 14:00) HPI HPI pain colectomy site: Details: Patient reports that last night began having lower abdominal pain that wraps around his stomach and towards his back and kidneys. He was unable to get comfortable and unable to sleep due to the pain. Attempts to void overnight produce minimal urine. He reports he had some oxycodone from a previous surgery that he took which was able to take the edge off but he has still been very unc omfortable. He reports that he has had a decreased appetite and decreased fluid intake lately. He reports he deals with constipation, frequently 2-4 days between bowel movements occasionally takes stool softeners to help this. He reports he is passing small amounts of gas. He denies nausea or vomiting. States his abdomen does feel a little bit bloated. He has been able to urinate but reports small volumes. He did urinate while in the office and states the flow was better than normal and that this improved his pain slightly. He denies cloudy urine, states his urine today in the office seemed more clear than it has been. He denies fevers or chills at home. He recently was admitted after he was seen at Dr. Mahmood's office who recommended he present to the ED due to abnormal labs patient had a significantly elevated creatinine. Patient had a cystoscopy finding a large bladder stone which was broken up with a laser and irrigated from the bladder. Additionally had a left ureter stent placed. [facility], [facility] Medical History Abnormal weight loss CKD (chronic kidney disease) stage 3, GFR 30-59 ml/min Arthritis BPH (benign prostatic hyperplasia) Numbness and tingling of both feet Dizziness Syncope (~2020) Colon adenocarcinoma Atrial fibrillation Chronic kidney disease GERD (gastroesophageal reflux disease) High cholesterol HTN (hypertension) Surgical History Hx of left hemicolectomy (12/10/24) Hx of colonoscopy (10/01/24) H/O prostate biopsy Hx of cataract extraction History of dental surgery H/O removal of cyst (03/01/22) Family History Mother Hypertension Breast cancer Father Alcoholic Lung cancer Sister Breast cancer Sister Breast cancer Sister Breast cancer Sister Breast cancer Social History Household Members: Spouse Housing: House Are you a primary attending ambulatory care to a significant other at home: No Do you presently have visiting nurse or other home services: No Comment: pt refused bed alarm Patient Tobacco Use Status: Former Tobacco user Tobacco use type: Cigarette Advance Directives Date on File: 01/22/25 service: Yes Current occupational status: retired Physical Exam Vital Signs: Last Vital Signs Pulse 82 01/29/25 14:01 BP 180/74 H 01/29/25 14:01 BMI result Body Mass Index 23.3 Const General: no acute distress; No comfortable Orientation/consciousness: patient oriented x3 GI Palpation (GI): Soft to palpation and Tenderness to palpation present (GI) (Lower abdomen) Auscultation: normal bowel sounds General: Yes CVA tenderness bilateral Back/Spine/Pelvis Back: CVA tenderness Neuro General: patient oriented x3 Assessment & Plan Assessment & Plan (1) Abdominal pain: Code(s): R10.9 - Unspecified abdominal pain Category: Medical Qualifiers: Abdominal location: lower abdomen, unspecified Qualified Code(s): R10.30 - Lower abdominal pain, unspecified Plan 84-year-old male s/p extended right hemicolectomy with ileotransverse colonic anastomosis on 12/10/2024 returning to the office due to lower abdominal pain radiating to the flank and kidneys that began last night. The pain has made it difficult to sleep. He has been taking some leftover oxycodone he has had from a previous procedure which helps to take the edge off. He denies fevers or chills He is denying nausea or vomiting but reports poor intake since his colon surgery. He experiences constipation typically bowel movements every 2-4 days, takes a stool softener as needed to help facilitate bowel movements. Does re port that he is passing small amounts of gas. He denies fevers at home. Denies burning with urination but does report some difficulty voiding. He voided while in the office and states that he thought he had better flow that it did improve the pain slightly. On exam his abdomen is soft tender in the lower abdomen I was able to hear good bowel sounds in all 4 quadrants. The abdomen did not appe ar distended. He did have positive CVA tenderness bilaterally. He was hypertensive here in the office which is likely secondary to his pain. Initially I was concerned that the patient may have a small bowel obstruction however his abdomen remains soft nondistended. He is not experiencing any nausea or vomiting and has adequate bowel sounds in all 4 quadrants. I am suspicious that his pain may be related to a urologic issue given his CVA tenderness and recent urologic procedure. I recommended that he follow up with Dr. Roberts for further evaluation. I instructed him to continue taking the oxycodone that he has every 6 hours as needed for pain. Additionally he can supplement with [id number] Tylenol if his pain is not well controlled with oxycodone. He should not take ibuprofen due to his chronic kidney disease. We discussed return precautions, if the patient develops nausea, vomiting, abdominal distention, fevers, inability to pass gas or stools, inability to urinate, worsening pain that he should report to the emergency room for evaluation. patient and expressed understanding to this and plan to call Dr. Roberts's office to be seen. Coding Level of Care Code Est Pt Level 3 (41148) Diagnoses Lower abdominal pain R10.30 Abdominal location: lower abdomen, unspecified
[2025-01-29 14:01] VITALS: BP 180/74; PULSE 82; BMI 23.3
--- OUTSIDE RECORDS SUMMARY | 2025-01-29 17:26 | XMS_ITS | Clinical Summary ---
Author Organization [facility] Facility Address [address] [address] Care Team Providers Care Dressmaker Garment Fitter Name Role Phone Flako Hernández MD Primary Care Provider [phone] Allergies No known active allergies Medications atorvastatin [...] age to complete this topic Insurance Medicare [facility] Medicare [facility] Care Teams Dressmaker Garment Fitter Relationship Specialty Start Date End Date Flako Hernández MD [address] [place] [address] PCP - General 05/25/20
== END 2025-01-29 14:34 | disposition home or self-care (01) ==
DX: R10.30 Lower abdominal pain, unspecified (principal)
CPT/HCPCS: 99024

== ENCOUNTER → 2025-01-29 13:41 | Outpatient (BNVA) | payer MEDICARE, OTHER, SELFPAY | DX: R10.30 Lower abdominal pain, unspecified (principal); G89.18 Other acute postprocedural pain | CPT/HCPCS: 99212 ==

== ENCOUNTER 2025-02-04 12:02 | Outpatient (REF) | payer MEDICARE, OTHER, SELFPAY ==
--- OUTSIDE RECORDS SUMMARY | 2025-01-31 15:08 | XMS_ITS | Encounter Summary ---
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, CMS/HCC V28) Procedures PET CT Skull to Mid Thigh Initial Bety Mahmood MD [address] [place] [address] HEMATOLOGY / [place] [address] Phone: tel: fax: [facility] Referral ID Status Reason Start Date Expiration Date V isits Requested Visits Authorized [id number] Authorized 01/30/2025 01/30/2026 1 1 Reason for Visit * Imaging (Routine) - Authorized Specialty Diagnoses / Procedures Referred By Andrea aranda Referred To Contact Radiology Diagnoses 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, CMS/HCC V28) Procedures PET CT Skull to Mid Thigh Initial Bety Mahmood MD [address] [place] [address] HEMATOLOGY / [place] [address] Phone: tel: fax: [facility] Referral ID Status Reason Start Date Expiration Date V isits Requested Visits Authorized [id number] Authorized 01/30/2025 01/30/2026 1 1 Encounter Details Date Type Department Care Team (Latest Contact Info) Description 2025 3:08 PM EDT Hospital Encounter [facility] PET Scan [address] [place] [address] 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, CMS/HCC V28) Social History Tobacco Use Types Packs/Day Years Used Date Smoking Tobacco: Never Assessed Sex and Gender Information Value Date Recorded Sex Assigned at Not on file Legal Sex Male 11:48 AM EDT Gender Identity Not on file Sexual Orientation Not on file documented as of this encounter Plan of Treatment Not on file documented as of this encounter Procedures Procedure Name Priority Date/Time Associated Diagnosis Comments PET CT SKULL TO MID THIGH INITIAL Routine 2025 5:20 PM EDT 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 FDG avid nodularity in the right upper quadrant suspicious for metastatic disease 2. Nonspecific activity within the left hepatic lobe; attention to this area can be made on follow-up imaging 3. Asymmetric focal activity along the right neck which either represents asymmetric level II ankur activity versus muscle activity Please note: The CT was acquired at a low radiation dose settings. The images are of nondiagnostic quality and used solely for purposes of attenuation correction and slice localization for the PET scan. If a diagnostic CT study is desired it must be ordered separately. 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 Staging. TECHNIQUE: FDG PET-CT imaging was performed from the skull bases through the thighs in a single acquisition with data set reconstructed in axial, coronal, and sagittal planes at the computer workstation with fused data from both the PET imaging study and attenuation correction CT. The CT portion of the examination was done strictly for attenuation correction and is not a true diagnostic CT examination. Patient declined enteric contrast. DLP: 528 mGy-cm Radiopharmaceutical: 5.6 mCi of F-18 FDG IV. Blood glucose: 97 mg/dl. COMPARISON: None. FINDINGS: HEAD AND NECK: Asymmetric focal activity along the tip of the right mandible SUV max 3.7 which either represents asymmetric level II ankur activity versus muscle activity. Physiologic uptake within the longus capitis and coli muscles bilaterally. THORAX: No abnormal FDG activity. No significant FDG avid thoracic or axillary lymphadenopathy. For example bihilar activity SUV max 2.4 on the left and 2.8 on the right (mediastinal blood pool SUV Max 3.1). Coronary artery calcifications. ABDOMEN/PELVIS: Nonspecific activity within the left hepatic lobe SUV max 3.6 (background liver activity SUV max 3.3_. Nodularity in the right upper quadrant measuring up to SUV Max 3.3. Caval lymph nodes measuring up to SUV Max 2. Nonenlarged retroperitoneal lymph nodes without significant FDG activity. No significant FDG avid pelvic lymph nodes. Postsurgical appearance status post hemicolectomy. Stranding along the anterior abdominal wall SUV max 3.5, likely representing postsurgical changes. Nonspecific residual activity within the bowel. Nonspecific focal activity within the gastric body SUV max 4.2. Distended urinary bladder with internal left sided nephroureteral stent with atrophy of the left kidney. Bilateral pelviectasis. Urinary bladder calculi. Enlarged prostate gland. MUSCULOSKELETAL: Nonspecific asymmetric activity at L3-L4 SUV max 4.2 which may represent degenerative changes. Procedure Note Brigid Vanegas MD - 02/04/2025 INDICATION: Adenocarcinoma of the transverse colon status post rightextended hemicolectomy. Staging. TECHNIQUE: FDG PET-CT imaging was performed from the skull bases throughthe thighs in a single acquisition with data set reconstructed in axial,coronal, and sagittal planes at the computer workstation with fused datafrom both the PET imaging study and attenuation correction CT. The CTportion of the examination was done strictly for attenuation correctionand is not a true diagnostic CT examination. Patient declined entericcontrast. DLP: 528 mGy-cm Radiopharmaceutical: 5.6 mCi of F-18 FDG IV. Blood glucose: 97 mg/dl. COMPARISON: None. FINDINGS: HEAD AND NECK: Asymmetric focal activity along the tip of the rightmandible SUV max 3.7 which either represents asymmetric level II nodalactivity versus muscle activity. Physiologic uptake within the longus capitis and coli muscles bilaterally. THORAX: No abnormal FDG activity. No significant FDG avid thoracic or axillary lymphadenopathy. For examplebihilar activity SUV max 2.4 on the left and 2.8 on the right (mediastinalblood pool SUV Max 3.1). Coronary artery calcifications. ABDOMEN/PELVIS: Nonspecific activity within the left hepatic lobe SUV max3.6 (background liver activity SUV max 3.3_. Nodularity in the right upper quadrant measuring up to SUV Max 3.3. Cavallymph nodes measuring up to SUV Max 2. Nonenlarged retroperitoneal lymphnodes without significant FDG activity. No significant FDG avid pelviclymph nodes. Postsurgical appearance status post hemicolectomy. Stranding along theanterior abdominal wall SUV max 3.5, likely representing postsurgicalchanges. Nonspecific residual activity within the bowel. Nonspecificfocal activity within the gastric body SUV max 4.2. Distended urinary bladder with internal left sided nephroureteral stentwith atrophy of the left kidney. Bilateral pelviectasis. Urinary bladdercalculi. Enlarged prostate gland. MUSCULOSKELETAL: Nonspecific asymmetric activity at L3-L4 SUV max 4.2which may represent degenerative changes. IMPRESSION: 1. FDG avid nodularity in the right upper quadrant suspicious formetastatic disease 2. Nonspecific activity within the left hepatic lobe; attention to thisarea can be made on follow-up imaging 3. Asymmetric focal activity along the right neck which either representsasymmetric level II ankur activity versus muscle activity Please note: The CT was acquired at a low radiation dose settings. The images are ofnondiagnostic quality and used solely for purposes of attenuationcorrection and slice localization for the PET scan. If a diagnostic CTstudy is desired it must be ordered separately. 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
[2025-02-04 14:58] LABS: Anion Gap 18 (12-20); Blood Urea Nitrogen 54 mg/dL (9-16); Calcium 8.5 mg/dL (8.4-10.2); Carbon Dioxide 19 mmol/L (22-29); Chloride 105 mmol/L (96-108); Estimated Glomerular Filt Rate 4; Potassium 4.3 mmol/L (3.3-5.1); Sodium 138 mmol/L (135-145)
--- OUTSIDE RECORDS SUMMARY | 2025-02-04 15:00 | XMS_ITS | Clinical Summary ---
Author Organization [facility] Facility Address [address] [address] Care Team Providers Care Production Sorter Name Role Phone Flako Hernández MD Primary Care Provider [phone] Allergies No known active allergies Medications atorvastatin [...] age to complete this topic Insurance Medicare [facility] Medicare [facility] Care Teams Production Sorter Relationship Specialty Start Date End Date Flako Hernández MD [address] [place] [address] PCP - General 05/25/20
--- OUTSIDE RECORDS SUMMARY | 2025-02-04 15:00 | XMS_ITS | Clinical Summary ---
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, CMS/HCC V28) from Last 3 Months Social History Tobacco Use Types Packs/Day Years Used Date Smoking Tobacco: Never Assessed Sex and Gender Information Value Date Recorded Sex Assigned at Not on file Legal Sex Male 11:48 AM EDT Gender Identity Not on file Sexual Orientation Not on file Plan of Treatment Health Maintenance Due Date Last Done Comments DTaP,Tdap,and Td Vaccines (1 - Tdap) 01/30/1959 Pneumococcal Vaccine: 50+ Years (1 of 1 - PCV) 01/30/1990 Zoster Vaccines (1 of 2) 01/30/1990 RSV Immunization Adult Patients (1 - 1-dose 75+ series) 01/30/2015 Depression Screening 05/15/2024 COVID-19 Vaccine ( season) 2025 05/03/2022, 07/20/2021, 12/13/2020, Additional history exists Influenza Vaccine (#1) 2025 , 03/13/2023, 03/24/2022, Additional history exists Cholesterol Screening (Lipid Panel) 01/30/2025 Falls Risk Assessment 01/30/2025 Medicare Annual Wellness Visit 01/30/2025 Social Influencers of Health Screening 01/30/2025 Hypertension/CHF/CAD Annual BMP Blood Test 2025 HIB Vaccines Aged Out No longer eligi ble based on patient's age to complete this topic HPV Vaccines Aged Out No longer eligi ble based on patient's age to complete this topic Hepatitis A Vaccines Aged Out No long er eligible based on patient's age to complete this topic Hepatitis B Vaccines Aged Out No long er eligible based on patient's age to complete this topic IPV Vaccines Aged Out No longer eligi ble based on patient's age to complete this topic MMR Vaccines Aged Out No longer eligi ble based on patient's age to complete this topic Meningococcal ACWY Vaccine Aged Out N o longer eligible based on patient's age to complete this topic Meningococcal B Vaccine Aged Out No l onger eligible based on patient's age to complete this topic RSV Immunization Patients Under 20 months Aged Out No longer eligible based on patient's age to complete this topic Varicella Vaccines Aged Out No longer eligible based on patient's age to complete this topic Procedures Procedure Name Priority Date/Time Associated Diagnosis Comments PET CT SKULL TO MID THIGH INITIAL Routine 2025 5:20 PM EDT 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
[2025-02-04 15:28] LABS: PSA,Total (Free>4and<10) 14.23 ng/mL (0.00-4.00)
[2025-02-04 18:23] LABS: Acetaminophen LAB < 3 mcg/mL (<30); Salicylate < 5.0 mg/dL (15-30)
== END 2025-02-04 12:03 | disposition home or self-care (01) ==
LOC: HO.LAB 12:02
PROVIDERS: Absent Provider Urology; Visit Provider Internal Medicine Hypertension Specialist
DX: Z12.5 Encounter for screening for malignant neoplasm of prostate (principal); I12.9 Hypertensive chronic kidney disease with stage 1 through stage 4 chronic kidney disease, or unspecified chronic kidney disease; N18.30 Chronic kidney disease, stage 3 unspecified; N40.1 Benign prostatic hyperplasia with lower urinary tract symptoms; N13.8 Other obstructive and reflux uropathy
CPT/HCPCS: 36415; 80048; 80143; 80179; 84153

== ENCOUNTER 2025-02-04 16:34 | Inpatient (IN) | payer MEDICARE, OTHER, SELFPAY ==
--- NOTE | ~2025-02-04 | US_ITS ---
EXAMINATION: US RETROPERITONEAL LIMITED (RENAL ONLY) CLINICAL INFORMATION: Monitor for improving hydronephrosis.. COMPARISON: Correlated to CT abdomen and pelvis dated February 04, 2025. TECHNIQUE: Real-time ultrasound of the kidneys using grayscale technique. FINDINGS: RIGHT KIDNEY: 12 x 6 x 5 cm (SAG x AP x TRV). Volume: 159 cc. Normal echotexture. Renal cortical thickness is normal. There is mild to moderate prominent pelvicalyceal system with an extrarenal pelvis. No gross calculus. No gross solid or cystic lesion. LEFT KIDNEY: 10 x 5 x 4 cm (SAG x AP x TRV). Volume: 103 cc. Normal echotexture. Renal cortical thinning. No gross hydronephrosis. No gross solid or cystic lesion. US/US renal BI IMPRESSION: Mild to moderate hydronephrosis, right kidney. Renal cortical thinning, left kidney concerning for atrophy. No gross hydronephrosis, left kidney. . Electronically signed by: Stiven Haines MD 02/06/2025 07:13 AM EDT
--- NOTE | ~2025-02-04 | CT_ITS ---
CLINICAL HISTORY: high creatinine ? obstructive uropathy abd pain CT abdomen and pelvis without contrast Comparison: CT/SR - ABDOMEN ABD_PEL_WITHOUT (ADULT) - 01/21/25 16:59 EDT Findings: Right lower and middle lobe scarring. Atrophic pancreas. Liver, gallbladder, spleen, and adrenal glands are within normal limits. Moderate right hydroureteronephrosis with mild dependent atelectasis. Calculi in the posterior right urinary bladder. Left hydronephrosis despite presence of the nephroureteral stent. Left renal cortical thinning is progressed when compared to recent prior CT. Nonobstructing calculus in the lower pole of the left kidney measuring 9 mm. No ureteral calculi. Prior bowel resection. No bowel obstruction, pneumatosis or pneumoperitoneum. Aortic atherosclerosis. No aneurysm. Prostatomegaly. Markedly distended urinary bladder. Degenerative changes of the spine. No acute fracture. IMPRESSION: 1. Left hydronephrosis with progressed left renal cortical thinning despite presence of nephroureteral stent. 2. Moderate right hydroureteronephrosis. 3. Markedly distended urinary bladder with layering calculi in the posterior right bladder. This document has been electronically signed by: Samuel Perez MD on 02/04/2025 19:03:17
--- NOTE | 2025-02-04 16:37 | ED_ITS ---
HPI - General Adult General Chief complaint: Recheck/Abnormal Lab/Rx Stated complaint: Abnormal labs Time Seen by Provider: 02/04/25 17:43 Related Data Home Medications ?Medication ?Instructions ?Recorded ?Confirmed losartan 50 mg tablet 50 mg PO DAILY 04/27/2102/06 omeprazole 20 mg capsule,delayed 20 mg PO DAILY@0630 1 06/28/20 01/21/25 release atorvastatin 20 mg tablet 20 mg PO BEDTIME 06/08/21 finasteride 5 mg tablet 5 mg PO BEDTIME 12/09/2402/06 amlodipine 2.5 mg tablet 2.5 mg PO DAILY 01/21/2502/06 Previous Rx's ?Medication ?Instructions ?Recorded amiodarone 200 mg tablet 200 mg PO DAILY 30 days #45 tabs 12/03/24 apixaban 2.5 mg tablet (Eliquis) 2.5 mg PO BID #180 ta bs 12/15/24 amoxicillin 500 mg capsule 1,000 mg (2 x 500 mg) PO TI D 10 01/25/25 days #60 caps oxycodone 5 mg tablet 5 mg PO Q6H PRN Pain 3 days #8 tabs 01/29/25 phenazopyridine 100 mg tablet 100 mg PO Q8H PRN Pain 6 days #12 01/29/25 tabs sulfamethoxazole 400 1 tab PO BID 5 days #10 tabs 01/29/25 mg-trimethoprim 80 mg tablet (Bactrim) Allergies Allergy/AdvReac Type Severity Reaction Status Date / Time No Known Allergies Allergy Verified 02/04/25 16:40 [facility] Past Medical History Medical History Abnormal weight loss CKD (chronic kidney disease) stage 3, GFR 30-59 ml/min Arthritis BPH (benign prostatic hyperplasia) Numbness and tingling of both feet Dizziness Syncope (~2020) Colon adenocarcinoma Atrial fibrillation Chronic kidney disease GERD (gastroesophageal reflux disease) High cholesterol HTN (hypertension) Surgical History Hx of left hemicolectomy (12/10/24) Hx of colonoscopy (10/01/24) H/O prostate biopsy Hx of cataract extraction History of dental surgery H/O removal of cyst (03/01/22) Family History Family History Mother Hypertension Breast cancer Father Alcoholic Lung cancer Sister Breast cancer Sister Breast cancer Sister Breast cancer Sister Breast cancer Social History Social History Household Members: Spouse Housing: House Are you a primary personal care home administrator to a significant other at home: No Do you presently have visiting nurse or other home services: No Comment: pt refused bed alarm Patient Tobacco Use Status: Former Tobacco user Tobacco use type: Cigarette Advance Directives: No Advance Directives Information Provided: Yes Advance Directives Date on File: 01/22/25 Do you have a plan to hurt others: No Plan service: Yes Current occupational status: retired Physical Exam ED Vital Signs: Vital Signs - 24 hr 02/04/25 16:38 Temperature 98 F Pulse Rate 125 H Respiratory Rate 18 Blood Pressure 163/77 H Pulse Oximetry 98 Oxygen Delivery Method Room Air BMI result Body Mass Index 22.8 Course Course Course Narrative: This is a Rapid Medical Examination (RME) performed by Hammad Roe PA-C in triage. Full HPI, ROS, assessment and treatment plan per primary provider in the Main ED. Hx: 85 yo M here w/ abnormal creatinine levels. states he has not been eating or drinking for a week now. had blood work done today which showed creatinine of 11.45. told to come here. feels weak, assoc abdominal discomfort. Plan: repeat blood work, UA Reevaluation(s) Reevaluation #1: I did discuss this case with Nephrology Dr. Woodall who agrees with treatment/management. Patient to be admitted they will follow in the morning. Time: 18:12 Medical Decision Making Lab Data 02/04/25 17:09 02/04/25 17:09 Labs: Lab Results 02/04/25 Range/Units 17:09 WBC 5.2 (4.8-10.8) X10*3/uL RBC 3.61 L (4.60-5.80) X10*6/uL Hgb 8.4 L (14.0-18.0) g/dl Hct 26.7 L (42.0-52.0) % MCV 74.0 L (80.0-98.0) fL MCH 23.3 L (27.0-33.0) pg MCHC 31.5 (31.0-36.0) g/dl RDW 17.1 H (11.0-16.0) % Plt Count 383 (160-400) X10*3/uL MPV 9.2 L (9.4-12.4) fL Immature Gran % (Auto) 0.2 (0.0-0.4) % Neut % (Auto) 79.5 H (45-73) % Lymph % (Auto) 12.2 L (20-40) % [place] % (Auto) 6.3 (2-11) % Eos % (Auto) 0.8 (0-4) % Baso % (Auto) 1.0 (0-2) % Lymph # (Auto) 0.6 L (1.2-4.9) X10*3/uL [place] # (Auto) 0.3 (0.1-1.2) X10*3/uL Eos # (Auto) 0.0 (0.0-0.4) X10*3/uL Baso # (Auto) 0.1 (0.0-0.2) X10*3/uL Abs Immat Gran (auto) 0.01 (0.00-0.03) X10*3/uL Absolute Neuts (auto) 4.2 (2.0-8.3) x10*3/uL Absolute Nucleated RBC 0.000 (0.0-0.012) X10*3/uL Nucleated RBC % (auto) 0.0 (0.0-0.2) /100WBC Sodium 137 (135-145) mmol/L Potassium 4.6 (3.3-5.1) mmol/L Chloride 106 (96-108) mmol/L Carbon Dioxide 18 L (22-29) mmol/L Anion Gap 18 (12-20) BUN 57 H (9-16) mg/dL Creatinine 11.95 H* (0.5-1.4) mg/dL Estim Creat Clear Calc 4.3 Estimated GFR 4 Random Glucose 100 (60-115) mg/dL Calcium 8.6 (8.4-10.2) mg/dL Magnesium 2.6 (1.6-2.6) mg/dL Total Bilirubin 0.4 (0.0-1.0) mg/dL AST 15 (5-37) U/L ALT < 6 (0-40) U/L Alkaline Phosphatase 77 (39-117) U/L Total Protein 6.9 (6.5-8.0) g/dL Albumin 3.4 L (3.5-5.0) g/dL Lipase 27 (8-78) U/L Critical Care Time Critical Care Time Critical Care Time: Yes Total Critical Care Time: 35 Attestation: I attest to this time spent taking care of the patient, obtaining history, physical, reviewing labs, imaging, treatment of patients condition +/- specialist/hospitalist consult +/- procedure Discharge Plan Discharge Clinical Impression: LOIS (acute kidney injury) Prescriptions: No Action amiodarone 200 mg tablet 200 mg PO DAILY 30 Days Qty: 45 1RF Rx Instructions: take 2 tablets ( 400mg) twice a day for 5 days then reduce dose to 1 tab ( 200mg) daily sulfamethoxazole-trimethoprim [Bactrim] 400-80 mg tablet 1 tab PO BID 5 Days Qty: 10 0RF phenazopyridine 100 mg tablet 100 mg PO Q8H PRN (Reason: Pain) 6 Days Qty: 12 0RF oxycodone 5 mg tablet 5 mg PO Q6H PRN (Reason: Pain) 3 Days Qty: 8 0RF Rx Instructions: Partial Fill upon patient request. finasteride 5 mg tablet 5 mg PO BEDTIME Eliquis 2.5 mg Tablet 2.5 mg PO BID Qty: 180 0RF amlodipine 2.5 mg tablet 2.5 mg PO DAILY amoxicillin 500 mg Capsule 1,000 mg PO TID 10 Days Qty: 60 0RF losartan 50 mg tablet 50 mg PO DAILY omeprazole 20 mg capsule,delayed release(DR/EC) 20 mg PO DAILY@0630 atorvastatin 20 mg tablet 20 mg PO BEDTIME Print Language: Taiwanese
[2025-02-04 16:38] VITALS: BP 163/77; PULSE 125; RESP 18; TEMP 36.6; O2SAT 98; BMI 22.8
[2025-02-04 17:13] LABS: MANUAL DIFF FLAG NO
[2025-02-04 17:14] LABS: Hematocrit 26.7 % (42.0-52.0); Hemoglobin 8.4 g/dl (14.0-18.0); Imm Gran Abs Auto 0.01 X10*3/uL (0.00-0.03); Imm Gran Pct Auto 0.2 % (0.0-0.4); Lymphocytes Absolute Auto 0.6 X10*3/uL (1.2-4.9); Mean Corpuscular HGB Conc 31.5 g/dl (31.0-36.0); Mean Corpuscular Hemoglobin 23.3 pg (27.0-33.0); Mean Corpuscular Volume 74.0 fL (80.0-98.0); NRBC Abs Auto 0.000 X10*3/uL (0.0-0.012); NRBC Pct Auto 0.0 /100WBC (0.0-0.2); Platelet Count 383 X10*3/uL (160-400); Red Blood Count 3.61 X10*6/uL (4.60-5.80); White Blood Count 5.2 X10*3/uL (4.8-10.8)
[2025-02-04 17:33] LABS: Alanine Aminotransferase < 6 U/L (0-40); Albumin Level 3.4 g/dL (3.5-5.0); Alkaline Phosphatase 77 U/L (39-117); Anion Gap 18 (12-20); Aspartate Amino Transferase 15 U/L (5-37); Blood Urea Nitrogen 57 mg/dL (9-16); Calcium 8.6 mg/dL (8.4-10.2); Carbon Dioxide 18 mmol/L (22-29); Chloride 106 mmol/L (96-108); Creatinine Clr Calc Pharmacy 4.3; Estimated Glomerular Filt Rate 4; Lipase 27 U/L (8-78); Magnesium 2.6 mg/dL (1.6-2.6); Potassium 4.6 mmol/L (3.3-5.1); Sodium 137 mmol/L (135-145); Total Protein 6.9 g/dL (6.5-8.0)
--- NOTE | 2025-02-04 17:55 | ED_ITS ---
HPI - Recheck/Abnormal Lab/Rx General Chief Complaint: Recheck/Abnormal Lab/Rx Stated Complaint: Abnormal labs Time Seen by Provider: 02/04/25 17:43 Source: patient Mode of arrival: ambulatory Limitations: no limitations History of Present Illness ED Provider: RO Wakefield HPI narrative: This is an 85-year-old male history of colon cancer status post laparoscopic colectomy on 12/10/2024, recent kidney stones presenting to the emergency department with abnormal labs. He reports he had outpatient routine labs drawn and his creatinine was abnormal. Patient tells me he has been feeling unwell for 7-8 days he has not been eating or drinking much has little appetite he feels tired. He reports he is not making urine and he has not had a bowel movement in more than 5 days. He overall feels weak and unwell. Denies chest pain, shortness of breath, nausea, vomiting, abdominal pain, headache, vision changes, dizziness, weakness. Related Data Home Medications ?Medication ?Instructions ?Recorded ?Confirmed losartan 50 mg tablet 50 mg PO DAILY 04/27/2102/06 omeprazole 20 mg capsule,delayed 20 mg PO DAILY@0630 1 06/28/20 01/21/25 release atorvastatin 20 mg tablet 20 mg PO BEDTIME 06/08/21 finasteride 5 mg tablet 5 mg PO BEDTIME 12/09/2402/06 amlodipine 2.5 mg tablet 2.5 mg PO DAILY 01/21/2502/06 Previous Rx's ?Medication ?Instructions ?Recorded amiodarone 200 mg tablet 200 mg PO DAILY 30 days #45 tabs 12/03/24 apixaban 2.5 mg tablet (Eliquis) 2.5 mg PO BID #180 ta bs 12/15/24 amoxicillin 500 mg capsule 1,000 mg (2 x 500 mg) PO TI D 10 01/25/25 days #60 caps oxycodone 5 mg tablet 5 mg PO Q6H PRN Pain 3 days #8 tabs 01/29/25 phenazopyridine 100 mg tablet 100 mg PO Q8H PRN Pain 6 days #12 01/29/25 tabs sulfamethoxazole 400 1 tab PO BID 5 days #10 tabs 01/29/25 mg-trimethoprim 80 mg tablet (Bactrim) Allergies Allergy/AdvReac Type Severity Reaction Status Date / Time No Known Allergies Allergy Verified 02/04/25 16:40 Review of Systems 2 Review of Systems: Yes all other systems are reviewed and are negative [facility] Past Medical History Attestation statement: The following information was validated with the patient. Source: old records reviewed and nursing notes reviewed Medical History Abnormal weight loss CKD (chronic kidney disease) stage 3, GFR 30-59 ml/min Arthritis BPH (benign prostatic hyperplasia) Numbness and tingling of both feet Dizziness Syncope (~2020) Colon adenocarcinoma Atrial fibrillation Chronic kidney disease GERD (gastroesophageal reflux disease) High cholesterol HTN (hypertension) Surgical History Hx of left hemicolectomy (12/10/24) Hx of colonoscopy (10/01/24) H/O prostate biopsy Hx of cataract extraction History of dental surgery H/O removal of cyst (03/01/22) Family History Family History Mother Hypertension Breast cancer Father Alcoholic Lung cancer Sister Breast cancer Sister Breast cancer Sister Breast cancer Sister Breast cancer Social History Social History Household Members: Spouse Housing: House Are you a primary memory care program resident to a significant other at home: No Do you presently have visiting nurse or other home services: No Comment: pt refused bed alarm Patient Tobacco Use Status: Former Tobacco user Tobacco use type: Cigarette Advance Directives: No Advance Directives Information Provided: Yes Advance Directives Date on File: 01/22/25 Do you have a plan to hurt others: No Plan service: Yes Current occupational status: retired Physical Exam 2 Exam: Exam: Appearance: Alert.? Oriented X3.? No acute distress.? Head: Normocephalic, atraumatic, no step-offs or deformities Eyes: Pupils equal, round and reactive to light.? ENT: Pharynx normal.? Neck: Normal inspection.? Neck supple.? CVS: Normal heart rate and rhythm.? Pulses normal.? Respiratory: No respiratory distress.? Breath sounds normal.? Abdomen: Soft and distended .? Skin: Skin warm and dry.? Normal skin color.? Normal skin turgor.? Extremities: No lower extremity edema.? No calf ttp. 5/5 strength to bilateral upper and lower extremities Back: No midline tenderness, no C-spine tenderness, full range of motion, no CVA tenderness bilaterally Neuro: Oriented X 3.? No motor deficit.? No sensory deficit. CN 2-12 intact Vital Signs: Vital Signs: Last Vital Signs Temp 98 F 02/04/25 16:38 Pulse 92 02/04/25 18:47 Resp 18 02/04/25 18:47 BP 125/68 02/04/25 18:47 Pulse Ox 100 02/04/25 18:47 O2 Del Method Room Air 02/04/25 18:47 BMI result Body Mass Index 22.8 Vital signs stable Course Reevaluation(s) Reevaluation #1: CBC with a microcytic anemia that appears to be around baseline. Chemistry with grossly elevated BUN 57, creatinine 11.95 patient's baseline around 2.5. I suspect this is secondary to obstructive process not infection. I did order IV fluids, VBG, beta hydroxybutyrate and CPK Time: 18:03 Reevaluation #2: Bedside ultrasound was done with my attending Dr. Bass bilateral hydro and at distended urinary bladder noted. Gilbert cath ordered. Time: 18:33 Reevaluation #3: Discussed with urology who suspects this is obstructive uropathy, Gilbert catheter placed with large output. CT scan pending. Time: 19:59 Additional Reevaluation(s): CT abdomen and pelvis with left hydronephrosis with progressive left renal cortical thinning despite presence of nephroureteral stent. Moderate right hydronephrosis markedly distended urinary bladder. Plan hospital admission Medications Administered Discontinued Medications Generic Name Dose Route Start Last Admin Trade Name Freq PRN Reason Stop Dose Admin Sodium Chloride 1,000 mls @ 999 mls/hr 02/04/25 18:00 02/04/25 18:22 Ns IV 02/04/25 19:00 999 mls/hr .Q1H1M TOSHIA Administration Sodium Chloride 1,000 mls @ 999 mls/hr 02/04/25 18:15 02/04/25 18:22 Ns IV 02/04/25 19:15 999 mls/hr .Q1H1M TOSHIA Administration Medical Decision Making Medical Decision Making [facility] Narrative: 1757 85-year-old male presents with feeling unwell, tired and told he has abnormal labs. Physical exam benign History and physical exam concerning for acute dehydration/starvation ketosis/acute kidney injury in the setting of dehydration/poor p.o. intake. Will rule out rhabdo. Patient does take losartan. Which will be discontinued immediately. He does not take any diuretics. Will rule out obstructive uropathy as patient recently had kidney surgery however it would be quite bizarre for patient to have no pain with obstructing uropathy. Plan labs, urine will reach out to nephro Differential Diagnosis Differential Diagnoses: The differential diagnosis associated with the presentation includes ( History and physical exam concerning for acute dehydration/starvation ketosis/acute kidney injury in the setting of dehydration/poor p.o. intake. Will rule out rhabdo. Patient does take losartan. Which will be discontinued immediately. He does not take any diuretics. Will rule out obstructive ) Admission/Observation Consideration of admission/observation: Escalation of care including admission/observation considered Consult Healthcare Provider Management of the patient was discussed with: Hospitalist and Briquetting Machine Operator Lab Data MDM Lab Attestation statement: I reviewed the patient's lab results. 02/04/25 17:09 02/04/25 17:09 Labs: Lab Results 02/04/25 02/04/25 Range/Units 17:09 18:16 WBC 5.2 (4.8-10.8) X10*3/uL RBC 3.61 L (4.60-5.80) X10*6/uL Hgb 8.4 L (14.0-18.0) g/dl Hct 26.7 L (42.0-52.0) % MCV 74.0 L (80.0-98.0) fL MCH 23.3 L (27.0-33.0) pg MCHC 31.5 (31.0-36.0) g/dl RDW 17.1 H (11.0-16.0) % Plt Count 383 (160-400) X10*3/uL MPV 9.2 L (9.4-12.4) fL Immature Gran % (Auto) 0.2 (0.0-0.4) % Neut % (Auto) 79.5 H (45-73) % Lymph % (Auto) 12.2 L (20-40) % Robertson % (Auto) 6.3 (2-11) % Eos % (Auto) 0.8 (0-4) % Baso % (Auto) 1.0 (0-2) % Lymph # (Auto) 0.6 L (1.2-4.9) X10*3/uL Robertson # (Auto) 0.3 (0.1-1.2) X10*3/uL Eos # (Auto) 0.0 (0.0-0.4) X10*3/uL Baso # (Auto) 0.1 (0.0-0.2) X10*3/uL Abs Immat Gran (auto) 0.01 (0.00-0.03) X10*3/uL Absolute Neuts (auto) 4.2 (2.0-8.3) x10*3/uL Absolute Nucleated RBC 0.000 (0.0-0.012) X10*3/uL Nucleated RBC % (auto) 0.0 (0.0-0.2) /100WBC VBG pH 7.43 (7.32-7.43) VBG pCO2 24 mmHg VBG pO2 72 mmHg VBG HCO3 16 L (22-26) mmol/L VBG O2 Saturation 94.0 % VBG Base Excess -6.4 mmol/L Sodium 137 (135-145) mmol/L Potassium 4.6 (3.3-5.1) mmol/L Chloride 106 (96-108) mmol/L Carbon Dioxide 18 L (22-29) mmol/L Anion Gap 18 (12-20) BUN 57 H (9-16) mg/dL Creatinine 11.95 H* (0.5-1.4) mg/dL Estim Creat Clear Calc 4.3 Estimated GFR 4 Random Glucose 100 (60-115) mg/dL Calcium 8.6 (8.4-10.2) mg/dL Magnesium 2.6 (1.6-2.6) mg/dL Total Bilirubin 0.4 (0.0-1.0) mg/dL AST 15 (5-37) U/L ALT < 6 (0-40) U/L Alkaline Phosphatase 77 (39-117) U/L Total Creatine Kinase 23 L (38-174) U/L Total Protein 6.9 (6.5-8.0) g/dL Albumin 3.4 L (3.5-5.0) g/dL Lipase 27 (8-78) U/L Beta-Hydroxybutyrate 0.51 H (0.02-0.27) mmol/L Independent Interpretation I performed an independent interpretation of an: CT Scan (IMPRESSION: 1. Left hydronephrosis with progressed left renal cortical thinning despite presence of nephroureteral stent. 2. Moderate right hydroureteronephrosis. 3. Markedly distended urinary bladder with layering calculi in the posterior right bladder.) Radiology Impression Discussion of test interpretation with radiology: I have reviewed the radiologist's reading. External Record Review External record reviewed: Inpatient record, Office record, Outpatient record, Prior outpatient labs, Prior outpatient radiology, Primary care record and Outside ED record Chronic Conditions Patient?s care impacted by: Other (see hpi ) Critical Care Time Critical Care Time Critical Care Time: Yes Total Critical Care Time: 35 Attestation: I attest to this time spent taking care of the patient, obtaining history, physical, reviewing labs, imaging, treatment of patients condition +/- specialist/hospitalist consult +/- procedure Discharge Plan Discharge Clinical Impression: LOIS (acute kidney injury), Obstructed, uropathy, Abdominal distension Patient Disposition: Admitted As Inpatient Print Language: Mauritian
[2025-02-04 18:22] LABS: VBG HCO3 16 mmol/L (22-26); VBG O2 % Saturation 94.0 %
[2025-02-04 18:23] LABS: Venous Blood Gas Refer to POC result
[2025-02-04 18:47] VITALS: BP 125/68; PULSE 92; RESP 18; O2SAT 100
--- NOTE | 2025-02-04 20:22 | PM.IMHP ---
History of Present Illness Date of Service: 02/04/25 Attending physician on admission: Rainer Mota Chief Complaint: abnormal labs Patient is an 84-year-old male with a past medical history significant for paroxysmal AFib on Eliquis, iron-deficiency anemia, CKD 3, hypertension, hyperlipidemia, BPH, GERD, new diagnosis stage III colon cancer s/p hemicolectomy 12/10/[address] Mahmood, presented to ED due to abnormal labs, elevated creatinine. The patient reports that he has not been eating or drinking much and has been feeling unwell for the past week. He has generalized weakness and fatigue. He has not urinated or had a bowel movement in the past 5 days. The patient had a left ureteral stent placed on 01/23/[address] Roberts due to a left mid ureteral stone with hydronephrosis. He denies any chest pain, shortness of breath, abdominal pain, nausea, vomiting or URI symptoms. W/u in the ED with cr of 11.95, baseline around 1.8, and bilateral hydronephrosis with bladder stones on CT. ED provider spoke with urologist who recommended zaman catheter and director nursing service who suggested post-renal/dehydration. UA +. Review of Systems Constitutional: Constitutional: Denies body ache(s), Denies chills, Reports fatigue, Denies fever(s), Denies headache(s), Reports lethargy and Reports poor appetite Eyes: Eyes: Denies change in vision ENT: Denies headache(s), Denies nasal discharge and Denies sore throat Cardiovascular: Cardiovascular: Denies chest pain, Denies rapid heart rate, Denies leg edema, Denies lightheadedness and Denies dyspnea Respiratory: Respiratory: Denies chest congestion, Denies cough, Denies dyspnea and Denies wheezing Gastrointestinal: Gastrointestinal: Denies abdominal pain, Reports constipation, Denies nausea and Denies vomiting Genitourinary: Genitourinary: Reports oliguria, Denies flank pain and Denies urinary urgency Musculoskeletal: Musculoskeletal: Denies myalgias Integumentary/Breasts: Skin/Breast: Denies rash Neurologic: Denies confusion and Denies headache(s) Psychiatric: Psychiatric: Denies confusion Endocrine: Endocrine: Reports fatigue Hematologic/Lymphatic: Hematologic/Lymphatic: Denies easy bleeding and Denies easy bruising Allergic/Immunologic: Allergic/Immunologic: Denies wheezing [facility] Medical History Abnormal weight loss CKD (chronic kidney disease) stage 3, GFR 30-59 ml/min Arthritis BPH (benign prostatic hyperplasia) Numbness and tingling of both feet Dizziness Syncope (~2020) Colon adenocarcinoma Atrial fibrillation Chronic kidney disease GERD (gastroesophageal reflux disease) High cholesterol HTN (hypertension) Family History Mother Hypertension Breast cancer Father Alcoholic Lung cancer Sister Breast cancer Sister Breast cancer Sister Breast cancer Sister Breast cancer Surgical History Hx of left hemicolectomy (12/10/24) Hx of colonoscopy (10/01/24) H/O prostate biopsy Hx of cataract extraction History of dental surgery H/O removal of cyst (03/01/22) Social History Household Members: Spouse Housing: House Are you a primary palliative care nurse to a significant other at home: No Do you presently have visiting nurse or other home services: No Comment: pt refused bed alarm Patient Tobacco Use Status: Former Tobacco user Tobacco use type: Cigarette Smoked in Last 30 Days: No Use of substances other than those prescribed or required for medical reasons: No Advance Directives: No Advance Directives Information Provided: Yes Advance Directives Date on File: 01/22/25 Do you have a plan to hurt others: No Plan Nutrition Risks: No Nutritional Risk service: Yes Current occupational status: retired [employer] Allergies Allergy/AdvReac Type Severity Reaction Status Date / Time No Known Allergies Allergy Verified 02/04/25 16:40 Home Medications ?Medication ?Instructions ?Recorded ?Confirmed ?Last Taken ?Type atorvastatin 20 mg tablet 20 mg PO BEDTIME 06/08/21 02/04/25 02/03/25 History finasteride 5 mg tablet 5 mg PO BEDTIME 12/09/24 02/04/25 02/03/25 History amlodipine 2.5 mg tablet 2.5 mg PO DAILY 01/21/25 02/04/25 02/03/25 History Physical Exam Vital Signs and Narrative: Vital Signs: Last Vital Signs Temp 98 F 02/04/25 16:38 Pulse 92 02/04/25 18:47 Resp 18 02/04/25 18:47 BP 125/68 02/04/25 18:47 Pulse Ox 100 02/04/25 18:47 O2 Del Method Room Air 02/04/25 18:47 BMI result Body Mass Index 22.8 General: AOx3, no acute distress Resp: CTA bilaterally CVS: S1, S2, RRR GI: +BS, NT, no distention Skin: Warm, dry Neuro: Cranial nerves II-XII grossly intact bilaterally. Motor grossly intact bilaterally Extremities: No edema Psych: Appropriate affect Const: General: No confusion Orientation/consciousness: No confusion Neuro: General: No confusion Results Labs 02/04/25 17:09 02/04/25 17:09 Labs: Laboratory Results - last 24 hr 02/04/25 02/04/25 17:09 18:16 MCV 74.0 L MCH 23.3 L MCHC 31.5 RDW 17.1 H Plt Count 383 MPV 9.2 L Immature Gran % (Auto) 0.2 Neut % (Auto) 79.5 H Lymph % (Auto) 12.2 L Mckinley % (Auto) 6.3 Eos % (Auto) 0.8 Baso % (Auto) 1.0 Lymph # (Auto) 0.6 L Mckinley # (Auto) 0.3 Eos # (Auto) 0.0 Baso # (Auto) 0.1 Abs Immat Gran (auto) 0.01 Absolute Neuts (auto) 4.2 Absolute Nucleated RBC 0.000 Nucleated RBC % (auto) 0.0 VBG pH 7.43 VBG pCO2 24 VBG pO2 72 VBG HCO3 16 L VBG O2 Saturation 94.0 VBG Base Excess -6.4 Anion Gap 18 Estim Creat Clear Calc 4.3 Estimated GFR 4 Random Glucose 100 Calcium 8.6 Magnesium 2.6 Total Bilirubin 0.4 AST 15 ALT < 6 Alkaline Phosphatase 77 Total Creatine Kinase 23 L Total Protein 6.9 Albumin 3.4 L Lipase 27 Beta-Hydroxybutyrate 0.51 H Assessment and Plan (1) Acute kidney injury superimposed on CKD: Status: Acute (2) Bilateral hydronephrosis: Status: Acute (3) Bladder stones: Status: Acute (4) Chronic anemia: Status: Acute (5) Acute UTI: Status: Acute Plan Patient is an 84-year-old male with a past medical history significant for paroxysmal AFib on Eliquis, iron-deficiency anemia, CKD 3, hypertension, hyperlipidemia, BPH, GERD, new diagnosis stage III colon cancer s/p hemicolectomy 12/10/[address] Mahmood, presented to ED due to abnormal labs, elevated creatinine. Workup in the ED is significant for bilateral hydronephrosis and bladder stones on CT and LOIS on CKD, suspected obstructive post-renal and acute UTI. LOIS on CKD, post renal and dehydration - IVF - nephrology and urology consults - zaman - monitor BMP bilateral hydronephrosis despite L nephroureteral stent and bladder stones on CT - zaman - urology consult metabolic acidosis, secondary to LOIS - IVF - monitor BMP Acute UTI - ceftriaxone, follow culture chronic anemia, stable - monitor CBC HTN, normotensive - resume amlodipine when appropriate HLD - hold statin due to LOIS BPH - continue finasteride paroxysmal a fib, rate controlled - hold eliquis pending urology consult, heparin for now colon cancer - followed by Dr Mahmood full code VTE prophy: heparin Pt with LOIS on CKD with bilateral hydronephrosis and UTI, requiring admission for at least 2 midnights stay for IV abx, specialist consultations and monitoring. Quality Stroke Does the patient have a stroke diagnosis?: No VTE Prior VTE?: No VTE Risk Level:: Medical - moderate - high VTE Device Contraindication: Treatment Not Indicated VTE Drug Contraindication: N/A - Med Ordered
--- NOTE | 2025-02-04 21:07 | PC.NURSE ---
Back documentation 16F coude placed in pt. Bleeding noted Provider Kate aware. No new orders at this time.
[2025-02-04 21:25] LABS: Appearance Urine Turbid; Glucose Urine UA Negative (Negative); PH 5.5 (5.0-9.0); Specific Gravity - Urine 1.010 (1.005-1.025); UMIC TRIGGER UACC YES
--- NOTE | 2025-02-04 21:39 | PHA.MEDREC ---
Addendum entered by Kai Thomas, [facility] 02/04/25 21:49: Med rec reviewed Original Note: Pharmacy Consult ? Medication Reconciliation Pharmacy has completed the medication reconciliation. Spoke with pt and he confirmed his medications. Pt started on an Amoxicillin regimen and states he took a few but didn't like how he felt on them and was switched to Sulfamethoxazole-Trimethoprim but had a reaction to that as well and stopped it in the last few days (2-3 days). Pt was taking Losartan and Metoprolol Tartrate but states his Dr's have been playing around with having the pt take them and is not sure if he should be taking those or not. Pt states he took some medications this morning but doesn't remember what.
--- NOTE | 2025-02-04 21:46 | PC.NURSE ---
Bleeding noted on PT's Gilbert, Provider Frank notified no response or new orders at this time.
[2025-02-04 21:54] LABS: UACC Culture Trigger YES
[2025-02-04 22:24] VITALS: BP 138/76; PULSE 115; RESP 18; TEMP 36.9; O2SAT 98
[2025-02-04] MEDS: 0.9 % Sodium Chloride Flush 3 ML SYRINGE IVFLUSH (22:46)
--- NOTE | 2025-02-04 23:00 | PC.NURSE ---
Addendum entered by Fredy Chavez RN 02/05/25 04:44: Patient now has hematuria. Dr. Marie notified. New orders for LR @75/hr and stat CBC. Addendum entered by Fredy Chavez RN 02/05/25 00:58: Followed up on bleeding with Dr. Marie. Heparin on hold until further notice and will continue to monitor for increased bleeding. Also there is no blood in zaman bag at this time. Original Note: patient still has bleeding coming from urethral opening. provider already notified prior to coming up, per nurse note.
--- NOTE | 2025-02-05 00:58 | PM.EVENT ---
Event Note Date of Service: 02/05/25 Event Note: pt having continued penile bleeding from catheter trauma. no significant bleeding, not soaking rags placed under him. has urology consult. no blood in zaman bag, therefore likely lower traumatic bleeding. hold heparin. try holding compression with sterile gauze for a few minutes. conitnue to monitor. Time Spent With Patient Time: Total time managing care of this patient today ____ minutes.
[2025-02-05 03:28] VITALS: BP 160/70; PULSE 120; RESP 18; TEMP 37; O2SAT 96
[2025-02-05] MEDS: Lactated Ringers 1,000 ML 75 ML IVCONT ×2 (04:15→16:32)
[2025-02-05 06:22] LABS: MANUAL DIFF FLAG NO
[2025-02-05 06:30] LABS: Hematocrit 24.1 % (42.0-52.0); Hemoglobin 7.6 g/dl (14.0-18.0); Imm Gran Abs Auto 0.02 X10*3/uL (0.00-0.03); Imm Gran Pct Auto 0.4 % (0.0-0.4); Lymphocytes Absolute Auto 0.4 X10*3/uL (1.2-4.9); Mean Corpuscular HGB Conc 31.5 g/dl (31.0-36.0); Mean Corpuscular Hemoglobin 23.0 pg (27.0-33.0); Mean Corpuscular Volume 72.8 fL (80.0-98.0); NRBC Abs Auto 0.000 X10*3/uL (0.0-0.012); NRBC Pct Auto 0.0 /100WBC (0.0-0.2); Platelet Count 362 X10*3/uL (160-400); Red Blood Count 3.31 X10*6/uL (4.60-5.80); White Blood Count 5.7 X10*3/uL (4.8-10.8)
[2025-02-05 07:01] LABS: Anion Gap 14 (12-20); Blood Urea Nitrogen 42 mg/dL (9-16); Calcium 8.0 mg/dL (8.4-10.2); Carbon Dioxide 17 mmol/L (22-29); Chloride 115 mmol/L (96-108); Creatinine Clr Calc Pharmacy 6.7; Estimated Glomerular Filt Rate 7; Potassium 4.2 mmol/L (3.3-5.1); Sodium 142 mmol/L (135-145)
[2025-02-05 07:35] VITALS: BP 132/72; PULSE 97; RESP 16; TEMP 37; O2SAT 95
[2025-02-05 08:49] VITALS: BMI 22.8
--- NOTE | 2025-02-05 08:57 | MHC.CLN ---
CONSULT DIET RX REGULAR. QUALIFIES MODERATELY MALNOURISHED IN THE CONTEXT OF CHRONIC ILLNESS. PATIENT WITH STAGE 3 COLON CANCER. SIGNIFICANT WEIGHT LOSS X 3 MONTHS. REPORTED POOR PO INTAKE. ADDING ENSURE TID TO PROMOTE NUTRITIONAL STATUS. SUPPLEMENT PROVIDES 1050 KCALS, 60 G PROTEIN. BUN AND CR LABS ELEVATED. MONITOR LABS. FOLLOW FOR PO INTAKE. SEE CLINICAL NUTRITION ASSESSMENT 02/05/25.
--- NOTE | 2025-02-05 10:58 | HO.PM.IMPN ---
Subjective Subjective Date of Service: 02/05/25 Interval History: Reports a tingling discomfort in lower abd No bowel movement in past few days Denies f/c or n/v/d Review of Systems Review of Systems: Yes all other systems are reviewed and are negative Physical Exam Exam: Exam: General: AOx3, no acute distress Resp: CTA bilaterally CVS: S1, S2, RRR GI: +BS, no distention, mild tenderness : Zaman in place with gross hematuria; bleeding at tip penis at catheter insertion site Skin: Warm, dry Neuro: Cranial nerves II-XII grossly intact bilaterally. Motor grossly intact bilaterally Extremities: No edema Psych: Appropriate affect Vital Signs: Vital Signs: Last Vital Signs Temp 98.6 F 02/05/25 07:35 Pulse 97 02/05/25 07:35 Resp 16 02/05/25 07:35 BP 132/72 02/05/25 07:35 Pulse Ox 95 02/05/25 07:35 O2 Del Method Room Air 02/05/25 07:35 BMI result Body Mass Index 22.8 Objective Data Active Medications Acetaminophen (Acetaminophen 325 Mg Tablet) 975 mg PO Q6H PRN PRN Reason: Pain, Mild 1-3,fever,headache Amiodarone HCl (Amiodarone Hcl 200 Mg Tablet) 200 mg PO DAILY [facility] Last Admin: 02/05/25 08:06 Dose: 200 mg Documented By: ABHILASH Amlodipine Besylate (Amlodipine Besylate 2.5 Mg Tablet) 2.5 mg PO DAILY [facility]; Protocol On Hold: 02/05/25 09:00 Calcium Carbonate (Calcium Carbonate 750 Mg Tab.Chew) 750 mg PO Q4H PRN PRN Reason: Heartburn Ceftriaxone Sodium (Ceftriaxone Sodium 1 Gm Vial) 1 gm IVPUSH Q24H [facility] Last Admin: 02/04/25 22:40 Dose: 1 gm Documented By: ALLISON Finasteride (Finasteride 5 Mg Tablet) 5 mg PO BEDTIME [facility] Last Admin: 02/04/25 22:40 Dose: 5 mg Documented By: ALLISON Heparin Sodium (Porcine) (Heparin Sodium,Porcine 5,000 Unit/Ml Vial) 5,000 unit SUBCUT Q12H [facility] On Hold: 02/05/25 01:00 Last Admin: 02/04/25 21:01 Dose: 5,000 unit Documented By: CARL Lactated Ringer's (Lr) 1,000 mls @ 75 mls/hr IVCONT .[id number] [facility] Last Admin: 02/05/25 04:15 Dose: 75 mls/hr Documented By: ALLISON Magnesium Hydroxide (Milk Of Magnesia 30 Ml Oral.Susp) 30 ml PO DAILY PRN PRN Reason: Constipation Melatonin (Melatonin 3 Mg Tablet) 6 mg PO BEDTIME PRN PRN Reason: Insomnia Last Admin: 02/04/25 22:40 Dose: 6 mg Documented By: ALLISON Ondansetron HCl (Ondansetron Hcl 4 Mg/2 Ml Vial) 4 mg IVPUSH Q8H PRN PRN Reason: Nausea and Vomiting Oxycodone HCl (Oxycodone Hcl Immed Release 5 Mg Tablet) 5 mg PO Q6H PRN PRN Reason: Pain, Severe (Pain Scale 7-10) Sodium Chloride (0.9 % Sodium Chloride Flush 3 Ml Syringe) 3 ml IVFLUSH QSHIFT [facility] Last Admin: 02/05/25 08:03 Dose: Not Given Documented By: ABHILASH Non-Admin Reason: IV Running Tramadol HCl (Tramadol Hcl 50 Mg Tablet) 50 mg PO Q6H PRN PRN Reason: Pain, Moderate(Pain Scale 4-6) Last Admin: 02/05/25 03:52 Dose: 50 mg Documented By: ALLISON Labs 02/05/25 06:06 02/05/25 14:46 Labs: Laboratory Results - last 24 hr 02/04/25 02/04/25 02/04/25 17:09 18:16 21:12 MCV 74.0 L MCH 23.3 L MCHC 31.5 RDW 17.1 H Plt Count 383 MPV 9.2 L Immature Gran % (Auto) 0.2 Neut % (Auto) 79.5 H Lymph % (Auto) 12.2 L [place] % (Auto) 6.3 Eos % (Auto) 0.8 Baso % (Auto) 1.0 Lymph # (Auto) 0.6 L [place] # (Auto) 0.3 Eos # (Auto) 0.0 Baso # (Auto) 0.1 Abs Immat Gran (auto) 0.01 Absolute Neuts (auto) 4.2 Absolute Nucleated RBC 0.000 Nucleated RBC % (auto) 0.0 Hold Purple Top VBG pH 7.43 VBG pCO2 24 VBG pO2 72 VBG HCO3 16 L VBG O2 Saturation 94.0 VBG Base Excess -6.4 Anion Gap 18 Estim Creat Clear Calc 4.3 Estimated GFR 4 Random Glucose 100 Lactic Acid 0.7 Calcium 8.6 Magnesium 2.6 Total Bilirubin 0.4 AST 15 ALT < 6 Alkaline Phosphatase 77 Total Creatine Kinase 23 L Total Protein 6.9 Albumin 3.4 L Lipase 27 Beta-Hydroxybutyrate 0.51 H Urine Color Urine Appearance Urine pH Ur Specific [place] Urine Protein Urine Glucose (UA) Urine Ketones Urine Blood Urine Nitrite Ur Leukocyte Esterase Urine RBC Urine WBC Ur Squamous Epith Cells Urine Bacteria Hyaline Casts 02/04/25 02/05/25 02/05/25 21:19 06:06 06:30 MCV 72.8 L MCH 23.0 L MCHC 31.5 RDW 17.2 H Plt Count 362 MPV 9.0 L Immature Gran % (Auto) 0.4 Neut % (Auto) 86.1 H Lymph % (Auto) 7.2 L [place] % (Auto) 4.9 Eos % (Auto) 0.7 Baso % (Auto) 0.7 Lymph # (Auto) 0.4 L [place] # (Auto) 0.3 Eos # (Auto) 0.0 Baso # (Auto) 0.0 Abs Immat Gran (auto) 0.02 Absolute Neuts (auto) 4.9 Absolute Nucleated RBC 0.000 Nucleated RBC % (auto) 0.0 Hold Purple Top SEE NOTE VBG pH VBG pCO2 VBG pO2 VBG HCO3 VBG O2 Saturation VBG Base Excess Anion Gap 14 Estim Creat Clear Calc 6.7 Estimated GFR 7 Random Glucose 84 Lactic Acid Calcium 8.0 L D Magnesium Total Bilirubin AST ALT Alkaline Phosphatase Total Creatine Kinase Total Protein Albumin Lipase Beta-Hydroxybutyrate Urine Color Yellow Urine Appearance Turbid Urine pH 5.5 Ur Specific [place] 1.010 Urine Protein 30 (1+) H Urine Glucose (UA) Negative Urine Ketones Negative Urine Blood Large (3+) H Urine Nitrite Negative Ur Leukocyte Esterase Moderate (2+) H Urine RBC >20 H Urine WBC >50 H Ur Squamous Epith Cells 6-10 Urine Bacteria Trace Hyaline Casts 6-10 Assessment and Plan (1) Bilateral hydronephrosis: Status: Acute (2) LOIS (acute kidney injury): Status: Acute Plan Patient is an 84-year-old male with a past medical history significant for paroxysmal AFib on Eliquis, iron-deficiency anemia, CKD 3, hypertension, hyperlipidemia, BPH, GERD, new diagnosis stage III colon cancer s/p hemicolectomy 12/10/[address] Mahmood, presented to ED due to abnormal labs, elevated creatinine. Workup in the ED is significant for bilateral hydronephrosis and bladder stones on CT and LOIS on CKD, suspected obstructive post-renal and acute UTI. LOIS on CKD, post renal and dehydration, acute urinary retention - reports had not urinated in 5+ days - significant improvement s/p Zaman: 11.95-->7.75 - IVF, Zaman - nephrology and urology consulted, continue Zaman - repeat imaging tomorrow to ensure hydronephrosis resolution - monitor BMP bilateral hydronephrosis despite L nephroureteral stent and bladder stones on CT - zaman - urology consulted; given improvement with Zaman no need for surgical intervention at this time Hematuria - from traumatic Zaman insertion - monitor H&H - no indication for CBI at this time metabolic acidosis, secondary to LOIS - improving - IVF - monitor BMP Acute UTI - ceftriaxone, follow culture Constipation - Miralax for now - monitor BM chronic anemia - monitor CBC given hematuria HTN, normotensive - resume amlodipine when appropriate HLD - hold statin due to LOIS BPH - continue finasteride paroxysmal a fib, rate controlled - hold Eliquis pending urology consult, heparin for now colon cancer - followed by Dr Mahmood full code VTE prophy: Compression stockings due to gross hematuria Pt with LOIS on CKD with bilateral hydronephrosis and UTI, requiring admission for at least 2 midnights stay for IV abx, specialist consultations and monitoring. Quality Stroke Does the patient have a stroke diagnosis?: No VTE Prior VTE?: No VTE Risk Level:: Medical - moderate - high VTE Device Contraindication: Treatment Not Indicated VTE Drug Contraindication: N/A - Med Ordered
--- NOTE | 2025-02-05 10:59 | PM.CNNEP ---
History of Present Illness Reason for Consult Consult date: 02/05/25 Chief Complaint Chief complaint: LOIS History of Present Illness Narrative: 85 y/o male with afib on eliquis, iron deficiency anemia, CKD, HTN, HLD, BPH, new dx colon cancer stage 3 s/p hemicolectomy. Presented 02/04 with abnormal labs and creatinine 11.95, poor PO intake and weakness/fatigue, no BM or urine output reportedly for 5 days. 01/23/25 ureteral stent placed by urology due to left stone CT: bilateral hydro with bladder stones - zaman catheter inserted UA suggestive of UTI Patient received 2L NS last evening, now on LR maintanence fluid creatinine has decreased to 7.75 this a.m., 2300mL urine output from zaman pateint reports he remains weak/tired, somewhat improved from last night. denies shortness of breath, pain, other new symptoms/concerns. Review of Systems Review of Systems Yes all other systems are reviewed and are negative PMFSH Past Medical History Medical History Abnormal weight loss CKD (chronic kidney disease) stage 3, GFR 30-59 ml/min Arthritis BPH (benign prostatic hyperplasia) Numbness and tingling of both feet Dizziness Syncope (~2020) Colon adenocarcinoma Atrial fibrillation Chronic kidney disease GERD (gastroesophageal reflux disease) High cholesterol HTN (hypertension) Family History Family History Mother Hypertension Breast cancer Father Alcoholic Lung cancer Sister Breast cancer Sister Breast cancer Sister Breast cancer Sister Breast cancer Surgical History Surgical History Hx of left hemicolectomy (12/10/24) Hx of colonoscopy (10/01/24) H/O prostate biopsy Hx of cataract extraction History of dental surgery H/O removal of cyst (03/01/22) Social History Social History Household Members: Spouse Housing: House Are you a primary critical care nurse specialist to a significant other at home: No Do you presently have visiting nurse or other home services: No Comment: pt refused bed alarm Patient Tobacco Use Status: Former Tobacco user Tobacco use type: Cigarette Smoked in Last 30 Days: No Use of substances other than those prescribed or required for medical reasons: No Currently Displaying Signs/Symptoms of Drug Intoxication Withdrawal: No Have you been hit, kicked, punched, or otherwise hurt by someone within the past year? If so, by whom?: No Do you feel safe in your current relationship?: Yes Is there a partner from a previous relationship who is making you feel unsafe now?: No Are you made to feel afraid or neglected: No Advance Directives: No Advance Directives Information Provided: Yes Advance Directives Date on File: 01/22/25 Do you have a plan to hurt others: No Plan Recently lost weight without trying: Yes How much weight loss: 34pounds or more Eating poorly because of decreased appetite: Yes Nutrition screen score: 7 Nutrition Risks: Anorexia and Poor intake 0-25% >4 days service: No Current occupational status: [employer] ([employer]) Allergies Allergy/AdvReac Type Severity Reaction Status Date / Time No Known Allergies Allergy Verified 02/04/25 16:40 Active Medications: Current Medications Acetaminophen (Acetaminophen 325 Mg Tablet) 975 mg PO Q6H PRN PRN Reason: Pain, Mild 1-3,fever,headache Amiodarone HCl (Amiodarone Hcl 200 Mg Tablet) 200 mg PO DAILY [facility] Last Admin: 02/05/25 08:06 Dose: 200 mg Amlodipine Besylate (Amlodipine Besylate 2.5 Mg Tablet) 2.5 mg PO DAILY [facility]; Protocol On Hold: 02/05/25 09:00 Calcium Carbonate (Calcium Carbonate 750 Mg Tab.Chew) 750 mg PO Q4H PRN PRN Reason: Heartburn Ceftriaxone Sodium (Ceftriaxone Sodium 1 Gm Vial) 1 gm IVPUSH Q24H [facility] Last Admin: 02/04/25 22:40 Dose: 1 gm Finasteride (Finasteride 5 Mg Tablet) 5 mg PO BEDTIME [facility] Last Admin: 02/04/25 22:40 Dose: 5 mg Heparin Sodium (Porcine) (Heparin Sodium,Porcine 5,000 Unit/Ml Vial) 5,000 unit SUBCUT Q12H [facility] On Hold: 02/05/25 01:00 Last Admin: 02/04/25 21:01 Dose: 5,000 unit Lactated Ringer's (Lr) 1,000 mls @ 75 mls/hr IVCONT .[id number] [facility] Last Admin: 02/05/25 04:15 Dose: 75 mls/hr Magnesium Hydroxide (Milk Of Magnesia 30 Ml Oral.Susp) 30 ml PO DAILY PRN PRN Reason: Constipation Melatonin (Melatonin 3 Mg Tablet) 6 mg PO BEDTIME PRN PRN Reason: Insomnia Last Admin: 02/04/25 22:40 Dose: 6 mg Ondansetron HCl (Ondansetron Hcl 4 Mg/2 Ml Vial) 4 mg IVPUSH Q8H PRN PRN Reason: Nausea and Vomiting Oxycodone HCl (Oxycodone Hcl Immed Release 5 Mg Tablet) 5 mg PO Q6H PRN PRN Reason: Pain, Severe (Pain Scale 7-10) Sodium Chloride (0.9 % Sodium Chloride Flush 3 Ml Syringe) 3 ml IVFLUSH HIFT [facility] Last Admin: 02/05/25 08:03 Dose: Not Given Tramadol HCl (Tramadol Hcl 50 Mg Tablet) 50 mg PO Q6H PRN PRN Reason: Pain, Moderate(Pain Scale 4-6) Last Admin: 02/05/25 03:52 Dose: 50 mg Home Medications ?Medication ?Instructions ?Recorded ?Confirmed ?Last Taken ?Type atorvastatin 20 mg tablet 20 mg PO BEDTIME 06/08/21 02/04/25 02/03/25 History finasteride 5 mg tablet 5 mg PO BEDTIME 12/09/24 02/04/25 02/03/25 History amlodipine 2.5 mg tablet 2.5 mg PO DAILY 01/21/25 02/04/25 02/03/25 History Physical Exam Vital Signs: Last Vital Signs Temp 98.6 F 02/05/25 07:35 Pulse 97 02/05/25 07:35 Resp 16 02/05/25 07:35 BP 132/72 02/05/25 07:35 Pulse Ox 95 02/05/25 07:35 O2 Del Method Room Air 02/05/25 07:35 BMI result Body Mass Index 22.8 Const General: no acute distress, alert and awake Resp Effort & Inspection: normal respiratory effort and able to speak in complete sentences Auscultation: clear to auscultation bilaterally Cardio Rate: regular rate Rhythm: regular rhythm Heart sounds: S1 normal heart sound present and S2 normal heart sound present GI Palpation (GI): Soft to palpation and Tenderness to palpation present (GI) General: Yes no CVA tenderness Back/Spine/Pelvis Back: no CVA tenderness Skin Rashes: no rashes Extrem General: No edema Results Lab Results 02/05/25 06:06 02/05/25 06:06 Lab results: Chemistry 02/04/25 02/05/25 17:09 06:06 Sodium 137 142 Potassium 4.6 4.2 Carbon Dioxide 18 L 17 L BUN 57 H 42 H Creatinine 11.95 H* 7.75 H* Calcium 8.6 8.0 L D Hematology 02/04/25 02/05/25 17:09 06:06 WBC 5.2 5.7 Hgb 8.4 L 7.6 L Plt Count 383 362 Urinalysis 02/04/25 21:19 Urine Color Yellow Urine Appearance Turbid Urine pH 5.5 Ur Specific [place] 1.010 Urine Protein 30 (1+) H Urine Glucose (UA) Negative Urine Ketones Negative Urine Blood Large (3+) H Urine Nitrite Negative Ur Leukocyte Esterase Moderate (2+) H Urine RBC >20 H Urine WBC >50 H Ur Squamous Epith Cells 6-10 Hyaline Casts 6-10 Assessment and Plan (1) LOIS (acute kidney injury): Status: Acute Plan LOIS on CKD secondary to urinary obstruction and reduced renal perfusion from dehydration/lack of PO intake. renal function has signficantly improved over a short period of time with removal of obstruction/zaman placement and IVF- anticipate continued improvement with current plan. continue with urology recommendations to address obstruction continue with IVF recommend re-checking electrolytes and urine function studies in the morning close I&O monitoring, daily weights continue supportive care Discussed wt Dr Woodall Procedures Date of Service Date of Service: 02/05/25
--- NOTE | 2025-02-05 11:18 | MHC.CM.PN ---
IMM DELIVERED PT LIVES WITH SPOUSE AND USES A WALKER FOR MOBILITY. NO SERVICES. 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 DP: HOME WITH NEW [facility] ([facility]) FOR NEW F/C TEACHING. PT'S SPOUSE WILL TRANSPORT. CM WILL CONTINUE TO FOLLOW FOR ANY CHANGE TO DC PLAN/NEEDS.
--- NOTE | 2025-02-05 12:11 | PM.UROCN ---
History of Present Illness Consult details Consult date: 02/05/25 Narrative: CC: LOIS on CRF 84-year-old male Known to Urology Presentation with elevated creatinine 11.95 Has indwelling left stent Had been unable to urinate for the past 5 days secondary to constipation CT scan showed urinary retention with bilateral hydronephrosis Gilbert catheter placed with 900 cc output Repeat creatinine 7.7 Hold Eliquis Continue drainage with Gilbert catheter On antibiotics. Blood culture pending. Review of Systems Constitutional: Constitutional: Reports as per HPI and Reports no additional constitutional complaints Cardiovascular: Cardiovascular: Reports as per HPI and Reports no additional cardiovascular complaints Respiratory: Respiratory: Reports as per HPI and Reports no additional respiratory complaints Gastrointestinal: Gastrointestinal: Reports as per HPI and Reports no additional gastrointestinal complaints Genitourinary: Genitourinary: Reports as per HPI Musculoskeletal: Musculoskeletal: Reports no additional musculoskeletal complaints and Reports as per HPI Neurologic: Reports system reviewed and no additional complaints, except as documented and Reports as per HPI [facility] Past Medical History Medical History Abnormal weight loss CKD (chronic kidney disease) stage 3, GFR 30-59 ml/min Arthritis BPH (benign prostatic hyperplasia) Numbness and tingling of both feet Dizziness Syncope (~2020) Colon adenocarcinoma Atrial fibrillation Chronic kidney disease GERD (gastroesophageal reflux disease) High cholesterol HTN (hypertension) Family History Family History Mother Hypertension Breast cancer Father Alcoholic Lung cancer Sister Breast cancer Sister Breast cancer Sister Breast cancer Sister Breast cancer Surgical History Surgical History Hx of left hemicolectomy (12/10/24) Hx of colonoscopy (10/01/24) H/O prostate biopsy Hx of cataract extraction History of dental surgery H/O removal of cyst (03/01/22) Social History Social History Household Members: Spouse Housing: House Are you a primary point of care specialist to a significant other at home: No Do you presently have visiting nurse or other home services: No Comment: pt refused bed alarm Patient Tobacco Use Status: Former Tobacco user Tobacco use type: Cigarette Smoked in Last 30 Days: No Use of substances other than those prescribed or required for medical reasons: No Currently Displaying Signs/Symptoms of Drug Intoxication Withdrawal: No Have you been hit, kicked, punched, or otherwise hurt by someone within the past year? If so, by whom?: No Do you feel safe in your current relationship?: Yes Is there a partner from a previous relationship who is making you feel unsafe now?: No Are you made to feel afraid or neglected: No Advance Directives: No Advance Directives Information Provided: Yes Advance Directives Date on File: 01/22/25 Do you have a plan to hurt others: No Plan Recently lost weight without trying: Yes How much weight loss: 34pounds or more Eating poorly because of decreased appetite: Yes Nutrition screen score: 7 Nutrition Risks: Anorexia and Poor intake 0-25% >4 days service: No Current occupational status: retired [employer] Allergies Allergy/AdvReac Type Severity Reaction Status Date / Time No Known Allergies Allergy Verified 02/04/25 16:40 Active Medications: Current Medications Acetaminophen (Acetaminophen 325 Mg Tablet) 975 mg PO Q6H PRN PRN Reason: Pain, Mild 1-3,fever,headache Amiodarone HCl (Amiodarone Hcl 200 Mg Tablet) 200 mg PO DAILY [facility] Last Admin: 02/05/25 08:06 Dose: 200 mg Amlodipine Besylate (Amlodipine Besylate 2.5 Mg Tablet) 2.5 mg PO DAILY [facility]; Protocol On Hold: 02/05/25 09:00 Calcium Carbonate (Calcium Carbonate 750 Mg Tab.Chew) 750 mg PO Q4H PRN PRN Reason: Heartburn Ceftriaxone Sodium (Ceftriaxone Sodium 1 Gm Vial) 1 gm IVPUSH Q24H [facility] Last Admin: 02/04/25 22:40 Dose: 1 gm Finasteride (Finasteride 5 Mg Tablet) 5 mg PO BEDTIME [facility] Last Admin: 02/04/25 22:40 Dose: 5 mg Heparin Sodium (Porcine) (Heparin Sodium,Porcine 5,000 Unit/Ml Vial) 5,000 unit SUBCUT Q12H [facility] On Hold: 02/05/25 01:00 Last Admin: 02/04/25 21:01 Dose: 5,000 unit Lactated Ringer's (Lr) 1,000 mls @ 75 mls/hr IVCONT .[id number] [facility] Last Admin: 02/05/25 04:15 Dose: 75 mls/hr Magnesium Hydroxide (Milk Of Magnesia 30 Ml Oral.Susp) 30 ml PO DAILY PRN PRN Reason: Constipation Melatonin (Melatonin 3 Mg Tablet) 6 mg PO BEDTIME PRN PRN Reason: Insomnia Last Admin: 02/04/25 22:40 Dose: 6 mg Ondansetron HCl (Ondansetron Hcl 4 Mg/2 Ml Vial) 4 mg IVPUSH Q8H PRN PRN Reason: Nausea and Vomiting Oxycodone HCl (Oxycodone Hcl Immed Release 5 Mg Tablet) 5 mg PO Q6H PRN PRN Reason: Pain, Severe (Pain Scale 7-10) Sodium Chloride (0.9 % Sodium Chloride Flush 3 Ml Syringe) [facility] Last Admin: 02/05/25 08:03 Dose: Not Given Tramadol HCl (Tramadol Hcl 50 Mg Tablet) 50 mg PO Q6H PRN PRN Reason: Pain, Moderate(Pain Scale 4-6) Last Admin: 02/05/25 03:52 Dose: 50 mg Home Medications ?Medication ?Instructions ?Recorded ?Confirmed ?Last Taken ?Type atorvastatin 20 mg tablet 20 mg PO BEDTIME 06/08/21 02/04/25 02/03/25 History finasteride 5 mg tablet 5 mg PO BEDTIME 12/09/24 02/04/25 02/03/25 History amlodipine 2.5 mg tablet 2.5 mg PO DAILY 01/21/25 02/04/25 02/03/25 History Physical Exam Vital Signs: Vital Signs: Last Vital Signs Temp 98.6 F 02/05/25 07:35 Pulse 97 02/05/25 07:35 Resp 16 02/05/25 07:35 BP 132/72 02/05/25 07:35 Pulse Ox 95 02/05/25 07:35 O2 Del Method Room Air 02/05/25 07:35 BMI result Body Mass Index 22.8 Const: General: cooperative, healthy appearing, comfortable and no acute distress Orientation/consciousness: patient oriented x3 HEENT: Face and sinus: Yes normal facial exam Mouth: moist mucous membranes Neck: Neck: Yes normal visual inspection, Yes full ROM and Yes trachea midline Chest: Chest palpation & inspection: normal inspection of the chest Resp: Effort & Inspection: normal respiratory effort, able to speak in complete sentences and no respiratory distress GI: Inspection: Yes normal to inspection Back/Spine/Pelvis: Cervical Spine: normal cervical lordosis Thoracic/Lumbar Spine: thoracic and lumbar spine normal to inspection Skin: General skin exam: no rashes or lesions noted Neuro: General: patient oriented x3, tone normal and moves all extremities Extrem: General: Yes normal to inspection and Yes capillary refill normal Results Labs 02/05/25 06:06 02/05/25 06:06 Labs: Abnormal lab results 02/04/25 02/04/25 02/04/25 Range/Units 17:09 18:16 21:19 RBC 3.61 L (4.60-5.80) X10*6/uL Hgb 8.4 L (14.0-18.0) g/dl Hct 26.7 L (42.0-52.0) % MCV 74.0 L (80.0-98.0) fL MCH 23.3 L (27.0-33.0) pg RDW 17.1 H (11.0-16.0) % MPV 9.2 L (9.4-12.4) fL Neut % (Auto) 79.5 H (45-73) % Lymph % (Auto) 12.2 L (20-40) % Lymph # (Auto) 0.6 L (1.2-4.9) X10*3/uL VBG HCO3 16 L (22-26) mmol/L Chloride (96-108) mmol/L Carbon Dioxide 18 L (22-29) mmol/L BUN 57 H (9-16) mg/dL Creatinine 11.95 H* (0.5-1.4) mg/dL Calcium (8.4-10.2) mg/dL Total Creatine Kinase 23 L (38-174) U/L Albumin 3.4 L (3.5-5.0) g/dL Beta-Hydroxybutyrate 0.51 H (0.02-0.27) mmol/L Urine Protein 30 (1+) H (Neg-Trace) mg/dL Urine Blood Large (3+) H (Negative) Ur Leukocyte Esterase Moderate (2+) H (Negative) Urine RBC >20 H (0-2) /HPF Urine WBC >50 H (0-5) /HPF 02/05/25 Range/Units 06:06 RBC 3.31 L (4.60-5.80) X10*6/uL Hgb 7.6 L (14.0-18.0) g/dl Hct 24.1 L (42.0-52.0) % MCV 72.8 L (80.0-98.0) fL MCH 23.0 L (27.0-33.0) pg RDW 17.2 H (11.0-16.0) % MPV 9.0 L (9.4-12.4) fL Neut % (Auto) 86.1 H (45-73) % Lymph % (Auto) 7.2 L (20-40) % Lymph # (Auto) 0.4 L (1.2-4.9) X10*3/uL VBG HCO3 (22-26) mmol/L Chloride 115 H (96-108) mmol/L Carbon Dioxide 17 L (22-29) mmol/L BUN 42 H (9-16) mg/dL Creatinine 7.75 H* (0.5-1.4) mg/dL Calcium 8.0 L D (8.4-10.2) mg/dL Total Creatine Kinase (38-174) U/L Albumin (3.5-5.0) g/dL Beta-Hydroxybutyrate (0.02-0.27) mmol/L Urine Protein (Neg-Trace) mg/dL Urine Blood (Negative) Ur Leukocyte Esterase (Negative) Urine RBC (0-2) /HPF Urine WBC (0-5) /HPF Short CBC 02/04/25 02/05/25 Range/Units 17:09 06:06 WBC 5.2 5.7 (4.8-10.8) X10*3/uL Hgb 8.4 L 7.6 L (14.0-18.0) g/dl Hct 26.7 L 24.1 L (42.0-52.0) % Plt Count 383 362 (160-400) X10*3/uL BMP 02/04/25 02/05/25 17:09 06:06 Sodium 137 142 Potassium 4.6 4.2 Chloride 106 115 H Carbon Dioxide 18 L 17 L BUN 57 H 42 H Creatinine 11.95 H* 7.75 H* Calcium 8.6 8.0 L D Cardiac Enzymes 02/04/25 Range/Units 17:09 Total Creatine Kinase 23 L (38-174) U/L Liver Function 02/04/25 Range/Units 17:09 Total Bilirubin 0.4 (0.0-1.0) mg/dL AST 15 (5-37) U/L ALT < 6 (0-40) U/L Alkaline Phosphatase 77 (39-117) U/L Albumin 3.4 L (3.5-5.0) g/dL Urine 02/04/25 Range/Units 21:19 Urine Color Yellow Urine Appearance Turbid Urine pH 5.5 (5.0-9.0) Ur Specific [place] 1.010 (1.005-1.025) Urine Protein 30 (1+) H (Neg-Trace) mg/dL Urine Glucose (UA) Negative (Negative) mg/dL All other labs normal. Assessment and Plan (1) Acute kidney injury superimposed on CKD: Status: Acute (2) Urinary tract infection: Status: Acute (3) Obstructed, uropathy: Status: Acute Plan Gilbert catheter Repeat imaging tomorrow to ensure hydronephrosis resolving Procedures Date of Service Date of Service: 02/05/25
[2025-02-05 15:17] LABS: Anion Gap 11 (12-20); Blood Urea Nitrogen 33 mg/dL (9-16); Calcium 8.7 mg/dL (8.4-10.2); Carbon Dioxide 20 mmol/L (22-29); Chloride 113 mmol/L (96-108); Creatinine Clr Calc Pharmacy 9.0; Estimated Glomerular Filt Rate 9; Potassium 4.1 mmol/L (3.3-5.1); Sodium 140 mmol/L (135-145)
[2025-02-05 15:27] VITALS: BP 112/68; PULSE 113; RESP 16; TEMP 36.3; O2SAT 97
[2025-02-05] MEDS: 0.9 % Sodium Chloride Flush 3 ML SYRINGE IVFLUSH (16:03)
[2025-02-05 19:09] VITALS: BP 152/72; PULSE 120; RESP 16; TEMP 36.4; O2SAT 98
[2025-02-06] VITALS (7 sets, daily range): BP systolic 132–152; BP diastolic 64–78; PULSE 82–113; RESP 12–20; TEMP 36.4–36.9; O2SAT 96–99
[2025-02-06] MEDS: Lactated Ringers 1,000 ML 75 ML IVCONT (04:33)
[2025-02-06 06:11] LABS: Hematocrit 23.1 % (42.0-52.0); Hemoglobin 7.1 g/dl (14.0-18.0); Mean Corpuscular HGB Conc 30.7 g/dl (31.0-36.0); Mean Corpuscular Hemoglobin 22.9 pg (27.0-33.0); Mean Corpuscular Volume 74.5 fL (80.0-98.0); NRBC Abs Auto 0.000 X10*3/uL (0.0-0.012); NRBC Pct Auto 0.0 /100WBC (0.0-0.2); Platelet Count 294 X10*3/uL (160-400); Red Blood Count 3.10 X10*6/uL (4.60-5.80); White Blood Count 5.2 X10*3/uL (4.8-10.8)
[2025-02-06 06:24] LABS: Anion Gap 9 (12-20); Blood Urea Nitrogen 23 mg/dL (9-16); Calcium 9.0 mg/dL (8.4-10.2); Carbon Dioxide 23 mmol/L (22-29); Chloride 114 mmol/L (96-108); Creatinine Clr Calc Pharmacy 13.9; Estimated Glomerular Filt Rate 16; Potassium 4.0 mmol/L (3.3-5.1); Sodium 142 mmol/L (135-145)
--- NOTE | 2025-02-06 08:36 | P.PNUR_ITS ---
Subjective Subjective Date of Service: 02/06/25 Interval history: Creatinine trending downwards This morning 3.7 Catheter to remain Physical Exam 2 Vital Signs: Vital Signs: Last Vital Signs Temp 97.9 F 02/06/25 07:46 Pulse 94 02/06/25 07:46 Resp 12 02/06/25 07:46 BP 151/78 H 02/06/25 07:46 Pulse Ox 97 02/06/25 07:46 O2 Del Method Room Air 02/06/25 07:46 BMI result Body Mass Index 22.8 Const: General: cooperative, healthy appearing, comfortable and no acute distress Orientation/consciousness: patient oriented x3 HEENT: Face and sinus: Yes normal facial exam Mouth: moist mucous membranes Neck: Neck: Yes normal visual inspection, Yes full ROM and Yes trachea midline Chest: Chest palpation & inspection: normal inspection of the chest Resp: Effort & Inspection: normal respiratory effort, able to speak in complete sentences and no respiratory distress GI: Inspection: Yes normal to inspection Back/Spine/Pelvis: Cervical Spine: normal cervical lordosis Thoracic/Lumbar Spine: thoracic and lumbar spine normal to inspection Skin: General skin exam: no rashes or lesions noted Neuro: General: patient oriented x3, tone normal and moves all extremities Extrem: General: Yes normal to inspection and Yes capillary refill normal Urology Results Labs 02/06/25 05:45 02/06/25 05:45 Labs: Laboratory Results - last 24 hr 02/05/25 02/06/25 02/06/25 14:46 05:45 08:09 WBC 5.2 RBC 3.10 L Hgb 7.1 L Hct 23.1 L MCV 74.5 L MCH 22.9 L MCHC 30.7 L RDW 17.0 H Plt Count 294 MPV 9.4 Absolute Nucleated RBC 0.000 Nucleated RBC % (auto) 0.0 Sodium 140 142 Potassium 4.1 4.0 Chloride 113 H 114 H Carbon Dioxide 20 L 23 Anion Gap 11 L 9 L BUN 33 H 23 H Creatinine 5.72 H* 3.72 H Estim Creat Clear Calc 9.0 13.9 Estimated GFR 9 16 Random Glucose 141 H 96 Calcium 8.7 D 9.0 Crossmatch See Detail Progress Note: A&P Assessment and plan (1) Acute kidney injury superimposed on CKD: Status: Acute (2) Obstructed, uropathy: Status: Acute Plan continue conservative therapy Time Spent With Patient Time: Total time managing care of this patient today ____ minutes. Progress Note: Quality Stroke Does the patient have a stroke diagnosis?: No
[2025-02-06] MEDS: 0.9 % Sodium Chloride Flush 3 ML SYRINGE IVFLUSH ×2 (08:45→20:38)
--- NOTE | 2025-02-06 12:53 | P.PNNP_ITS ---
Subjective Subjective Date of Service: 02/06/25 Interval history: Events noted Gilbert in place. Creatinine is trending down Physical Exam 2 Vital Signs: Vital Signs: Last Vital Signs Temp 98.4 F 02/06/25 12:33 Pulse 88 02/06/25 12:33 Resp 18 02/06/25 12:33 BP 140/64 H 02/06/25 12:33 Pulse Ox 97 02/06/25 07:46 O2 Del Method Room Air 02/06/25 07:46 BMI result Body Mass Index 22.8 Comfortable Neck supple no JVD. Lungs entry equal no rales. Heart S1-S2 heard no gallop or rub. Abdomen soft nontender. Neuro alert awake oriented. No asterixis. Extremities no edema. Objective Data Labs 02/06/25 05:45 02/06/25 05:45 Labs: Laboratory Results - last 24 hr 02/05/25 02/06/25 02/06/25 14:46 05:45 08:09 WBC 5.2 RBC 3.10 L Hgb 7.1 L Hct 23.1 L MCV 74.5 L MCH 22.9 L MCHC 30.7 L RDW 17.0 H Plt Count 294 MPV 9.4 Absolute Nucleated RBC 0.000 Nucleated RBC % (auto) 0.0 Sodium 140 142 Potassium 4.1 4.0 Chloride 113 H 114 H Carbon Dioxide 20 L 23 Anion Gap 11 L 9 L BUN 33 H 23 H Creatinine 5.72 H* 3.72 H Estim Creat Clear Calc 9.0 13.9 Estimated GFR 9 16 Random Glucose 141 H 96 Calcium 8.7 D 9.0 Blood Type B Positive Antibody Screen NEGATIVE Crossmatch See Detail Microbiology Microbiology Results: Microbiology 02/04/25 Unknown Urine clean catch - Clean Catch Midstream Urine Culture - Final No growth. 02/04/25 23:03 Blood - Venous Blood Culture - Preliminary No growth after 24 hours. 02/04/25 23:03 Blood - Venous Blood Culture - Preliminary No growth after 24 hours. Procedures Date of Service Date of Service: 02/06/25 Assessment & Plan Assessment and plan (1) LOIS (acute kidney injury): Status: Acute (2) Acute kidney injury superimposed on CKD: Status: Acute Plan LOIS superimposed on CKD. LOIS due to obstruction. After insertion of Gilbert creatinine is significantly improved. Volume status is acceptable No signs or symptoms of uremia. IV fluids can be discontinued. Needs follow up with Urology. She will follow along with the team. Time Spent With Patient Time: Total time managing care of this patient today ____ minutes. Progress Note: Quality Stroke Does the patient have a stroke diagnosis?: No
--- NOTE | 2025-02-06 16:47 | P.PNIM_ITS ---
Subjective Subjective Date of Service: 02/06/25 Interval History: Overall feeling well Abd pain resolved Has had more of an appetite No N/V/D Denies pain Hematuria resolved, though H&H trended down to 7.1 No lightheadedness or dizziness Review of Systems Review of Systems: Yes all other systems are reviewed and are negative Physical Exam 2 Exam: Exam: General: AOx3, no acute distress Resp: CTA bilaterally CVS: Irregularly irregular rhythm GI: +BS, no distention, NT : Zaman in place, no hematuria; no significant bleeding at tip penis Skin: Warm, dry Neuro: Cranial nerves II-XII grossly intact bilaterally. Motor grossly intact bilaterally Extremities: No edema Psych: Appropriate affect Vital Signs: Vital Signs: Last Vital Signs Temp 97.5 F 02/06/25 15:38 Pulse 82 02/06/25 15:38 Resp 18 02/06/25 15:38 BP 152/67 H 02/06/25 15:38 Pulse Ox 96 02/06/25 15:38 O2 Del Method Room Air 02/06/25 15:38 BMI result Body Mass Index 22.8 Objective Data Active Medications Acetaminophen (Acetaminophen 325 Mg Tablet) 975 mg PO Q6H PRN PRN Reason: Pain, Mild 1-3,fever,headache Amiodarone HCl (Amiodarone Hcl 200 Mg Tablet) 200 mg PO DAILY [facility] Last Admin: 02/06/25 08:44 Dose: 200 mg Documented By: HAMLET Amlodipine Besylate (Amlodipine Besylate 2.5 Mg Tablet) 2.5 mg PO DAILY [facility]; Protocol On Hold: 02/05/25 09:00 Calcium Carbonate (Calcium Carbonate 750 Mg Tab.Chew) 750 mg PO Q4H PRN PRN Reason: Heartburn Ceftriaxone Sodium (Ceftriaxone Sodium 1 Gm Vial) 1 gm IVPUSH Q24H [facility] Last Admin: 02/05/25 22:40 Dose: 1 gm Documented By: RAFAL Finasteride (Finasteride 5 Mg Tablet) 5 mg PO BEDTIME [facility] Last Admin: 02/05/25 20:22 Dose: 5 mg Documented By: RAFAL Heparin Sodium (Porcine) (Heparin Sodium,Porcine 5,000 Unit/Ml Vial) 5,000 unit SUBCUT Q12H [facility] On Hold: 02/05/25 01:00 Last Admin: 02/04/25 21:01 Dose: 5,000 unit Documented By: CARL Lactated Ringer's (Lr) 1,000 mls @ 75 mls/hr IVCONT .[id number] [facility] Last Infusion: 02/06/25 12:36 Dose: 75 mls/hr Documented By: SALVADOR Magnesium Hydroxide (Milk Of Magnesia 30 Ml Oral.Susp) 30 ml PO DAILY PRN PRN Reason: Constipation Melatonin (Melatonin 3 Mg Tablet) 6 mg PO BEDTIME PRN PRN Reason: Insomnia Last Admin: 02/04/25 22:40 Dose: 6 mg Documented By: ALLISON Ondansetron HCl (Ondansetron Hcl 4 Mg/2 Ml Vial) 4 mg IVPUSH Q8H PRN PRN Reason: Nausea and Vomiting Oxycodone HCl (Oxycodone Hcl Immed Release 5 Mg Tablet) 5 mg PO Q6H PRN PRN Reason: Pain, Severe (Pain Scale 7-10) Sodium Chloride (0.9 % Sodium Chloride Flush 3 Ml Syringe) 3 ml IVFLUSH QSHIFT [facility] Last Admin: 02/06/25 15:44 Dose: Not Given Documented By: SALVADOR Non-Admin Reason: IV Running Tramadol HCl (Tramadol Hcl 50 Mg Tablet) 50 mg PO Q6H PRN PRN Reason: Pain, Moderate(Pain Scale 4-6) Last Admin: 02/05/25 03:52 Dose: 50 mg Documented By: ALLISON Labs 02/06/25 05:45 02/06/25 05:45 Labs: Laboratory Results - last 24 hr 02/06/25 02/06/25 05:45 08:09 MCV 74.5 L MCH 22.9 L MCHC 30.7 L RDW 17.0 H Plt Count 294 MPV 9.4 Absolute Nucleated RBC 0.000 Nucleated RBC % (auto) 0.0 Anion Gap 9 L Estim Creat Clear Calc 13.9 Estimated GFR 16 Random Glucose 96 Calcium 9.0 Blood Type B Positive Antibody Screen NEGATIVE Crossmatch See Detail Microbiology Microbiology Results: Microbiology 02/04/25 Unknown Urine Culture - Final Urine clean catch - Clean Catch Midstream No growth. 02/04/25 23:03 Blood Culture - Preliminary Blood - Venous No growth after 24 hours. 02/04/25 23:03 Blood Culture - Preliminary Blood - Venous No growth after 24 hours. Assessment and Plan (1) LOIS (acute kidney injury): Status: Acute (2) Acute urinary retention: Status: Acute Plan Patient is an 84-year-old male with a past medical history significant for paroxysmal AFib on Eliquis, iron-deficiency anemia, CKD 3, hypertension, hyperlipidemia, BPH, GERD, new diagnosis stage III colon cancer s/p hemicolectomy 12/10/[address] Mahmood, presented to ED due to abnormal labs, elevated creatinine. Workup in the ED is significant for bilateral hydronephrosis and bladder stones on CT and LOIS on CKD, suspected obstructive post-renal and acute UTI. LOIS on CKD, post renal and dehydration, acute urinary retention - reports had not urinated in 5+ days - significant improvement s/p Zaman: 11.95-->3.72 - IVF, Zaman - nephrology and urology consulted, continue Zaman - renal U/S shows persistent [id number] hydronephrosis of right kidney, left renal cortical thinning concerning for atrophy, no left kidney hydronephrosis - monitor BMP Acute on chronic anemia - H&H dropped to 7.1 - will transfuse 1 unit PRBCs - monitor CBC bilateral hydronephrosis despite L nephroureteral stent and bladder stones on CT - zaman - urology consulted; given improvement with Zaman no need for surgical intervention at this time Hematuria, resolved - from traumatic Zaman insertion - no indication for CBI at this time metabolic acidosis, secondary to LOIS - improving - IVF - monitor BMP Question of acute UTI - urine culture negative, will discontinued empiric antibiotics Constipation - Miralax for now - monitor BM chronic anemia - monitor CBC given hematuria HTN, normotensive - resume amlodipine when appropriate HLD - hold statin due to LOIS BPH - continue finasteride paroxysmal a fib, rate controlled - hold Eliquis pending urology consult, heparin for now colon cancer - followed by Dr Mahmood full code VTE prophy: Compression stockings due to gross hematuria Pt with LOIS on CKD with bilateral hydronephrosis and UTI, requiring admission for at least 2 midnights stay for IV abx, specialist consultations and monitoring. Quality Stroke Does the patient have a stroke diagnosis?: No VTE Prior VTE?: No VTE Risk Level:: Medical - moderate - high VTE Device Contraindication: Treatment Not Indicated VTE Drug Contraindication: N/A - Med Ordered
[2025-02-07 03:16] VITALS: BP 150/75; PULSE 79; RESP 18; TEMP 36.1; O2SAT 97
[2025-02-07 06:50] LABS: Hematocrit 26.1 % (42.0-52.0); Hemoglobin 8.4 g/dl (14.0-18.0); Mean Corpuscular HGB Conc 32.2 g/dl (31.0-36.0); Mean Corpuscular Hemoglobin 24.4 pg (27.0-33.0); Mean Corpuscular Volume 75.9 fL (80.0-98.0); NRBC Abs Auto 0.000 X10*3/uL (0.0-0.012); NRBC Pct Auto 0.0 /100WBC (0.0-0.2); Platelet Count 277 X10*3/uL (160-400); Red Blood Count 3.44 X10*6/uL (4.60-5.80); White Blood Count 5.7 X10*3/uL (4.8-10.8)
[2025-02-07 06:55] LABS: Anion Gap 8 (12-20); Blood Urea Nitrogen 14 mg/dL (9-16); Calcium 8.0 mg/dL (8.4-10.2); Carbon Dioxide 24 mmol/L (22-29); Chloride 113 mmol/L (96-108); Creatinine Clr Calc Pharmacy 21.4; Estimated Glomerular Filt Rate 26; Potassium 4.2 mmol/L (3.3-5.1); Sodium 141 mmol/L (135-145)
--- NOTE | 2025-02-07 07:21 | P.CDIM_ITS ---
PROVIDER RESPONSE TEXT: To clarify, the appropriate diagnosis supported by the clinical indicators: Acute QUERY TEXT: PHYSICIAN'S DOCUMENTATION REQUEST Date of Query: 02/06/2025 07:35 AM EDT Patient Name: Dutch De Souza Admit Date: 02/05/2025 Dear Leandro STARR, A review of the medical record indicates additional documentation may be needed. Please review below and update the documentation accordingly. Clinical Indicators: Progress note dated 02/05/25 - Metabolic acidosis secondary to LOIS Improving IVF Monitor BMP Clarify which of the following accurately represents the acuity of the Metabolic acidosis: Possible options might include: Acute Chronic Other (explain) Clinically unable to determine (explain) Thank you, Radha Barraza, CCS, CDIS Use of terms such as suspected, likely, concern for, or probable (associated with a specific diagnosis that is being evaluated, monitored, or treated as if it exists) are acceptable and can be coded in the inpatient setting, when documented at the time of discharge. Please use your independent medical judgment in providing your response. THIS QUERY IS PART OF THE PERMANENT MEDICAL RECORD
[2025-02-07 07:42] VITALS: BP 157/70; PULSE 61; RESP 16; TEMP 36.3; O2SAT 98
[2025-02-07] MEDS: 0.9 % Sodium Chloride Flush 3 ML SYRINGE IVFLUSH (08:01)
--- NOTE | 2025-02-07 11:36 | MHC.CLN ---
F/U DIET RX REGULAR. ENSURE TID PROVIDES 1050 KCALS, 60 G PROTEIN. MOST RECENT PO INTAKE 100%. BUN NOW WITHIN NORMAL LIMITS AND Cr TRENDING DOWNWARD. FOLLOW FOR PO INTAKE.
--- NOTE | 2025-02-07 12:50 | MHC.CM.PN ---
Addendum entered by Maria Elena Key 02/07/25 15:17: DP: PT WILL DC HOME WITH NEW [facility] FOR HOME SERVICES. [facility] WILL TRANSPORT HOME. Original Note: EMR REVIEWED AND PER MD ROUNDS, PT MAY DC TODAY. PT WILL DC WITH F/C AND [facility] UPDATED ON POSSIBLE DC. CM WILL CONTINUE TO FOLLOW FOR PLAN.
--- NOTE | 2025-02-07 15:12 | PM.DS ---
DS: Providers Provider Date of Service: 02/07/25 Date of admission: 02/04/25 20:10 Date of discharge: 02/07/25 Primary care physician: Unknown Physician Consults: 02/04/25 20:15 Consult to Nephrology Routine Consulting Provider: [facility] Reason for consultation: LOIS, obstructive vs dehydration Has provider been notified: Yes Consult to Urology Routine Consulting Provider: [facility] Reason for consultation: bilateral hydronephrosis despite stent, LOIS Has provider been notified: Yes DS: Diagnosis Discharge Diagnosis (1) LOIS (acute kidney injury): Status: Acute (2) Acute urinary retention: Status: Acute DS: Summary Hospital Course Hospital Course: From admission HPI: Date of Service: 02/04/25 Attending physician on admission: Rainer Mota Chief Complaint: abnormal labs Patient is an 84-year-old male with a past medical history significant for paroxysmal AFib on Eliquis, iron-deficiency anemia, CKD 3, hypertension, hyperlipidemia, BPH, GERD, new diagnosis stage III colon cancer s/p hemicolectomy 12/10/[address] Mahmood, presented to ED due to abnormal labs, elevated creatinine. The patient reports that he has not been eating or drinking much and has been feeling unwell for the past week. He has generalized weakness and fatigue. He has not urinated or had a bowel movement in the past 5 days. The patient had a left ureteral stent placed on 01/23/[address] Roberts due to a left mid ureteral stone with hydronephrosis. He denies any chest pain, shortness of breath, abdominal pain, nausea, vomiting or URI symptoms. W/u in the ED with cr of 11.95, baseline around 1.8, and bilateral hydronephrosis with bladder stones on CT. ED provider spoke with urologist who recommended zaman catheter and consumer product advisor who suggested post-renal/dehydration. UA +. Hospital course Pt was admitted to the hospital for LOIS on CKD 3 in the setting of acute urinary retention and reduced p.o. intake. Pt had reportedly not been urinating in 5 +days. Zaman catheter was inserted in the ED. Pt seen and evaluated by both Nephrology and and Urology who did not feel any acute intervention was necessary other than the Zaman as creatinine improved quickly and dramatically. Pt's creatinine is now back to baseline. Pt was empirically started on ceftriaxone for possible UTI, though urine cultures ultimately were negative and antibiotics stopped. Hospitalization was complicated by gross hematuria likely secondary to traumatic Zaman insertion in a pt on anticoagulation. Hematuria soon resolved without CBI, but pt is H&H decreased to 7.1 and pt was transfused 1 unit PRBCs to good effect. Eliquis was held during hospital stay, but should be resumed upon discharge. Pt will be discharged with Zaman catheter in place. Pt has a educated on Zaman catheter care and will be discharged with home services for continued care and teaching. Pt should follow up with Urology in 2 weeks for continued monitoring. Should follow up with Nephrology in 2 weeks, and PCP in 1 week for routine post hospitalization visit. Pt should continue finasteride, and resume all other home medications. Time Attestation Discharge Coordination Time (in mins): 35 Quality: Safe Use of Opioids Does Pt have an Active Cancer Diagnosis on the Problem List?: No Quality: Stroke Does the patient have a stroke diagnosis?: No Physical Exam Exam: Exam: General: AOx3, no acute distress Resp: CTA bilaterally CVS: Irregularly irregular rhythm GI: +BS, no distention, NT : Zaman in place, no hematuria; no significant bleeding at tip of penis Skin: Warm, dry Neuro: Cranial nerves II-XII grossly intact bilaterally. Motor grossly intact bilaterally Extremities: No edema Psych: Appropriate affect Vital Signs: Vital Signs: Last Vital Signs Temp 97.3 F 02/07/25 07:42 Pulse 61 02/07/25 07:42 Resp 16 02/07/25 07:42 BP 157/70 H 02/07/25 07:42 Pulse Ox 98 02/07/25 07:42 O2 Del Method Room Air 02/07/25 07:42 BMI result Body Mass Index 22.8 DS: Data Data Completed and Pending Completed studies during hospitalization [Text1]: Procedures Dilation of Left Ureter with Intraluminal Device, Via Natural or Artificial Opening Endoscopic (01/21/25) Extirpation of Matter from Bladder, Via Natural or Artificial Opening Endoscopic (01/21/25) Fluoroscopy of Right Kidney, Ureter and Bladder (01/21/25) Resection of Right Large Intestine, Open Approach (12/09/24) Labs on day of discharge: Laboratory Results - last 24 hr 02/07/25 05:55 WBC 5.7 RBC 3.44 L Hgb 8.4 L Hct 26.1 L MCV 75.9 L MCH 24.4 L MCHC 32.2 RDW 18.0 H Plt Count 277 MPV 9.2 L Absolute Nucleated RBC 0.000 Nucleated RBC % (auto) 0.0 Sodium 141 Potassium 4.2 Chloride 113 H Carbon Dioxide 24 Anion Gap 8 L BUN 14 Creatinine 2.42 H Estim Creat Clear Calc 21.4 Estimated GFR 26 Random Glucose 87 Calcium 8.0 L D Preliminary micro results at discharge 02/04/25 23:03 Blood Culture - Preliminary Blood - Venous No growth after 48 hours. 02/04/25 23:03 Blood Culture - Preliminary Blood - Venous No growth after 48 hours. Discharge Plan Discharge Anticipated Discharge Date/Time: 02/07/25 14:25 Patient Disposition: Home Health Service Discharge Diagnosis: Acute urinary retention Referrals: Amberly COHEN [Outside] - 1 Week Referral Note: HOME SERVICES FOR INTERMEDIATE AND PHYSICAL THERAPY- A NURSE WILL CALL YOU TO SET UP FIRST VISIT. Dillon Olivo MD [Physician, Nephrology] - 1 Week Referral Note: LOIS on CKD in the setting of acute urinary retention Sergey Roberts MD [Physician, Urology] - 1 Week Referral Note: Acute urinary retention Bety Mahmood MD [Physician, Hematology & Oncology] - 1 Week Referral Note: Colon cancer; recent PET scan Urban Solares [Primary Care Provider, Medical] - 1 Week Discharge Medications: Continued amiodarone 200 mg tablet 200 mg PO DAILY 30 Days Qty: 45 1RF Rx Instructions: take 2 tablets ( 400mg) twice a day for 5 days then reduce dose to 1 tab ( 200mg) daily oxycodone 5 mg tablet 5 mg PO Q6H PRN (Reason: Pain) 3 Days Qty: 8 0RF Rx Instructions: Partial Fill upon patient request. finasteride 5 mg tablet 5 mg PO BEDTIME Eliquis 2.5 mg Tablet 2.5 mg PO BID Qty: 180 0RF amlodipine 2.5 mg tablet 2.5 mg PO DAILY atorvastatin 20 mg tablet 20 mg PO BEDTIME Discharge Orders: Discharge Order (Routine); Ordered 02/07/25 Ordered By: Leandro Ramirez Activity on Discharge: As tolerated Stand Alone Forms: Patient Portal Discharge page Print Language: [place] Care Plan Goals: Zaman catheter care instructions: May flush azman cath with 30-60cc sterile water as needed for increased sediment or blockage. May replace with 16 gauge Zaman as needed for blockage or if becomes inadvertently displaced and routine every 4 weeks. Health Concerns: Acute urinary retention Hydronephrosis UTI Plan of Treatment: You were admitted to the hospital for LOIS on CKD in the setting of acute urinary retention which was treated with IVF and a Zaman catheter. Your creatinine improved quickly and dramatically and your creatinine is now back to baseline. You were seen and evaluated by both Urology and Nephrology who monitored your progress, but did not need any other acute intervention besides Zaman catheter. Hospital stay was complicated by gross hematuria from traumatic Zaman insertion. You experienced acute on chronic anemia likely multifactorial, and were transfused 1 unit of PRBCs. -- keep Zaman in place until Urology follow up visit -- Zaman catheter care as above -- follow up with Dr. Roberts in Urology in two weeks -- follow up with Dr. Olivo in nephrology 2 weeks -- follow up with PCP in one week for routine post-hospitalization follow up and repeat labs to monitor for H&H and creatinine -- you will be going home with VNA services -- restart Eliquis 2.5 mg twice a day this evening; this had previously been on held due to hematuria -- resume all of your other home medications Assessment: See discharge summary Patient Instructions: Zaman Catheter Care, Urinary Leg Bag (GEN)
[2025-02-07 15:21] VITALS: BP 138/79; PULSE 100; RESP 18; TEMP 36.4; O2SAT 97
--- NOTE | 2025-02-07 15:37 | P.F2F_ITS ---
Service Date Service Date: 02/07/25 Encounter Date of encounter: 02/07/25 Reasons for Services Signs and symptoms assessed: Gilbert catheter in place for acute urinary retention. Elderly, some weakness after prolonged hospital stay. Reason for custodial: GI/ assessment and other (Gilbert catheter care) Reason for physical therapy: home safety and mobility Homebound: Leaving the home is medically contraindicated at this time without the asist of a device and/or another person due th the listed conditions above and below. Reason homebound: unsteady gait / fall risk and poor balance / fall risk Certification: Based on the above findings, I certify that this patient is confined to the home and needs intermittent custodial care, physical therapy and/or speech therapy, or continues to need occupational therapy. The patient is under my care, and I have initiated the establishment of the plan of care. The patient will be followed by a physician who will periodically review the plan of care. Time Spent With Patient Time: Total time managing care of this patient today ____ minutes.
== END 2025-02-07 16:26 | disposition home health service (06) | DRG 683 ==
LOC: HO.ED 20:03 → HO.EDOVER 20:18 → HO.S3 21:03
PROVIDERS: Physician Assistant; Physician Assistant Medical; Admitting Provider Physician Assistant; Emergency Provider Emergency Medicine; Visit Provider Student in an Organized Health Care Education/Training Program
DX: N17.9 Acute kidney failure, unspecified (principal); C18.9 Malignant neoplasm of colon, unspecified; E87.21 Acute metabolic acidosis; T83.83XA Hemorrhage due to genitourinary prosthetic devices, implants and grafts, initial encounter; N13.6 Pyonephrosis; I48.0 Paroxysmal atrial fibrillation; I12.9 Hypertensive chronic kidney disease with stage 1 through stage 4 chronic kidney disease, or unspecified chronic kidney disease; N18.30 Chronic kidney disease, stage 3 unspecified; D50.9 Iron deficiency anemia, unspecified; N40.1 Benign prostatic hyperplasia with lower urinary tract symptoms; R33.8 Other retention of urine; E86.0 Dehydration; K59.00 Constipation, unspecified; Y74.8 Miscellaneous general hospital and personal-use devices associated with adverse incidents, not elsewhere classified; Z87.891 Personal history of nicotine dependence; Z79.01 Long term (current) use of anticoagulants; Z79.899 Other long term (current) drug therapy
CPT/HCPCS: 36415; 74176; 76775; 80048; 80053; 81001; 82010; 82550; 82803; 83605; 83690; 83735; 85025; 85027; 86850; 86900; 86901; 86923; 87040; 87086; 97161; 99285; J0696; J1644; J2405; J7120; P9016

== ENCOUNTER → 2025-02-04 17:43 | Outpatient (BNV) | payer MEDICARE, OTHER, SELFPAY | PROVIDERS: Emergency Provider Emergency Medicine; Visit Provider Radiology Diagnostic Radiology | DX: N13.2 Hydronephrosis with renal and ureteral calculous obstruction (principal); Z96.0 Presence of urogenital implants | CPT/HCPCS: 74176 ==

== ENCOUNTER 2025-02-04 20:10 | Outpatient (BNV) | payer MEDICARE, OTHER, SELFPAY | END 2025-02-05 20:43 | PROVIDERS: Admitting Provider Physician Assistant; Emergency Provider Emergency Medicine; Visit Provider Radiology Diagnostic Radiology | DX: N13.30 Unspecified hydronephrosis (principal); N28.89 Other specified disorders of kidney and ureter | CPT/HCPCS: 76775 ==

== ENCOUNTER → 2025-02-04 20:10 | Outpatient (BNV) | payer MEDICARE, OTHER, SELFPAY | PROVIDERS: Admitting Provider Physician Assistant; Emergency Provider Emergency Medicine; Visit Provider Nurse Practitioner Family | DX: N17.9 Acute kidney failure, unspecified (principal); N18.9 Chronic kidney disease, unspecified | CPT/HCPCS: 99222; 99232 ==

== ENCOUNTER → 2025-02-04 20:10 | Outpatient (BNV) | payer MEDICARE, OTHER, SELFPAY | PROVIDERS: Admitting Provider Physician Assistant; Emergency Provider Emergency Medicine; Visit Provider Physician Assistant | DX: N17.9 Acute kidney failure, unspecified (principal); N18.9 Chronic kidney disease, unspecified; N13.30 Unspecified hydronephrosis; N21.0 Calculus in bladder; D64.9 Anemia, unspecified; N39.0 Urinary tract infection, site not specified | CPT/HCPCS: 99223; 99233; 99499 ==

== ENCOUNTER → 2025-02-04 20:10 | Outpatient (BNV) | payer MEDICARE, OTHER, SELFPAY | PROVIDERS: Admitting Provider Physician Assistant; Emergency Provider Emergency Medicine; Visit Provider Urology | DX: N17.9 Acute kidney failure, unspecified (principal); N18.9 Chronic kidney disease, unspecified; N13.9 Obstructive and reflux uropathy, unspecified | CPT/HCPCS: 99222; 99232 ==

== ENCOUNTER 2025-02-17 11:09 | Outpatient (AMB) | payer MEDICARE, OTHER, SELFPAY ==
--- NOTE | 2025-02-17 11:12 | MHC.OFFVIS ---
Vital Signs 02/17/25 11:22 Height 5 ft 8 in Weight 144 lb BMI 21.9 BP 134/62 Pulse 77 Intake Visit Reasons: 1mth S/P laparoscopic colectomy Intake Note: Patient is seen in office for one month follow up visit, post laparoscopic colectomy. Pt c/o: denies any concerns or changes Bandoleer Packer Required: No Accompanied by: Family/Other Allergies No Known Allergies Allergy (Verified 02/10/25 14:25) HPI Comments Details: 85-year-old male patient status post extended right hand assisted laparoscopiccolectomy returning 1 month postoperatively. He was recently admitted for acute kidney injury and currently has a Gilbert catheter in place. He reports his appetite is much improved in his bowels are moving generally twice daily. His bowels are generally solid without diarrhea or bleeding. He is anxious to get the Gilbert catheter out. [facility] Medical History Chronic anemia Bladder stones Abnormal weight loss CKD (chronic kidney disease) stage 3, GFR 30-59 ml/min Arthritis BPH (benign prostatic hyperplasia) Numbness and tingling of both feet Dizziness Syncope (~2020) Colon adenocarcinoma Atrial fibrillation Chronic kidney disease GERD (gastroesophageal reflux disease) High cholesterol HTN (hypertension) Surgical History Hx of left hemicolectomy (12/10/24) Hx of colonoscopy (10/01/24) H/O prostate biopsy Hx of cataract extraction History of dental surgery H/O removal of cyst (03/01/22) Family History Mother Hypertension Breast cancer Father Alcoholic Lung cancer Sister Breast cancer Sister Breast cancer Sister Breast cancer Sister Breast cancer Social History Household Members: Spouse Housing: House Are you a primary acute care nursing assistant to a significant other at home: No Do you presently have visiting nurse or other home services: No Comment: pt refused bed alarm Patient Tobacco Use Status: Former Tobacco user Tobacco use type: Cigarette Advance Directives Date on File: 01/22/25 service: No Current occupational status: retired Physical Exam Vital Signs: Last Vital Signs Pulse 77 02/17/25 11:22 BP 134/62 02/17/25 11:22 BMI result Body Mass Index 21.9 Const General: no acute distress Nutritional Appearance: well nourished Orientation/consciousness: oriented to time Limitations: ambulation with walker Resp Effort & Inspection: normal respiratory effort GI Other: Soft, nondistended, well-healed abdominal incisions without evidence of hernia or infection. Neuro General: oriented to time Extrem General: Yes no pedal edema Assessment & Plan Assessment & Plan (1) Colon adenocarcinoma: Code(s): C18.9 - Malignant neoplasm of colon, unspecified Category: Medical Plan 85-year-old male patient with a history of adenocarcinoma of the distal transverse colon status post extended right colectomy. He is feeling stronger with an improved appetite currently. He is dealing with acute kidney injury and currently has a Gilbert catheter in place. He will continue his follow up with Dr. Mahmood from Oncology and Dr. Roberts from Urology. I suggested follow up with Dr. Beck in 1 year for colonoscopy. He should follow up in our office as needed. Coding Level of Care Code Global (39257) Diagnoses Colon adenocarcinoma C18.9
[2025-02-17 11:22] VITALS: BP 134/62; PULSE 77; BMI 21.9
--- OUTSIDE RECORDS SUMMARY | 2025-02-17 13:47 | XMS_ITS | Clinical Summary ---
Author Organization [facility] Facility Address [address] [place] [id number] Care Team Providers Care Learning And Development Intern Name Role Phone Flako Hernández MD Primary Care Provider [phone] Allergies No known active allergies Medications atorvastatin [...] age to complete this topic Insurance Medicare [facility] Medicare [facility] Care Teams Learning And Development Intern Relationship Specialty Start Date End Date Flako Hernández MD [address] [place] [address] PCP - General 05/25/20
--- OUTSIDE RECORDS SUMMARY | 2025-02-17 13:47 | XMS_ITS | Clinical Summary ---
Author Organization [facility] Address [address] [place] [address] Phone Care Team Providers Care Surfboard Designer Name Role Phone Unavailable Primary Care Provider Unavailabl e Encounters Date Type Department Care Team Description 2025 3:08 PM EDT - 2025 11:59 PM EDT Hospital Encounter [facility] PET Scan [address] [place] [address] 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, CMS/HCC V28) Discharge Disposition: Home or Self Care from Last 3 Months Social History Tobacco [...] 01/30/2015 Depression Screening 05/15/2024 COVID-19 Vaccine ( - 2024- season) 2025 05/03/2022, 07/20/2021, 12/13/2020, Additional history [...] Signed Date: 02/04/2025 04:59 ET Workstation ID: [id number] Transcribed By: Self Edit Transcribed Date: 02/03/2025 [...] Signed Date: 02/04/2025 04:59 ET Workstation ID: [id number] Transcribed By: Self Edit Transcribed Date: 02/03/2025 11:20 ET Bety Mah[facility]ood [facility] Final Result from Last 3 Months Insurance MEDICARE
== END 2025-02-17 11:33 | disposition home or self-care (01) ==
LOC: HO.HGS 11:10
PROVIDERS: Visit Provider Surgery
DX: C18.9 Malignant neoplasm of colon, unspecified (principal)
CPT/HCPCS: 99024

== ENCOUNTER → 2025-02-17 11:09 | Outpatient (BNVA) | payer MEDICARE, OTHER, SELFPAY | PROVIDERS: Visit Provider Surgery | DX: C18.9 Malignant neoplasm of colon, unspecified (principal) | CPT/HCPCS: 99212 ==

== ENCOUNTER 2025-02-20 13:09 | Outpatient (AMB) | payer MEDICARE, OTHER, SELFPAY ==
--- OUTSIDE RECORDS SUMMARY | 2025-02-20 13:12 | XMS_ITS | Clinical Summary ---
Author Organization [facility] Address [address] [place] [address] Phone Care Team Providers Care Hr Recruiter Name Role Phone Unavailable Primary Care Provider Unavailabl e Encounters Date Type Department Care Team Description 2025 3:08 PM EDT - 2025 11:59 PM EDT Hospital Encounter [facility] PET Scan [address] [place] [address] Malignant neoplasm of transverse colon [...] Signed Date: 02/04/2025 04:59 ET Workstation ID: [id number] Transcribed By: Self Edit Transcribed Date: 02/03/2025 [...] Signed Date: 02/04/2025 04:59 ET Workstation ID: [id number] Transcribed By: Self Edit Transcribed Date: 02/03/2025 11:20 ET Bety Mahmood MD [facility] Final Result from Last 3 Months Insurance MEDICARE
--- OUTSIDE RECORDS SUMMARY | 2025-02-20 13:12 | XMS_ITS | Clinical Summary ---
Author Organization [facility] Facility Address [address] [address] Care Team Providers Care Billet Worker Name Role Phone Flako Hernández MD Primary Care Provider [phone] Allergies No known active allergies Medications atorvastatin [...] age to complete this topic Insurance Medicare [facility] Medicare [facility] Care Teams Billet Worker Relationship Specialty Start Date End Date Flako Hernández MD [address] [place] [address] PCP - General 05/25/20
[2025-02-20 13:32] VITALS: BP 142/60; PULSE 80; O2SAT 99; BMI 22.2
--- NOTE | 2025-02-20 13:32 | HO.NEPHOV_ITS ---
Vital Signs 02/20/25 13:32 Height 5 ft 8 in Weight 146 lb BMI 22.2 BP 142/60 H Blood Pressure Location Rt brachial Position Sitting Pulse 80 Pulse Source Pulse Oximeter Pulse Oximetry (%) 99 Oxygen Delivery Method Room Air Intake Visit Reasons: [facility] [place] confirmed Tape Making Machine Operator Required: No Accompanied by: Spouse Allergies No Known Allergies Allergy (Verified 02/20/25 13:35) Medication List - Last Reconciled 02/20/25 by Dillon Olivo MD amiodarone 200 mg PO DAILY 30 days amlodipine 2.5 mg PO DAILY apixaban (Eliquis) 2.5 mg PO BID atorvastatin 20 mg PO BEDTIME finasteride (Proscar) 5 mg PO BEDTIME oxycodone 5 mg PO Q6H PRN 3 days HPI Comments Details: Elderly man with long standing HTN with CKD Here for follow up BP was elevated last visit Amlodipine 2.5 mg was added Home BP has been good No new issues today 01/02/25 The patient is an 84-year-old male presenting for follow-up of chronic kidney disease and hypertension management. Recently diagnosed with colon cancer, the patient underwent surgery after a colonoscopy revealed the tumor. Pathology -clear surgical margins, but 2 lymph nodes was affected. Oncology consultation is scheduled for January 14 to determine further treatment. Blood pressure remains stable with current medications: amiodarone, amlodipine, and losartan. Kidney function tests from December 25 are stable, consistent with past results. 02/20/25 - The patient is an 85-year-old male presenting with acute kidney injury and uri nary retention. s/p ureteral stent and s/p Zaman - Acute kidney injury improved post-catheterization. - Allergic reaction to catheter adhesive noted. - Hypertension controlled with amlodipine, home BP ~150 mmHg. [facility] Medical History Chronic anemia Bladder stones Abnormal weight loss CKD (chronic kidney disease) stage 3, GFR 30-59 ml/min Arthritis BPH (benign prostatic hyperplasia) Numbness and tingling of both feet Dizziness Syncope (~2020) Colon adenocarcinoma Atrial fibrillation Chronic kidney disease GERD (gastroesophageal reflux disease) High cholesterol HTN (hypertension) Surgical History Hx of left hemicolectomy (12/10/24) Hx of colonoscopy (10/01/24) H/O prostate biopsy Hx of cataract extraction History of dental surgery H/O removal of cyst (03/01/22) Family History Mother Hypertension Breast cancer Father Alcoholic Lung cancer Sister Breast cancer Sister Breast cancer Sister Breast cancer Sister Breast cancer Social History Household Members: Spouse Housing: House Are you a primary care manager to a significant other at home: No Do you presently have visiting nurse or other home services: No Comment: pt refused bed alarm Patient Tobacco Use Status: Former Tobacco user Tobacco use type: Cigarette Advance Directives Date on File: 01/22/25 service: No Current occupational status: retired Physical Exam Vital Signs: Last Vital Signs Pulse 80 02/20/25 13:32 BP 142/60 H 02/20/25 13:32 Pulse Ox 99 02/20/25 13:32 Oxygen Delivery Method Room Air 02/20/25 13:32 BMI result Body Mass Index 22.2 Results Reviewed Nephrology Results: Hgb, (14.0-18.0) 8.4 g/dl L 02/07/25 WBC, (4.8-10.8) 5.7 X10*3/uL 02/07/25 Plt Count, (160-400) 277 X10*3/uL 02/07/25 Sodium, (135-145) 141 mmol/L 02/07/25 Potassium, (3.3-5.1) 4.2 mmol/L 02/07/25 Chloride, (96-108) 113 mmol/L H 02/07/25 Carbon Dioxide, (22-29) 24 mmol/L 02/07/25 BUN, (9-16) 14 mg/dL 02/07/25 Creatinine, (0.5-1.4) 2.42 mg/dL H 02/07/25 Calcium, (8.4-10.2) 8.0 mg/dL L Δ 02/07/25 Urine Protein, (Neg-Trace) 30 (1+) mg/dL H 02/04/25 Renal US 02/05/25 Assessment & Plan Assessment & Plan (1) HTN (hypertension): Code(s): I10 - Essential (primary) hypertension Category: Medical Plan: Bp well controlled Low salt diet Keep Amlodipine (2) CKD (chronic kidney disease) stage 3, GFR 30-59 ml/min: Code(s): N18.30 - Chronic kidney disease, stage 3 unspecified Category: Medical Plan: Due to hypertensive nephrosclerosis Cr has been stable Avoid nephrotoxins including NSAIDS (3) BPH w urinary obs/LUTS: Code(s): N40.1 - Benign prostatic hyperplasia with lower urinary tract symptoms; N13.8 - Other obstructive and reflux uropathy Category: Medical Plan: Continue follow up with Urology Plan LOIS due to obstructive Uropathy Renal function improved post zaman Cr down from 11.0 to 2.5 Await Urology follow up on 03/06 Orders: Orders Basic Metabolic Panel 3 Months I10 - Essential (primary) hypertension Coding Level of Care Code Est Pt Level 4 (75307) Diagnoses HTN (hypertension) I10 CKD (chronic kidney disease) stage 3, GFR 30-59 ml/min N18.30 BPH w urinary obs/LUTS N40.1; N13.8
== END 2025-02-20 13:50 | disposition home or self-care (01) ==
LOC: HO.HKA 13:10
PROVIDERS: Visit Provider Internal Medicine Hypertension Specialist
DX: I10 Essential (primary) hypertension (principal); N18.30 Chronic kidney disease, stage 3 unspecified; N40.1 Benign prostatic hyperplasia with lower urinary tract symptoms; N13.8 Other obstructive and reflux uropathy
CPT/HCPCS: 99214

== ENCOUNTER → 2025-02-20 13:09 | Outpatient (BNVA) | payer MEDICARE, OTHER, SELFPAY | PROVIDERS: Visit Provider Internal Medicine Hypertension Specialist | DX: I10 Essential (primary) hypertension (principal); N18.30 Chronic kidney disease, stage 3 unspecified; N40.1 Benign prostatic hyperplasia with lower urinary tract symptoms; N13.8 Other obstructive and reflux uropathy | CPT/HCPCS: 99212 ==

== ENCOUNTER 2025-03-06 08:44 | Outpatient (AMB) | payer MEDICARE, OTHER, SELFPAY ==
--- NOTE | 2025-03-06 09:06 | A.OFFVIS_ITS ---
Intake Visit Reasons: Cysto/Stent removal/VT Intake Note: Patient is present forCystoscopy with stent removal and Voiding Trial Urology Medication:FINASTERIDE Antibiotic Allergy:NONE Blood Thinner:ELIQUIS Dialysis Patient Care Technician Required: No Accompanied by: Self / Same As Patient Allergies No Known Allergies Allergy (Verified 03/06/25 09:07) HPI Comments Details: Dutch is a pleasant male. He is a patient of Dr. Hernández. He seen for following urologic conditions - elevated PSA - lower urinary tract symptoms - Nephrolithiasis Here for cystoscopy, voiding trial Stent removal - left stent removed Failed voiding trial Taught to perform CIC He is expected to have to catheterize for the foreseeable future 4 times per day to empty bladder secondary to urinary retention with neurogenic bladder. Add methenamine and vitamin-C Nephrolithiasis Found to have large bladder stone Underwent left retrograde with stent placement for tortuosity Lower urinary tract symptoms Slow stream, nocturia Good response to finasteride Elevated PSA PSA 02/02 15, 02/03 15, 08/04 7.6/8.4 25%, 02/04 6.7, 08/05 6.4, 02/05 5.1 31%, 10/06 6.8 - Discussed risk prostate cancer Prior biopsy performed a number of years ago x2 Reported as high-grade PIN Prostate biopsy - 06/05 negative Imaging - 07/06 prostate MRI 150 g prostate equivocal for low risk prostate cancer Continue follow PSA ON LICENSE OF [facility] Medical History (Updated 03/06/25 @ 13:18 by Sergey Roberts MD) Bladder stones Chronic anemia Abnormal weight loss CKD (chronic kidney disease) stage 3, GFR 30-59 ml/min Arthritis BPH (benign prostatic hyperplasia) Numbness and tingling of both feet Dizziness Syncope (~2020) Colon adenocarcinoma Atrial fibrillation Chronic kidney disease GERD (gastroesophageal reflux disease) High cholesterol HTN (hypertension) Surgical History Hx of left hemicolectomy (12/10/24) Hx of colonoscopy (10/01/24) H/O prostate biopsy Hx of cataract extraction History of dental surgery H/O removal of cyst (03/01/22) Family History Mother Hypertension Breast cancer Father Alcoholic Lung cancer Sister Breast cancer Sister Breast cancer Sister Breast cancer Sister Breast cancer Social History Household Members: Spouse Housing: House Are you a primary career development specialist to a significant other at home: No Do you presently have visiting nurse or other home services: No Comment: pt refused bed alarm Patient Tobacco Use Status: Former Tobacco user Tobacco use type: Cigarette Advance Directives Date on File: 01/22/25 service: No Current occupational status: retired Review of Systems Const Denies chills and Denies fever(s) Card Reports no additional complaints and Denies syncope Resp Denies cough GI Denies abdominal pain and Denies heartburn Reports as per HPI and Denies change in libido Neuro Denies syncope Psych Denies change in libido Endo Denies change in libido Physical Exam Const General: cooperative, healthy appearing, comfortable and no acute distress Orientation/consciousness: patient oriented x3 HEENT Face and sinus: Yes normal facial exam Mouth: moist mucous membranes Neck Neck: Yes normal visual inspection, Yes full ROM and Yes trachea midline Chest Chest palpation & inspection: normal inspection of the chest Resp Effort & Inspection: normal respiratory effort, able to speak in complete sentences and no respiratory distress GI Inspection: Yes normal to inspection Back/Spine/Pelvis Cervical Spine: normal cervical lordosis Thoracic/Lumbar Spine: thoracic and lumbar spine normal to inspection Skin General skin exam: no rashes or lesions noted Neuro General: patient oriented x3, gait normal, tone normal and moves all extremities Extrem General: Yes normal to inspection and Yes capillary refill normal Office Procedures Cystoscopy Consent Discussed risk and benefit or proposed procedure with the patient. Information consent for procedure given to the patient. Discussed technical aspects, risks, benefits and alternatives in full. Addressed all of the patient's questions and concerns regarding the procedure. The patient demonstrated knowledge and understanding. They wish to proceed with this procedure. Preparation The patient was prepped in the usual manner. A stencil cutter machine was present and in the room. Genitalia was prepped with betadine solution in a sterile manner. Lidocaine Jelly 2% was placed into the urethra and 16Fr flexible Olympus cystoscope was inserted into the meatus after adequate lubrication. Procedure A well lubricated 16 Belarusian cystoscope was placed No abnormality noted of urethra during placement Indwelling stent seen within bladder emerging from left ureteric orifices The stent was grasped with a 3 prong grasper and removed without difficulty The patient tolerated the procedure well 16Fr coude catheter removed prior to cystoscopy prep. Patient was not able to void after procedure. CIC teaching done with patient, patient able to correctly do CIC while in office, supplies given for 16fr straight catheters. Patient to catheterize himself 4 times daily. Patient emptied 300mls from bladder using catheter provided during CIC teaching. Patient will call with any questions or concerns. [id number] with stent removal DISPOSABLE SCOPE URO-G FLEXIBLE SCOPE Procedure code (CPT) selection complete Office Meds lidocaine HCl 2 % mucosal jelly in applicator Performing Provider: Sergey Roberts MD Performing Location: [facility] [place] [facility] Administered by: Shawna Garcia RN on 03/06/25 09:35 Dose Route Admin Location Dispensed Lot Number Expiration Date NDC Fiscal Services Director 10 mL intra-urethral 10 mL nitrofurantoin monohydrate/macrocrystals 100 mg capsule Performing Provider: Sergey Roberts MD Performing Location: [facility] [place] [facility] Administered by: Shawna Garcia RN on 03/06/25 09:35 Dose Route Admin Location Dispensed Lot Number Expiration Date NDC Fiscal Services Director 100 mg PO 1 cap Comments: Naproxen held due to patient being on Eliquis. Assessment & Plan Assessment & Plan (1) Bladder stones: Code(s): N21.0 - Calculus in bladder Category: Medical (2) Hydronephrosis of left kidney: Code(s): N13.30 - Unspecified hydronephrosis Category: Medical (3) Neurogenic urinary bladder disorder: Code(s): N31.9 - Neuromuscular dysfunction of bladder, unspecified Category: Medical Plan 4 month follow-up Orders: Orders AMB Cystoscopy Today N13.30 - Unspecified hydronephrosis, N13.8 - Other obstructive and reflux uropathy, N20.0 - Calculus of kidney, N20.1 - Calculus of ureter, N40.1 - Benign prostatic hyperplasia with lower urinary tract symptoms, R97.20 - Elevated prostate specific antigen [PSA] Medications: New ascorbic acid (vitamin C) 1,000 mg PO DAILY 90 tabs 1RF 90 days N13.8 - Other obstructive and reflux uropathy, N40.1 - Benign prostatic hyperplasia with lower urinary tract symptoms methenamine hippurate 1 g PO DAILY 90 tabs 1RF 90 days N13.8 - Other obstructive and reflux uropathy, N40.1 - Benign prostatic hyperplasia with lower urinary tract symptoms Patient Instructions: This note is constructed using voice recognition software. While every effort has been made to ensure accuracy ankle patch molder errors may have been included. Imaging studies, laboratory and physical exam results were discussed and reviewed in detail. No major barriers to patient understanding were identified. An opportunity to ask questions regarding the treatment plan was provided. All questions were answered. The patient expressed understanding and agreement with the above treatment plan. The patient is aware they should contact our office by phone for worsening of their current condition or the appearance of new urologic symptoms. Compliance is encouraged with any medications and followup testing that is ordered. It is a privilege to participate in the urologic care of your patient. If you have any questions or concerns regarding treatment for the above conditions, or other urologic issues, please do not hesitate to contact me. The office telephone contact is [phone]. Sincerely, Dr Sergey Roberts MD, [facility] - Urology Compassionate Specialist Care for the Genitourinary System Coding Level of Care Code Est Pt Level 4 (97183) Complex EM visit Add On G2211 Diagnoses Bladder stones N21.0 Hydronephrosis of left kidney N13.30 Neurogenic urinary bladder disorder N31.9 CPT Codes Cystoscopy - CPT: 84114-[id number] with stent removal ([id number])
--- OUTSIDE RECORDS SUMMARY | 2025-03-06 09:29 | XMS_ITS | Clinical Summary ---
Author Organization [facility] Address [address] [place] [address] Phone Care Team Providers Care Glue Wheel Operator Name Role Phone Unavailable Primary Care Provider Unavailabl e Encounters Date Type Department Care Team Description 2025 3:08 PM EDT - 2025 11:59 PM EDT Hospital Encounter [facility] PET Scan [address] [place] [address] Malignant neoplasm of transverse colon [...] Signed Date: 02/04/2025 04:59 ET Workstation ID: [id number] Transcribed By: Self Edit Transcribed Date: 02/03/2025 [...] Signed Date: 02/04/2025 04:59 ET Workstation ID: [id number] Transcribed By: Self Edit Transcribed Date: 02/03/2025 11:20 ET Bety Mahmood MD [facility] Final Result from Last 3 Months Insurance MEDICARE
== END 2025-03-06 10:45 | disposition home or self-care (01) ==
LOC: HO.HUSH 08:44
PROVIDERS: Visit Provider Urology
DX: N40.1 Benign prostatic hyperplasia with lower urinary tract symptoms (principal); N13.8 Other obstructive and reflux uropathy; N20.1 Calculus of ureter; N13.30 Unspecified hydronephrosis; N20.0 Calculus of kidney; R97.20 Elevated prostate specific antigen [PSA]; N21.0 Calculus in bladder; N31.9 Neuromuscular dysfunction of bladder, unspecified
CPT/HCPCS: 52310; 99214

== ENCOUNTER → 2025-03-06 08:44 | Outpatient (BNVA) | payer MEDICARE, OTHER, SELFPAY | PROVIDERS: Visit Provider Urology | DX: Z46.6 Encounter for fitting and adjustment of urinary device (principal); N21.0 Calculus in bladder; N13.30 Unspecified hydronephrosis; N31.9 Neuromuscular dysfunction of bladder, unspecified; N13.8 Other obstructive and reflux uropathy; N20.0 Calculus of kidney; N40.1 Benign prostatic hyperplasia with lower urinary tract symptoms; R97.20 Elevated prostate specific antigen [PSA] | CPT/HCPCS: 52310; 99212 ==

== ENCOUNTER 2025-04-02 13:27 | Outpatient (AMB) | payer MEDICARE, OTHER, SELFPAY ==
--- NOTE | 2025-04-02 13:40 | MHC.OFFVIS ---
Vital Signs 04/02/25 13:42 Height 5 ft 8 in Weight 140 lb 10.479 oz BMI 21.4 BP 120/60 Blood Pressure Location Lt brachial Position Sitting Pulse 61 Pulse Source Monitor Intake Visit Reasons: 3 mth f/up Intake Note: 3 mth f/up Environmental Services Floor Tech Required: No Accompanied by: Spouse Allergies No Known Allergies Allergy (Verified 03/06/25 09:07) Medication List - Last Reconciled 04/02/25 by Adolfo Buckner MD amiodarone 200 mg PO DAILY 30 days amlodipine 2.5 mg PO DAILY ascorbic acid (vitamin C) 1,000 mg PO DAILY 90 days atorvastatin 20 mg PO BEDTIME finasteride (Proscar) 5 mg PO BEDTIME methenamine hippurate 1 g PO DAILY 90 days oxycodone 5 mg PO Q6H PRN 3 days HPI Comments Details: Pleasant 85 year gentleman who had paroxysmal atrial fibrillation diagnosed when he came for elective colonoscopy. Subsequent to that he was started on apixaban for anticoagulation. He was also started on amiodarone and has been in sinus rhythm since then. Unfortunately he can not afford apixaban due to significant high cost and he has stopped using the apixaban and has been using baby aspirin. We discussed in detail about Coumadin but he is not interested in starting Coumadin and wishes just to stay on baby aspirin. No palpitations, shortness of breath or chest discomfort. FOR[facility]LY [facility] Medical History Bladder stones Chronic anemia Abnormal weight loss CKD (chronic kidney disease) stage 3, GFR 30-59 ml/min Arthritis BPH (benign prostatic hyperplasia) Numbness and tingling of both feet Dizziness Syncope (~2020) Colon adenocarcinoma Atrial fibrillation Chronic kidney disease GERD (gastroesophageal reflux disease) High cholesterol HTN (hypertension) Surgical History Hx of left hemicolectomy (12/10/24) Hx of colonoscopy (10/01/24) H/O prostate biopsy Hx of cataract extraction History of dental surgery H/O removal of cyst (03/01/22) Family History Mother Hypertension Breast cancer Father Alcoholic Lung cancer Sister Breast cancer Sister Breast cancer Sister Breast cancer Sister Breast cancer Social History Household Members: Spouse Housing: House Are you a primary health careers instructor to a significant other at home: No Do you presently have visiting nurse or other home services: No Comment: pt refused bed alarm Patient Tobacco Use Status: Former Tobacco user Tobacco use type: Cigarette Advance Directives Date on File: 01/22/25 service: No Current occupational status: retired Review of Systems Const Denies chills, Denies fatigue, Denies fever(s), Denies frequent falls, Denies weakness, Denies weight gain and Denies weight loss ENT Denies dizziness Card Denies chest pain, Denies leg edema, Denies lightheadedness, Denies palpitations, Denies dyspnea and Denies dyspnea on exertion Resp Denies cough, Denies dyspnea and Denies dyspnea on exertion GI Denies hematochezia Musc Denies abnormal gait, Denies muscle weakness, Denies numbness, Denies radiating pain into limb and Denies tingling Neuro Denies abnormal gait, Denies dizziness, Denies frequent falls, Denies numbness, Denies tingling and Denies weakness Endo Denies fatigue and Denies palpitations Physical Exam Vital Signs: Last Vital Signs Pulse 61 04/02/25 13:42 BP 120/60 04/02/25 13:42 BMI result Body Mass Index 21.4 GENERAL APPEARANCE: in no acute distress, pleasant. NECK: no carotid bruit, no jugular venous distention. SKIN: no suspicious lesions, warm and dry. HEART: no murmurs, regular rate and rhythm. LUNGS: clear to auscultation bilaterally. ABDOMEN: soft, nontender. EXTREMITIES: no edema. PERIPHERAL PULSES: equal. NEUROLOGIC: No gross deficits, AAO X 3 Office Procedures EKG Details: Sinus rhythm 61 beats per minute, first-degree AV block with AL interval 274 milliseconds, normal axis, nonspecific T-wave changes, QTC 459 milliseconds. [id number], Complete Assessment & Plan Assessment & Plan (1) HTN (hypertension): Code(s): I10 - Essential (primary) hypertension Category: Medical (2) Paroxysmal A-fib: Code(s): I48.0 - Paroxysmal atrial fibrillation Category: Medical (3) First degree atrioventricular block by electrocardiogram: Code(s): I44.0 - Atrioventricular block, first degree Category: Medical Plan Pleasant 85 year gentleman who is here for follow-up. He has background history of hypertension and paroxysmal atrial fibrillation. Blood pressure is well controlled currently on amlodipine 2.5 mg daily. He is on amiodarone for rhythm control strategy and has been tolerating it well. He has first-degree AV block which has been noticed previously 2. No dizziness or syncope. He has stopped taking apixaban due to high cost. I have explained to him that Coumadin is a cheaper alternative and I can refer him to Coumadin clinic but he wishes not to start Coumadin and wishes to continue baby aspirin only. I have explained to him that baby aspirin is not enough in preventing stroke with atrial fibrillation. He understands that and wishes to just take aspirin. We will continue same medications for now. Follow up with us in 6 months. Thank you for allowing me to participate in the care of your patient. Please feel free to contact me if you have any questions. Coding Level of Care Code Est Pt Level 4 (00325) Diagnoses HTN (hypertension) I10 Paroxysmal A-fib I48.0 First degree atrioventricular block by electrocardiogram I44.0 CPT Codes EKG - CPT: [id number], Complete ([id number])
[2025-04-02 13:42] VITALS: BP 120/60; PULSE 61; BMI 21.4
--- OUTSIDE RECORDS SUMMARY | 2025-04-03 01:25 | XMS_ITS | Clinical Summary ---
Author Organization [facility] Facility Address [address] [address] Care Team Providers Care Molecular Pathologist Name Role Phone Flako Hernández MD Primary Care Provider [phone] Allergies No known active allergies Medications atorvastatin [...] age to complete this topic Insurance Medicare [facility] Medicare [facility] Care Teams Molecular Pathologist Relationship Specialty Start Date End Date Flako Hernández MD [address] [place] [address] PCP - General 05/25/20
== END 2025-04-02 14:10 | disposition home or self-care (01) ==
LOC: HO.HCS 13:27
PROVIDERS: PCP Internal Medicine; Visit Provider Internal Medicine Cardiovascular Disease
DX: I10 Essential (primary) hypertension (principal); I48.0 Paroxysmal atrial fibrillation; I44.0 Atrioventricular block, first degree
CPT/HCPCS: 93010; 99214

== ENCOUNTER → 2025-04-02 13:27 | Outpatient (BNVA) | payer MEDICARE, OTHER, SELFPAY | PROVIDERS: PCP Internal Medicine; Visit Provider Internal Medicine Cardiovascular Disease | DX: I10 Essential (primary) hypertension (principal); I48.0 Paroxysmal atrial fibrillation; I44.0 Atrioventricular block, first degree; Z79.82 Long term (current) use of aspirin; Z87.891 Personal history of nicotine dependence | CPT/HCPCS: 93005; 99212 ==

== ENCOUNTER 2025-04-06 07:26 | Inpatient (IN) | payer MEDICARE, OTHER, SELFPAY ==
--- NOTE | ~2025-04-06 | US_ITS ---
CLINICAL HISTORY: hx obstructive uropathy, new hematuria US Renal Comparison: US/SR - US RENAL BI - 02/05/25 20:42 EDT Findings: Right kidney normal size and echotexture, 11 cm length. Left kidney normal size and echotexture, 8.6 cm length. There is mild right-sided and moderate left-sided hydronephrosis. Nearly 15 mm benign-appearing cyst in the mid polar region of the right kidney. The bladder is empty with a Gilbert catheter and can not be commented on. IMPRESSION: Bilateral hydronephrosis, [id number]. This document has been electronically signed by: Mitesh Amaro MD on 04/06/2025 09:47:02
[2025-04-06 07:29] VITALS: BP 184/76; PULSE 66; RESP 16; TEMP 36.1; O2SAT 98; BMI 20.9
--- NOTE | 2025-04-06 07:57 | ED_ITS ---
HPI - Male Genitourinary General Chief complaint: Urogenital-Male Stated complaint: blood in urine Time Seen by Provider: 04/06/25 07:55 Source: patient, RN notes reviewed and old records reviewed Mode of arrival: ambulatory Limitations: no limitations History of Present Illness ED Provider: Nancy LILLY Narrative: Patient is an 85-year-old male with history of colon CA s/p lap colectomy 12/10/24 urinary retention secondary to neurogenic bladder, currently self catheterizing, BPH, CKD, nephrolithiasis, bladder stones, chronic anemia, HTN, AFib presenting to the emergency department with complaint of sudden onset hematuria which he noted while self cathing at 10:00 p.m. last night. Reports additional episode of hematuria at 4:00 a.m. with clots. Denies any prior episodes of hematuria. Recently had indwelling urinary catheter for around a month which was then removed and patient began self catheterizing. He denies any abdominal, flank or back pain. Denies fevers. Denies any nausea or vomiting. Last saw urologist on 03/06/25. Also notes that he ran out of his Eliquis 1 week ago, did not call to get a refill and just has not been taking it for the past week. Denies any chest pain, palpitations, dyspnea. MD Complaint: other (hematuria) Onset (ago): hour(s) Related Data Home Medications ?Medication ?Instructions ?Recorded ?Confirmed atorvastatin 20 mg tablet 20 mg PO BEDTIME 06/08/21 finasteride 5 mg tablet (Proscar) 5 mg PO BEDTIME 11/1304/06/25 amlodipine 2.5 mg tablet 5 mg PO DAILY 04/06/2504/06 Previous Rx's ?Medication ?Instructions ?Recorded amiodarone 200 mg tablet 200 mg PO DAILY 30 days #45 tabs 12/03/24 Allergies Allergy/AdvReac Type Severity Reaction Status Date / Time No Known Allergies Allergy Verified 04/06/25 07:30 [facility] Past Medical History Medical History Bladder stones Chronic anemia Abnormal weight loss CKD (chronic kidney disease) stage 3, GFR 30-59 ml/min Arthritis BPH (benign prostatic hyperplasia) Numbness and tingling of both feet Dizziness Syncope (~2020) Colon adenocarcinoma Atrial fibrillation Chronic kidney disease GERD (gastroesophageal reflux disease) High cholesterol HTN (hypertension) Surgical History Hx of left hemicolectomy (12/10/24) Hx of colonoscopy (10/01/24) H/O prostate biopsy Hx of cataract extraction History of dental surgery H/O removal of cyst (03/01/22) Family History Family History Mother Hypertension Breast cancer Father Alcoholic Lung cancer Sister Breast cancer Sister Breast cancer Sister Breast cancer Sister Breast cancer Social History Social History Household Members: Spouse Housing: House Are you a primary residential care officer to a significant other at home: No Do you presently have visiting nurse or other home services: Yes Comment: pt refused bed alarm Patient Tobacco Use Status: Former Tobacco user Tobacco use type: Cigarette Currently Displaying Signs/Symptoms of Drug Intoxication Withdrawal: No Have you been hit, kicked, punched, or otherwise hurt by someone within the past year? If so, by whom?: No Do you feel safe in your current relationship?: Yes Is there a partner from a previous relationship who is making you feel unsafe now?: No Are you made to feel afraid or neglected: No Advance Directives: Yes Advance Directives Information Provided: No Advance Directives on File: No Advance Directives Date on File: 01/22/25 Recently lost weight without trying: Yes How much weight loss: 34pounds or more Nutrition Risks: No Nutritional Risk Poor oral hygiene: No service: No Current occupational status: retired Physical Exam 2 Vital Signs: Vital Signs: Last Vital Signs Temp 97.1 F 04/07/25 08:00 Pulse 62 04/07/25 09:24 Resp 16 04/07/25 08:00 BP 131/67 04/07/25 09:24 Pulse Ox 97 04/07/25 08:00 O2 Del Method Room Air 04/07/25 08:00 BMI result Body Mass Index 20.9 Medications Administered Generic Name Dose Route Start Last Admin Trade Name Freq PRN Reason Stop Dose Admin Amiodarone HCl 200 mg 04/07/25 09:00 04/07/25 09:20 Amiodarone Hcl 200 Mg Tablet PO 200 mg DAILY TOSHIA Administration Amlodipine Besylate 5 mg 04/07/25 09:00 04/07/25 09:20 Amlodipine Besylate 5 Mg Tablet PO 5 mg DAILY TOSHIA Administration Protocol Atorvastatin Calcium 20 mg 04/06/25 21:00 04/06/25 20:08 Atorvastatin Calcium 20 Mg Tablet PO 20 mg BEDTIME TOSHIA Administration Finasteride 5 mg 04/06/25 21:00 04/06/25 20:08 Finasteride 5 Mg Tablet PO 5 mg BEDTIME TOSHIA Administration Ciprofloxacin 400 mg in 200 mls @ 200 mls/hr 04/06/25 11:00 04/06/25 23:45 Cipro IV Infused Q12H TOSHIA Infusion Melatonin 6 mg 04/06/25 10:38 04/06/25 20:08 Melatonin 3 Mg Tablet PO 6 mg BEDTIME PRN Administration Insomnia Sodium Chloride 3 ml 04/06/25 16:00 04/07/25 09:20 0.9 % Sodium Chloride Flush 3 Ml Syringe IVFLUSH 3 ml QSHIFT TOSHIA Administration Discontinued Medications Generic Name Dose Route Start Last Admin Trade Name Freq PRN Reason Stop Dose Admin Vancomycin HCl 1,250 mg/ 250 mls @ 166.667 mls/hr 04/06/25 11:00 04/06/25 14:00 Sodium Chloride IV 04/06/25 12:29 Infused ONCE ONE Infusion Lidocaine HCl 10 ml 04/06/25 08:50 04/06/25 09:15 Lidocaine Hcl 2 % Urojet 10 Ml Jel.Pf.Lilibeth TOPICAL 04/06/25 08:51 10 ml ONCE ONE Administration Medical Decision Making Medical Decision Making [facility] Narrative: Patient is an 85-year-old male with history of colon CA s/p lap colectomy 12/10/24 urinary retention secondary to neurogenic bladder, currently self catheterizing, BPH, CKD, nephrolithiasis, bladder stones, chronic anemia, HTN, AFib presenting to the emergency department with complaint of sudden onset hematuria which he noted while self cathing at 10:00 p.m. last night. On exam patient is awake, A+Ox3, hypertensive, VS otherwise WNL, afebrile, normal neurological exam without focal deficits, physical exam findings as above. Given reported symptoms and physical exam findings, initial differential includes but is not limited to UTI/pyelonephritis, bladder stones, hydronephrosis, LOIS. Labs notable for microcytic anemia improved from prior visit, mildly elevated creatinine, also improved from prior visit. UA notable for 3+ leukocytes, positive nitrites, >50 WBCs, 3+ blood. History of E. faecalis susceptible to levo, vanco. EKG obtained to assess QTc. Case discussed with attending, Dr. Olmedo regarding imaging as patient recently had renal U/S, CT A/P and cystoscopy. He feels renal US is best modality at this time to assess for obstruction/hydronephrosis. Bladder irrigation also initiated given gross hematuria with clots. Renal U/S notable for bilateral hydronephrosis, L>R. My interpretation is in agreement with the radiologist's interpretation. 04/06/25 Attending physician note: Thomas Olmedo MD HPI: 85-year-old male with history of colon CA s/p lap colectomy 12/10/24 urinary retention secondary to neurogenic bladder, currently self catheterizing, BPH, CKD, nephrolithiasis, bladder stones, chronic anemia, HTN, AFib presenting to the emergency department with complaint of sudden onset painless hematuria which 1st occurred at 22:00 hours last night. The patient is followed by agents see urologist, Dr. Roberts and the patient was seen recently in the office on 03/06/2025. At that visit, the patient had a cystoscopy voiding trial and removal left stent. The patient failed a voiding trial. Patient has been self catheterizing for several months. Patient was also found to have bladder stones. At the time my evaluation the patient had no complaints. There was a urine sample in his room that showed dark, bloody, gross hematuria Exam: General: Awake, alert in no distress Head: Normocephalic, atraumatic EENT: PERRL, sclera and conjunctiva are normal, mouth with no erythema or exudates Neck: Supple, no adenopathy Lung: breath sounds symmetric, no wheezing, no rales and no rhonchi Chest: symmetric movement, nontender Heart: regular rate and rhythm, normal S1, S2 no murmurs or rubs Abdomen: soft, nondistended, bladder did not appear to be enlarged, mild tenderness palpation over the suprapubic area Back: no vertebral tenderness, no CVAT Extremities: no deformities, moves all extremities symmetrically, no edema Neuro: Awake, alert, oriented, normal speech, cranial nerves 2-12 intact, moves all extremities symmetrically Psych: Pleasant, cooperative Medical Decision Making: My interpretation patient's laboratory evaluation is as follows: chronic microcytic anemia with an H&H of 9.8 and 32, MCV 76.2. H&H is higher than previous values. BUN creatinine were elevated at 16 and 1.75 with a GFR 37- improved from previous values. Urinalysis was positive for protein, blood, nitrates, leukocyte esterase. Microscopic revealed greater than 20 RBCs, greater than 50 WBCs, 0-2 squamous cells and 1+ bacteria- these findings are concerning for urinary tract infection in this may be the cause of his hematuria. Renal ultrasound revealed bilateral hydronephrosis in left greater than right. Given his gross hematuria and possibility of a urinary tract infection, a 3 way Gilbert catheter was ordered for continuous bladder irrigation to prevent obstructive process. In reviewing the patient's previous positive urine cultures, the patient grew Enterococcus faecalis susceptible to Levaquin and vancomycin. Therefore the patient was treated with ciprofloxacin 400 mg IV. Urology will be consulted and the patient will be admitted to the hospitalist service for further treatment. I, Dr. Thomas Olmedo, personally evaluated the patient. I reviewed the nurse practitioner, Eliana Payan's documentation and I was available to supervise the management of the patient. I agree with the treatment and plan. Further, I agree all orders as written by the her. My note reflects my personal findings on my history and exam. Differential Diagnosis Differential Diagnoses: The differential diagnosis associated with the presentation includes as per [facility] Admission/Observation Consideration of admission/observation: Escalation of care including admission/observation considered Patient would have been admitted to the hospital and transferred to appropriate facility had their clinical presentation warranted hospital admission. Consult Healthcare Provider Management of the patient was discussed with: Hospitalist Lab Data [facility] Lab Attestation statement: I reviewed the patient's lab results. as per [facility] 04/07/25 05:59 04/07/25 05:59 Labs: Lab Results 04/06/25 04/06/25 04/06/25 Range/Units 07:51 09:11 10:20 WBC 6.3 (4.8-10.8) X10*3/uL RBC 4.20 L D (4.60-5.80) X10*6/uL Hgb 9.8 L (14.0-18.0) g/dl Hct 32.0 L D (42.0-52.0) % MCV 76.2 L (80.0-98.0) fL MCH 23.3 L (27.0-33.0) pg MCHC 30.6 L (31.0-36.0) g/dl RDW 17.3 H (11.0-16.0) % Plt Count 326 (160-400) X10*3/uL MPV 8.7 L (9.4-12.4) fL Immature Gran % (Auto) 0.2 (0.0-0.4) % Neut % (Auto) 78.4 H (45-73) % Lymph % (Auto) 12.7 L (20-40) % Phillips % (Auto) 6.5 (2-11) % Eos % (Auto) 1.6 (0-4) % Baso % (Auto) 0.6 (0-2) % Lymph # (Auto) 0.8 L (1.2-4.9) X10*3/uL Phillips # (Auto) 0.4 (0.1-1.2) X10*3/uL Eos # (Auto) 0.1 (0.0-0.4) X10*3/uL Baso # (Auto) 0.0 (0.0-0.2) X10*3/uL Abs Immat Gran (auto) 0.01 (0.00-0.03) X10*3/uL Absolute Neuts (auto) 4.9 (2.0-8.3) x10*3/uL Absolute Nucleated RBC 0.000 (0.0-0.012) X10*3/uL Nucleated RBC % (auto) 0.0 (0.0-0.2) /100WBC Sodium 143 (135-145) mmol/L Potassium 3.8 (3.3-5.1) mmol/L Chloride 110 H (96-108) mmol/L Carbon Dioxide 23 (22-29) mmol/L Anion Gap 14 (12-20) BUN 16 (9-16) mg/dL Creatinine 1.75 H (0.5-1.4) mg/dL Estim Creat Clear Calc 27.2 Estimated GFR 37 Random Glucose 86 (60-115) mg/dL Lactic Acid 1.0 (0.5-2.0) mmol/L Calcium 8.8 D (8.4-10.2) mg/dL Iron 22 L (45-160) mcg/dL TIBC 194 L (228-428) mcg/dL % Saturation 11 L (15-50) % Unsat Iron Binding 172 ug/dL Total Bilirubin 0.4 (0.0-1.0) mg/dL AST 15 (5-37) U/L ALT < 6 (0-40) U/L Alkaline Phosphatase 104 (39-117) U/L Total Protein 6.4 L (6.5-8.0) g/dL Albumin 3.5 (3.5-5.0) g/dL Urine Color Other A Urine Appearance Hazy Urine pH 6.5 (5.0-9.0) Ur Specific [place] 1.015 (1.005-1.025) Urine Protein 100 (2+) H (Neg-Trace) mg/dL Urine Glucose (UA) Negative (Negative) mg/dL Urine Ketones Negative (Negative) mg/dL Urine Blood Large (3+) H (Negative) Urine Nitrite Positive H (Negative) Ur Leukocyte Esterase Large (3+) H (Negative) Urine RBC >20 H (0-2) /HPF Urine WBC >50 H (0-5) /HPF Ur Squamous Epith Cells 0-2 (0-2) /HPF Urine Bacteria 1+ (None Seen) Hyaline Casts 0-2 (0-2) /LPF Independent Interpretation I performed an independent interpretation of an: Ultrasound Interpretation: Renal u/s notable for bilateral hydronephrosis L>R. Radiology Impression Discussion of test interpretation with radiology: I have reviewed the radiologist's reading. Radiologist Impression: US Renal Comparison: US/SR - US RENAL BI - 02/05/25 20:42 EDT Findings: Right kidney normal size and echotexture, 11 cm length. Left kidney normal size and echotexture, 8.6 cm length. There is mild right-sided and moderate left-sided hydronephrosis. Nearly 15 mm benign-appearing cyst in the mid polar region of the right kidney. The bladder is empty with a Gilbert catheter and can not be commented on. IMPRESSION: Bilateral hydronephrosis, [id number]. Independent Historian Clinical information obtained from an independent historian. History obtained from or confirmed by: Spouse External Record Review External record reviewed: Inpatient record, Office record and Outpatient record Prescription Management I considered prescription management with: Antibiotic Discharge Plan Discharge Clinical Impression: Gross hematuria, UTI (urinary tract infection), Bilateral hydronephrosis Patient Disposition: Admitted As Inpatient Interventions: Admission Worksheet (ED) Last Done: 04/06/25 16:16 Discharge Date/Time: 04/06/25 17:19
[2025-04-06 08:02] LABS: MANUAL DIFF FLAG NO
[2025-04-06 08:03] LABS: Hematocrit 32.0 % (42.0-52.0); Hemoglobin 9.8 g/dl (14.0-18.0); Imm Gran Abs Auto 0.01 X10*3/uL (0.00-0.03); Imm Gran Pct Auto 0.2 % (0.0-0.4); Lymphocytes Absolute Auto 0.8 X10*3/uL (1.2-4.9); Mean Corpuscular HGB Conc 30.6 g/dl (31.0-36.0); Mean Corpuscular Hemoglobin 23.3 pg (27.0-33.0); Mean Corpuscular Volume 76.2 fL (80.0-98.0); NRBC Abs Auto 0.000 X10*3/uL (0.0-0.012); NRBC Pct Auto 0.0 /100WBC (0.0-0.2); Platelet Count 326 X10*3/uL (160-400); Red Blood Count 4.20 X10*6/uL (4.60-5.80); White Blood Count 6.3 X10*3/uL (4.8-10.8)
--- OUTSIDE RECORDS SUMMARY | 2025-04-06 08:14 | XMS_ITS | Clinical Summary ---
Author Organization [facility] Address [address] [place] [address] Phone Care Team Providers Care Internet Merchant Name Role Phone Unavailable Primary Care Provider Unavailabl e Encounters Date Type Department Care Team Description 2025 3:08 PM EDT - 2025 11:59 PM EDT Hospital Encounter [facility] PET Scan [address] [place] [address] Malignant neoplasm of transverse colon [...] Signed Date: 02/04/2025 04:59 ET Workstation ID: [id number] Transcribed By: Self Edit Transcribed Date: 02/03/2025 [...] Signed Date: 02/04/2025 04:59 ET Workstation ID: [id number] Transcribed By: Self Edit Transcribed Date: 02/03/2025 11:20 ET Bety Mahmood MD [facility] PROCED[facility] Final Result from Last 3 Months Insurance MEDICARE
--- OUTSIDE RECORDS SUMMARY | 2025-04-06 08:14 | XMS_ITS | Clinical Summary ---
Author Organization [facility] Facility Address [address] [address] Care Team Providers Care Cabana Attendant Name Role Phone Flako Hernández MD Primary Care Provider [phone] Allergies No known active allergies Medications atorvastatin [...] to complete this topic Insurance Medicare [facility] Medicare [facility] Care Teams Cabana Attendant Relationship Specialty Start Date End Date Flako Hernández MD [address] [place] [address] PCP - General 05/25/20
[2025-04-06 08:19] LABS: Alanine Aminotransferase < 6 U/L (0-40); Albumin Level 3.5 g/dL (3.5-5.0); Alkaline Phosphatase 104 U/L (39-117); Anion Gap 14 (12-20); Aspartate Amino Transferase 15 U/L (5-37); Blood Urea Nitrogen 16 mg/dL (9-16); Calcium 8.8 mg/dL (8.4-10.2); Carbon Dioxide 23 mmol/L (22-29); Chloride 110 mmol/L (96-108); Creatinine Clr Calc Pharmacy 27.2; Estimated Glomerular Filt Rate 37; Potassium 3.8 mmol/L (3.3-5.1); Sodium 143 mmol/L (135-145); Total Protein 6.4 g/dL (6.5-8.0)
[2025-04-06] MEDS: Lidocaine HCl 2 % Urojet 10 ML JEL.PF.APP TOPICAL (09:15)
[2025-04-06 09:23] LABS: Appearance Urine Hazy; Glucose Urine UA Negative (Negative); PH 6.5 (5.0-9.0); Specific Gravity - Urine 1.015 (1.005-1.025)
[2025-04-06 09:24] LABS: UMIC TRIGGER UACC YES
[2025-04-06 09:33] LABS: UACC Culture Trigger YES
--- NOTE | 2025-04-06 09:42 | ECG_ITS ---
Test Reason : ASSESS QTC Blood Pressure : */* mmHG Vent. Rate : 56 BPM Atrial Rate : 56 BPM P-R Int : 304 ms QRS Dur : 88 ms QT Int : 460 ms P-R-T Axes : 100 43 39 degrees QTcB Int : 443 ms Sinus bradycardia with 1st degree A-V block Otherwise normal ECG When compared with ECG of 21-Jan-2025 11:39, Sinus rhythm has replaced Atrial fibrillation Vent. rate has decreased by [address] no longer depressed in Anterior leads Nonspecific T wave abnormality, improved in Inferior leads Nonspecific T wave abnormality has replaced inverted T waves in Anterior leads Referred By: Eliana Cruz Electronically Signed By: Adolfo Buckner
[2025-04-06 10:31] VITALS: BP 139/54; PULSE 57; RESP 14; TEMP 36.9; O2SAT 97
--- NOTE | 2025-04-06 10:45 | PM.IMHP ---
History of Present Illness Date of Service: 04/06/25 Chief Complaint: blood in urine 85-year-old man with a history of urinary retention secondary to neurogenic bladder. Patient reports that he started self catheterizing about 4 months ago. Last night when catheterizing he saw blood. Prior to self catheterization patient had a Gilbert catheter placed for approximately 1 month. Patient denies any chest pain, shortness breath, nausea, vomiting, diarrhea, abdominal pain. He is on Eliquis for atrial fibrillation but reports that he ran out about a week ago so he has not not been on it he also reported that it is quite expensive and he can not afford it anymore. Patient is noted to be anemic, creatinine 1.75, UA positive, renal ultrasound showing bilateral hydronephrosis, left greater than right. Patient was started on IV vancomycin in the ER. He will be admitted for further management and treatment of acute hematuria. Review of Systems Review of Systems: Denies any recent fever chills or decrease in appetite respiratory denies any shortness of breath or cough cardiovascular denied chest pain gastrointestinal denies any dysphagia abdominal pain nausea vomiting or diarrhea genitourinary denies any dysuria frequency or hematuria musculoskeletal denies any joint pain or swelling neuropsych denies any weakness or seizures all other systems reviewed are negative [facility] Medical History Bladder stones Chronic anemia Abnormal weight loss CKD (chronic kidney disease) stage 3, GFR 30-59 ml/min Arthritis BPH (benign prostatic hyperplasia) Numbness and tingling of both feet Dizziness Syncope (~2020) Colon adenocarcinoma Atrial fibrillation Chronic kidney disease GERD (gastroesophageal reflux disease) High cholesterol HTN (hypertension) Family History Mother Hypertension Breast cancer Father Alcoholic Lung cancer Sister Breast cancer Sister Breast cancer Sister Breast cancer Sister Breast cancer Surgical History Hx of left hemicolectomy (12/10/24) Hx of colonoscopy (10/01/24) H/O prostate biopsy Hx of cataract extraction History of dental surgery H/O removal of cyst (03/01/22) Social History Household Members: Spouse Housing: House Are you a primary career and transition teacher to a significant other at home: No Do you presently have visiting nurse or other home services: Yes Comment: pt refused bed alarm Patient Tobacco Use Status: Former Tobacco user Tobacco use type: Cigarette Currently Displaying Signs/Symptoms of Drug Intoxication Withdrawal: No Have you been hit, kicked, punched, or otherwise hurt by someone within the past year? If so, by whom?: No Do you feel safe in your current relationship?: Yes Is there a partner from a previous relationship who is making you feel unsafe now?: No Are you made to feel afraid or neglected: No Advance Directives: Yes Advance Directives Information Provided: No Advance Directives on File: No Advance Directives Date on File: 01/22/25 Recently lost weight without trying: Yes How much weight loss: 34pounds or more Nutrition Risks: No Nutritional Risk Poor oral hygiene: No service: No Current occupational status: retired Meds Allergies Allergy/AdvReac Type Severity Reaction Status Date / Time No Known Allergies Allergy Verified 04/06/25 07:30 Active Medications: Current Medications Acetaminophen (Acetaminophen 325 Mg Tablet) 650 mg PO Q6H PRN PRN Reason: Pain, Mild 1-3,fever,headache Calcium Carbonate (Calcium Carbonate 750 Mg Tab.Chew) 750 mg PO Q4H PRN PRN Reason: Heartburn Ciprofloxacin (Cipro) 400 mg in 200 mls @ 200 mls/hr IV Q12H [facility] Magnesium Hydroxide (Milk Of Magnesia 30 Ml Oral.Susp) 30 ml PO DAILY PRN PRN Reason: Constipation Melatonin (Melatonin 3 Mg Tablet) 6 mg PO BEDTIME PRN PRN Reason: Insomnia Sodium Chloride (0.9 % Sodium Chloride Flush 3 Ml Syringe) [address] [facility] Medications ?Medication ?Instructions ?Recorded ?Confirmed ?Last Taken ?Type atorvastatin 20 mg tablet 20 mg PO BEDTIME 06/08/21 04/06/25 04/05/25 History finasteride 5 mg tablet (Proscar) 5 mg PO BEDTIME 12/09/24 04/06/25 04/05/25 History amlodipine 2.5 mg tablet 5 mg PO DAILY 04/06/25 04/06/25 04/05/25 History Physical Exam Vital Signs and Narrative: Vital Signs: Last Vital Signs Temp 98.4 F 04/06/25 10:31 Pulse 57 04/06/25 10:31 Resp 14 04/06/25 10:31 BP 139/54 L 04/06/25 10:31 Pulse Ox 97 04/06/25 10:31 O2 Del Method Room Air 04/06/25 10:31 BMI result Body Mass Index 20.9 Appearing in no acute distress head is normocephalic atraumatic eyes pupils are PERRLA sclera is anicteric mouth throat mucous membranes are intact and moist neck is supple no lymphadenopathy, no JVD noted lung sounds are clear to auscultation heart regular rate rhythm, clear S1, S2 positive bowel sounds, abdomen is soft, nontender neuro patient is alert x3, no focal deficits Gilbert catheter in place Results Labs 04/07/25 05:59 04/07/25 05:59 Labs: Laboratory Results - last 24 hr 04/06/25 04/06/25 04/06/25 07:51 09:11 10:20 MCV 76.2 L MCH 23.3 L MCHC 30.6 L RDW 17.3 H Plt Count 326 MPV 8.7 L Immature Gran % (Auto) 0.2 Neut % (Auto) 78.4 H Lymph % (Auto) 12.7 L Mcnairy % (Auto) 6.5 Eos % (Auto) 1.6 Baso % (Auto) 0.6 Lymph # (Auto) 0.8 L Mcnairy # (Auto) 0.4 Eos # (Auto) 0.1 Baso # (Auto) 0.0 Abs Immat Gran (auto) 0.01 Absolute Neuts (auto) 4.9 Absolute Nucleated RBC 0.000 Nucleated RBC % (auto) 0.0 Anion Gap 14 Estim Creat Clear Calc 27.2 Estimated GFR 37 Random Glucose 86 Lactic Acid 1.0 Calcium 8.8 D Total Bilirubin 0.4 AST 15 ALT < 6 Alkaline Phosphatase 104 Total Protein 6.4 L Albumin 3.5 Urine Color Other A Urine Appearance Hazy Urine pH 6.5 Ur Specific Remus 1.015 Urine Protein 100 (2+) H Urine Glucose (UA) Negative Urine Ketones Negative Urine Blood Large (3+) H Urine Nitrite Positive H Ur Leukocyte Esterase Large (3+) H Urine RBC >20 H Urine WBC >50 H Ur Squamous Epith Cells 0-2 Urine Bacteria 1+ Hyaline Casts 0-2 Assessment and Plan (1) HTN (hypertension): Status: Acute Plan 85 year old man admitted with hematuria, placed on CBI. also has UTI and hydronephrosis Hematuria Placed on CBI Urology consultation Hold anticoagulation monitor CBC Hydronephrosis Urology consultation stable renal function Continue finasteride Hypertension Stable blood pressure Continue home medications Paroxysmal atrial fibrilation Continue amiodarone Patient reports that he ran out of his Eliquis 1 week ago but also reported that he can afford it anymore so he may need to be switched to warfarin Microcytic anemia Stable CBC Check iron studies If significant drop in H&H consider transfusion in light of hematuria DVT prophylaxis with SCD boots Full code Quality Stroke Does the patient have a stroke diagnosis?: No VTE Prior VTE?: No VTE Risk Level:: Medical - moderate - high VTE Device Contraindication: N/A - Device Ordered VTE Drug Contraindication: Patient Refused
--- NOTE | 2025-04-06 11:09 | PHA.PROG ---
Admission Date/Time: April 06, 2025 10:38 Indication: other Weight in k.5 kg Adjusted body weight in Kg: [place] body weight in Kg: Obesity Dosing Indication % IBW: BMI 21.0 Serum Creatinine - Last 168 Hours 04/06/25 07:51 Creatinine 1.75 H Estimated CrCl and GFR - Last 168 Hours 04/06/25 07:51 Estim Creat Clear Calc 27.2 Estimated GFR 37 Vancomycin Loading Dose: 1250mg X1 Current Vancomycin Dosing Regimen: 750mg Q24H Vancomycin Monitoring using AUC goal of 400 - 600 range with trough as surrogate marker: 540 Date and Time for next Vancomycin Level to be drawn: 04/08 @0900 Pharmacist Comments on Vancomycin Plan: Pt's SCr elevated, predicted trough with this dosing is 18.2. Getting trough after 2 doses per poor renal function. Vancomycin dosing will take advantage of [employer] as a clinical decision support tool that uses Bayesian modeling to calculate individual patient's pharmacokinetic parameters and forecast the patient's drug concentration time course with the target goal AUC 24 range of 400 - 600 mg/L/hr.
--- NOTE | 2025-04-06 11:32 | PHA.MEDREC ---
Addendum entered by Devin Parra PharmD 04/06/25 11:34: reviewed Original Note: Pharmacy Consult ? Medication Reconciliation Pharmacy has completed the medication reconciliation. Confirmed medication list with patient and against claims history.
[2025-04-06 12:05] VITALS: BP 138/63; PULSE 57; RESP 16; TEMP 36.7; O2SAT 98
[2025-04-06 12:06] LABS: Iron 22 mcg/dL (45-160); Percent Iron Saturation 11 % (15-50); Total Iron Binding Capacity 194 mcg/dL (228-428); Unsaturated Iron Binding 172 ug/dL
--- NOTE | 2025-04-06 15:34 | PC.NURSE ---
Pt with continuous irrigation zaman catheter, irrigated with 4L NS, clamped irrigation x1hr per provider. Will reassess
[2025-04-06 16:08] VITALS: BP 145/64; PULSE 56; RESP 16; TEMP 36.6; O2SAT 98
--- NOTE | 2025-04-06 16:16 | HO.NURTONUR ---
Pt is an 85yo M with recent dx of neurogenic bladder. Pt had zaman catheter x1mo and after pulled pt has been self catheterizing about 2 months ago. Pt presented to the ED for hematuria x1day. Denies abd pain/n/v/d. Denies fevers/chills. Renal US shows bilat hydronephrosis. Bld cxs drawn. Pt recevied vancomycin and clindamycin. irrigation catheter placed, 6L NS irrigated. Clamped x1hr will resume irrigation after that. Some sediment and clots noted. 20gLFA. Afebrile. VSS. Takes pills whole. Ambulates at baseline. Neuro intact.
[2025-04-06 17:00] VITALS: BP 178/77; PULSE 61; RESP 18; TEMP 36.3; O2SAT 97
[2025-04-06 17:13] VITALS: BMI 20.6
[2025-04-06] MEDS: 0.9 % Sodium Chloride Flush 3 ML SYRINGE IVFLUSH ×2 (17:17→20:09)
[2025-04-06 17:33] VITALS: BMI 28.8
[2025-04-06 19:31] VITALS: BP 131/69; PULSE 68; RESP 18; TEMP 36.3; O2SAT 96
[2025-04-07 02:54] VITALS: BP 126/59; PULSE 53; RESP 16; TEMP 36.1; O2SAT 97
--- NOTE | 2025-04-07 03:41 | PC.NURSE ---
Pt seen on bed alert , pleasant and oriented, denies any pain, 3 way zaman to CBI intact draining light yellow urine, meds tolerated, slept fairly.
[2025-04-07 07:08] LABS: Anion Gap 10 (12-20); Blood Urea Nitrogen 17 mg/dL (9-16); Calcium 8.5 mg/dL (8.4-10.2); Carbon Dioxide 25 mmol/L (22-29); Chloride 110 mmol/L (96-108); Creatinine Clr Calc Pharmacy 34.0; Estimated Glomerular Filt Rate 39; Potassium 4.3 mmol/L (3.3-5.1); Sodium 141 mmol/L (135-145)
[2025-04-07 07:34] LABS: Hematocrit 30.2 % (42.0-52.0); Hemoglobin 9.0 g/dl (14.0-18.0); Mean Corpuscular HGB Conc 29.8 g/dl (31.0-36.0); Mean Corpuscular Hemoglobin 22.9 pg (27.0-33.0); Mean Corpuscular Volume 76.8 fL (80.0-98.0); NRBC Abs Auto 0.000 X10*3/uL (0.0-0.012); NRBC Pct Auto 0.0 /100WBC (0.0-0.2); Platelet Count 308 X10*3/uL (160-400); Red Blood Count 3.93 X10*6/uL (4.60-5.80); White Blood Count 6.8 X10*3/uL (4.8-10.8)
[2025-04-07 08:00] VITALS: BP 134/60; PULSE 50; RESP 16; TEMP 36.2; O2SAT 97
[2025-04-07] MEDS: 0.9 % Sodium Chloride Flush 3 ML SYRINGE IVFLUSH ×3 (09:20→20:44)
[2025-04-07 09:24] VITALS: BP 131/67; PULSE 62
[2025-04-07 13:05] VITALS: BMI 20.6
--- NOTE | 2025-04-07 13:27 | MHC.CLN ---
NUTRITION DIET RX: REGULAR. HAS TRIED AND DOES NOT LIKE SUPPLEMENT. REPORTS THAT CURRENT APPETITE IS GOOD. SIGNIFICANT WEIGHT LOSS X 6 MONTHS -18% WITH RECENT DX COLON CANCER. QUALIFIES MODERATELY MALNOURISHED IN THE CONTEXT OF CHRONIC ILLNESS. FOLLOW FOR PO INTAKE. SEE CLINICAL NUTRITION ASSESSMENT.
--- NOTE | 2025-04-07 14:17 | P.PNIM_ITS ---
Subjective Subjective Date of Service: 04/07/25 Interval History: Patient seen examined at bedside this morning, no acute respiratory distress. Patient at this time states that he is feeling well, urine no longer presenting with hematuria. Continues on antibiotics. Review of Systems Review of Systems: Yes all other systems are reviewed and are negative Physical Exam 2 Exam: Exam: General: AxOx3, No acute distress Head: AT/NC ENT: Moist mucous membranes Neck: supple CVS; RRR, S1 S2 normal Lungs: Clear bilateral breath sounds, no wheezes or crackles Abd: Soft non tender, non distended Ext: No edema and no calf tenderness MSK: moving all 4 limbs Skin: No cyanosis or edema Psych: Cooperative with exam Neurology: no focal deficit Uro: CBI in place with clear urine, no hematuria noted. Vital Signs: Vital Signs: Last Vital Signs Temp 97.1 F 04/07/25 08:00 Pulse 62 04/07/25 09:24 Resp 16 04/07/25 08:00 BP 131/67 04/07/25 09:24 Pulse Ox 97 04/07/25 08:00 O2 Del Method Room Air 04/07/25 08:00 BMI result Body Mass Index 20.6 Objective Data Active Medications Acetaminophen (Acetaminophen 325 Mg Tablet) 650 mg PO Q6H PRN PRN Reason: Pain, Mild 1-3,fever,headache Amiodarone HCl (Amiodarone Hcl 200 Mg Tablet) 200 mg PO DAILY [facility] Last Admin: 04/07/25 09:20 Dose: 200 mg Documented By: MICHEL Amlodipine Besylate (Amlodipine Besylate 5 Mg Tablet) 5 mg PO DAILY [facility]; Protocol Last Admin: 04/07/25 09:20 Dose: 5 mg Documented By: MICHEL Atorvastatin Calcium (Atorvastatin Calcium 20 Mg Tablet) 20 mg PO BEDTIME [facility] Last Admin: 04/06/25 20:08 Dose: 20 mg Documented By: KELLIEILGiovanni Calcium Carbonate (Calcium Carbonate 750 Mg Tab.Chew) 750 mg PO Q4H PRN PRN Reason: Heartburn Finasteride (Finasteride 5 Mg Tablet) 5 mg PO BEDTIME [facility] Last Admin: 04/06/25 20:08 Dose: 5 mg Documented By: LIT Ciprofloxacin (Cipro) 400 mg in 200 mls @ 200 mls/hr IV Q12H [facility] Last Infusion: 04/07/25 12:16 Dose: Infused Documented By: MICHEL Vancomycin HCl 750 mg/ Sodium (Chloride) 265 mls @ 265 mls/hr IV Q24H [facility] Last Infusion: 04/07/25 13:18 Dose: Infused Documented By: MICHEL Magnesium Hydroxide (Milk Of Magnesia 30 Ml Oral.Susp) 30 ml PO DAILY PRN PRN Reason: Constipation Melatonin (Melatonin 3 Mg Tablet) 6 mg PO BEDTIME PRN PRN Reason: Insomnia Last Admin: 04/06/25 20:08 Dose: 6 mg Documented By: LIT Pharmacy Consult (Consult Rx Vancomycin Dosing) 1 each MISCELLANE DAILY PRN PRN Reason: Consult order Sodium Chloride (0.9 % Sodium Chloride Flush 3 Ml Syringe) 3 ml IVFLUSH QSHIFT [facility] Last Admin: 04/07/25 09:20 Dose: 3 ml Documented By: MICHEL Labs 04/07/25 05:59 04/07/25 05:59 Labs: Laboratory Results - last 24 hr 04/07/25 05:59 MCV 76.8 L MCH 22.9 L MCHC 29.8 L RDW 17.5 H Plt Count 308 MPV 9.4 Absolute Nucleated RBC 0.000 Nucleated RBC % (auto) 0.0 Anion Gap 10 L Estim Creat Clear Calc 34.0 Estimated GFR 39 Random Glucose 93 Calcium 8.5 Microbiology Microbiology Results: Microbiology 04/06/25 10:20 Blood Culture - Preliminary Blood - Venous No growth after 24 hours. 04/06/25 10:20 Blood Culture - Preliminary Blood - Venous No growth after 24 hours. 04/06/25 Unknown Urine Culture - Preliminary Urine Catheterized - Straight Catheter Culture in progress. Assessment and Plan (1) Paroxysmal A-fib: Status: Acute (2) Gross hematuria: Status: Acute Plan 85 year old man admitted with hematuria, placed on CBI. also has UTI and hydronephrosis Hematuria likely multifactorial in setting of trauma and UTI, improving Hydronephrosis -imaging reviewed -will continue with ciprofloxacin -hold Eliquis -Continue finasteride Urology consulted for further recs Hypertension Stable blood pressure Continue home medications Paroxysmal atrial fibrilation Continue amiodarone Patient reports that he ran out of his Eliquis 1 week ago but also reported that he can afford it anymore so he may need to be switched to warfarin. once able,will initiate heparin for bridging with warfarin Microcytic anemia Transfuse for Hb less than 7 DVT prophylaxis with SCD boots Full code Total time managing care of this patient today: 35 minutes. Quality Stroke Does the patient have a stroke diagnosis?: No VTE Prior VTE?: No VTE Risk Level:: Medical - moderate - high VTE Device Contraindication: N/A - Device Ordered VTE Drug Contraindication: Patient Refused
[2025-04-07 15:11] VITALS: BP 122/58; PULSE 50; RESP 18; TEMP 36.2; O2SAT 97
--- NOTE | 2025-04-07 16:51 | MHC.CM.PN ---
PT REPORTS HE LIVES WITH HIS AND IS INDEPENDENT WITH CARE HE HAS A WALKER HE USES PRN ACTIVE WITH [facility] FOR SN MISSED A NEW PT APPT WITH JOSE SPARKS, WILL NEED CM TO ATTEMPT TO RESCHEDULE HCP ON FILE IMM DELIVERED DCP: HOME VIA [facility]ILY TRANSPORT, RESUME [facility]
[2025-04-07 19:55] VITALS: BP 136/63; PULSE 51; RESP 18; TEMP 36.8; O2SAT 96
[2025-04-08 03:15] VITALS: BP 134/63; PULSE 52; RESP 18; TEMP 36.7; O2SAT 98
[2025-04-08 07:29] LABS: Creatinine Clr Calc Pharmacy 27.9; Estimated Glomerular Filt Rate 39
[2025-04-08 08:07] VITALS: BP 135/63; PULSE 53; RESP 18; TEMP 36.4; O2SAT 97
[2025-04-08] MEDS: 0.9 % Sodium Chloride Flush 3 ML SYRINGE IVFLUSH (08:18)
--- NOTE | 2025-04-08 13:05 | P.DS_ITS ---
DS: Providers Provider Date of Service: 04/08/25 Date of admission: 04/06/25 10:38 Date of discharge: 04/08/25 Primary care physician: None Physician Consults: 04/06/25 10:38 Consult to Urology Routine Consulting Provider: [facility] Reason for consultation: hematuria, hydronephrosis Attending physician on discharge: Main Barton Discharging clinician: Main Barton DS: Diagnosis Discharge Diagnosis (1) Paroxysmal A-fib: Status: Acute (2) Gross hematuria: Status: Acute DS: Summary Hospital Course Hospital Course: 85 year old man admitted with hematuria, placed on CBI. also has UTI and hydronephrosis. Patient placed on CBI, with improvement of hematuria. Urine culture preliminary positive for Pseudomonas. Will d/c with zaman catheter in place, follow up with Urology as outpatient, will initiate ciprofloxacin given urine culture positive for pseudomonas. Will do Warf Hematuria likely multifactorial in setting of trauma and UTI UTI, improving, with urine culture positive for Pseudomonas Hydronephrosis, chronic -imaging reviewed -will transition from IV to PO ciprofloxacin 250mg BID given Urine culture positive for pseudomonas -Continue finasteride -Reached out to Urology, will keep zaman in place and follow up as outpatient Hypertension Stable blood pressure Continue home medications Paroxysmal atrial fibrilation Continue amiodarone -Patient states unable to afford eliquis, will do Lovenox bridge BID with warfarin 5mg qd for goal INR 2-3 Microcytic anemia Transfuse for Hb less than 7 Time Attestation Discharge Coordination Time (in mins): 35 minutes Quality: Safe Use of Opioids Does Pt have an Active Cancer Diagnosis on the Problem List?: No Quality: Stroke Does the patient have a stroke diagnosis?: No Physical Exam Exam: Exam: General: AxOx3, No acute distress Head: AT/NC ENT: Moist mucous membranes Neck: supple CVS; RRR, S1 S2 normal Lungs: Clear bilateral breath sounds, no wheezes or crackles Abd: Soft non tender, non distended Ext: No edema and no calf tenderness MSK: moving all 4 limbs Skin: No cyanosis or edema Psych: Cooperative with exam Neurology: no focal deficit Uro: zaman in place draining clear urine, no hematuria or clots noted. Vital Signs: Vital Signs: Last Vital Signs Temp 97.6 F 04/08/25 08:07 Pulse 53 04/08/25 08:07 Resp 18 04/08/25 08:07 BP 135/63 04/08/25 08:07 Pulse Ox 97 04/08/25 08:07 O2 Del Method Room Air 04/08/25 08:07 BMI result Body Mass Index 20.6 DS: Data Data Completed and Pending Completed studies during hospitalization [Text1]: Procedures Dilation of Left Ureter with Intraluminal Device, Via Natural or Artificial Opening Endoscopic (01/21/25) Extirpation of Matter from Bladder, Via Natural or Artificial Opening Endoscopic (01/21/25) Fluoroscopy of Right Kidney, Ureter and Bladder (01/21/25) Resection of Right Large Intestine, Open Approach (12/09/24) Transfusion of Nonautologous Red Blood Cells into Peripheral Vein, Percutaneous Approach (02/04/25) Labs on day of discharge: Laboratory Results - last 24 hr 04/08/25 04/08/25 06:01 08:51 Hold Purple Top SEE NOTE SEE NOTE Creatinine 1.68 H Estim Creat Clear Calc 27.9 Estimated GFR 39 Random Vancomycin 12.7 L Preliminary micro results at discharge 04/06/25 10:20 Blood Culture - Preliminary Blood - Venous No growth after 48 hours. 04/06/25 10:20 Blood Culture - Preliminary Blood - Venous No growth after 48 hours. 04/06/25 Unknown Urine Culture - Preliminary Urine Catheterized - Straight Catheter Pseudomonas species Discharge Plan Discharge Anticipated Discharge Date/Time: 04/08/25 14:51 Patient Disposition: Home Health Service Discharge Diagnosis: Hematuria UTI Atrial fibrillation Referrals: Cal Levy MD [Physician, Urology] - 1 Week Problems: Gross hematuria Physician,None [Primary Care Provider, Medical] - 1 Week Discharge Medications: New warfarin 5 mg tablet 5 mg PO DAILY@1800 Qty: 60 0RF ciprofloxacin HCl 250 mg tablet 250 mg PO BID 7 Days Qty: 14 0RF enoxaparin 60 mg/0.6 mL syringe 60 mg subcut Q24H Qty: 6 0RF Continued amiodarone 200 mg tablet 200 mg PO DAILY 30 Days Qty: 45 1RF Rx Instructions: take 2 tablets ( 400mg) twice a day for 5 days then reduce dose to 1 tab ( 200mg) daily finasteride [Proscar] 5 mg tablet 5 mg PO BEDTIME amlodipine 2.5 mg tablet 5 mg PO DAILY atorvastatin 20 mg tablet 20 mg PO BEDTIME Discharge Orders: Discharge Order (Routine); Ordered 04/08/25 Ordered By: Main Barton Activity on Discharge: As tolerated Stand Alone Forms: Patient Portal Discharge page Print Language: Arabic Care Plan Goals: continue antibiotic for urinary tract infection continue lovenox and warfarin for Atrial fibrillation follow up with urology, keep zaman in place Health Concerns: Hematuria Urinary tract infection atrial fibrillation Plan of Treatment: continue ciprofloxacin 250mg twice a day for urinary tract infection continue zaman catheter, monitor for bleeding, follow up with urology as outpatient Continue lovenox 60mg twice a day and warfarin 5mg once a day, once INR between 2-3, discontinue Lovenox continue amiodarone Follow up with Cardiology as outpatient Assessment: 85 year old man admitted with hematuria, placed on CBI. also has UTI and hydronephrosis. Patient placed on CBI, with improvement of hematuria. Urine culture preliminary positive for Pseudomonas. Patient Instructions: Warfarin (By mouth), Vitamin K in Foods (DC)
--- NOTE | 2025-04-08 13:17 | P.F2F_ITS ---
Service Date Service Date: 04/08/25 Encounter Date of encounter: 04/08/25 Encounter: 85 year old man admitted with hematuria after self catheterization, on admission placed on CBI. also has UTI and hydronephrosis. Patient placed on CBI, with improvement of hematuria. Urine culture preliminary positive for Pseudomonas. Patient with diagnosis of atrial fibrillation, previously on Eliquis, however patient unable to afford it and has been off Eliquis for the past week. Patient patient placed on Lovenox bridge with warfarin with goal INR between 2-3 Reasons for Services Signs and symptoms assessed: hematuria, atrial fibrillation Reason for [facility]: monitoring of PT/INR and medication management Homebound: Leaving the home is medically contraindicated at this time without the asist of a device and/or another person due th the listed conditions above and below. Reason homebound: unsteady gait / fall risk Certification: Based on the above findings, I certify that this patient is confined to the home and needs intermittent [facility] care, physical therapy and/or speech therapy, or continues to need occupational therapy. The patient is under my care, and I have initiated the establishment of the plan of care. The patient will be followed by a physician who will periodically review the plan of care. Time Spent With Patient Time: Total time managing care of this patient today ____ minutes.
[2025-04-08 15:02] LABS: INTERNATIONAL NORM RATIO 1.0 (0.9-1.1); Prothrombin Time 12.6 SEC (11.2-13.5)
[2025-04-08 15:18] VITALS: BP 145/67; PULSE 64; RESP 15; TEMP 36.5; O2SAT 97
--- NOTE | 2025-04-08 16:21 | PC.NURSE ---
Addendum entered by Corina Villanueva RN 04/08/25 16:29: Reviewed discharge papers with pt, verbalized unnderstanding of all plan of care moving forward. Scripts filled and given to pt by [facility] pharmacy. No questions regarding discharge at this time. Pt instructed to followup with production controller and urology for continuation of care. Original Note: Pt to be discharged home with zaman. Disconnected from CBI, 3rd entry tube cap=ed. Reviewed zaman care with pt as pt has had a zaman previously. Reviewed leg bag and pt able to switch over to leg bag on his own. Spare leg bags and larger zaman bag sent home with pt along with alcohol wipes, spare caps, and tube tamer. Zaman draining light cameron urine. No bleeding, clots or shreds noted in urine. INR drawn prior to discharge. Reviewed injection of lovenox with pt, verbalized understanding and able to demonstrate procedure. Pt to have [facility] services.
--- NOTE | 2025-04-08 17:58 | PC.NURSE ---
Confirmed with Dr Greenberg prior to pt discharge that pt is to be on lovenox daily and not twice daily
== END 2025-04-08 16:50 | disposition home health service (06) | DRG 690 ==
LOC: HO.ED 10:09 → HO.EDOVER 10:44 → HO.S3 16:02
PROVIDERS: Registered Nurse Emergency; Admitting Provider Nurse Practitioner Acute Care; Emergency Provider Emergency Medicine Emergency Medical Services; Visit Provider Student in an Organized Health Care Education/Training Program
DX: N13.6 Pyonephrosis (principal); E44.0 Moderate protein-calorie malnutrition; R31.0 Gross hematuria; N40.1 Benign prostatic hyperplasia with lower urinary tract symptoms; R33.8 Other retention of urine; N31.9 Neuromuscular dysfunction of bladder, unspecified; I48.0 Paroxysmal atrial fibrillation; D53.9 Nutritional anemia, unspecified; Z68.20 Body mass index [BMI] 20.0-20.9, adult; Z79.899 Other long term (current) drug therapy
CPT/HCPCS: 36415; 76775; 80048; 80053; 80202; 81001; 82565; 83540; 83605; 85025; 85027; 85610; 87040; 87086; 87088; 87186; 93005; 99285; J0744; J1650; J3374

== ENCOUNTER → 2025-04-06 08:44 | Outpatient (BNV) | payer MEDICARE, OTHER, SELFPAY | PROVIDERS: Emergency Provider Emergency Medicine Emergency Medical Services; Visit Provider Radiology Diagnostic Radiology | DX: N13.0 Hydronephrosis with ureteropelvic junction obstruction (principal) | CPT/HCPCS: 76775 ==

== ENCOUNTER → 2025-04-06 09:42 | Outpatient (BNV) | payer MEDICARE, OTHER, SELFPAY | PROVIDERS: Admitting Provider Nurse Practitioner Acute Care; Emergency Provider Emergency Medicine Emergency Medical Services; Visit Provider Internal Medicine Cardiovascular Disease | DX: R00.1 Bradycardia, unspecified (principal); I44.0 Atrioventricular block, first degree | CPT/HCPCS: 93010 ==

== ENCOUNTER → 2025-04-06 10:38 | Outpatient (BNV) | payer MEDICARE, OTHER, SELFPAY | PROVIDERS: Admitting Provider Nurse Practitioner Acute Care; Emergency Provider Emergency Medicine Emergency Medical Services; Visit Provider Nurse Practitioner Acute Care | DX: I48.0 Paroxysmal atrial fibrillation (principal); R31.0 Gross hematuria; I10 Essential (primary) hypertension | CPT/HCPCS: 99223; 99232 ==

== ENCOUNTER 2025-04-28 13:50 | Outpatient (AMB) | payer MEDICARE, OTHER, SELFPAY ==
--- NOTE | 2025-04-28 13:55 | A.OFFPC_ITS ---
Vital Signs 04/28/25 13:58 04/28/25 14:13 Height 5 ft 6.54 in Weight 145 lb BMI 23.0 BP 161/73 H 153/64 H Blood Pressure Location Lt brachial Lt brachial Position Sitting Sitting Respiration 14 Pulse 66 Pulse Source Pulse Oximeter Temp 97.4 F Temp Source Temporal Artery Scan Pulse Oximetry (%) 98 Oxygen Delivery Method Room Air Intake Visit Reasons: Establish Care Revenue Integrity Analyst Required: No Accompanied by: Spouse Allergies No Known Allergies Allergy (Verified 04/28/25 14:46) Medication List - Last Reconciled 04/28/25 by Hilario Canseco MD amiodarone 200 mg PO DAILY 30 days amlodipine 5 mg PO DAILY atorvastatin 20 mg PO BEDTIME finasteride (Proscar) 5 mg PO BEDTIME methenamine hippurate 1 g PO DAILY warfarin 5 mg PO DAILY@1800 Tobacco use date assessed: 04/28/25 Fall risk assessment: 2 + Falls in past year Last assessed Fall Risk: 04/28/25 Dental Screening Dental Screen Date: 04/28/25 Did you have a dental visit in the last 12 months?: No Did you have a dental problem in the last 6 months where you did not have access to dental care?: No Was dental information given to patient?: Patient has dentist (patient has dentures) HPI HPI Comments History of Present Illness Details History of Present Illness - The patient is an 85-year-old male pre senting with concerns about self- catheterization and management of colon cancer. - He reports being on self-catheterizati on for the past two months. - This began after a hospitalization [facility] two months ago for inability to urinate, where he was found to be bloated. - During the hospitalization, a Gilbert ca theter was placed and subsequently removed, after which he was instructed to begin self-catheterization. - His urologist, Dr. Roberts, diagnosed cris jerry with a neurogenic bladder, explaining that the bladder has lost its ability to void on its own due to loss of peripheral nerve control. - He also had a large stone and a stent which were removed. - He performs self-catheterization every six hours using a new catheter each time and reports a slight burning sensation but no significant pain or difficulty. - He also reports erectile dysfunction. - The patient has a history of colon lala nocarcinoma, which was diagnosed after a positive Cologuard test led to a colonoscopy. - He underwent surgery to remove the can cer but declined subsequent chemotherapy. - He has seen an oncologist, Dr. Mahmood, and had one PET scan which showed a small finding, but he has not yet started any oncologic treatment, stating he does not feel ready. Social History - The patient reports some ability to us e a computer and the patient portal. Results - Cologuard: Positive for cancer. - Colonoscopy: Revealed colon cancer. - PET scan: Revealed a small finding, de tails unspecified. - CT scan: Findings unspecified. [facility] Medical History Bladder stones Chronic anemia Abnormal weight loss CKD (chronic kidney disease) stage 3, GFR 30-59 ml/min Arthritis BPH (benign prostatic hyperplasia) Numbness and tingling of both feet Dizziness Syncope (~2020) Colon adenocarcinoma Atrial fibrillation Chronic kidney disease GERD (gastroesophageal reflux disease) High cholesterol HTN (hypertension) Surgical History Hx of left hemicolectomy (12/10/24) Hx of colonoscopy (10/01/24) H/O prostate biopsy Hx of cataract extraction History of dental surgery H/O removal of cyst (03/01/22) Family History Mother Hypertension Breast cancer Father Alcoholic Lung cancer Sister Breast cancer Sister Breast cancer Sister Breast cancer Sister Breast cancer Social History (Updated 04/28/25 @ 14:09 by DAVID Fulton) Household Members: Spouse Housing: House Are you a primary tire care manager to a significant other at home: No Do you presently have visiting nurse or other home services: Yes Alcohol intake: current Alcohol intake frequency: does not drink Patient Tobacco Use Status: Former Tobacco user Tobacco use type: Cigarette Advance Directives Date on File: 01/22/25 service: Yes Current occupational status: retired Cognitive needs: Yes (walker when needed) Hearing needs: No Vision needs: Yes (reading glasses) Questionnaire PHQ-9 Over the last 2 weeks, how often have you been bothered by any of the following problems? 1. Little interest or pleasure in doing things: more than half the days 2. Feeling down, depressed, or hopeless: more than half the days 3. Trouble falling or staying asleep, or sleeping too much: nearly every day 4. Feeling tired or having little energy: nearly every day 5. Poor appetite or overeating: not at all 6. Feeling bad about yourself - or that you are a failure or have let yourself or your family down: not at all 7. Trouble concentrating on things, such as reading the newspaper or watching television: not at all 8. Moving or speaking so slowly that other people could have noticed. Or the opposite - being so fidgety or restless that you have been moving around a lot more than usual: not at all 9. Thoughts that you would be better off or of hurting yourself in some way: not at all Total score: 10 Source: Developed by Drs. Ayo Valverde, Melinda Blunt, Vinnie Sparrow and colleagues, with an educational tushar from [employer]. Thrive Questionnaire Date Thrive assessed: 04/28/25 I am a: Patient What is your living situation today?: I have a steady place to live Within the past 12 months, did the food you bought not last and you didn't have the money to get more?: Never true Within the past 12 months, did you worry whether your food would run out before you got money to buy more?: Never true Do you have trouble paying for medicines?: No Do you have trouble getting transportation to medical appointments?: No Do you have trouble paying your heating and electricity bill?: No Do you have trouble taking care of your child, family member or friend?: No Do you have trouble with day-to-day activities such as bathing, preparing meals, shopping, managing finances, etc.?: No Are you currently unemployed and looking for a job?: No Are you interested in more education?: No Please select the resources that you would like help with: None THRIVE Score: 0 AUDIT C Alcohol Use Questionnaire (AUDIT-C) 1. How often do you have a drink containing alcohol?: Never 3. How often do you have six or more drinks on one occasion?: Never Total Score: 0 RAY-7 AMB Questionnaire RAY-7 Date RAY - 7 assessed: 04/28/25 Feeling nervous, anxious, or on edge: 0 = Not at all Not being able to stop or control worryin = Not at all Worrying too much about different things: 0 = Not at all Trouble relaxin = Not at all Being so restless that it is hard to sit still: 0 = Not at all Becoming easily annoyed or irritable: 0 = Not at all Feeling afraid as if something awful might happen: 0 = Not at all Total RAY-7 score (0-4 normal; 5-9 mild; 10-14 moderate; 15-21 severe): 0 Source: Developed by Drs. Ayo Valverde, Melinda Blunt, Vinnie Sparrow and colleagues, with an educational tushar from [employer]. Review of Systems Narrative Review of Systems - Genitourinary: Reports urinary retention requiring self-catheterization and erectile dysfunction. Reports slight burning sensation with catheterization. Denies ability to urinate without catheterization. - General: Reports feeling beat up after recent medical procedures. Physical exam (Primary Care) Vital Signs: Last Vital Signs Temp 97.4 F 04/28/25 13:58 Pulse 66 04/28/25 13:58 Resp 14 04/28/25 13:58 BP 153/64 H 04/28/25 14:13 Pulse Ox 98 04/28/25 13:58 Oxygen Delivery Method Room Air 04/28/25 13:58 BMI result Body Mass Index 23.0 Tobacco/Smoking Status: Tobacco use Status Tobacco use date assessed 04/28/25 04/28/25 13:57 Patient Tobacco Use Status Former Tobacco user 04/28/25 14:09 Tobacco use type Cigarette 04/28/25 14:09 PHQ-9: PHQ-9 Score PHQ-9: Total score 10 04/28/25 14:12 Thrive Assessment: Date of Thrive Assessment Date Thrive assessed 04/28/25 04/28/25 13:57 Narrative Physical Exam General: Cooperative and healthy appearing Nutritional Appearance: Well nourished Orientation/consciousness: Patient oriented x3 Limitations: No limitations Head: Normal to inspection General: Appearance normal, both eyes and all related structures Neck: Normal visual inspection Chest: Normal palpation of entire chest wall Respiratory: Normal respiratory effort Neurology: Patient oriented x3 Office Procedures Flu Questionnaire Does the patient have a severe egg allergy?: No Does the patient have severe life threatening allergies?: No Does the patient have a fever or illness today?: No Has the patient ever had Guillain-[place] Syndrome?: No Has the patient ever had any past reaction to a flu shot?: No Immunizations Fluarix [id number] (PF) 45 mcg (15 mcg x 3)/0.5 mL IM syringe Performing Provider: Hilario Canseco MD [facility] Documented (not given) by: DAVID Fulton on 04/28/25 14:09 Reason Not Given: Patient Refused Coding Level of Care Code New Pt Level 4 (51257) Add On Problem Visit Only Diagnoses Paroxysmal A-fib I48.0 Assessment & Plan Assessment & Plan (1) Paroxysmal A-fib: Code(s): I48.0 - Paroxysmal atrial fibrillation Category: Medical Plan Plan - Neurogenic Bladder: The patient will continue self-catheterization as a long- term management strategy. - It was explained that for his diagnosis of neurogenic bladder, there is no surgical option at this time and observation is needed to see if function returns. - The patient was advised not to reuse catheters, as per contact acid plant operator and physician instructions. - Colon Adenocarcinoma: The patient will be contacted to establish a follow-up appointment with his oncologist, Dr. Mahmood. - It was advised that he can use the patient portal to message his care team with any questions or concerns. Discussion Notes I discussed the patient's concern about the longevity of self-catheterization. I explained that his diagnosis is neurogenic bladder, which means the bladder has lost its ability to void on its own, and that this condition will likely persist for at least several months, possibly longer. I informed him that surgery is not an option for this diagnosis and the plan is to wait and see if function returns. We also discussed his colon cancer treatment status. I acknowledged his reluctance to start oncology treatment and confirmed that I would investigate his current status with the oncologist, Dr. Mahmood. I advised him to use the patient portal for communication with his healthcare providers if needed. Patient Instructions - Continue with self-catheterization every six hours, as you have been doing. - Use a new, sterile catheter for each use. Do not reuse them. - Your condition, called neurogenic bladder, may take several months to improve, and there is no surgery for it at this time. - You should make an appointment to follow up with your cancer doctor (oncologist). - You can send a message to your doctors through the patient portal on the computer if you have questions. Orders: Orders Influenza [id number] Immunization Today Z23 - Encounter for immunization Referrals Anticoagulation Service/Clinic I48.0 - Paroxysmal atrial fibrillation
[2025-04-28 13:58] VITALS: BP 161/73; PULSE 66; RESP 14; TEMP 36.3; O2SAT 98; BMI 23.0
[2025-04-28 14:13] VITALS: BP 153/64
--- OUTSIDE RECORDS SUMMARY | 2025-04-28 20:03 | XMS_ITS | Clinical Summary ---
Author Organization [facility] Address [address] [place] [address] Phone Care Team Providers Care Arborist Representative Name Role Phone Unavailable Primary Care Provider Unavailabl e Encounters Date Type Department Care Team Description 2025 3:08 PM EDT - 2025 11:59 PM EDT Hospital Encounter [facility] PET Scan [address] [place] [address] Malignant neoplasm of transverse colon [...] Signed Date: 02/04/2025 04:59 ET Workstation ID: [id number] Transcribed By: Self Edit Transcribed Date: 02/03/2025 [...] Signed Date: 02/04/2025 04:59 ET Workstation ID: [id number] Transcribed By: Self Edit Transcribed Date: 02/03/2025 11:20 ET Bety Mahmood MD [facility] Final Result from Last 3 Months Insurance MEDICARE
== END 2025-04-28 14:43 | disposition home or self-care (01) ==
LOC: HO.HMCSH 13:50
PROVIDERS: PCP Internal Medicine; Visit Provider Internal Medicine
DX: Z23 Encounter for immunization (principal); I48.0 Paroxysmal atrial fibrillation

== ENCOUNTER → 2025-04-28 13:50 | Outpatient (BNVA) | payer MEDICARE, OTHER, SELFPAY | PROVIDERS: PCP Internal Medicine; Visit Provider Internal Medicine | DX: I48.0 Paroxysmal atrial fibrillation (principal); N31.9 Neuromuscular dysfunction of bladder, unspecified; C18.9 Malignant neoplasm of colon, unspecified; Z13.31 Encounter for screening for depression; Z13.39 Encounter for screening examination for other mental health and behavioral disorders; N52.9 Male erectile dysfunction, unspecified | CPT/HCPCS: 90471; 96127; 99202 ==

== ENCOUNTER 2025-05-12 13:18 | Outpatient (REF) | payer MEDICARE, OTHER, SELFPAY ==
[2025-05-12 14:25] LABS: Anion Gap 10 (12-20); Blood Urea Nitrogen 21 mg/dL (9-16); Calcium 8.9 mg/dL (8.4-10.2); Carbon Dioxide 25 mmol/L (22-29); Chloride 111 mmol/L (96-108); Estimated Glomerular Filt Rate 36; Potassium 4.5 mmol/L (3.3-5.1); Sodium 141 mmol/L (135-145)
--- OUTSIDE RECORDS SUMMARY | 2025-05-12 15:20 | XMS_ITS | Clinical Summary ---
Author Organization [facility] Address [address] [place] [address] Phone Care Team Providers Care Licensed Surveyor Name Role Phone Unavailable Primary Care Provider Unavailabl e Social History Tobacco Use Types Packs/Day Years [...]
--- OUTSIDE RECORDS SUMMARY | 2025-05-12 15:20 | XMS_ITS | Clinical Summary ---
Author Organization [facility] Facility Address [address] [address] Care Team Providers Care Scale Adjuster Name Role Phone Flako Hernández MD Primary Care Provider [phone] Allergies No known active allergies Medications atorvastatin [...] System Medicare [facility] Care Teams Scale Adjuster Relationship Specialty Start Date End Date Flako Hernández MD [address] [place] [address] PCP - General 05/25/20
== END 2025-05-12 13:19 ==
LOC: HO.LAB 13:18
PROVIDERS: PCP Internal Medicine; Visit Provider Internal Medicine Hypertension Specialist
DX: I10 Essential (primary) hypertension (principal)
CPT/HCPCS: 36415; 80048